=== PATIENT | female | born 1980 | race Caucasian/White ===

== ENCOUNTER 2018-04-06 07:54 | Emergency (ER) | payer MEDICAID, SELFPAY ==
[2018-04-06 07:55] VITALS: BP 94/52; PULSE 98; RESP 22; TEMP 36.7; O2SAT 95; BMI 37.2
--- NOTE | 2018-04-06 08:23 | ED.DCSUM_ITS ---
- ER Visit Summary Date of Service: 04/06/18 Chief Complaint: Cough, congestion, posttussive emesis and diarrhea. History of Present Illness: The patient is a 37 F past medical history of reflux and anxiety. Patient states that she gets this annually. Currently she is working at the [employer]. States the last 5 days she has had a nonproductive cough, nasal congestion, posttussive emesis and diarrhea. Subjectively she has had a fever. She denies shortness of breath. She denies abdominal pain. Physical Examination: Vital signs initial blood pressure is low at 94/52. Temperature 98.1 pulse ox is 95% on room air no signs of hypoxia. Clinically she does not look septic nor dehydrated. She is in no distress. HEENT exam nasal congestion. No purulent discharge. Moist mucous membranes. Posterior pharynx unremarkable. Neck nontender no lymphadenopathy no meningismus. Lungs clear to auscultation bilaterally. No rales, rhonchi or wheezing. Equal and symmetrical. Dry cough. Heart regular rhythm no murmur. Abdomen obese but soft nontender normal bowel sounds no peritoneal signs. She is moving all 4 extremities. Calves are nontender without edema. Back is nontender. Neurologically she is awake and alert with no focal motor deficits. Skin is unremarkable. Test Results: [] Emergency Department Course and Treatment: Patient be treated with a liter of normal saline and Zofran. Treatment Plan: [] Disposition: Discharge Impression: Acute viral URI This note was generated with [employer] dictation software. It may contain incorrect words, spelling, and punctuation that were not noted in review of the chart prior to signing ED Disposition - Plan for ED Patient: Chief Complaint: Shortness of Breath Referrals: Reyna Talavera DO [Primary Care Provider] -
--- NOTE | 2018-04-06 08:23 | ED.DEP ---
ED Disposition - Plan for ED Patient: Disposition: Home or Assisted Living Chief Complaint: Shortness of Breath Instructions: ED Viral Syndrome Prescriptions: Ondansetron [Zofran Odt] 4 mg PO Q2H PRN PRN #7 tab.rapdis PRN Reason: Nausea Referrals: Reyna Talavera DO [Primary Care Provider] - 1 Week if not improving Additional Instructions: Plenty of fluids and rest. Zofran as needed for nausea. Follow-up your doctor if not improving. Stop smoking !!
[2018-04-06] MEDS: 0.9% Normal Saline 1,000 ML 1000 ML IV (08:35)
[2018-04-06] MEDS: Ondansetron 4 MG/2 ML Vial IV (08:35)
[2018-04-06] MEDS: Acetaminophen 500 MG Tablet 1000 MG PO (10:13)
[2018-04-06 10:15] VITALS: BP 122/74; PULSE 87; RESP 18; O2SAT 96
--- NOTE | 2018-04-07 13:16 | CM.ED ---
ED CALLBACK: Follow-up call placed to patient. Patient states I'm definitely feeling a lot better. I just have to get over this cough. Patient states she did fill her prescription for zofran and denies nausea at this time. I instructed her to follow-up with PCP in one week if not improving. Patient states understanding and denies any needs or questions at this time.
== END 2018-04-06 10:18 | disposition home or self-care (01) ==
LOC: ED 08:38
PROVIDERS: Emergency Provider Emergency Medicine
DX: J06.9 Acute upper respiratory infection, unspecified (principal); R19.7 Diarrhea, unspecified; I95.9 Hypotension, unspecified; K21.9 Gastro-esophageal reflux disease without esophagitis; F41.9 Anxiety disorder, unspecified; Z72.0 Tobacco use; Z79.899 Other long term (current) drug therapy
CPT/HCPCS: 71046; 96361; 96374; 99284; J7030; J2405

== ENCOUNTER 2018-08-31 13:41 | Emergency (ER) | payer MEDICAID, SELFPAY ==
[2018-08-31 13:43] VITALS: BP 144/83; PULSE 89; RESP 20; TEMP 36.5; O2SAT 99; BMI 36.8
--- NOTE | 2018-08-31 14:00 | RAD_ITS ---
STUDY: X-RAY CHEST REASON FOR EXAM: Female, 38 years old. Cough. Shortness of breath and chest congestion. TECHNIQUE: Single PA view of the chest. COMPARISON: Comparison is made with prior study dated April 06, 2018. FINDINGS: The lungs are clear and expanded. There is no demonstrated pleural abnormality. Normal size heart. Normal mediastinum and tanja. Normal visualized pulmonary arteries. Normal visualized aortic arch and descending thoracic aorta. Normal visualized thoracic spine. Normal visualized ribs, clavicles, and shoulders. There is no demonstrated abnormality of the visualized soft tissue structures of the upper abdomen. RAD/Chest 1 View (Portable) IMPRESSION: Normal x-ray examination of the chest. Electronically Signed: Michael Jefferson MD at 14:15 EST , Service support ,
--- NOTE | 2018-08-31 15:40 | ED.VISSUMM ---
- ER Visit Summary Date of Service: 08/31/18 Chief Complaint: Cough History of Present Illness: The patient is a 38 F who sees Reyna Clemente. She reports that she has a cough began 4-5 days ago. It is nonproductive. She had subjective fever and chills. She reports that she has had mild shortness of breath and has been wheezing. She does not have an inhaler that she is she reports that she has had multiple episodes of posttussive emesis. She denies any abdominal pain. No nausea otherwise. Physical Examination: Vitals: Stable. Afebrile. General: Well-nourished and well-developed. Head: Normocephalic atraumatic. Neck: Supple, no lymphadenopathy. No JVD. Nontender. Cardiovascular: Regular rate and rhythm. No murmurs. Respiratory: No respiratory distress. Clear to auscultation bilaterally. Abdominal: Soft, nontender, nondistended, normal bowel sounds. No guarding, rebound, or peritoneal signs. Back: Nontender. Extremities: Nontender, no edema. Skin: Normal color, no rash. Neurologic: Alert and oriented ?3. Cranial nerves II through XII are intact. Normal strength and sensation. Psych: Normal affect. Test Results: Chest x-ray shows no acute disease. Emergency Department Course and Treatment: Patient is not wheezing at this time. She is resting comfortably. Treatment Plan: She will be discharged with an albuterol MDI. Instructed to follow-up her primary care physician in 1-2 days if not improving. Return to the emergency department for any worsening symptoms. Disposition: Return to the emergency department for any worsening symptoms. Impression: 1. URI. This note was generated with [employer] dictation software. It may contain incorrect words, spelling, and punctuation that were not noted in review of the chart prior to signing ED Disposition - Plan for ED Patient: Disposition: Home or Assisted Living Instructions: ED Upper Resp Infec No Abx Tx Prescriptions: Albuterol Inhaler [Ventolin Hfa] 2 puff INHALATION Q4H PRN PRN #1 inhaler PRN Reason: Wheezing Referrals: Reyna Talavera, [Primary Care Provider] - 1 Week if not improving
[2018-08-31 15:55] VITALS: RESP 18; O2SAT 98
== END 2018-08-31 15:57 | disposition home or self-care (01) ==
LOC: ED 15:56
PROVIDERS: Emergency Provider Emergency Medicine
DX: J06.9 Acute upper respiratory infection, unspecified (principal); R19.7 Diarrhea, unspecified; F41.9 Anxiety disorder, unspecified; Z72.0 Tobacco use
CPT/HCPCS: 71045; 94760; 99282

== ENCOUNTER 2019-07-14 16:46 | Emergency (ER) | payer MEDICAID, SELFPAY ==
[2019-07-14 16:47] VITALS: BP 120/78; PULSE 76; RESP 15; TEMP 36.7; O2SAT 99; BMI 35.9
--- NOTE | 2019-07-14 16:57 | ED.VIS.GEN ---
History of Present Illness Chief Complaint: Cough Informant: Patient Onset: Days - Onset 3 days ago Context: Sudden Onset Timing: Continuous Quality: Cough, wheezing, change in voice Location: Upper respiratory Current Severity: Mild Maximum Severity: Severe Worsened by: Coughing and walking Relieved by: Nothing Associated Symptoms: Rhinorrhea, congestion and postnasal drainage Narrative: Patient is a 38-year-old woman on no medication and has no past medical history. She is smoker 1 pack/day. She presents with nonproductive cough, change in voice, rhinorrhea, congestion and postnasal drainage. She denies ocular, visual or auditory symptoms. She denies chest discomfort. She does report shortness of breath. She denies leg pain, swelling discoloration. She denies GI symptoms. Prior similar symptoms: No - Past Medical History (1) GERD (gastroesophageal reflux disease) Status: Chronic (2) Nicotine dependence Status: Chronic Past Medical History - Allergies and Home Meds Allergies/Adverse Reactions: Allergies diphenhydramine HCl [From Benadryl] Allergy (Verified 07/14/19 16:51) swelling all over tramadol Allergy (Verified 07/14/19 16:51) Itching Primary Care Physician: Reyna Talavera DO [Primary Care Provider] - Prior records reviewed: Yes Surgical History: - - tubal ligation Lives: Spouse/ Significant Other Smoking Status: Current every day smoker Alcohol: Rare Drugs: None - Family History Maternal Family History: Reports: No pertinent history Paternal Family History: Reports: No pertinent history Review of Systems General: Denies: Chills, Fever, Malaise, Subjective, Sweats, Weight loss, - Eyes: Denies: Visual changes - bilaterally, Blurred Vision - bilaterally ENT: Reports: Rhinorrhea, Sore throat. Denies: Bilateral ear pain, Left ear pain, Right ear pain Cardiovascular: Denies: Chest pain, Palpitations, Heart racing Respiratory: Reports: Dyspnea, Cough, Dyspnea on exertion. Denies: Sputum, Orthopnea, Paroxysmal nocturnal dyspnea Gastrointestinal: Denies: Abdominal pain, Nausea, Vomiting, Diarrhea, Melena, Hematochezia Genitourinary: Denies: Dysuria, Hematuria, Frequency Musculoskeletal: Denies: Myalgias, Arthralgias, Neck pain, Back pain, Swelling, Extremity Pain, -, - Skin: Denies: Rash, Wounds Neurological: Denies: Headache, Weakness, Numbness Allergy: Denies: Uticaria, Swelling of the mouth Physical Exam Vital Signs/Narrative: Vital Signs Temp Pulse Resp BP Pulse Ox 07/14/19 16:47 98.0 F 76 15 120/78 99 Inital Vital Signs reviewed: Yes General: Well nourished, Well developed, No Acute Distress Head: Normocephalic, Atraumatic Eyes: Perrl, EOMI. Negative for: Pale conjunctiva, Scleral icterus ENT: Moist mucous membranes, TM's clear, Nasal congestion Neck: Supple, Nontender, No lymphadenopathy, No JVD, - - Trachea is midline. There is no inspiratory or expiratory stridor. Cardiovascular: Regular rate, Regular rhythm, No murmurs, Normal S1, Normal S2 Respiratory: No distress, Chest nontender, Wheezing - There is increased expiratory phase and wheezing noted throughout Abdomen: Soft, Nontender, Nondistended, Normal bowel sounds Extremities: Nontender, No edema Skin: Normal color, No rash Neurological: Alert, Oriented x3, Cranial nerves II-XII grossly intact, Normal Strength, Normal Sensation, Normal Gait Psychological: Normal affect, Normal Mood Diagnostic/Tx/Re-eval - Medical Decision Making Symptoms are consistent with a viral upper respiratory infection/trach colitis. Since she is wheezing she was treated with prednisone 60 mg p.o., DuoNeb and albuterol aerosol treatment. Since she is not febrile, tachycardic tachypneic x-ray was not obtained. Patient was reassessed at 1800. She has slight wheeze with forced expiration only. She has improved. Patient was informed that she is a smoker she may have a cough up to 4 weeks and may be ill for another 10+ days. ED Disposition - Plan for ED Patient: Disposition: Home or Assisted Living Diagnosis: Acute bronchitis with bronchospasm Instructions: BRONCHITIS with Wheezing (Adult) Prescriptions: predniSONE tablet 60 mg PO DAILY #15 tab Prescription Printed Albuterol Inhaler [Ventolin Hfa] 2 puff INHALATION Q4H PRN PRN #1 inhaler PRN Reason: Wheezing Prescription Printed Referrals: Reyna Talavera DO [Primary Care Provider] - 1 Week if not improving
[2019-07-14] MEDS: Ipratropium/Albuterol Sulfate 3 ML AMPUL.NEB INHALATION (17:07)
[2019-07-14 17:08] VITALS: PULSE 76; RESP 18
[2019-07-14] MEDS: predniSONE 20 MG Tablet 60 MG PO (17:22)
[2019-07-14] MEDS: Albuterol 2.5 MG/3 ML VIAL.NEB. INHALATION ×2 (17:27→17:36)
[2019-07-14 17:30] VITALS: RESP 20; O2SAT 100
[2019-07-14 18:18] VITALS: BP 135/77; PULSE 86; RESP 15; O2SAT 97
== END 2019-07-14 18:19 | disposition home or self-care (01) ==
PROVIDERS: Emergency Provider Emergency Medicine
DX: J20.9 Acute bronchitis, unspecified (principal); K21.9 Gastro-esophageal reflux disease without esophagitis; F17.200 Nicotine dependence, unspecified, uncomplicated
CPT/HCPCS: 94640; 99251; 99283; G0463

== ENCOUNTER 2020-03-10 14:52 | Emergency (ER) | payer MEDICAID, SELFPAY ==
[2020-03-10 14:53] VITALS: BP 149/97; PULSE 75; RESP 17; TEMP 36.7; O2SAT 99; BMI 34.4
--- NOTE | 2020-03-10 15:03 | ED.VIS.GEN ---
History of Present Illness Informant: Patient Onset: Days - 4 days Context: Gradual Onset Timing: Continuous Quality: Sharp Location: Entire head Current Severity: Severe Maximum Severity: Severe Worsened by: Nothing Relieved by: Nothing Associated Symptoms: Photophobia and nausea Narrative: 39-year-old female history of migraine headaches presents to the emergency department with a headache. Started 4 days ago. Is constant. It is diffuse and sharp. She states it feels similar to her previous migraine headaches. It is gradually worsened. Is not the worst headache of her life. No head trauma. She complains of associated nausea and photophobia. No neck pain. She is not lightheaded or dizzy. No fevers. No numbness tingling or weakness. No difficulty with speech or ambulation. She is not on blood thinners. No fevers or upper respiratory symptoms. No neck pain. No rash. Prior similar symptoms: Yes Recent Illness/Hospitalization: No <Gal Alegria - Last Filed: 03/10/20 15:03> <Krish Monge - Last Filed: 03/10/20 16:31> Chief Complaint: Headache Past Medical History Prior records reviewed: Yes Past Medical History: - - Migraine headaches years Surgical History: - - tubal ligation Lives: With Family Smoking Status: Current every day smoker Alcohol: Occasional Drugs: None - Family History Maternal Family History: Reports: No pertinent history Paternal Family History: Reports: No pertinent history <aGl Alegria - Last Filed: 03/10/20 15:03> <Krish Monge - Last Filed: 03/10/20 16:31> - Allergies and Home Meds Allergies/Adverse Reactions: Allergies diphenhydramine HCl [From Benadryl] Allergy (Verified 03/10/20 14:53) swelling all over tramadol Allergy (Verified 03/10/20 14:53) Itching Primary Care Physician: eRyna Talavera DO [Primary Care Provider] - Review of Systems All systems negative except as indicated General: Denies: Chills, Fever, Sweats Eyes: Denies: Visual changes - bilaterally, Blurred Vision - bilaterally, Diplopia ENT: Denies: Rhinorrhea, Sore throat Cardiovascular: Denies: Chest pain, Palpitations Respiratory: Denies: Dyspnea, Cough, Dyspnea on exertion Gastrointestinal: Denies: Abdominal pain, Nausea, Vomiting, Diarrhea, Melena, Hematochezia Genitourinary: Denies: Dysuria, Hematuria, Frequency Musculoskeletal: Denies: Neck pain, Back pain, Extremity Pain Skin: Denies: Rash, Abscess, Abrasions, Wounds Neurological: Reports: Headache. Denies: Weakness, Parasthesia, Numbness <Gal Alegria - Last Filed: 03/10/20 15:03> Physical Exam Vital Signs/Narrative: Vital Signs Temp Pulse Resp BP Pulse Ox 03/10/20 14:53 98.1 F 75 17 149/97 H 99 Inital Vital Signs reviewed: Yes General: Well nourished, Well developed, No Acute Distress Head: Normocephalic, Atraumatic Eyes: Perrl, EOMI ENT: Moist mucous membranes, No rhinorrhea Neck: Supple, Nontender Cardiovascular: Regular rate, Regular rhythm, No murmurs Respiratory: No distress, CTA bilaterally, Chest nontender Abdomen: Soft, Nontender, Nondistended, Normal bowel sounds Back: Nontender, Normal Inspection Extremities: Nontender, No edema Skin: Normal color, No rash Neurological: Alert, Oriented x3, Cranial nerves II-XII grossly intact, Normal Strength, Normal Sensation, Normal Gait Psychological: Normal affect, Normal Mood <Gal Alegria - Last Filed: 03/10/20 15:03> Vital Signs/Narrative: Vital Signs Temp Pulse Resp BP Pulse Ox 03/10/20 14:53 98.1 F 75 17 149/97 H 99 <Krish Monge - Last Filed: 03/10/20 16:31> Diagnostic/Tx/Re-eval - Medical Decision Making Seen and evaluated independently and in conjunction with physician perioperative assistant. Agree with notes above unless documented otherwise. After Toradol and Reglan with IV fluids, patient headache is completely gone she feels much better. Neurologic exam: Normal motor and sensory, normal cranial nerves II-XII <Krish Monge - Last Filed: 03/10/20 16:31> ED Disposition <Gal Alegria - Last Filed: 03/10/20 15:03> <Krish Monge - Last Filed: 03/10/20 16:31> - Plan for ED Patient: Disposition: Home or Assisted Living Diagnosis: Migraine headache Instructions: ED, Migraine (Classical) Referrals: Reyna Talavera, [Primary Care Provider] - As Needed
[2020-03-10] MEDS: 0.9% Normal Saline 1,000 ML 999 ML IV (15:22)
[2020-03-10] MEDS: Ketorolac 30 MG/ML Syringe IV (15:23)
[2020-03-10] MEDS: Metoclopramide 10 MG/2 ML Vial IV (15:23)
== END 2020-03-10 17:00 | disposition home or self-care (01) ==
PROVIDERS: Emergency Provider Physician Assistant Medical
DX: G43.909 Migraine, unspecified, not intractable, without status migrainosus (principal); F17.200 Nicotine dependence, unspecified, uncomplicated; Z79.899 Other long term (current) drug therapy
CPT/HCPCS: 96361; 96374; 96375; 99283; J7030; A4216

== ENCOUNTER 2021-05-28 08:22 | Emergency (ER) | payer MEDICAID, SELFPAY ==
[2021-05-28 08:23] VITALS: BP 131/89; PULSE 94; RESP 8; TEMP 35.7; O2SAT 100; BMI 34.8
--- NOTE | 2021-05-28 08:56 | EX.ED.UPPERE ---
HPI History of Present Illness Chief Complaint: Upper Extremity Injury Detail of Chief Complaint: Right posterior shoulder atraumatic pain. Informant: patient Occured/Mechanism Mechanism/Context: No injury, No blunt trauma and Yes unknown Onset/Context/Timing Onset: Days Context: Gradual Onset Timing: Continuous Quality of Pain: Sharp and Aching Current Severity: Mild Maximum Severity: Moderate Associated Symptoms Associated Symptoms: Negative for Parasthesia, Weakness and Loss of Funtion Narrative Narrative: 40-year-old female works at [employer]. States several days ago she woke up with stiffness in her upper extremities and shoulders. She cannot work today with movement. But now is having increased pain in her posterior right shoulder worse with movement. No fever or chills. No trauma. No history of any type of surgery to her right upper extremity. Prior similar symptoms: No Recent Illness/Hospitalization: No PFSH PFSH Medical History Absence seizure disorder Anxiety Home Medications escitalopram oxalate 20 mg PO DAILY 06/16/16 [History Last Taken Unknown] albuterol sulfate [Ventolin HFA] 2 puff INHALATION Q4H PRN PRN #1 inhaler 08/31/18 [Rx Last Taken Unknown] pantoprazole 20 mg PO DAILY 08/31/18 [History Last Taken Unknown] albuterol sulfate 2 puff INHALATION Q4H PRN PRN #1 inhaler 07/14/19 [Rx Last Taken Unknown] prednisone 60 mg PO DAILY #15 tab 07/14/19 [Rx Last Taken Unknown] metaxalone [Skelaxin] 800 mg PO TID 7 Days #21 tab 05/28/21 [Rx Last Taken Unknown] Allergy/AdvReac Type Severity Reaction Status Date / Time diphenhydramine HCl Allergy swelling Verified 03/10/20 14:53 [From Benadryl] all over tramadol Allergy Itching Verified 03/10/20 14:53 Social History Smoking Status: Current every day smoker tobacco type: cigarettes ROS ROS ED ROS Narrative Muscle aches. Stiffness. Review of Systems ROS Unobtainable: Denies due to encephalopathy Constitutional Constitutional ED: Denies fever(s) Eyes Eyes: Denies change in vision ENT ENT ED: Denies ear pain or rhinorrhea Cardiovascular Cardiovascular: Denies chest pain Respiratory/Chest Respiratory/Chest: Denies cough or dyspnea Gastrointestinal Gastrointestinal: Denies abdominal pain, diarrhea, nausea or vomiting Genitourinary Genitourinary ED: Denies dysuria Musculoskeletal Musculoskeletal: Reports back pain and myalgias Integumentary Denies rash Neurologic Neurologic: Denies headache(s) Psychiatric Psychiatric: Denies depression Endocrine Endocrinology: Denies polyuria Hematologic/Lymphatic Hematologic/Lymphatic: Denies easy bruising Allergic/Immunologic Allergic/Immunologic ED: Denies urticaria EXAM Physical Exam Narrative Exam Narrative: 40-year-old female no acute distress vital signs stable afebrile. HEENT exam normal moist with membranes. Neck nontender no lymphadenopathy. Lungs clear to auscultation. Heart regular rhythm. Abdomen soft nontender. Obese. Moving all 4 extremities. Neurovascular intact. Back exam spine is nontender she has obvious muscle spasm exquisite tenderness to her right posterior shoulder between the shoulder blade and the spine. Left side of her back and lower back nontender. Neurologically she is awake and alert. Const Vital Signs: 05/28/21 08:23 Temperature 96.3 F L Temperature Source Temporal Pulse Rate 94 Respiratory Rate 8 L Blood Pressure 131/89 H Blood Pressure Mean 103 Pulse Ox 100 Oxygen Delivery Method Room Air Positive well nourished, well developed and obese; Negative for cachectic, contractures or unkempt General Appearance ED: well developed and NAD; Negative for unkempt, cachectic, contractures, cyanotic or diaphoretic Nutritional Appearance: obese; Negative for cachectic HEENT Reports moist mucous membranes normocephalic and atraumatic Eyes PERRL and EOMs intact bilaterally Neck full ROM and supple General: Negative for tenderness Chest Wall inspection of chest normal and palpation of chest normal Resp normal respiratory effort and clear to auscultation bilaterally Effort and Inspection: Negative for pain with movement Auscultation: Negative for rales, rhonchi or wheezes Cardio regular rate, regular rhythm, S1 normal heart sound, S2 normal heart sound and no murmurs GI non-tender and non-distended Auscultation: normoactive bowel sounds Palpation: soft; Negative for tender or guarding Back/Spine no CVA tenderness Back/Spine Narrative: Tenderness to the soft tissues of her right upper back consistent with muscle spasm. Extremity normal to inspection and full ROM General Extremety ED: Negative for edema or other findings General Extremity: Negative for edema or other findings Neuro oriented x3, CN's II-XII intact bilaterally, moves all extremities and no focal motor deficits Sensorium / Orientation: alert, oriented to person, oriented to place and oriented to time; Negative for orientation impaired, lethargic or stuporous Motor Exam: strength 5/5 throughout Psych mental status grossly normal Appearance: Negative for unkempt Mood & Affect: Negative for depressed or tearful Skin General Skin Exam: Negative for petechiae Lesions: no lesions Rashes: no rashes Trauma: no lacerations or abrasions; Negative for abrasion, laceration or puncture MDM MDM MDM Narrative Medical decision making narrative: 40-year-old female right posterior musculoskeletal shoulder pain for muscle spasm. Will be given 1 p.o. Valium here. She took off work today. She has a ride home. She will be placed on Skelaxin and continue use of Naprosyn at home. Discharge Plan Triage Chief Complaint: Upper Extremity Injury ED Provider: Riaz Logan Dx/Rx/DC Orders Clinical Impression: Muscle spasm Instructions: ED Back Spasm, No Trauma Prescriptions: New metaxalone [Skelaxin] 800 mg tablet 800 mg PO TID 7 Days Qty: 21 RF: 0 No Action escitalopram oxalate 10 MG tablet 20 mg PO DAILY RF: 0 pantoprazole 20 MG tablet 20 mg PO DAILY RF: 0 albuterol sulfate [Ventolin HFA] 1 INHALER inhaler 2 puff inhalation Q4H PRN PRN (Reason: Wheezing) Qty: 1 RF: 0 prednisone 20 MG tablet 60 mg PO DAILY Qty: 15 RF: 0 albuterol sulfate 1 INHALER inhaler 2 puff inhalation Q4H PRN PRN (Reason: Wheezing) Qty: 1 RF: 0 Primary Care Provider: Reyna Talavera Referrals: Reyna Talavera, [Primary Care Provider] - 1 Week if not improving Activity Restrictions/Additional Instructions: Pain is caused by muscle spasm. Hot shower and massage to your upper back. Take naproxen or Motrin for pain and inflammation. Skelaxin as a muscle relaxant. You were given Valium in the emergency department today. Do not drive for the next 10 hours. Patient progressively improved. Off work today. Disposition Disposition: Home, Self Care
[2021-05-28] MEDS: diazePAM 5 MG Tablet PO (09:08)
== END 2021-05-28 09:10 | disposition home or self-care (01) ==
PROVIDERS: Emergency Provider Emergency Medicine
DX: M62.838 Other muscle spasm (principal); G40.A09 Absence epileptic syndrome, not intractable, without status epilepticus; F41.9 Anxiety disorder, unspecified; E66.9 Obesity, unspecified; F17.210 Nicotine dependence, cigarettes, uncomplicated; Z79.52 Long term (current) use of systemic steroids; Z79.899 Other long term (current) drug therapy
CPT/HCPCS: 99283

== ENCOUNTER 2021-07-30 19:54 | Emergency (ER) | payer MEDICAID, SELFPAY ==
[2021-07-30 19:55] VITALS: BP 127/92; PULSE 84; RESP 16; TEMP 36.8; O2SAT 99; BMI 34.7
[2021-07-31 01:45] VITALS: PULSE 79; RESP 18; O2SAT 100
--- NOTE | 2021-07-31 02:13 | RAD_ITS ---
STUDY: X-RAY CHEST REASON FOR EXAM: Female, 40 years old. cough TECHNIQUE: Single AP portable view of the chest. COMPARISON: None. FINDINGS: The lungs are clear and expanded. There is no demonstrated pleural abnormality. Normal size heart. Normal mediastinum and tanja. Normal visualized pulmonary arteries. Normal visualized aortic arch and descending thoracic aorta. Normal visualized thoracic spine. Normal visualized ribs, clavicles, and shoulders. There is no demonstrated abnormality of the visualized soft tissue structures of the upper abdomen. RAD/Chest 1 View (Portable) IMPRESSION: Normal x-ray examination of the chest. Electronically Signed: Lydia Flor MD at 3:15 EST Tel , Service support ,
[2021-07-31] MEDS: dexAMETHasone 4 MG Tablet 6 MG PO (02:55)
[2021-07-31] MEDS: oxyCODONE 5 MG Tablet 10 MG PO (02:55)
--- NOTE | 2021-07-31 03:34 | EDS_ITS ---
HPI History of Present Illness Chief Complaint: General Illness Narrative Narrative: Patient is a 40-year-old female who states that over the past 4 to 5 days she has been having generalized fatigue congestion sore throat cough and headache. She states that she had Covid about 1 year ago and this feels similar nature. She states she informed her work that she was not feeling well and they requested that she have it a negative Covid test prior to returning to work. Therefore at this time as patient has concerned she may have repeat Covid infection comes in for evaluation [facility] Medical History Absence seizure disorder Anxiety Home Medications escitalopram oxalate 20 mg PO DAILY 06/16/16 [History Last Taken Unknown] albuterol sulfate [Ventolin HFA] 2 puff INHALATION Q4H PRN PRN #1 inhaler 08/31/18 [Rx Last Taken Unknown] pantoprazole 20 mg PO DAILY 08/31/18 [History Last Taken Unknown] albuterol sulfate 2 puff INHALATION Q4H PRN PRN #1 inhaler 07/14/19 [Rx Last Taken Unknown] prednisone 60 mg PO DAILY #15 tab 07/14/19 [Rx Last Taken Unknown] metaxalone [Skelaxin] 800 mg PO TID 7 Days #21 tab 05/28/21 [Rx Last Taken Unknown] dexamethasone [Decadron] 6 mg PO DAILY 10 Days #10 tab 07/31/21 [Rx Last Taken Unknown] promethazine-codeine 5 ml PO Q6H PRN 7 Days #140 ml 07/31/21 [Rx Last Taken Unknown] promethazine-codeine 5 ml PO Q6H PRN 7 Days #140 ml 07/31/21 [Rx Last Taken Unknown] Allergy/AdvReac Type Severity Reaction Status Date / Time diphenhydramine HCl Allergy swelling Verified 03/10/20 14:53 [From Benadryl] all over tramadol Allergy Itching Verified 03/10/20 14:53 Social History Smoking Status: Current every day smoker tobacco type: cigarettes ROS ROS ED Constitutional Constitutional ED: Reports chills, fever(s) and subjective ENT ENT ED: Reports rhinorrhea and sore throat Cardiovascular Cardiovascular: Denies chest pain Respiratory/Chest Respiratory/Chest: Reports cough; Denies dyspnea Gastrointestinal Gastrointestinal: Reports nausea; Denies abdominal pain, diarrhea or vomiting Genitourinary Genitourinary ED: Denies dysuria Musculoskeletal Musculoskeletal: Reports myalgias Integumentary Denies rash Neurologic Neurologic: Reports headache(s) Hematologic/Lymphatic Hematologic/Lymphatic: Denies easy bleeding or easy bruising EXAM Physical Exam Const Vital Signs: 07/30/21 19:55 07/31/21 01:45 Temperature 98.3 F Temperature Source Temporal Pulse Rate 84 79 Respiratory Rate 16 18 Respiratory Pattern Normal Blood Pressure 127/92 H Blood Pressure Mean 103 Pulse Ox 99 100 Oxygen Delivery Method Room Air Room Air Positive well nourished and well developed General Appearance ED: well developed HEENT Reports moist mucous membranes HEENT Narrative: There is cobblestoning the posterior pharynx consistent with sinus drainage but no airway edema or compromise Eyes PERRL and EOMs intact bilaterally Neck supple Neck Narrative: Positive anterior cervical lymphadenopathy Resp normal respiratory effort and clear to auscultation bilaterally Cardio regular rate and regular rhythm GI normal to inspection, nondistended, normoactive bowel sounds, non-tender, non- distended and no masses Auscultation: normoactive bowel sounds Palpation: soft Extremity normal to inspection Neuro oriented x3 and CN's II-XII intact bilaterally Sensorium / Orientation: alert Motor Exam: strength 5/5 throughout Psych mental status grossly normal Skin no rashes or lesions noted MDM MDM MDM Narrative Medical decision making narrative: Patient presented to the ER in no acute distress satting in the high 90s on room air. Her constellation of symptoms is most consistent with Covid infection. A rapid Covid swab was obtained as well as chest x-ray. The x-ray revealed no acute infiltrate and Covid test is positive consistent with her symptoms. However at this time as she is not hypoxic there is no need for admission and patient can be discharged home with symptomatic care Radiography Diagnostic Testing: Clinical Impression(s) from Imaging Studies Chest X-Ray 07/31/21 02:13 IMPRESSION: Normal x-ray examination of the chest. Electronically Signed: Lydia Flor MD at 3:15 EST Tel , Service support , Discharge Plan Triage Chief Complaint: General Illness ED Provider: Andes,Colby Dx/Rx/DC Orders Clinical Impression: COVID-19 Instructions: Coronavirus Disease 2019 (COVID-19): Caring for Yourself or O thers Prescriptions: New dexamethasone [Decadron] 6 mg tablet 6 mg PO DAILY 10 Days Qty: 10 RF: 0 promethazine-codeine 6.25-10 mg/5 mL syrup 5 ml PO Q6H PRN (Reason: cough) 7 Days Qty: 140 RF: 0 promethazine-codeine 6.25-10 mg/5 mL syrup 5 ml PO Q6H PRN (Reason: cough) 7 Days Qty: 140 RF: 0 No Action escitalopram oxalate 10 MG tablet 20 mg PO DAILY RF: 0 pantoprazole 20 MG tablet 20 mg PO DAILY RF: 0 albuterol sulfate [Ventolin HFA] 1 INHALER inhaler 2 puff inhalation Q4H PRN PRN (Reason: Wheezing) Qty: 1 RF: 0 prednisone 20 MG tablet 60 mg PO DAILY Qty: 15 RF: 0 albuterol sulfate 1 INHALER inhaler 2 puff inhalation Q4H PRN PRN (Reason: Wheezing) Qty: 1 RF: 0 metaxalone [Skelaxin] 800 mg tablet 800 mg PO TID 7 Days Qty: 21 RF: 0 Primary Care Provider: Reyna Talavera Referrals: Reyna Talavera DO [Primary Care Provider] - Disposition Disposition: Home, Self Care Discharge Date/Time: 07/31/21 03:53
[2021-07-31 03:52] VITALS: RESP 16
== END 2021-07-31 03:53 | disposition home or self-care (01) ==
PROVIDERS: Emergency Provider Emergency Medicine; Visit Provider Emergency Medicine
DX: U07.1 COVID-19 (principal); F41.9 Anxiety disorder, unspecified; F17.210 Nicotine dependence, cigarettes, uncomplicated; Z79.52 Long term (current) use of systemic steroids; Z79.899 Other long term (current) drug therapy; Z86.16 Personal history of COVID-19
CPT/HCPCS: 71045; 87426; 99283

== ENCOUNTER 2023-12-01 06:34 | Emergency (ER) | payer MEDICAID, SELFPAY ==
[2023-12-01 06:36] VITALS: BP 140/91; PULSE 92; RESP 16; TEMP 36.5; O2SAT 99; BMI 33.9
--- NOTE | 2023-12-01 07:03 | RAD_ITS ---
STUDY: X-RAY - LEFT KNEE REASON FOR EXAM: Female, 43 years old. Pain. TECHNIQUE: 4 views of the left knee. COMPARISON: None. FINDINGS: Normal visualized distal femur. Normal visualized proximal tibia and fibula. Normal proximal tibiofibular articulation. There is no demonstrated fracture. There is minimal degenerative arthrosis of the medial femorotibial compartment. There is minimal degenerative arthrosis of the lateral femorotibial compartment. Normal patellofemoral articulation. The soft tissue structures are unremarkable. RAD/Knee 4 or More Views IMPRESSION: Minimal degenerative arthrosis of the medial and lateral femorotibial compartments. No demonstrated fracture. Electronically Signed: Yoseph Mercado MD at 8:31 EDT ,
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
[2023-12-01] MEDS: HYDROcodone Bitartrate/Apap 5/325 Tablet PO (07:43)
[2023-12-01 09:47] VITALS: BP 134/66; PULSE 72; RESP 15; TEMP 36.1; O2SAT 100
== END 2023-12-01 09:49 | disposition home or self-care (01) ==
PROVIDERS: Emergency Provider Student in an Organized Health Care Education/Training Program; Visit Provider Student in an Organized Health Care Education/Training Program
DX: S80.02XA Contusion of left knee, initial encounter (principal); W20.8XXA Other cause of strike by thrown, projected or falling object, initial encounter; F17.210 Nicotine dependence, cigarettes, uncomplicated; Z79.899 Other long term (current) drug therapy
CPT/HCPCS: 73560; 73564; 99283

== ENCOUNTER 2023-12-25 14:52 | Outpatient (RCR) | payer MEDICAID, SELFPAY ==
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
--- NOTE | 2024-02-25 09:01 | HP.PT.NRP ---
Patient Information Patient Information: GARRISON PRATT was seen in my office for initial evaluation on 12/25/23. The following Plan of Care was established for this patient: POC Established Initial Frequency: 2x /Week Initial Duration: 4 Weeks Anticipated Interventions Patient/Client Instruction: Educate patient on: Benefits of Fitness Program For the Purpose of:: To improve muscle performance and motor function Therapeutic Exercise to Include: Strength training, Endurance training, Balance training, Coordination, Agility training, Body mechanics, Postural training, Flexibilty training, Gait and locomotor training, Neuromotor development, Dynamic Lumbar Stabilization and Scapular Strength/Stabilization For the Purpose of:: To improve muscle performance and motor function TENS: Yes Cryotherapy (ice pack, ice massage): Yes Thermo therapy (hot pack): Yes Ultrasound (thermal/non thermal): Yes Last Seen Last Seen: This patient was last seen in our office . Pertinent comments regarding their Physical therapy will appear below: Patient has not attended since initial evaluation- appropriate to be d/c at this time At this point I will be discontinuing this patient from physical therapy. I would be happy to see this patient again in the future if found appropriate by the physician. Thank you! MARCELLA ZamanT
== END 2023-12-25 19:00 | disposition home or self-care (01) ==
LOC: PT 14:52
PROVIDERS: Referring Provider Orthopaedic Surgery Sports Medicine; Visit Provider Orthopaedic Surgery Sports Medicine
DX: M25.562 Pain in left knee (principal)
CPT/HCPCS: 97162

== ENCOUNTER → 2023-12-31 | Outpatient (CLI) | payer MEDICAID, SELFPAY ==
--- NOTE | 2023-12-31 13:29 | NEURO_ITS ---
NCS and/or EMG Patient Report Ordering Doctor: William Correia DATE OF SERVICE: 12/31/23 Kath presents for electrodiagnostic testing of the upper limbs. She reports numbness and tingling in both hands and frequently drops objects. Electrodiagnostic findings: Median motor nerve demonstrates normal distal laten cy, amplitude and conduction velocity bilaterally. Ulnar motor responses within normal limits, including conduction across the elbow. Normal median and ulnar F?waves. Sensory responses are within normal limits bilaterally. Needle EMG testing was performed in the upper limbs. All muscles tested showed no evidence of denervation with normal motor unit action potentials. Electrodiagnostic assessment: This is a normal electrodiagnostic study of the upper limbs. There is no electrodiagnostic evidence for peripheral neuropathy, including carpal tunnel syndrome. There is no electrodiagnostic evidence for cervical radiculopathy. Multi Select Codes Neurology Neurology Interp Codes: 08343-01 Musc test done w/n test comp (interp) and 76188-37 Nrv cndj test 13/> studies (interp)
== END | disposition home or self-care (01) ==
LOC: PSN 12:21
PROVIDERS: Referring Provider Orthopaedic Surgery Sports Medicine; Visit Provider Orthopaedic Surgery Sports Medicine
DX: G56.03 Carpal tunnel syndrome, bilateral upper limbs (principal)
CPT/HCPCS: 95886; 95913

== ENCOUNTER 2024-09-16 11:48 | Emergency (ER) | payer MEDICAID, SELFPAY ==
[2024-09-16 11:48] VITALS: BP 138/80; PULSE 81; RESP 14; TEMP 37.2; O2SAT 99
[2024-09-16 13:19] VITALS: O2SAT 96
--- NOTE | 2024-09-16 14:09 | EDS_ITS ---
HPI HPI - URI History of Present Illness Chief Complaint: Cough Informant: patient Onset/Context/Timing Onset: Days Context: Gradual Onset Timing: Continuous Current Severity: Moderate Maximum Severity: Moderate Associated Symptoms Associated Symptoms: Positive for Nasal Congestion, Nausea, Vomiting, Diarrhea and Productive Cough (White.) Narrative Narrative: 44-year-old female no seen past medical history of anxiety. States she has had a 4-day history of nausea vomiting diarrhea and a cough of white sputum. 7-year-old home with similar. Denies any abdominal pain. No dysuria. Body aches. Fever and chills. Prior similar symptoms: Yes Recent Illness/Hospitalization: No ROS ROS ED ROS Narrative Cough. White sputum. Nausea vomiting diarrhea. Fever and chills. Constitutional Constitutional ED: Reports chills and fever(s) Eyes Eyes: Denies blurry vision ENT ENT ED: Denies ear pain Cardiovascular Cardiovascular: Denies chest pain Respiratory/Chest Respiratory/Chest: Reports sputum; Denies cough Gastrointestinal Gastrointestinal: Reports diarrhea, nausea and vomiting; Denies abdominal pain, constipation or melena Genitourinary Genitourinary ED: Denies dysuria or hematuria Musculoskeletal Musculoskeletal: Denies arthralgias or back pain Integumentary Denies abscess Neurologic Neurologic: Denies headache(s) Psychiatric Psychiatric: Reports anxiety; Denies depression Endocrine Endocrinology: Denies cold intolerance Hematologic/Lymphatic Hematologic/Lymphatic: Denies easy bleeding, easy bruising or lymphadenopathy Allergic/Immunologic Allergic/Immunologic ED: Denies mouth swelling, tongue swelling or urticaria PFSH [facility] Medical History Bilateral carpal tunnel syndrome Left knee pain Absence seizure disorder Anxiety Home Medications ?Medication ?Instructions ?Recorded ?Last Taken ?Type escitalopram oxalate 10 mg tablet 20 mg PO DAILY 06/16 Unknown History albuterol sulfate 90 mcg/actuation 2 puff inhalation Q 4H PRN PRN 08/31/18 Unknown Rx aerosol inhaler (Ventolin HFA) Wheezing ##1 albuterol sulfate 90 mcg/actuation 2 puff inhalation Q 4H PRN PRN 07/14/19 Unknown Rx aerosol inhaler Wheezing ##1 dexamethasone 6 mg tablet 6 mg PO DAILY 10 days #10 ta bs 07/31/21 Unknown Rx (Decadron) pantoprazole 20 mg tablet,delayed 20 mg PO DAILY PRN 0 12/16/23 Unknown History release ondansetron 4 mg disintegrating 4 mg PO Q6H PRN nausea and 09/16/24 Unknown Rx tablet vomiting #10 tabs Allergy/AdvReac Type Severity Reaction Status Date / Time diphenhydramine HCl (From Allergy swelling Verified 09/16/24 11:49 Benadryl) all over tramadol Allergy Itching Verified 09/16/24 11:49 Family History Mother Hypertension Myocardial infarction Grandfather Hypertension Grandmother Hypertension Heart disease triple bypass Surgical History Hx of tubal ligation Social History household members: spouse, family and children Smoking Status: Current every day smoker tobacco type: cigarettes alcohol intake: never EXAM Physical Exam Narrative Exam Narrative: 44-year-old female sitting upright in a hallway chair due to high volume in the emergency department. Vital signs are stable afebrile. Pulse ox 9 9% on room air no signs hypoxia. Patient does not look septic or toxic. H EENT exam pupils round react light. Dry mucous membranes. Neck nontender no lymphadenopathy. Back nontender. Lungs clear to auscultation bilaterally. No rales nor rhonchi no wheezing. Dry cough. Heart regular rhythm rate about 80 no murmur. Abdomen soft, nontender, nondistended, normal bowel sounds without peritoneal signs. Patient moving all 4 extremities. Nontender no edema. Normal strength. Awake and alert no focal motor deficits Const Vital Signs: 09/16/24 11:48 09/16/24 13:19 Temperature 99 F Temperature Source Temporal Pulse Rate 81 Respiratory Rate 14 Respiratory Effort Normal Non-Labored Respiratory Depth Normal Respiratory Pattern Normal Blood Pressure 138/80 H Blood Pressure Mean 99 Pulse Ox 99 Oxygen Delivery Method Room Air Room Air Positive well nourished and well developed; Negative for cachectic or contrac tures General Appearance ED: well developed and NAD; Negative for cachectic, contractures, cyanotic, diaphoretic or pallor Nutritional Appearance: Negative for cachectic HEENT Reports dry mucous membranes normocephalic and atraumatic Mouth ED: Yes dry mucous membranes Mouth: dry mucous membranes Throat: posterior oropharynx normal Eyes PERRL and EOMs intact bilaterally General Eye ED: Negative for pale conjunctiva or scleral icterus Neck no lymphadenopathy, supple, no meningeal signs and no JVD General: Negative for anterior neck swelling or lymphadenopathy Resp normal respiratory effort and clear to auscultation bilaterally Effort and Inspection: Negative for retractions Auscultation: Negative for rales, rhonchi, wheezes or diminished lung sounds Cardio S1 normal heart sound, S2 normal heart sound and no murmurs Rate: regular rate Rhythm: regular rhythm GI non-tender, non-distended and no masses Inspection: Negative for abdominal distention Auscultation: normoactive bowel sounds Palpation: soft; Negative for tender or guarding Back/Spine no CVA tenderness and normal ROM General Back: Negative for CVA tenderness Cervical Spine: Negative for cervical spine tenderness Thoracic Spine / Upper Back: Negative for thoracic spinal tenderness Lumbar Spine / Lower Back: Negative for lumbar spinal tenderness Sacrum: Negative for tenderness Extremity normal to inspection and full ROM General Extremety ED: Negative for cyanosis or tenderness General Extremity: Negative for cyanosis Neuro oriented x3 and CN's II-XII intact bilaterally Sensorium / Orientation: alert, oriented to person, oriented to place and oriented to time; Negative for orientation impaired, lethargic or stuporous Motor Exam: strength 5/5 throughout Psych mental status grossly normal Appearance: Negative for other Attitude: No agitated Mood & Affect: Negative for depressed, anxious or tearful Skin General Skin Exam: Negative for jaundice or pallor Lesions: no lesions Rashes: no rashes Trauma: Negative for abrasion, laceration or puncture MDM MDM MDM Narrative Medical decision making narrative: 44-year-old URI symptoms flu a positive. Does not need any labs. Does not need a chest x-ray. Lungs are clear. She did request IV fluids including looks dehydrated. Should be given 4 Zofran IV. A liter normal saline. P.o. fluid challenge and discharged home with prescription for Zofran. Lab Data Attestation: I reviewed the patient's lab results. Lab results narrative: Flu a positive. COVID and RSV negative. Discharge Plan Triage Chief Complaint: Cough ED Provider: Riaz Logan Dx/Rx/DC Orders Clinical Impression: Influenza A, Acute dehydration, Vomiting, Diarrhea Instructions: ED Influenza (Adult), ED Vomiting (Adult) Prescriptions: New ondansetron 4 mg tablet,disintegrating 4 mg PO Q6H PRN (Reason: nausea and vomiting) Qty: 10 0RF No Action escitalopram oxalate 10 MG tablet 20 mg PO DAILY albuterol sulfate [Ventolin HFA] 1 INHALER inhaler 2 puff inhalation Q4H PRN PRN (Reason: Wheezing) Qty: 1 0RF pantoprazole 20 mg tablet,delayed release (DR/EC) 20 mg PO DAILY PRN albuterol sulfate 1 INHALER inhaler 2 puff inhalation Q4H PRN PRN (Reason: Wheezing) Qty: 1 0RF dexamethasone [Decadron] 6 mg tablet 6 mg PO DAILY 10 Days Qty: 10 0RF Primary Care Provider: Reyna Talavera Referrals: Reyna Talavera, [Primary Care Provider] - 3-5 Days if not improving Activity Restrictions/Additional Instructions: Zofran as needed for nausea. Imodium as needed for diarrhea Plenty of fluids and rest. Increase diet slowly as tolerated. Follow-up with your primary care provider as needed or return if feeling worse. Unable to keep fluids down. Print Language: Japanese Disposition Disposition: Home, Self Care
[2024-09-16] MEDS: Ondansetron 4 MG/2 ML Vial IV (14:28)
[2024-09-16] MEDS: Ketorolac 30 MG/ML Syringe IV (14:28)
[2024-09-16] MEDS: 0.9% Normal Saline (1000mL) 1,000 ML 1000 ML IV (14:28)
[2024-09-16 15:27] VITALS: BP 126/73; PULSE 84; RESP 14; TEMP 36.6; O2SAT 99
== END 2024-09-16 15:36 | disposition home or self-care (01) ==
PROVIDERS: Emergency Provider Emergency Medicine; Visit Provider Emergency Medicine
DX: J10.1 Influenza due to other identified influenza virus with other respiratory manifestations (principal); E86.0 Dehydration; F17.210 Nicotine dependence, cigarettes, uncomplicated
CPT/HCPCS: 87631; 96361; 96374; 96375; 99282; A4216; J2405

== ENCOUNTER → 2024-11-22 | Outpatient (CLI) | payer MEDICAID, SELFPAY ==
--- NOTE | 2024-11-22 14:55 | RAD_ITS ---
PROCEDURE: ANKLE MIN 3 VIEWS ([facility]), 11/22/2024 REASON FOR EXAM: PAIN TECHNIQUE: AP, lateral, and oblique views of the LEFT ankle were obtained. COMPARISON: None FINDINGS: Fracture/dislocation: No visible acute displaced fracture. Joint space(s): Preserved. Soft tissues: Unremarkable. Foreign bodies: None visible. Bone mineralization: Unremarkable. Other: None. RAD/Ankle min 3 Views IMPRESSION: No visible acute displaced fracture. Reading Location: [id number]
--- NOTE | 2024-11-22 14:55 | RAD_ITS ---
PROCEDURE: LUMBAR SPINE 2 OR 3 VIEWS ([facility]), 11/22/2024 REASON FOR EXAM: PAIN TECHNIQUE: AP and lateral views of the lumbar spine were obtained. COMPARISON: None FINDINGS: Fracture/dislocation: None visible. Vertebral body heights: Preserved. Alignment: Trace lumbar levoscoliosis may be positional Disc spaces: Preserved, however there are a few tiny marginal osteophytes. Facets: Grossly unremarkable. Soft tissues: Unremarkable. Foreign bodies: None visible. Bone mineralization: Grossly unremarkable. Other: None. RAD/Lumbar Spine 2 or 3 Views IMPRESSION: 1. No visible acute displaced fracture. If there is persistent concern, consid er CT. 2. Additional description as above. Reading Location: [id number]
== END | disposition home or self-care (01) ==
PROVIDERS: Referring Provider Physician Assistant; Visit Provider Physician Assistant
DX: M25.572 Pain in left ankle and joints of left foot (principal); M54.50 Low back pain, unspecified
CPT/HCPCS: 72100; 73610

== ENCOUNTER 2024-12-05 16:22 | Emergency (ER) | payer SELFPAY ==
[2024-12-05 16:22] VITALS: BP 100/74; PULSE 88; RESP 16; TEMP 36.8; O2SAT 100; BMI 38.9
--- NOTE | 2024-12-05 17:25 | RAD_ITS ---
PROCEDURE: LUMBAR SPINE 2 OR 3 VIEWS 12/05/2024 REASON FOR EXAM: ACUTE ON CHRONIC PAIN TECHNIQUE: 3 view(s) of the lumbar spine COMPARISON: 11/22/2024 FINDINGS: Lumbar lordosis is maintained. Vertebral body heights and disc spaces are within normal limits. Pedicles are intact. Osseous architecture is maintained. No acute fracture or traumatic subluxation. No significant spondylotic changes. SI joints and imaged hip joints are within normal limits. No suspicious lytic or blastic lesion. RAD/Lumbar Spine 2 or 3 Views IMPRESSION: No acute fracture or traumatic subluxation. Reading Location: [facility]
[2024-12-05] MEDS: oxyCODONE 5 MG Tablet PO (17:33)
[2024-12-05 19:00] VITALS: BP 129/87; PULSE 79; RESP 16; O2SAT 98
--- NOTE | 2024-12-05 23:01 | EDS_ITS ---
HPI History of Present Illness Chief Complaint: Back Informant: patient Onset/Context/Timing Onset: Yesterday Context: Onset with activity Chronic pain exacerbated by: reaching Timing: Continuous Location: Lumbar Worsened by: improves with Movement and Ambulation Associated Symptoms Associated Symptoms: Negative for Numbness, Tingling, Radiation to Right Leg, Radiation to Left Leg or Fever Narrative Narrative: Patient has a history of low back pain. She is not in pain management. Does not have any history of surgery. Not on blood thinners. No history of cancer or immunocompromise. No trauma. She was reaching for something yesterday and has been very painful in her left lower back since. Prior similar symptoms: Yes and With Prior Back Pain [facility] Medical History Lumbar strain Left ankle sprain Bilateral carpal tunnel syndrome Left knee pain Absence seizure disorder Anxiety Home Medications ?Medication ?Instructions ?Recorded ?Last Taken ?Type pantoprazole 20 mg tablet,delayed 20 mg PO DAILY PRN 0 12/16/23 Unknown History release cyclobenzaprine 10 mg tablet 10 mg PO TID PRN Muscle S pasm #20 12/05/24 Unknown Rx TABLETS oxycodone-acetaminophen 5 mg-325 1 tab PO Q8H PRN pain 3 days #10 12/05/24 Unknown Rx mg tablet (Percocet) tabs Allergy/AdvReac Type Severity Reaction Status Date / Time diphenhydramine HCl (From Allergy swelling Verified 12/05/24 16:23 Benadryl) all over tramadol Allergy Itching Verified 12/05/24 16:23 Family History Mother Hypertension Myocardial infarction Grandfather Hypertension Grandmother Hypertension Heart disease triple bypass Surgical History Hx of tubal ligation Social History household members: spouse, family and children Smoking Status: Current every day smoker tobacco type: cigarettes alcohol intake: never ROS ROS ED Constitutional Constitutional ED: Denies chills or fever(s) Cardiovascular Cardiovascular: Denies chest pain Respiratory/Chest Respiratory/Chest: Denies dyspnea Gastrointestinal Gastrointestinal: Denies abdominal pain, diarrhea, nausea or vomiting Genitourinary Genitourinary ED: Denies dysuria or urinary frequency Musculoskeletal Musculoskeletal: Reports back pain and myalgias; Denies arthralgias or neck pain Integumentary Denies rash Neurologic Neurologic: Denies headache(s), paresthesias or weakness Hematologic/Lymphatic Hematologic/Lymphatic: Denies easy bleeding or easy bruising EXAM Physical Exam Const Vital Signs: 12/05/24 16:22 12/05/24 19:00 Temperature 98.3 F Temperature Source Temporal Pulse Rate 88 79 Respiratory Rate 16 16 Blood Pressure 100/74 129/87 H Blood Pressure Mean 82 101 Pulse Ox 100 98 Oxygen Delivery Method Room Air Positive well nourished and well developed General Appearance ED: well developed HEENT Reports moist mucous membranes Negative for trauma Eyes EOMs intact bilaterally Neck General: Negative for tenderness Resp normal respiratory effort and clear to auscultation bilaterally Cardio regular rate and regular rhythm GI normal to inspection, nondistended, normoactive bowel sounds Back/Spine normal to inspection Back/Spine Narrative: Left lumbar back tenderness Extremity normal to inspection General Extremety ED: Negative for edema or tenderness General Extremity: Negative for edema Neuro oriented x3 and no sensory deficits noted Sensorium / Orientation: alert Motor Exam: strength 5/5 throughout Psych mental status grossly normal Skin no rashes or lesions noted and no wounds MDM MDM MDM Narrative Medical decision making narrative: Patient likely has myofascial back pain. She does describe history of chronic back pain and some type of abnormal straightening. I did order an x-ray. This was read by the radiologist at myself which showed no acute process. She did not require any further diagnostic testing. Nothing was indicated. Vitals look good. No red flag features or concerning mechanisms. Will treat this medically. Short course of pain medicine. [id number] remedies. Muscle relaxers. Return precautions given. Follow-up as an outpatient. Discharge. Impression #1 lumbar back pain Radiography Diagnostic Testing: Clinical Impression(s) from Imaging Studies Lumbar Spine X-Ray 12/05/24 17:25 IMPRESSION: No acute fracture or traumatic subluxation. Reading Location[facility] Discharge Plan Triage Chief Complaint: Back ED Provider: Juan Montaño Dx/Rx/DC Orders Clinical Impression: Lumbar strain Instructions: ED Back Pain (Acute or Chronic) Prescriptions: New oxycodone-acetaminophen [Percocet] 5-325 mg tablet 1 tab PO Q8H PRN (Reason: pain) 3 Days Qty: 10 0RF cyclobenzaprine 10 mg tablet 10 mg PO TID PRN (Reason: Muscle Spasm) Qty: 20 0RF No Action pantoprazole 20 mg tablet,delayed release (DR/EC) 20 mg PO DAILY PRN Primary Care Provider: Reyna Talavera Referrals: Reyan Talavera DO [Primary Care Provider] - Print Language: Ukrainian Disposition Disposition: Home, Self Care Discharge Date/Time: 12/05/24 19:08
== END 2024-12-05 19:08 | disposition home or self-care (01) ==
PROVIDERS: Emergency Provider Emergency Medicine; Visit Provider Emergency Medicine
DX: S39.012A Strain of muscle, fascia and tendon of lower back, initial encounter (principal); F17.210 Nicotine dependence, cigarettes, uncomplicated; X58.XXXA Exposure to other specified factors, initial encounter
CPT/HCPCS: 72100; 99282

== ENCOUNTER 2024-12-26 19:25 | Emergency (ER) | payer SELFPAY ==
[2024-12-26 19:25] VITALS: BP 125/104; PULSE 92; RESP 18; TEMP 36.6; O2SAT 99; BMI 38.9
--- NOTE | 2024-12-26 19:35 | EDS_ITS ---
HPI HPI - GI History of Present Illness Chief Complaint: Abd Pain Narrative Narrative: 44-year-old female past medical history of GERD presents with months of sour taste in her mouth as well as abdominal pain, nausea, vomiting, and diarrhea. She states that whenever she tries to eat or drinks things, even water, that she gets diarrhea, as well as nausea and vomiting. Past surgical history does include bilateral tubal ligation. No fevers or chills. No exacerbating or alleviating factors. However, sometimes when she lays flat, she gets a burning sensation in her esophagus. She feels like she is going to vomit. She describes more epigastric to diffuse abdominal pain. [facility] Medical History Lumbar strain Left ankle sprain Bilateral carpal tunnel syndrome Left knee pain Absence seizure disorder Anxiety Home Medications ?Medication ?Instructions ?Recorded ?Last Taken ?Type pantoprazole 20 mg tablet,delayed 20 mg PO DAILY PRN 0 12/16/23 Unknown History release cyclobenzaprine 10 mg tablet 10 mg PO TID PRN Muscle S pasm #20 12/05/24 Unknown Rx TABLETS oxycodone-acetaminophen 5 mg-325 1 tab PO Q8H PRN pain 3 days #10 12/05/24 Unknown Rx mg tablet (Percocet) tabs ondansetron 4 mg disintegrating 4 mg PO Q8H PRN PRN Na usea #15 tabs 12/26/24 Unknown Rx tablet Allergy/AdvReac Type Severity Reaction Status Date / Time diphenhydramine HCl (From Allergy swelling Verified 12/26/24 19:26 Benadryl) all over tramadol Allergy Itching Verified 12/26/24 19:26 Family History Mother Hypertension Myocardial infarction Grandfather Hypertension Grandmother Hypertension Heart disease triple bypass Surgical History Hx of tubal ligation Social History household members: spouse, family and children Smoking Status: Current every day smoker tobacco type: cigarettes alcohol intake: never ROS ROS ED ROS Narrative Constitutional: No fever, no chills. Cardiovascular: No chest pain. No palpitations. No pedal edema. Respiratory: No cough, no shortness of breath. Abdominal: Positive epigastric to diffuse abdominal pain. Positive nausea, vomiting, and diarrhea. Genitourinary: No dysuria. No hematuria. Musculoskeletal: No myalgias. No arthralgias. Neurologic: No headaches. No dizziness. No lightheadedness. No exacerbating or alleviating factors. However, states unable to even drink water. EXAM Physical Exam Narrative Exam Narrative: Afebrile. Vital signs noted. Nontoxic-appearing. HEENT: Normocephalic. Atraumatic. PERRL, EOMI. Neck soft and supple. No point tenderness or step off. Cardiovascular: Regular rate and rhythm. No murmurs, rubs, or gallops appreciated. Respiratory: No tachypnea. Lungs clear to auscultation bilaterally. Gastrointestinal: Abdomen soft, minimal diffuse tenderness to palpation in epi gastrium and diffusely. With normoactive bowel sounds. No rebound or guarding. Negative Quezada sign. No pain in right lower quadrant, no pain over McBurney's point. Neurological: Awake. Alert. Nonfocal, nonlateralizing. Skin: No rash. Normal color. No pallor. Musculoskeletal: No pedal edema. Full range of motion extremities. Const Vital Signs: 12/26/24 19:25 Temperature 98 F Temperature Source Oral Pulse Rate 92 Respiratory Rate 18 Blood Pressure 125/104 H Blood Pressure Mean 111 Pulse Ox 99 Oxygen Delivery Method Room Air MDM MDM MDM Narrative Medical decision making narrative: The differential diagnosis includes but not limited to GERD versus hiatal hernia versus pancreatitis versus colitis. She may also have peptic ulcer disease versus gastritis. I have lower suspicion for acute cholecystitis or gallstone pancreatitis given her examination. I reviewed her prior records. She has been to the emergency department previously but not for abdominal pain. Patient administered a bolus of normal saline as well as morphine and ondansetron. I reviewed her laboratory work and she has normal white count of 7.3 with hemoglobin 13.9, hematocrit 38.8, platelet count 278. CMP is remarkable for carbon dioxide of 19.2, glucose 91, LFTs show an ALT of 39 which I think is nonspecific, normal alk phos of 78. Lipase normal at 46 so I doubt panc reatitis. Serum is negative. Urinalysis obtained and reviewed and is negative for infection. I do not feel antibiotics are indicated. CT of the abdomen pelvis obtained there is no acute process. No obstruction, no diverticulitis. No inflammation of the pancreas. Upon repeat examination, she states she feels improved. She states she has multiple antiacids in the form of [id number] Prilosec as well as Pepcid AC at home. She states she has been trying to take them. I do feel that she should follow-up with her primary care provider and/or gastroenterology as she may have peptic ulcer disease. Return instructions to the emergency department were reviewed. She was given a prescription for 15 Zofran ODT's. I feel she can be discharged to follow-up. Disposition is discharged home in stable condition. History & Record Review Discussion w/independent historian: Patient Lab Data Attestation: I reviewed the patient's lab results. Labs: Laboratory Results - last 24 hr 12/26/24 12/26/24 19:51 19:53 WBC 7.3 RBC 4.42 Hgb 13.9 Hct 38.8 MCV 87.8 MCH 31.4 MCHC 35.8 RDW Std Deviation 38.4 RDW Coeff of Jordan 11.9 Plt Count 278 MPV 10.5 Immature Gran % (Auto) 0.300 Neut % (Auto) 52.2 Lymph % (Auto) 33.7 Vilas % (Auto) 8.0 Eos % (Auto) 4.8 Baso % (Auto) 1.0 Absolute Neuts (auto) 3.8 Absolute Lymphs (auto) 2.45 Nucleated RBC % 0 Sodium 136 Potassium 3.6 Chloride 105 Carbon Dioxide 19.2 L Anion Gap 12 BUN 17 Creatinine 1.05 Estim Creat Clear Calc 72.85 Est GFR (MDRD) Non-Af 68 BUN/Creatinine Ratio 15.8 Glucose 91 Calcium 9.5 Total Bilirubin 0.34 AST 31 ALT 39 H Alkaline Phosphatase 78 Total Protein 7.3 Albumin 4.3 Globulin 3.0 Albumin/Globulin Ratio 1.5 Lipase 46 Serum , Qual NEGATIVE Urine Color Yellow Urine Clarity Clear Urine pH 7.0 Ur Specific [place] 1.015 Urine Protein 30 H Urine Glucose (UA) Normal Urine Ketones Negative Urine Occult Blood 150 H Urine Nitrite Negative Urine Bilirubin Negative Urine Urobilinogen Normal Ur Leukocyte Esterase Negative Urine RBC 5-10 SEEN Urine WBC 0-5 SEEN Ur Squamous Epith Cells 0-5 SEEN Amorphous Sediment 1+ Urine Bacteria 0 SEEN Urine Mucus 0 SEEN Radiography Diagnostic Testing: Clinical Impression(s) from Imaging Studies Abdomen/Pelvis CT 12/26/24 20:53 IMPRESSION: 1. No acute intra-abdominal abnormality. 2. Hepatic steatosis and hepatomegaly. OVERALL FINAL ASSESSMENT: . LI-RADS is not meant to be used in patients <18 years or patients with cirrhosis due to congenital hepatic fibrosis or due to vascular disorders, because these patients have a lower chance of developing HCC. Reading Location: [id number] Discharge Plan Triage Chief Complaint: Abd Pain ED Provider: Tristan Le Dx/Rx/DC Orders Clinical Impression: Abdominal pain, Nausea and vomiting Instructions: ED Abdominal Pain Unkn Cause Fem, ED Vomiting (Adult) Prescriptions: New ondansetron 4 mg tablet,disintegrating 4 mg PO Q8H PRN PRN (Reason: Nausea) Qty: 15 0RF No Action pantoprazole 20 mg tablet,delayed release (DR/EC) 20 mg PO DAILY PRN oxycodone-acetaminophen [Percocet] 5-325 mg tablet 1 tab PO Q8H PRN (Reason: pain) 3 Days Qty: 10 0RF cyclobenzaprine 10 mg tablet 10 mg PO TID PRN (Reason: Muscle Spasm) Qty: 20 0RF Primary Care Provider: Reyna Talavera Referrals: Reyna Talavera DO [Primary Care Provider] - 3-5 Days if not improving Pablito Fields DO [Med Staff - Active Staff] - As soon as possible Activity Restrictions/Additional Instructions: Continue your antacids. Follow-up with your primary care provider. Return with new or worsening symptoms. Clear liquid diet advance as tolerated. Print Language: Yoruba Disposition Disposition: Home, Self Care
[2024-12-26 20:07] LABS: Bacteria 0 SEEN /hpf (None Seen); Mucous, Urine 0 SEEN /hpf (<or=2+)
[2024-12-26 20:08] LABS: Absolute Lymphocyte Count 2.45 X10^3/uL (0.83-4.51); Absolute Neutrophil Count 3.8 X10^3/uL (2.0-7.7); Basophil# 0.07 X10^3/uL; Eosinophil# 0.35 X10^3/uL; Eosinophils% 4.8 % (0-5); Hematocrit 38.8 % (37-47); Hemoglobin 13.9 g/dL (12.0-15.0); Lymphocyte # 2.45 X10^3/ul (0.83-4.51); Lymphocyte % 33.7 % (19-41); Mean Corp Hgb Conc 35.8 g/dL (32-36); Mean Corpuscular Hgb 31.4 pg (27.0-32.0); Mean Corpuscular Volume 87.8 fL (81-99); Mean Platelet Vol. 10.5 fl (6.2-12.0); Monocyte# 0.58 X10^3/uL; NRBC Flagged by Analyzer 0 % (0-5); Neutrophil # 3.81 X10^3/uL (2.7-7.7); Neutrophil % 52.2 % (47-70); Platelet Count 278 K/mm3 (150-450); RBC Distribution Width CV 11.9 % (11.6-14.6); RBC Distribution Width SD 38.4 fl (35.1-43.9); Red Blood Count 4.42 M/mm3 (4.2-5.4); White Blood Count 7.3 K/mm3 (4.4-11.0)
[2024-12-26 20:11] LABS: Color, Urine Yellow (Yellow); Glucose, Dipstick Normal (Normal); Ketone-Dipstick Negative (Negative); Leukocyte Esterase-Dipstick Negative /ul (Negative); Nitrite-Dipstick Negative (Negative); Occult Blood-Urine 150 /ul (Negative); Protein-Dipstick 30 mg/dl (Negative); Specific Gravity, Urine 1.015 (1.002-1.030); Urine Bilirubin Dipstick Negative (Negative); Urine Clarity Clear (Clear); Urine Urobilinogen Normal (Normal)
[2024-12-26] MEDS: 0.9% Normal Saline (1000mL) 1,000 ML 999 ML IV (20:18)
[2024-12-26] MEDS: Ondansetron 4 MG/2 ML Vial IV (20:18)
[2024-12-26] MEDS: Morphine 4 MG/ML Syringe IV (20:18)
[2024-12-26 20:22] LABS: Internal QC Validated? YES +Cl - CLEAR BKGD; Pregnancy, Serum, hCG Quali. NEGATIVE Negative
[2024-12-26 20:27] LABS: Squamous Epithelial Cells - UA 0-5 SEEN /hpf (5-10)
[2024-12-26 20:28] LABS: Red Blood Cells-Urine 5-10 SEEN /hpf (0-5); White Blood Cells 0-5 SEEN /hpf (0-5)
[2024-12-26 20:29] LABS: Amorphous Sediment 1+
[2024-12-26 20:30] LABS: ALB/GLOB Ratio 1.5 RATIO (0.9-2.4); AST(SGOT) 31 U/L (<=31); Alanine Aminotransfer ALT/SGPT 39 U/L (<=34); Albumin, Serum 4.3 g/dL (3.5-5.0); Alkaline Phosphatase 78 U/L (35-104); Anion Gap 12 (5-15); BUN 17 mg/dL (4-19); BUN/Creat Ratio 15.8 RATIO (10-20); Calcium,Total 9.5 mg/dL (7.6-11.0); Carbon Dioxide 19.2 mmol/L (21.0-32.0); Chloride 105 mmol/L (98-108); Creatinine, Serum 1.05 mg/dL (0.70-1.20); EST Glomerular Filtration Rate 68 (>60); Estimated Creatinine Clearance 72.85 ml/min (50-250); Glucose 91 mg/dL (70-99); Lipase 46 U/L (13-75); Potassium 3.6 mmol/L (3.3-5.1); Protein, Total 7.3 g/dL (5.9-8.4); Sodium Level 136 mmol/L (133-145); Total Bilirubin 0.34 mg/dL (0.00-1.30)
--- NOTE | 2024-12-26 20:53 | CT_ITS ---
PROCEDURE: ABDOMEN/PELVIS W IV CONT ONLY N/A REASON FOR EXAM: PAIN TECHNIQUE: Abdomen and pelvis CT with intravenous contrast. Coronal and Sagittal reconstruction series were provided. PATIENT PREPARATION: Per protocol One or more dose reduction techniques were used (e.g., Automated exposure control, adjustment of the mA and/or kV according to patient size, use of iterative reconstruction technique. RADIATION DOSE SUMMARY: CTDlvol: 22.9 mGy DLP: 1325 mGycm COMPARISON: None FINDINGS: Lung bases: Linear atelectasis or scarring in the right middle lobe. Liver: Diffuse fatty infiltration. Enlarged measuring 21 cm longitudinal. Gallbladder: Unremarkable Spleen: At the upper limits of normal in size Pancreas: Normal size without evidence of mass surrounding inflammation or ductal dilation. Adrenals: Unremarkable Kidneys: No hydronephrosis or stone Bladder: Unremarkable Reproductive Organs: Unremarkable Bowel: No obstruction or inflammation. Normal appendix. Lymph nodes: No significant lymphadenopathy. Vasculature: Unremarkable Bones: Unremarkable CT/Abdomen/Pelvis W IV Cont ONLY IMPRESSION: 1. No acute intra-abdominal abnormality. 2. Hepatic steatosis and hepatomegaly. OVERALL FINAL ASSESSMENT: . LI-RADS is not meant to be used in patients <18 years or patients with cirrhosi s due to congenital hepatic fibrosis or due to vascular disorders, because these patients have a lower chance of developing HC C. Reading Location: [facility]
[2024-12-26 21:25] VITALS: PULSE 70; RESP 14
[2024-12-26 22:13] VITALS: BP 125/104; PULSE 70; RESP 14; TEMP 36.6; O2SAT 99
== END 2024-12-26 22:15 | disposition home or self-care (01) ==
PROVIDERS: Emergency Provider Emergency Medicine; Visit Provider Emergency Medicine
DX: R10.84 Generalized abdominal pain (principal); R11.2 Nausea with vomiting, unspecified; F17.210 Nicotine dependence, cigarettes, uncomplicated
CPT/HCPCS: 74177; 80053; 81001; 83690; 84703; 85025; 96361; 96374; 96375; 99283; Q9967; A4216; J2405

== ENCOUNTER 2025-02-19 20:03 | Emergency (ER) | payer MEDICAID, SELFPAY ==
[2025-02-19 20:04] VITALS: BP 120/80; PULSE 83; RESP 18; TEMP 36.7; O2SAT 100; BMI 39.1
--- NOTE | 2025-02-19 20:19 | EX.ED.GENINJ ---
HPI History of Present Illness Chief Complaint: Other, Pain/Inj PFSH PFSH Medical History (Updated 02/19/25 @ 20:[address] Rob King, DO) Diarrhea Kawasaki disease Lumbar strain Left ankle sprain Bilateral carpal tunnel syndrome Left knee pain Absence seizure disorder Anxiety Home Medications ?Medication ?Instructions ?Recorded ?Last Taken ?Type cyclobenzaprine 10 mg tablet 10 mg PO TID PRN Muscle Spasm #20 12/05/24 Unknown Rx TABLETS ondansetron 4 mg disintegrating 4 mg PO Q8H PRN PRN Nausea #15 tabs 12/26/24 Unknown Rx tablet peg [id number] See Rx Instructions PO .COMPLEX #2 12/28/24 Unknown Rx 178.7-7.3-0.5-1.12-0.9 gram oral mL soln (Suflave) sucralfate 100 mg/mL oral 10 ml PO QACHS #1,200 mL 12/28/24 Unknown Rx suspension (Carafate) prednisone 50 mg tablet 50 mg PO DAILY 5 days #5 tabs 02/19/25 Unknown Rx Allergy/AdvReac Type Severity Reaction Status Date / Time diphenhydramine HCl (From Allergy swelling Verified 02/19/25 20:07 Benadryl) all over tramadol Allergy Itching Verified 02/19/25 20:07 Family History Mother Hypertension Myocardial infarction Grandfather Hypertension Grandmother Hypertension Heart disease triple bypass Surgical History Hx of tubal ligation Social History household members: spouse, family and children Smoking Status: Current every day smoker tobacco type: cigarettes alcohol intake: never EXAM Physical Exam Const Vital Signs: 02/19/25 20:04 02/19/25 21:06 Temperature 98.0 F 98 F Temperature Source Oral Pulse Rate 83 73 Respiratory Rate 18 18 Blood Pressure 120/80 129/82 H Blood Pressure Mean 93 97 Pulse Ox 100 98 Oxygen Delivery Method Room Air MDM MDM MDM Narrative Medical decision making narrative: HISTORY OF PRESENT ILLNESS: Chief complaint: Neck pain 44-year-old female presents with neck pain. Patient notes coffee went down the wrong way and she coughed as a result causing severe neck pain. Notes she was given Flexeril earlier today. States she still in pain. Denies falls or trauma. Denies numbness, weakness, loss sensation in the upper extremities. REVIEW OF SYSTEMS: Pertinent positives: Neck pain Pertinent negatives: Slurred speech, PHYSICAL EXAM: Nursing triage notes reviewed, Vital signs reviewed Constitutional: please see mdm HENT: MMM Eyes: Pupils equal round and reactive to light, Extraocular muscles intact Neck: No stridor, no JVD, decreased neck range of motion secondary to pain, TTP over left cervical Paraspinal muscular Lungs: Clear to auscultation, No wheezing or rales. No increased work of breathing, no conversational dyspnea, no accessory muscle use, no nasal flaring. No respiratory distress noted Heart: Regular rate and rhythm, No murmurs, No rubs and No gallops, 2+ distal pulses (radial, femoral, posterior tibial) in all extremities Abdomen: Soft, there is no tenderness, rigidity, rebound or guarding, no obvious peritoneal signs, no palpable pulsatile abdominal masses, no auscultated abdominal bruit Extremities: No edema, palpable pulse in left upper extremity radial distribution Back: TTP over left trapezius muscle. Neuro: Intact 5/5 strength with ok sign (median), intact finger abduction (ulnar) intact wrist extension (radial n). Intact sensation in the radial, ulnar, and median nerve distributions. Skin: No rash or lesions noted MEDICAL DECISION MAKING: Chief Complaint: please see HPI External records reviewed: PDMP reviewed Factors affecting care: History of lumbar strain, left knee pain GERD Social determinants of health: none History obtained from others: none Consults: none [facility] Narrative: The patient was initially hemodynamically stable exam without radicular symptoms. No upper extremity neurologic deficits, TTP over left trapezius muscle consistent with musculoskeletal etiology. I considered the following differential diagnosis: Carotid artery dissection, lymphadenopathy, muscle strain, cervical spine fracture/dislocation The patient's history and clinical exam were not consistent with carotid artery dissection, adenopathy cervical spine fracture/dislocation Oral oxycodone, lidocaine patch and Decadron for symptomatic relief here in the ED. Gave IM Toradol. Discharged with oral steroids The patient and/or family, caregivers express understanding. The patient and/or family, caregivers agrees with the plan. Shared decision making: I will have a discussion with the patient and or visitors regarding risk/benefits of further testing or admission. They will be made aware of of the risk/benefits inherent in this decision they will be given the opportunity to voice understanding. Total critical care time today provided was at least 0 minutes. This excludes separately billable procedures. Critical care time (if documented) is secondary to the patient having high probability of clinically significant/life threatening deterioration in the patient's condition which required my urgent intervention. Impression: 1. Left trapezius muscle strain 2. Acute neck pain Dispo: Discharge home This note was generated with [employer] dictation software. It may contain incorrect words, spelling, and punctuation that were not noted in review of the chart prior to signing. Discharge Plan Triage Chief Complaint: Other, Pain/Inj ED Provider: Rob King Dx/Rx/DC Orders Clinical Impression: Neck pain, acute Instructions: Head Tilt Upper Trapezius Stretch, ED Muscle Strain, Extremity Prescriptions: New prednisone 50 mg tablet 50 mg PO DAILY 5 Days Qty: 5 0RF No Action sucralfate [Carafate] 100 mg/mL suspension 10 ml PO QACHS Qty: 1200 1RF Suflave 178.7-7.3-0.5 gram recon soln See Rx Instructions PO .COMPLEX Qty: 2 0RF Rx Instructions: take as directed for split dose bowel prep cyclobenzaprine 10 mg tablet 10 mg PO TID PRN (Reason: Muscle Spasm) Qty: 20 0RF ondansetron 4 mg tablet,disintegrating 4 mg PO Q8H PRN PRN (Reason: Nausea) Qty: 15 0RF Stand Alone Forms: ED Work / School Excuse Primary Care Provider: Reyna Talavera Referrals: Reyna Talavera, DO [Primary Care Provider] - Activity Restrictions/Additional Instructions: Thank you for trusting us with your care today! Your history and physical exam consistent with a trapezius muscle strain. This is treated with anti-inflammatories including ibuprofen, steroids rest and light stretching. Please take Tylenol (2 pills, 650 mg), ibuprofen (2 pills, 400 mg) every 6 hours as needed for pain and fever control. Please take prednisone as prescribed. Please return to the emergency department if your symptoms change or worsen. Please follow with your primary care physician for further outpatient evaluation and management. Print Language: Kiswahili Disposition Disposition: Home, Self Care Discharge Date/Time: 02/19/25 21:07
[2025-02-19] MEDS: Lidocaine 5% Patch 1 PATCH TOPICAL (20:43)
--- OUTSIDE RECORDS SUMMARY | 2025-02-19 20:53 | XMS RPT_ITS | CCD ---
Author Organization [facility] Care Team Providers Care Radial Router Operator Name Role Phone Sandy Raymond Unavailable Unavailable Sumi Knutson Unavailable Unavailable SADAF SHOOK, DR JONAS Primary Care Physician [phone] SADAF SHOOK, DR JONAS Primary Care Physician [phone] BRIELLE PINEDA, [place] Esquivel Attending Unavailab le SADAF SHOOK, DR. JONAS Primary Care Lucho DOMINGUEZ MD, GENE Ceron Attending Unavail able SADAF SHOOK, DR. JONAS Primary Care Unavailshena DOMINGUEZ MD, GENE Ceron Attending Unavail able SADAF SHOOK, DR. JONAS Primary Care Unavailshena GONZALES DO, DR. ANAYELI Jarquin Attending Unavailable SADAF SHOOK, DR. JONAS Primary Care Lucho Knutson DO, Dr. Sumi Collazo Primary Care Provider Desmond PINEDA, Dr. Mello Attending Provider Desmond PINEDA, Dr. Mello Emergency Provider [phone] Sadaf SHOOK, Dr. Sumi Colalzo Referring Provider [phone] Ken Puri Attending Provider Ken Puri Referring Provider [phone] Dr. Juan Montaño MD Emergency Provider Dr. Juan Montaño MD Attending Provider Tristan Le MD Emergency Provider Gal QUIROZ-CBridgette Attending Provider Sumi Knutson Referring Unavailable Sumi Knutson Primary Care Unavailable Ken Puri Attending Unavailable Sumi Knutson Referring Unavailable Ken Puri Attending Unavailable Sumi Knutson Primary Care Unavailable Sadaf, Sumi Collazo Referring Unavailable Ken Puri Attending Unavailable Sadaf, Sumi Collazo Primary Care Unavailable Sadaf, Sumi Collazo Referring Unavailable Sadaf, Sumi Collazo Primary Care Unavailable Ken Puri Attending Unavailable Sadaf, Sumi Collazo Referring Unavailable Bridgette Santo Attending Unavailable Sadaf, Sumi Collazo Primary Care Unavailable Sadaf, Sumi Collazo Primary Care Unavailable Riaz Logan Attending Unavailable Tristan Le Attending Unavailable Sadaf, Sumi Collazo Primary Care Unavailable Juan Montaño Attending Unavailable Sadaf, Sumi Collazo Primary Care Unavailable Sadaf, Sumi Collazo Primary Care Unavailable Pablito Fields Attending Unavailable Sadaf, Sumi Collazo Primary Care Unavailable Ken Puri Referring Unavailable Ken Puri Attending Unavailable SADAF DO, DR JONAS Primary Care Unavailable SADAF DO, DR JONAS Attending Unavailable GENE DOMINGUEZ MD Attending Unavail able SADAF DO, DR JONAS Primary Care Unavailable RIDER DO, DR ANAYELI Jarquin Attending Unavailable SADAF DO, DR JONAS Primary Care Unavailable SADAF DO, DR JONAS Primary Care Unavailable SADAF DO, DR JONAS Attending Unavailable Allergies Allergy Classification Reported Allergen(s) Allergy Type Date of Onset Reaction(s) Facility (1 source) diphenhydrAMINE Drug Allergy [facility] Work Phone: (12 sources) traMADol; Translations: [Tramadol] Drug Allergy 0 itching [facility] (6 sources) diphenhydrAMINE / Pseudoephedrine; Translations: [diphenhydramine-ps eudoephedrine] Drug Allergy [facility] (5 sources) diphenhydrAMINE; Translations: [diphenhydramine HCl] Drug Allergy 0 swelling all over [facility] (4 sources) Ketorolac; Translations: [ketorolac] Drug Allergy [facility] Medications Current Medications Medication Drug Class(es) Dates Sig (Normalized) Sig (Original) baclofen 20 mg oral tablet (1 source) gamma-Aminobutyri c Acid-ergic Agonist Start: 04-30-2022 End: 05-05-2022 baclofen 20 mg oral tablet Dose : 20 mg = 1 tab(s), Oral, BID, # 10 tab(s), 0 Refill(s) Start Date: 04/30/22 Stop Date: 05/05/22 Status: Ordered benzonatate 100 mg oral capsule (1 source) Non-narcotic Antitussive Start: 04-30-2022 End: 05-07-2022 Tessalon Perles 100 mg oral capsule Dose : 100 mg = 1 cap(s), Oral, TID, X 7 day(s), # 21 cap(s), 0 Refill(s), 05/07/22 6:29:00 EDT Start Date: 04/30/22 Stop Date: 05/07/22 Status: Ordered busPIRone hydrochloride 10 mg oral tablet (3 sources) Start: 11-27-2021 busPIRone 10 mg oral tablet Dose : 10 mg = 1 tab(s), Oral, TID, # 90 tab(s), 2 Refill(s), Pharmacy: [address], 153, cm, 11/27/21 11:13:00 EDT, Height Start Date: 11/27/21 Status: Ordered Quantity: 90.0 Unit: tab(s) Repeat number: 3 cyclobenzaprine hydrochloride 5 mg oral tablet (4 sources) Muscle Relaxant Start: 02-18-2025 End: 02-25-2025 cyclobenzaprine 5 mg oral tablet Dose : 5 mg = 1 tab(s), Oral, TID, PRN Muscle spasm, X 7 day(s), # 21 tab(s), 0 Refill(s), 02/25/25 12:21:00 PM EDT Start Date: 02/18/25 Stop Date: 02/25/25 Status: Ordered Quantity: 21.0 Unit: tab(s) Repeat number: 1 Start: 12-05-2024 take 1 tablet by beulah th three times daily as needed for muscle spasms Cyclobenzaprine 10 mg tablet Active 10 mg PO THREE TIMES A DAY as needed for Muscle Spasm December 05, 2024 12:00am Famotidine (6 sources) Histamine-2 Receptor Antagonist Start: 11-27-2021 take 1 mg by mouth once before mealtime Pepcid AC mg =, Oral, Once, 0 Refill(s) Start Date: 11/27/21 Status: Ordered Repeat number: 1 Start: 11-27-2021 take 1 mg by mouth o nce before mealtime Pepcid AC mg =, Oral, Once, 0 Refill(s) Start Date: 11/27/21 Status: Ordered hydrOXYzine pamoate 25 mg oral capsule (3 sources) Antihistamine Start: 01-20-2025 Vistaril 25 mg oral capsule Dose : 25 mg = 1 cap(s), Oral, QID, PRN as needed for anxiety, # 40 cap(s), 0 Refill(s), Pharmacy: [facility]/pharmacy #[id number], 154.6, cm, 01/20/25 15:18:00 EDT, Height, kg, 01/20/25 15:18:00 EDT, Dosing Weight Start Date: 01/20/25 Status: Ordered Quantity: 40.0 Unit: cap(s) Repeat number: 1 meloxicam 15 mg oral tablet (1 source) Nonsteroidal Anti-inflammatory Drug Start: 12-04-2023 meloxicam 15 mg oral tablet Dose : 15 mg = 1 tab(s), Oral, qDay, # 30 tab(s), 0 Refill(s), Pharmacy: [facility] #[id number], 155, cm, 12/04/23 14:38:00 EDT, Height, kg, 12/04/23 14:38:00 EDT, Dosing Weight Start Date: 12/04/23 Status: Ordered Quantity: 30.0 Unit: tab(s) Repeat number: 1 ondansetron 4 mg disintegrating oral tablet (6 sources) Serotonin-3 Receptor Antagonist Start: 12-26-2024 take 1 tablet by mouth every eight hours as needed for nausea Ondansetron 4 mg tablet,disintegrat ing Active 4 mg PO EVERY 8 HOURS NEEDED as needed for Nausea December 26, 2024 12:00am Start: 09-16-2024 End: 11-22-2024 take 1 tablet by mouth every six hours as needed for nausea and vomiting Ondansetron 4 mg tablet,disintegrating Discontinued 4 mg PO EVERY 6 HOURS as needed for nausea and vomiting September 16, 2024 1:00am November 22, 2024 3:13pm Start: 09-14-2024 End: 09-17-2024 ondansetron 4 mg oral tablet Dose : 4 mg = 1 tab(s), Oral, q6h, X 3 day(s), # 12 tab(s), 0 Refill(s), 09/17/24 5:42:00 PM EST Start Date: 09/14/24 Stop Date: 09/17/24 Status: Ordered Quantity: 12.0 Unit: tab(s) Repeat number: 1 Peg 3350-Sod Sulf,Bwzs-Lqh-Bdj (Suflave) 178.7-7.3-0.5 gram recon soln (1 source) Start: 12-28-2024 Peg 3350-Sod Sulf,Urir-Rrw-Jub (Suflave) 178.7-7.3-0.5 gram recon soln Active 0 PO .COMPLEX December 28, 2024 12:00am take as directed for split dose bowel prep QUEtiapine 25 mg oral tablet (3 sources) Atypical Antipsychotic Start: 01-20-2025 Seroquel 25 mg oral tablet Dose : 25 mg = 1 tab(s), Oral, qHS, # 30 tab(s), 1 Refill(s), Pharmacy: [facility]/pharmacy #[id number], 154.6, cm, 01/20/25 15:18:00 EDT, Height, kg, 01/20/25 15:18:00 EDT, Dosing Weight Start Date: 01/20/25 Status: Ordered Quantity: 30.0 Unit: tab(s) Repeat number: 2 sucralfate 100 mg/ml oral suspension (3 sources) Aluminum Complex Start: 01-20-2025 sucralfate 1 g/10 mL oral suspension 0 Refill(s) Start Date: 01/20/25 Status: Ordered Repeat number: 1 Sucralfate (Carafate) 100 mg/mL suspension (1 source) Start: 12-28-2024 take 1 mL by mouth at bedtime Sucralfate (Carafate) 100 mg/mL suspension Active 10 mL PO before meals and at bedtime 1200 December 28, 2024 12:00am Completed/Discontinued Medications Medication Drug Class(es) Dates Sig (Normalized) Sig (Original) acetaminophen 325 mg / oxyCODONE hydrochloride 5 mg oral tablet (3 sources) Opioid Agonist Start: 12-05-2024 End: 12-28-2024 Oxycodone-Acetamino phen (Percocet) 5-325 mg tablet Discontinued 1 {tbl} PO Q8H as needed for pain 10 December 05, 2024 December 28, 2024 9:57am [id number] 200 actuat albuterol 0.09 mg/actuat metered dose inhaler (9 sources) beta2-Adrenergic Agonist Start: 07-14-2019 End: 11-22-2024 Albuterol Sulfate 1 INHALER inhaler Discontinued 2 NMA INHALATION EVERY 4 HOURS NEEDED as needed for Wheezing July 14, 2019 1:00am November 22, 2024 3:13pm Start: 07-14-2019 take 1 puff(s) by in halation every four hours as needed Albuterol Sulfate Active 2 PUFF inhalation EVERY 4 HOURS NEEDED July 14, 2019 1:00am Start: 08-31-2018 End: 11-22-2024 Albuterol Sulfate (Ventolin Hfa) 1 INHALER inhaler Discontinued 2 NMA INHALATION EVERY 4 HOURS NEEDED as needed for Wheezing August 31, 2018 1:00am November 22, 2024 3:13pm Start: 08-31-2018 take 1 puff(s) by in halation every four hours as needed Albuterol Sulfate (Ventolin Hfa) 1 INHALER inhaler Active 2 PUFF INHALATION EVERY 4 HOURS NEEDED August 31, 2018 1:00am Albuterol 90 MCG /ACT AERS Refills: 0 Active codeine phosphate 2 mg/ml / promethazine hydrochloride 1.25 mg/ml oral solution (8 sources) Opioid Agonist, Phenothiazine Start: 07-31-2021 End: 12-16-2023 take 1 mL by mouth every six hours as needed for cough Promethazine-Codeine 6.25-10 mg/5 mL syrup Discontinued 5 mL PO EVERY 6 HOURS as needed for cough 140 7 July 31, 2021 1:00am December 16, 2023 1:53pm Start: 07-31-2021 take 1 mL by mouth e very six hours Promethazine-Codeine Active 5 ML PO EVER Y 6 HOURS 140 July 31, 2021 1:00am dexamethasone 6 mg oral tablet (4 sources) Corticosteroid Start: 07-31-2021 End: 11-22-2024 take 1 tablet by mouth once daily Dexamethasone (Decadron) 6 mg tablet Discontinued 6 mg PO DAILY 10 July 31, 2021 1:00am November 22, 2024 3:13pm escitalopram 10 mg oral tablet (4 sources) Serotonin Reuptake Inhibitor Start: 06-16-2016 End: 11-22-2024 take 2 tablets by mouth once daily Escitalopram Oxalate 10 MG tablet Discontinued 20 mg PO DAILY June 16, 2016 1:00am November 22, 2024 3:13pm Start: 06-16-2016 take 20 mg by mouth once daily Escitalopram Oxalate Active 20 MG PO DAILY June 16, 2016 1:00am esomeprazole 20 mg delayed release oral capsule (1 source) Proton Pump Inhibitor Start: 07-16-2019 take 1 capsule by mouth once daily Esomeprazole Magnesium 20 MG Oral Capsule Delayed Release TAKE 1 CAPSULE ONCE DAILY. Quantity: 30 Refills: 2 Segundo MAJOR, Sandy Start : 16-Jul-2019 Active loratadine 10 mg oral tablet (6 sources) Start: 05-20-2021 End: 05-27-2021 Claritin 10 mg oral tablet Dose : 10 mg = 1 tab(s), Oral, qDay, # 7 tab(s), 0 Refill(s), Contact dermatitis Start Date: 05/20/21 Stop Date: 05/27/21 Status: Ordered Quantity: 7.0 Unit: tab(s) Repeat number: 1 Indications: Unspecified contact dermatitis, unspecified cause; metaxalone 800 mg oral tablet (4 sources) Start: 05-28-2021 End: 12-16-2023 take 1 tablet by mouth three times daily Metaxalone (Skelaxin) 800 mg tablet Discontinued 800 mg PO THREE TIMES A DAY 14 02May 28, 2021 12:00am December 16, 2023 1:53pm pantoprazole 20 mg delayed release oral tablet (7 sources) Proton Pump Inhibitor Start: 08-31-2018 End: 12-28-2024 take 1 tablet by mouth once daily as needed Pantoprazole 20 mg tablet,delayed release (DR/EC) Discontinued 20 mg PO DAILY as needed December 16, 2023 1:53pm December 28, 2024 9:56am predniSONE 20 mg oral tablet (5 sources) Start: 07-14-2019 End: 12-16-2023 take 3 tablets by mouth once daily Prednisone 20 MG tablet Discontinued 60 mg PO DAILY July 14, 2019 1:00am December 16, 2023 1:53pm Start: 07-14-2019 take 60 mg by mouth once daily Prednisone Active 60 MG PO DAILY July 14, 2019 1:00am predniSONE 20 MG Oral Tablet Refills: 0 Active Problems Active Problems Problem Classification Problem Date Documented Da te Episodic/Chronic Abdominal pain (8 sources) Epigastric pain; Translations: [Abdominal pain] Onset: 5 01-06-2023 Episodic Acute bronchitis (4 sources) Acute bronchitis with bronchospasm; Translations: [Acute bronchitis, unspecified] 07-15-2019 Episodic Administrative/social admission (4 sources) Patient encounter status; Translations: [Encounter for pre-employment examination] 05-29-2023 Episodic Anxiety disorders (6 sources) Anxiety 10-14-2016 Chronic Disorders of teeth and jaw (8 sources) Dental caries; Translations: [Dental caries, unspecified] 07-14-2019 Episodic Epilepsy; convulsions (6 sources) Seizure 01-17-2014 Episodic Esophageal disorders (10 sources) Gastroesophageal reflux disease; Translations: [Gastro-esophageal reflux disease without esophagitis] 08-25-2019 Chronic Fever of unknown origin (1 source) Fever; Translations: [Fever, unspecified] Onset: Episodic Fluid and electrolyte disorders (3 sources) Dehydration; Translations: [Dehydration] 09-24-2024 Episodic Genitourinary symptoms and ill-defined conditions (6 sources) Blood in urine 08-25-2019 Episodic Headache; including migraine (4 sources) Migraine; Translations: [Migraine, unspecified, not intractable, without status migrainosus] 03-11-2020 Chronic Influenza (3 sources) Influenza due to Influenza A virus; Translations: [Influenza due to other identified influenza virus with other respiratory manifestations] 09-24-2024 Episodic Nausea and vomiting (6 sources) Vomiting; Translations: [Vomiting, unspecified] 09-24-2024 Episodic Other connective tissue disease (4 sources) Spasm; Translations: [Other muscle spasm] 06-05-2021 Episodic Other gastrointestinal disorders (1 source) Heartburn; Translations: [Heartburn] Episodic Other gastrointestinal disorders (1 source) Personal history of other diseases of the digestive system; Translations: [History of gastroesophageal reflux (GERD)] Episodic Other gastrointestinal disorders (4 sources) Diarrhea and vomiting 01-06-2023 Episodic Other gastrointestinal disorders (3 sources) Diarrhea; Translations: [Diarrhea, unspecified] 09-24-2024 Episodic Other liver diseases (6 sources) Steatosis of liver 08-25-2019 Chronic Other nervous system disorders (10 sources) Carpal tunnel syndrome; Translations: [Carpal tunnel syndrome, unspecified upper limb] Onset: 2 Chronic Other nervous system disorders (1 source) H/O: epilepsy; Translations: [History of seizure disorder] Episodic Other non-traumatic joint disorders (3 sources) Pain in left knee; Translations: [Left knee pain] 12-16-2023 Episodic Other non-traumatic joint disorders (1 source) Pain in left ankle and joints of left foot; Translations: [Pain in left ankle and joints of left foot] Onset: 5 Episodic Other nutritional; endocrine; and metabolic disorders (6 sources) Body mass index 30+ - obesity 11-27-2021 Chronic Other nutritional; endocrine; and metabolic disorders (6 sources) Severe obesity 11-27-2021 Chronic Pneumonia (except that caused by tuberculosis or sexually transmitted disease) (1 source) Pneumonia; Translations: [Pneumonia, unspecified organism] Onset: 2 Episodic Residual codes; unclassified (6 sources) Current drinker 08-25-2019 Episodic Residual codes; unclassified (6 sources) Tobacco user 08-25-2019 Episodic Residual codes; unclassified (4 sources) Poor oral hygiene; Translations: [Other specified personal risk factors, not elsewhere classified] 07-14-2019 Episodic Screening and history of mental health and substance abuse codes (1 source) H/O: anxiety state; Translations: [History of anxiety] Episodic Sprains and strains (20 sources) Injury of abdominal wall; Translations: [Strain of muscle, fascia and tendon of abdomen, initial encounter] Onset: 5 09-11-2016 Episodic Substance-related disorders (4 sources) Nicotine dependence; Translations: [Nicotine dependence, unspecified, uncomplicated] 07-14-2019 Chronic Substance-related disorders (6 sources) Marijuana user 08-25-2019 Episodic Superficial injury; contusion (4 sources) Contusion of back; Translations: [Contusion of unspecified back wall of thorax, initial encounter] 10-20-2015 Episodic Systemic lupus erythematosus and connective tissue disorders (6 sources) 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 Unclassified (1 source) Low back pain, unspecified; Translations: [Low back pain, unspecified] Onset: 5 Unclassified (1 source) Cough, unspecified; Translations: [Cough, unspecified] Onset: 5 Viral infection (4 sources) Disease caused by 2019-nCoV; Translations: [COVID-19] 07-31-2021 Episodic Past or Other Problems Problem Classification Problem Date Documented Da te Episodic/Chronic Skull and face fractures (4 sources) Fracture of tooth ; Translations: [Fracture of tooth (traumatic), initial encounter for closed fracture] Onset: 05-28-2021 05-28-2021 Episodic Results Test Name Value Interpretation Reference Range Facility MA MAMMOGRAM SCREENING BILAT ERAL W/TOMOon 02-04-2025 MA MAMMOGRAM SCREENING BILATERAL W/KIRT ORIGINAL FROM: [place] [id number] PROCEDURE FOR: GARRISON PRATT [address] [place] [address] Home: PID#: [id number] Exam#: [id number] : 1980 Age: 44 TO: SUMI KNUTSON [place] [address] Fax: NO FAX EXAMINATION: SCREENING DIGITAL BILATERAL MAMMOGRAM WITH TOMOSYNTHESIS, 02/03/2025 2:27 pm TECHNIQUE: Screening mammography of the bilateral breasts was performed with tomosynthesis. 2D standard and 3D tomosynthesis combination imaging performed through both breasts in the MLO and CC projection. Computer aided detection was utilized in the interpretation of this exam. COMPARISON: None. HISTORY: Breast cancer screening. FINDINGS: BREAST DENSITY: The breasts are heterogeneously dense, which may obscure small masses. There are benign appearing calcifications in both breasts. There are no significant masses or calcifications. IMPRESSION: No mammographic evidence of malignancy. Continued screening with annual mammograms is recommended. Glenys Pineda risk calculations, generated with the history provided, report this patient's 10 year risk and lifetime risk for developing breast cancer at 1.3% and 9.1%, respectively. Based on this assessment tool, if the patient's calculated lifetime risk is below 20%, then the patient is considered at average risk for developing breast cancer. If the patient's calculated lifetime risk is at or above 20%, then the patient is considered high risk for developing breast cancer and may be a candidate for supplemental breast MRI screening in addition to annual mammographic screening per the [employer]. 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 letter sent: Normal BI-RADS 1 and 2 Mammogram BI-RADS: 2 Benign Normal [facility] .Auto Diffon 01-20-2025 Basophil, Absolute 0.1 10 3/mcL Normal 0.0-0.3 [facility] Comment on above: Performed By: #### T SH, ANEU, CMP, GFR, CBC, ADIFF, LIPID #### [place] [id number] [place], [place] [address] Basophils/100 WBC (Bld) 0.7 % Normal 0.0-2.5 A [facility] Comment on above: Performed By: #### T SH, ANEU, CMP, GFR, CBC, ADIFF, LIPID #### [id number] [place], [place] [address] Eosinophil, Absolute 0.3 10 3/mcL Normal 0.0-0.7 [facility] Comment on above: Performed By: #### T SH, ANEU, CMP, GFR, CBC, ADIFF, LIPID #### [address] [address] Eosinophils/100 WBC (Bld) 4.1 % Normal 0.0-6.0 [facility] Comment on above: Performed By: #### T SH, ANEU, CMP, GFR, CBC, ADIFF, LIPID #### [address] [address] Lymphocyte, Absolute 2.2 10 3/mcL Normal 0.9-4.3 [facility] Comment on above: Performed By: #### T SH, ANEU, CMP, GFR, CBC, ADIFF, LIPID #### [address] [address] Lymphocytes/100 WBC (Bld) 26.6 % Normal 20.0-40.0 [facility] Comment on above: Performed By: #### T SH, ANEU, CMP, GFR, CBC, ADIFF, LIPID #### [address] [address] Monocyte, Absolute 0.7 10 3/mcL Normal 0.1-1.4 [facility] Comment on above: Performed By: #### T SH, ANEU, CMP, GFR, CBC, ADIFF, LIPID #### [address] [address] Monocytes/100 WBC (Bld) 8.5 % Normal 2.0-13.0 [facility] Comment on above: Performed By: #### T SH, ANEU, CMP, GFR, CBC, ADIFF, LIPID #### [address] [address] Neutrophils/100 WBC (Bld) 60.1 % Normal 50.0-75.0 [facility] Comment on above: Performed By: #### T SH, ANEU, CMP, GFR, CBC, ADIFF, LIPID #### [address] [address] .GFRon 01-20-2025 Estimated Glomerular Filtration Rate 83 ml/min/1.73sqm Normal [facility] Comment on above: Result Comment: Stages of Chronic Kidney Disease (CKD) Stage Description eGFR(ml/min/1.73 sq.m.) CKD 1 Normal kidney function or >=90 normal kindney function with possible kidney damage (ex. Proteinuria) CKD 2 Kidney damage with mild loss 60-89 of kidney function CKD 3a Mild to moderate loss of kidney 45-59 function CKD 3b Moderate to severe loss of 30-44 of kindey function CKD 4 Severe loss of kidney function 15-29 CKD 5 Kidney failure <15 Note: (go live 2024) the eGFR calculation was updated to the 2020 CKD-EPI creatinine equation without a race factor to calculate the eGFR results. Performed By: #### T SH, ANEU, CMP, GFR, CBC, ADIFF, LIPID #### [address] [address] .NEUABSon 01-20-2025 Neutrophil, Absolute 5.1 10 3/mcL Normal 2.3-8.1 [facility] Comment on above: Performed By: #### T SH, ANEU, CMP, GFR, CBC, ADIFF, LIPID #### [address] [address] CBCon 01-20-2025 Erythrocyte distribution width (RBC) [Ratio] 12.6 % Normal 11.5-15.5 [facility] Comment on above: Performed By: #### T SH, ANEU, CMP, GFR, CBC, ADIFF, LIPID #### [address] [address] Hematocrit (Bld) [Volume fraction] 43.6 % Normal 34.0-46.0 [facility] Comment on above: Performed By: #### T SH, ANEU, CMP, GFR, CBC, ADIFF, LIPID #### [address] [address] Hgb 15.1 G/dL Normal 12.0-16.0 [facility] Comment on above: Performed By: #### T SH, ANEU, CMP, GFR, CBC, ADIFF, LIPID #### [address] [address] MCH (RBC) [Entitic mass] 31.3 pg Normal 27.0-33.0 [facility] Comment on above: Performed By: #### T SH, ANEU, CMP, GFR, CBC, ADIFF, LIPID #### [address] [address] MCHC 34.7 G/dL Normal 32.0-36.0 [facility] Comment on above: Performed By: #### T SH, ANEU, CMP, GFR, CBC, ADIFF, LIPID #### [address] [address] MCV (RBC) [Entitic vol] 90.0 fL Normal 80.0-99.0 [facility] Comment on above: Performed By: #### T SH, ANEU, CMP, GFR, CBC, ADIFF, LIPID #### [address] [address] Platelet 298 10 3/mcL Normal 150-450 [facility] Comment on above: Performed By: #### T SH, ANEU, CMP, GFR, CBC, ADIFF, LIPID #### [address] [address] Platelet mean volume (Bld) [Entitic vol] 8.9 fL Normal 6.6-10.5 [facility] Comment on above: Performed By: #### T SH, ANEU, CMP, GFR, CBC, ADIFF, LIPID #### [address] [address] RBC 4.84 10 6/mcL Normal 4.10-5.30 [facility] Comment on above: Performed By: #### T SH, ANEU, CMP, GFR, CBC, ADIFF, LIPID #### [address] [address] WBC 8.5 10 3/mcL Normal 4.5-10.8 [facility] Comment on above: Performed By: #### T SH, ANEU, CMP, GFR, CBC, ADIFF, LIPID #### [address] [address] CMPon 01-20-2025 Albumin Level 3.7 G/dL Normal 3.5-5.0 [facility] Comment on above: Performed By: #### T SH, ANEU, CMP, GFR, CBC, ADIFF, LIPID #### [address] [address] Albumin/Globulin [Mass ratio] 0.9 {ratio} Low 1.1-2.5 [facility] Comment on above: Performed By: #### T SH, ANEU, CMP, GFR, CBC, ADIFF, LIPID #### [address] [address] ALP [Catalytic activity/Vol] 79 U/L Normal 40-135 [facility] Comment on above: Performed By: #### T SH, ANEU, CMP, GFR, CBC, ADIFF, LIPID #### [address] [address] ALT [Catalytic activity/Vol] 48 U/L Normal 14-59 [facility] Comment on above: Performed By: #### T SH, ANEU, CMP, GFR, CBC, ADIFF, LIPID #### [address] [address] AST [Catalytic activity/Vol] 25 U/L Normal 10-40 [facility] Comment on above: Performed By: #### T SH, ANEU, CMP, GFR, CBC, ADIFF, LIPID #### [address] [address] Bili Total 0.4 mg/dL Normal 0.2-1.0 [facility] Comment on above: Result Comment: Use of this assay is not recommended for patients undergoing treatment with eltrombopag due to the potential for falsely elevated results. Performed By: #### T SH, ANEU, CMP, GFR, CBC, ADIFF, LIPID #### [address] [address] BUN/Creatinine Ratio 15 ratio Normal 7-27 [facility] Comment on above: Performed By: #### T SH, ANEU, CMP, GFR, CBC, ADIFF, LIPID #### [address] [address] Calcium [Mass/Vol] 9.0 mg/dL Normal 8.4-10.2 [facility] Comment on above: Performed By: #### T SH, ANEU, CMP, GFR, CBC, ADIFF, LIPID #### [address] [address] Chloride [Moles/Vol] 105 mmol/L Normal 98-107 [facility] Comment on above: Performed By: #### T SH, ANEU, CMP, GFR, CBC, ADIFF, LIPID #### [place] [address] CO2 [Moles/Vol] 23 mmol/L Normal 22-29 [facility] Comment on above: Performed By: #### T SH, ANEU, CMP, GFR, CBC, ADIFF, LIPID #### [place] [address] Creatinine [Mass/Vol] 0.89 mg/dL Normal 0.51-0.95 [facility] Comment on above: Performed By: #### T SH, ANEU, CMP, GFR, CBC, ADIFF, LIPID #### [place] [address] Electrolyte Balance 11.0 mEq/L Normal 4.0-15.0 [facility] Comment on above: Performed By: #### T SH, ANEU, CMP, GFR, CBC, ADIFF, LIPID #### [address] [address] Globulin 4.2 G/dL Normal 2.7-4.4 [facility] Comment on above: Performed By: #### T SH, ANEU, CMP, GFR, CBC, ADIFF, LIPID #### [address] [address] Glucose [Mass/Vol] 114 mg/dL High 70-105 [facility] Comment on above: Performed By: #### T SH, ANEU, CMP, GFR, CBC, ADIFF, LIPID #### [place] [address] [place], [place] [address] Potassium [Moles/Vol] 4.1 mmol/L Normal 3.5-5.1 [facility] Comment on above: Performed By: #### T SH, ANEU, CMP, GFR, CBC, ADIFF, LIPID #### [place] [id number] [place], [place] [address] Sodium [Moles/Vol] 139 mmol/L Normal 136-145 [facility] Comment on above: Performed By: #### T SH, ANEU, CMP, GFR, CBC, ADIFF, LIPID #### [place] [id number] [place], [place] [address] Total Protein 7.9 G/dL Normal 6.4-8.2 [facility] Comment on above: Performed By: #### T SH, ANEU, CMP, GFR, CBC, ADIFF, LIPID #### [place] [id number] [place], [place] [address] Urea nitrogen [Mass/Vol] 13 mg/dL Normal 7-18 [facility] Comment on above: Performed By: #### T SH, ANEU, CMP, GFR, CBC, ADIFF, LIPID #### [address] [address] LABORATORYOrdered By: SYSTEM SYSTEM on 01-20-2025 Albumin BCP dye [Mass/Vol] 3.7 G/dL Normal 3.5 - 5.0 G/dL AO ADM SS Albumin/Globulin [Mass ratio] 0.9 {ratio} Low 1.1 - 2.5 ratio AO ADM SS ALP [Catalytic activity/Vol] 79 U/L Normal 40 - 135 U/L AO ADM SS ALT With P-5'-P [Catalytic activity/Vol] 48 U/L Normal 14 - 59 U/L AO ADM SS AST With P-5'-P [Catalytic activity/Vol] 25 U/L Normal 10 - 40 U/L AO ADM SS Basophils (Bld) [#/Vol] 0.1 103/mcL Normal 0.0 - 0.3 10^3/mcL AO Workflow SS Basophils/100 WBC (Bld) 0.7 % Normal 0.0 - 2.5 % AO Workflow SS Bilirubin [Mass/Vol] 0.4 mg/dL Normal 0.2 - 1 .0 mg/dL AO ADM SS Comment on above: Interpretive Data: U se of this assay is not recommended for patients undergoing treatment with eltrombopag due to the potential for falsely elevated results. Calcium [Mass/Vol] 9.0 mg/dL Normal 8.4 - 10. 2 mg/dL AO ADM SS Chloride [Moles/Vol] 105 mmol/L Normal 98 - 10 7 mmol/L AO ADM SS CO2 [Moles/Vol] 23 mmol/L Normal 22 - 29 mmol/L AO ADM SS Creatinine [Mass/Vol] 0.89 mg/dL Normal 0.51 - 0.95 mg/dL AO ADM SS Electrolyte Balance 11.0 mEq/L Normal 4.0 - 15 .0 mEq/L AO ADM SS Eosinophil, Absolute 0.3 103/mcL Normal 0.0 - 0 .7 10^3/mcL AO Workflow SS Eosinophils/100 WBC (Bld) 4.1 % Normal 0.0 - 6.0 % AO Workflow SS Erythrocyte distribution width (RBC) [Ratio] 12.6 % Normal 11.5 - 15.5 % AO Workflow SS Estimated Glomerular Filtration Rate 83 ml/min/1.73sqm Invalid Interpretation Code AO Chemistry S Comment on above: Interpretive Data: Stages of Chronic Kidney Disease (CKD) Stage Description eGFR(ml/min/1.73 sq.m.) CKD 1 Normal kidney function or >=90 normal kindney function with possible kidney damage (ex. Proteinuria) CKD 2 Kidney damage with mild loss 60-89 of kidney function CKD 3a Mild to moderate loss of kidney 45-59 function CKD 3b Moderate to severe loss of 30-44 of kindey function CKD 4 Severe loss of kidney function 15-29 CKD 5 Kidney failure <15 Note: (go live 2024) the eGFR calculation was updated to the 2020 CKD-EPI creatinine equation without a race factor to calculate the eGFR results. Globulin 4.2 G/dL Normal 2.7 - 4.4 G/dL AO ADM SS Glucose [Mass/Vol] 114 mg/dL High 70 - 105 mg/dL AO ADM SS Hematocrit (Bld) [Volume fraction] 43.6 % Normal 34.0 - 46.0 % AO Workflow SS Hemoglobin (Bld) [Mass/Vol] 15.1 G/dL Normal 12.0 - 16.0 G/dL AO Workflow SS Lymphocytes (Bld) [#/Vol] 2.2 103/mcL Normal 0.9 - 4.3 10^3/mcL AO Workflow SS Lymphocytes/100 WBC (Bld) 26.6 % Normal 20.0 - 40.0 % AO Workflow SS MCH (RBC) [Entitic mass] 31.3 pg Normal 27.0 - 33.0 pg AO Workflow SS MCHC 34.7 G/dL Normal 32.0 - 36.0 G/dL AO Workflow SS MCV (RBC) [Entitic vol] 90.0 fL Normal 80.0 - 99.0 fL AO Workflow SS Monocytes (Bld) [#/Vol] 0.7 103/mcL Normal 0.1 - 1.4 10^3/mcL AO Workflow SS Monocytes/100 WBC (Bld) 8.5 % Normal 2.0 - 13.0 % AO Workflow SS Neutrophils (Bld) [#/Vol] 5.1 103/mcL Normal 2.3 - 8.1 10^3/mcL AO Workflow SS Neutrophils/100 WBC (Bld) 60.1 % Normal 50.0 - 75.0 % AO Workflow SS Platelet mean volume (Bld) [Entitic vol] 8.9 fL Normal 6.6 - 10.5 fL AO Workflow SS Platelets (Bld) [#/Vol] 298 103/mcL Normal 150 - 450 10^3/mcL AO Workflow SS Potassium [Moles/Vol] 4.1 mmol/L Normal 3.5 - 5.1 mmol/L AO ADM SS Protein [Mass/Vol] 7.9 G/dL Normal 6.4 - 8.2 G/dL AO ADM SS RBC (Bld) [#/Vol] 4.84 106/mcL Normal 4.10 - 5.3 0 10^6/mcL AO Workflow SS Sodium [Moles/Vol] 139 mmol/L Normal 136 - 145 mmol/L AO ADM SS TSH Qn 4.12 m[IU]/L High 0.36 - 3.74 mcIU/mL AO ADM SS Urea nitrogen [Mass/Vol] 13 mg/dL Normal 7 - 18 mg/dL AO ADM SS Urea nitrogen/Creatinine [Mass ratio] 15 ratio Normal 7 - 27 ratio AO ADM SS WBC (Bld) [#/Vol] 8.5 103/mcL Normal 4.5 - 10.8 10^3/mcL AO Workflow SS LABORATORYOrdered By: Madeline Styles on 01-20-2025 Cholesterol [Mass/Vol] 193 mg/dL Normal 0 - 2 00 mg/dL AO ADM SS Comment on above: Interpretive Data: C holesterol Reference Interval: Less than 200 Desirable 200-239 Borderline high risk 240 and above High risk Cholesterol in HDL [Mass/Vol] 28 mg/dL Low 40 - 60 mg/dL AO ADM SS Cholesterol in LDL [Mass/Vol] 89 mg/dL Normal 0 - 130 mg/dL AO ADM SS Triglyceride [Mass/Vol] 380 mg/dL High 0 - 150 mg/dL AO ADM SS Comment on above: Interpretive Data: T riglyceride Reference Interval: Less than 150 Normal 150-199 Borderline high risk 200-499 High risk 500 or higher Very high risk LIPIDon 01-20-2025 Cholesterol [Mass/Vol] 193 mg/dL Normal 0-200 [facility] Comment on above: Result Comment: Chol esterol Reference Interval: Less than 200 Desirable 200-239 Borderline high risk 240 and above High risk Performed By: #### T SH, ANEU, CMP, GFR, CBC, ADIFF, LIPID #### [address] [address] Cholesterol in HDL [Mass/Vol] 28 mg/dL Low 40-60 [facility] Comment on above: Performed By: #### T SH, ANEU, CMP, GFR, CBC, ADIFF, LIPID #### [address] [address] Cholesterol in LDL [Mass/Vol] 89 mg/dL Normal 0-130 [facility] Comment on above: Performed By: #### T SH, ANEU, CMP, GFR, CBC, ADIFF, LIPID #### [address] [address] Triglyceride [Mass/Vol] 380 mg/dL High 0-150 [facility] Comment on above: Result Comment: Trig lyceride Reference Interval: Less than 150 Normal 150-199 Borderline high risk 200-499 High risk 500 or higher Very high risk Performed By: #### T SH, ANEU, CMP, GFR, CBC, ADIFF, LIPID #### [address] [address] TSHon 01-20-2025 TSH Qn 4.12 m[IU]/L High 0.36-3.74 [facility] Comment on above: Performed By: #### T SH, ANEU, CMP, GFR, CBC, ADIFF, LIPID #### [facility] [address] [place], [place] [address] Gastroenterology Visit Repor ton 12-28-2024 Gastroenterology Visit Report [facility] [address] [place] [address] OFFICE VISIT Date of Service: 12/28/24 MR#: [id number] Acct: [id number] Name: GARRISON PRATT Rep #: [id number] : 1980 Provider: INA kerr Age/Sex: 44/F Location: [email or web address] Status: Signed Intake Vital Signs 12/26/24 19:25 12/28/24 10:03 Height 5 ft 1 in 5 ft 1 in Weight: 205 lb BMI 38.7 BP 141/95 H Respiration 16 Pulse 91 Pulse Oximetry (%) 98 Oxygen Delivery Method room air Intake Visit Reasons: ER FU NAUSEA VOMITING FATTY LIVER Chief Complaint: N/V [employer] Required: No Accompanied by: Self Is patient in pain?: No Allergies diphenhydramine HCl (From Benadryl) Allergy (Verified 12/26/24 19:26) swelling all over tramadol Allergy (Verified 12/26/24 19:26) Itching Medications ???Medication ???Instructions ???Recorded ???Confirmed ???Type cyclobenzaprine 10 mg tablet 10 mg PO TID PRN Muscle Spasm #20 12/05/24 12/28/24 Rx TABLETS ondansetron 4 mg disintegrating 4 mg PO Q8H PRN PRN Nausea #15 tab s 12/26/24 12/28/24 Rx tablet peg 3350-sod sulf,[id number] See Rx Instructions PO .COMPLEX #2 12/28/24 12/28/24 Rx 178.7-7.3-0.5-1.12-0 .9 gram oral mL soln (Suflave) sucralfate 100 mg/mL oral 10 ml PO QACHS #1,200 mL 12/28/24 12/28/24 Rx suspension (Carafate) Nurse's Note: Bowel movement are soft or liquid. Moves her bowels 15 to 20 times a day. Keeps gaining weight. [facility] Medical History (Updated 12/28/24 @ 13:02 by Bridgette Santo NP-C) Diarrhea Kawasaki disease Lumbar strain Left ankle sprain Bilateral carpal tunnel syndrome Left knee pain Absence seizure disorder Anxiety Surgical History Hx of tubal ligation Family History Mother Hypertension Myocardial infarction Grandfather Hypertension Grandmother Hypertension Heart disease triple bypass Social History household members: spouse, family and children Smoking Status: Current every day smoker tobacco type: cigarettes alcohol intake: never HPI HPI Chief Complaint: N/V Details: GARRISON PRATT, is a 44 F who presents to the office today for ER 12/26/2024 44-year-old female past medical history of GERD presents with months of sour taste in her mouth as well as abdominal pain, nausea, vomiting, and diarrhea. She states that whenever she tries to eat or drinks things, even water, that she gets diarrhea, as well as nausea and vomiting. Past surgical history does include bilateral tubal ligation. No fevers or chills. No exacerbating or alleviating factors. However, sometimes when she lays flat, she gets a burning sensation in her esophagus. She feels like she is going to vomit. She describes more epigastric to diffuse abdominal pain. Abdomen/Pelvis CT 12/26/24 20:53 IMPRESSION: 1. No acute intra-abdominal abnormality. 2. Hepatic steatosis and hepatomegaly. 12/26/2024 ALT 39, CBC unremarkable, lipase normal - started on Ondansetron - nausea, emesis of bile every morning x8 weeks - emesis after meals - wakes in morning with symptoms - Prilosec OTC did not help - Pepcid AC and Zantac no help - sleeps with bottle of pepto next to bed - she has eliminated coffee and acidic foods - IBU 400mg BID for back pain x1 month - denies any dysphagia - denies any HB - epigastric fullness, bloating - not waking the next morning and vomiting food - c/o weight gain - EGD - possibly in the remote past - loose stools/diarrhea after meals x8 weeks - reports having 10-15 stools daily - denies any bleeding - denies any stool testing - she wakes at HS with BM - denies any family h/o colon CA - has never had a colonoscopy ROS Const Constitutional: No fatigue, fever(s) or weight change ENT ENT: No difficulty swallowing Gastro GI: Positive for abdominal pain, change in bowel habits, diarrhea, heartburn, nausea/dyspepsia and vomiting; No belching, bloating, change in stool character, coffee ground emesis, constipation, cramping, difficulty swallowing, feeling full early, excessive flatus, incontinent of stools, Vomiting blood/hematemesis, Blood in stool, loose stools, Black,tarry stools, pain with swallowing or other Musc Musculoskeletal: Positive for back pain; No joint pain Skin Skin: No yellowing of the eye or itchy eyes Psych Psychiatric: Positive for anxiety and No depression Endo Endocrine: No fatigue or weight change Aller/Imm Allergy/Immunologic: No itchy eyes Manoj/Lymp Hematologic/Lymphati c: No easy bleeding or easy bruising Assessment and Plan Assessment and Plan (1) Nausea and vomiting: Status: Acute (2) Abdominal sanya (more content not included)... Normal [facility] Abdomen/Pelvis W IV Cont ONL Yon 12-26-2024 Abdomen/Pelvis W IV Cont ONLY [facility] Imaging Services [address] [place] [id number] Abdomen/Pelvis W IV Cont ONLY MR#: [id number] Acct: [id number] Name: GARRISON PRATT Rep #: [id number] : 1980 F 44 From: Jaya Anaya MD PCP: Dr. Suim Knutson, Status: REG ER Study: Abdomen/Pelvis W IV Cont ONLY Date of Exam: Exam# [id number] Ordering Dr: Tristan Le MD PROCEDURE: ABDOMEN/PELVIS W IV CONT ONLY N/A REASON FOR EXAM: PAIN TECHNIQUE: Abdomen and pelvis CT with intravenous contrast. Coronal and Sagittal reconstruction series were provided. PATIENT PREPARATION: Per protocol One or more dose reduction techniques were used (e.g., Automated exposure control, adjustment of the mA and/or kV according to patient size, use of iterative reconstruction technique. RADIATION DOSE SUMMARY: CTDlvol: 22.9 mGy DLP: 1325 mGycm COMPARISON: None FINDINGS: Lung bases: Linear atelectasis or scarring in the right middle lobe. Liver: Diffuse fatty infiltration. Enlarged measuring 21 cm longitudinal. Gallbladder: Unremarkable Spleen: At the upper limits of normal in size Pancreas: Normal size without evidence of mass surrounding inflammation or ductal dilation. Adrenals: Unremarkable Kidneys: No hydronephrosis or stone Bladder: Unremarkable Reproductive Organs: Unremarkable Bowel: No obstruction or inflammation. Normal appendix. Lymph nodes: No significant lymphadenopathy. Vasculature: Unremarkable Bones: Unremarkable CT/Abdomen/Pelvis W IV Cont ONLY IMPRESSION: 1. No acute intra-abdominal abnormality. 2. Hepatic steatosis and hepatomegaly. OVERALL FINAL ASSESSMENT: . LI-RADS is not meant to be used in patients <18 years or patients with cirrhosis due to congenital hepatic fibrosis or due to vascular disorders, because these patients have a lower chance of developing HCC. Reading Location: [facility] CC: Dr. Tristan Le MD; Dr. Sumi Knutson DO Policeman: Signed Normal [facility] Absolute lymphocyte countOrd ered By: Tristan Le on 12-26-2024 Lymphocytes Auto (Unsp spec) [#/Vol] 2.45 10*3/uL 0.83-4.51 [facility] Absolute neutrophil countOrd ered By: Tristan Le on 12-26-2024 Neutrophils (Bld) [#/Vol] 3.8 10*3/uL 2.0-7.7 [facility] Amorphous sediment detection in urine sediment by light microscopyOrdered By: Tristan Le on 12-26-2024 Amorphous sediment LM Ql (Urine sed) 1+ [facility] Anion gap in Serum or Plasma Ordered By: Tristan Le on 12-26-2024 Anion gap [Moles/Vol] 12 mmol/L 5-15 [place] Automated lymphocyte count a s percentage of total leukocytesOrdered By: Tristan Le on 12-26-2024 Lymphocytes/100 WBC Auto (Unsp spec) 33.7 % 19-41 [facility] BUN/creatinine ratioOrdered By: Tristan Le on 12-26-2024 Urea nitrogen/Creatinine [Mass ratio] 15.8 mg/mg 10-20 [facility] Basophil percentageOrdered B y: Tristan Le on 12-26-2024 Basophils/100 WBC (Bld) 1.0 % 0-1 [facility] Bilirubin Test strip Ql (U)O rdered By: Tristan Le on 12-26-2024 Bilirubin Ql (U) Negative Negative [facility] Bilirubin, totalOrdered By: Tristan Le on 12-26-2024 Bilirubin [Mass/Vol] 0.34 mg/dL 0.00-1.30 [facility] CBC W/Diff, Automatedon Absolute Lymph 2.45 X10 3/uL Normal 0.83-4.51 [facility] Comment on above: Performed By: #### L 700.6800, L500.4050, L100.0100, L501.2450 #### [facility] [address] [place], [address] Absolute Neut 3.8 X10 3/uL Normal 2.0-7.7 [facility] Comment on above: Performed By: #### L 700.6800, L500.4050, L100.0100, L501.2450 #### [facility] [address] [place], [address] Basophils/100 WBC (Bld) 1.0 % Normal 0-1 [facility] Comment on above: Performed By: #### L 700.6800, L500.4050, L100.0100, L501.2450 #### [facility] [address] [place], [address] Eosinophils/100 WBC (Bld) 4.8 % Normal 0-5 [facility] Comment on above: Performed By: #### L 700.6800, L500.4050, L100.0100, L501.2450 #### [facility] [address] [place], [address] Erythrocyte distribution width (RBC) [Ratio] 11.9 % Normal 11.6-14.6 [facility] Comment on above: Performed By: #### L 700.6800, L500.4050, L100.0100, L501.2450 #### [facility] [address] [place], [address] Hematocrit (Bld) [Volume fraction] 38.8 % Normal 37-47 [facility] Comment on above: Performed By: #### L 700.6800, L500.4050, L100.0100, L501.2450 #### [facility] [address] [place], [address] Hemoglobin (Bld) [Mass/Vol] 13.9 g/dL Normal 12.0-15.0 [facility] Comment on above: Performed By: #### L 700.6800, L500.4050, L100.0100, L501.2450 #### [facility] [address] [place], [address] IG% 0.300 Normal 0.0-0.9 [facility] Comment on above: Result Comment: IG% - Immature Granulocytes (promyelocytes, myelocytes and metamyelocytes) > 1% indicates that a LEFT SHIFT is Present. Performed By: #### L 700.6800, L500.4050, L100.0100, L501.2450 #### [facility] [address] [place], [address] Lymphocytes/100 WBC (Bld) 33.7 % Normal 19-41 [facility] Comment on above: Performed By: #### L 700.6800, L500.4050, L100.0100, L501.2450 #### [facility] [address] [place], [address] MCH (RBC) [Entitic mass] 31.4 pg Normal 27.0-32.0 [facility] Comment on above: Performed By: #### L 700.6800, L500.4050, L100.0100, L501.2450 #### [facility] [address] [place], [address] MCHC (RBC) [Mass/Vol] 35.8 g/dL Normal 32-36 [place] Comment on above: Performed By: #### L 700.6800, L500.4050, L100.0100, L501.2450 #### [facility] [address] [place], [address] MCV (RBC) [Entitic vol] 87.8 fL Normal 81-99 [facility] Comment on above: Performed By: #### L 700.6800, L500.4050, L100.0100, L501.2450 #### [facility] [address] [place], [address] Monocytes/100 WBC (Bld) 8.0 % Normal 0-10 [facility] Comment on above: Performed By: #### L 700.6800, L500.4050, L100.0100, L501.2450 #### [facility] [address] [place], [address] Neutrophils/100 WBC (Bld) 52.2 % Normal 47-70 [facility] Comment on above: Performed By: #### L 700.6800, L500.4050, L100.0100, L501.2450 #### [facility] [address] [place], [address] Nucleated RBC (Bld) [#/Vol] 0 10*3/uL Normal 0-5 [facility] Comment on above: Performed By: #### L 700.6800, L500.4050, L100.0100, L501.2450 #### [facility] [address] [place], [address] Platelet mean volume (Bld) [Entitic vol] 10.5 fL Normal 6.2-12.0 [facility] Comment on above: Performed By: #### L 700.6800, L500.4050, L100.0100, L501.2450 #### [facility] [address] [place], [address] Platelets (Bld) [#/Vol] 278 10*3/uL Normal 150-450 [facility] Comment on above: Performed By: #### L 700.6800, L500.4050, L100.0100, L501.2450 #### [facility] [address] [place], [address] RBC (Bld) [#/Vol] 4.42 10*6/uL Normal 4.2-5.4 [facility] Comment on above: Performed By: #### L 700.6800, L500.4050, L100.0100, L501.2450 #### [facility] [address] [place], [address] RDW SD 38.4 fl Normal 35.1-43.9 [facility] Comment on above: Performed By: #### L 700.6800, L500.4050, L100.0100, L501.2450 #### [facility] [address] [place], [address] WBC (Bld) [#/Vol] 7.3 10*3/uL Normal 4.4-11.0 [facility] Comment on above: Performed By: #### L 700.6800, L500.4050, L100.0100, L501.2450 #### [facility] [address] [place], [address] Carbon dioxide, total [Moles /volume] in Central venous bloodOrdered By: Tristan Le on 12-26-2024 CO2 [Moles/Vol] 19.2 mmol/L Low 21.0-32.0 [facility] Chloride assayOrdered By: Nathan Le on 12-26-2024 Chloride [Moles/Vol] 105 mmol/L 98-108 [facility] Comprehensive Metabolic Prof ilon 12-26-2024 Albumin [Mass/Vol] 4.3 g/dL Normal 3.5-5.0 [facility] Comment on above: Performed By: #### L 700.6800, L500.4050, L100.0100, L501.2450 #### [facility] [address] [place], [address] Albumin/Globulin [Mass ratio] 1.5 {ratio} Normal 0.9-2.4 [facility] Comment on above: Performed By: #### L 700.6800, L500.4050, L100.0100, L501.2450 #### [facility] [address] [place], [address] ALK PHOS 78 U/L Normal 35-104 [facility] Comment on above: Performed By: #### L 700.6800, L500.4050, L100.0100, L501.2450 #### [facility] [address] [place], [address] ALT [Catalytic activity/Vol] 39 U/L High <=34 [facility] Comment on above: Performed By: #### L 700.6800, L500.4050, L100.0100, L501.2450 #### [facility] [address] [place], [address] AST [Catalytic activity/Vol] 31 U/L Normal <=31 [facility] Comment on above: Performed By: #### L 700.6800, L500.4050, L100.0100, L501.2450 #### [facility] [address] [place], [address] Bilirubin [Mass/Vol] 0.34 mg/dL Normal 0.00-1.30 [facility] Comment on above: Performed By: #### L 700.6800, L500.4050, L100.0100, L501.2450 #### [facility] [address] [place], [address] BUN/CRE 15.8 RATIO Normal 10-20 [facility] Comment on above: Performed By: #### L 700.6800, L500.4050, L100.0100, L501.2450 #### [facility] [address] [place], [address] Calcium [Mass/Vol] 9.5 mg/dL Normal 7.6-11.0 [facility] Comment on above: Performed By: #### L 700.6800, L500.4050, L100.0100, L501.2450 #### [facility] [address] [place], [address] Chloride [Moles/Vol] 105 mmol/L Normal 98-108 [facility] Comment on above: Performed By: #### L 700.6800, L500.4050, L100.0100, L501.2450 #### [facility] [address] [place], [address] CO2 [Moles/Vol] 19.2 mmol/L Low 21.0-32.0 [facility] Comment on above: Performed By: #### L 700.6800, L500.4050, L100.0100, L501.2450 #### [facility] [address] [place], [address] Creatinine [Mass/Vol] 1.05 mg/dL Normal 0.70-1.20 [place] Comment on above: Performed By: #### L 700.6800, L500.4050, L100.0100, L501.2450 #### [facility] [address] [place], [address] ECRCL 72.85 ml/min Normal 50-250 [facility] Comment on above: Performed By: #### L 700.6800, L500.4050, L100.0100, L501.2450 #### [facility] [address] [place], [address] GAP 12 Normal 5-15 [facility] Comment on above: Performed By: #### L 700.6800, L500.4050, L100.0100, L501.2450 #### [facility] [address] [place], [address] GFR/1.73 sq M.predicted among non-blacks MDRD (S/P/Bld) [Vol rate/Area] 68 mL/min/{1.73_m2} Normal >60 [facility] Comment on above: Result Comment: mL/m in/1.73m2 CKD-EPI Creatinine Equation (2020) Performed By: #### L 700.6800, L500.4050, L100.0100, L501.2450 #### [facility] [address] [place], [address] Globulin (S) [Mass/Vol] 3.0 g/dL Normal 2.2-4.2 [facility] Comment on above: Performed By: #### L 700.6800, L500.4050, L100.0100, L501.2450 #### [facility] [address] [place], [address] Glucose [Mass/Vol] 91 mg/dL Normal 70-99 [facility] Comment on above: Performed By: #### L 700.6800, L500.4050, L100.0100, L501.2450 #### [facility] [address] [place], [address] Potassium [Moles/Vol] 3.6 mmol/L Normal 3.3-5.1 [place] Comment on above: Performed By: #### L 700.6800, L500.4050, L100.0100, L501.2450 #### [facility] [address] [place], [address] Sodium [Moles/Vol] 136 mmol/L Normal 133-145 [facility] Comment on above: Performed By: #### L 700.6800, L500.4050, L100.0100, L501.2450 #### [facility] [address] [place], [address] T PROT 7.3 g/dL Normal 5.9-8.4 [facility] Comment on above: Performed By: #### L 700.6800, L500.4050, L100.0100, L501.2450 #### [facility] [address] [place], [address] Urea nitrogen [Mass/Vol] 17 mg/dL Normal 4-19 [facility] Comment on above: Performed By: #### L 700.6800, L500.4050, L100.0100, L501.2450 #### [facility] [address] [place], [address] Emergency Department Summary on 12-26-2024 Emergency Department Summary [facility] Medical Records Department [address] [place] [address] Emergency Department Summary 12/26/24 MR#: [id number] Acct: [id number] Name: GARRISON PRATT Rep #: [id number] : 1980 44 From: Tristan Le MD PCP: Dr. Sumi Knutson, DO Status:REG ER Location: ED HPI HPI - GI History of Present Illness Chief Complaint: Abd Pain Narrative Narrative: 44-year-old female past medical history of GERD presents with months of sour taste in her mouth as well as abdominal pain, nausea, vomiting, and diarrhea. She states that whenever she tries to eat or drinks things, even water, that she gets diarrhea, as well as nausea and vomiting. Past surgical history does include bilateral tubal ligation. No fevers or chills. No exacerbating or alleviating factors. However, sometimes when she lays flat, she gets a burning sensation in her esophagus. She feels like she is going to vomit. She describes more epigastric to diffuse abdominal pain. [facility] Medical History Lumbar strain Left ankle sprain Bilateral carpal tunnel syndrome Left knee pain Absence seizure disorder Anxiety Home Medications ???Medication ???Instructions ???Recorded ???Last Taken ???Type pantoprazole 20 mg tablet,delayed 20 mg PO DAILY PRN 12/16/23 Unkno wn History release cyclobenzaprine 10 mg tablet 10 mg PO TID PRN Muscle Spasm #20 12/05/24 Unknown Rx TABLETS oxycodone-acetaminop hen 5 mg-325 1 tab PO Q8H PRN pain 3 days #10 0 12/05/24 Unknown Rx mg tablet (Percocet) tabs ondansetron 4 mg disintegrating 4 mg PO Q8H PRN PRN Nausea #15 tab s 12/26/24 Unknown Rx tablet Allergy/AdvReac Type Severity Reaction Status Date / Time diphenhydramine HCl (From Allergy swelling Verified 12/26/24 19:26 Benadryl) all over tramadol Allergy Itching Verified 12/26/24 19:26 Family History Mother Hypertension Myocardial infarction Grandfather Hypertension Grandmother Hypertension Heart disease triple bypass Surgical History Hx of tubal ligation Social History household members: spouse, family and children Smoking Status: Current every day smoker tobacco type: cigarettes alcohol intake: never ROS ROS ED ROS Narrative Constitutional: No fever, no chills. Cardiovascular: No chest pain. No palpitations. No pedal edema. Respiratory: No cough, no shortness of breath. Abdominal: Positive epigastric to diffuse abdominal pain. Positive nausea, vomiting, and diarrhea. Genitourinary: No dysuria. No hematuria. Musculoskeletal: No myalgias. No arthralgias. Neurologic: No headaches. No dizziness. No lightheadedness. No exacerbating or alleviating factors. However, states unable to even drink water. EXAM Physical Exam Narrative Exam Narrative: Afebrile. Vital signs noted. Nontoxic-appearing. HEENT: Normocephalic. Atraumatic. PERRL, EOMI. Neck soft and supple. No point tenderness or step off. Cardiovascular: Regular rate and rhythm. No murmurs, rubs, or gallops appreciated. Respiratory: No tachypnea. Lungs clear to auscultation bilaterally. Gastrointestinal: Abdomen soft, minimal diffuse tenderness to palpation in epigastrium and diffusely. With normoactive bowel sounds. No rebound or guarding. Negative Quezada sign. No pain in right lower quadrant, no pain over McBurney's point. Neurological: Awake. Alert. Nonfocal, nonlateralizing. Skin: No rash. Normal color. No pallor. Musculoskeletal: No pedal edema. Full range of motion extremities. Const Vital Signs: 12/26/24 19:25 Temperature 98 F Temperature Source Oral Pulse Rate 92 Respiratory Rate 18 Blood Pressure 125/104 H Blood Pressure Mean 111 Pulse Ox 99 Oxygen Delivery Method Room Air MDM MDM MDM Narrative Medical decision making narrative: The differential diagnosis includes but not limited to GERD versus hiatal hernia versus pancreatitis versus colitis. She may also have peptic ulcer disease versus gastritis. I have lower suspicion for acute cholecystitis or gallstone pancreatitis given her examination. I reviewed her prior records. She has been to the emergency department previously but not for abdominal pain. Patient administered a bolus of normal saline as well as morphine and ondansetron. I reviewed her laboratory work and she has normal white count of 7.3 with hemoglobin 13.9, hematocrit 38.8, platelet count 278. CMP is remarkable for carbon dioxide of 19.2, glucose 91, LFTs show an ALT of 39 which I think is nonspecific, normal alk phos of 78. Lipase normal at 46 so I doubt pancreatitis. Serum is negative. Urinalysis obtained and revie (more content not included)... Normal [facility] Eosinophil percentageOrdered By: Tristan Le on 12-26-2024 Eosinophils/100 WBC (Bld) 4.8 % 0-5 [facility] Erythrocyte distribution wid th ratioOrdered By: Tristan Le on 12-26-2024 Erythrocyte distribution width (RBC) [Ratio] 11.9 % 11.6-14.6 [facility] Erythrocyte distribution wid th standard deviationOrdered By: Tristan Le on 12-26-2024 Erythrocyte distribution width (RBC) [Ratio] 38.4 fl 35.1-43.9 [facility] Glomerular filtration rate ( GFR) estimation/1.73 sq m using serum, plasma, or whole bOrdered By: Tristan Le on 12-26-2024 GFR/1.73 sq M.predicted among non-blacks MDRD (S/P/Bld) [Vol rate/Area] 68 mL/min/{1.73_m2} >60 [facility] Comment on above: mL/min/1.73m2 CKD-EP I Creatinine Equation (2020) Hematocrit Auto (Bld) [Volum e fraction]Ordered By: Tristan Le on 12-26-2024 Hematocrit (Bld) [Volume fraction] 38.8 % 37-47 [facility] Hemoglobin measurementOrdere d By: Tristan Le on 12-26-2024 Hemoglobin (Bld) [Mass/Vol] 13.9 g/dL 12.0-15.0 [facility] Immature granulocytes/100 WB C Auto (Bld)Ordered By: Tristan Le on 12-26-2024 Immature granulocytes/100 WBC (Bld) 0.300 % 0.0-0.9 [facility] Comment on above: IG% - Immature Granu locytes (promyelocytes, myelocytes and metamyelocytes) > 1% indicates that a LEFT SHIFT is Present. Ketones Test strip Ql (U)Ord ered By: Tristan Le on 12-26-2024 Ketones Ql (U) Negative Negative [facility] - Chemistry and C hemistry - challengeOrdered By: Tristan Le on 12-26-2024 AST [Catalytic activity/Vol] 31 U/L <32 [facility] Lipaseon 12-26-2024 Lipase [Catalytic activity/Vol] 46 U/L Normal 13-75 [facility] Comment on above: Result Comment: Antonio peguero note: LIPASE revised reference range effective 22. New Lipase methodology. Expected to produce lower values than the previous assay method. NEW Reference Range: 13 - 75 U/L Performed By: #### L 700.6800, L500.4050, L100.0100, L501.2450 #### [facility] [place] [address], [address] Lipase measurementOrdered By : Tristan Le on 12-26-2024 Lipase [Catalytic activity/Vol] 46 U/L 13-75 [facility] Comment on above: Please note:LIPASE r evised reference range effective 22. New Lipase methodology. Expected to produce lower values than the previous assay method. NEW Reference Range: 13 - 75 U/L MCV (mean corpuscular volume ) determinationOrdered By: Tristan Le on 12-26-2024 MCV (RBC) [Entitic vol] 87.8 fL 81-99 [facility] Mean corpuscular hemoglobin (MCH) determinationOrdered By: Tristan Le on 12-26-2024 MCH (RBC) [Entitic mass] 31.4 pg 27.0-32.0 [facility] Mean corpuscular hemoglobin concentration (MCHC) determinationOrdered By: Tristan Le on 12-26-2024 MCHC (RBC) [Mass/Vol] 35.8 g/dL 32-36 [place] Mean platelet volume determi nationOrdered By: Tristan Le on 12-26-2024 Platelet mean volume (Bld) [Entitic vol] 10.5 fL 6.2-12.0 [facility] Microscopic analysis of urin e for red blood cells (RBC)Ordered By: Tristan Le on 12-26-2024 Microscopic analysis of urine for red blood cells (RBC) 5-10 SEEN /hpf 0-5 [facility] Monocyte percentageOrdered B y: Tristan Le on 12-26-2024 Monocytes/100 WBC (Bld) 8.0 % 0-10 [facility] Mucus LM Ql (Urine sed)Order ed By: Tristan Le on 12-26-2024 Mucus Ql (Urine sed) 0 SEEN /hpf [place] Neutrophil percentageOrdered By: Tristan Le on 12-26-2024 Neutrophils/100 WBC (Bld) 52.2 % 47-70 [facility] Nitrite Test strip Ql (U)Ord ered By: Tristan Le on 12-26-2024 Nitrite Ql (U) Negative Negative [facility] Nucleated red blood cell per centageOrdered By: Tristan Le on 12-26-2024 Nucleated RBC/100 WBC (Bld) [Ratio] 0 % 0-5 [facility] Platelet countOrdered By: Nathan Le on 12-26-2024 Platelets (Bld) [#/Vol] 278 10*3/uL 150-450 [facility] Potassium measurement (mass/ volume)Ordered By: Tristan Le on 12-26-2024 Potassium (Unsp spec) [Mass/Vol] 3.6 mmol/L 3.3-5.1 [facility] ,Serum,hCG Quali.on 12-26-2024 HCG, SERUM QUAL Negative Normal [facility] Comment on above: Performed By: #### L 700.6800, L500.4050, L100.0100, L501.2450 #### [facility] [address] [place] [address], [address] Protein Test strip Ql (U)Ord ered By: Tristan Le on 12-26-2024 Protein Ql (U) 30 mg/dl High Negative [facility] RBC Auto (Bld) [#/Vol]Ordere d By: Tristan Le on 12-26-2024 RBC (Bld) [#/Vol] 4.42 10*6/uL 4.2-5.4 [facility] Serum beta-hCG test, qualita tiveOrdered By: Tristan Le on 12-26-2024 Beta HCG ( test) Ql Negative [facility] Serum creatinine measurement (mass/volume)Ordered By: Tristan Le on 12-26-2024 Creatinine [Mass/Vol] 1.05 mg/dL 0.70-1.20 [place] Serum globulin measurementOr dered By: Tristan Le on 12-26-2024 Globulin (S) [Mass/Vol] 3.0 g/dL 2.2-4.2 [facility] Serum glucose measurement (m ass/volume)Ordered By: Tristan Le on 12-26-2024 Glucose [Mass/Vol] 91 mg/dL 70-99 [facility] Serum or plasma alanine blum otransferase (ALT) measurementOrdered By: Tristan Le on 12-26-2024 ALT [Catalytic activity/Vol] 39 U/L High <35 [facility] Serum or plasma albumin iliana urement (mass/volume)Ordered By: Tristan Le on 12-26-2024 Albumin [Mass/Vol] 4.3 g/dL 3.5-5.0 [facility] Serum or plasma albumin/glob ulin mass ratioOrdered By: Tristan Le on 12-26-2024 Albumin/Globulin [Mass ratio] 1.5 {ratio} 0.9-2.4 [facility] Serum or plasma alkaline isa sphatase measurementOrdered By: Tristan Le on 12-26-2024 ALP [Catalytic activity/Vol] 78 U/L 35-104 [facility] Serum or plasma calcium iliana urement (mass/volume)Ordered By: Tristan Le on 12-26-2024 Calcium [Mass/Vol] 9.5 mg/dL 7.6-11.0 [facility] Serum or plasma urea nitroge n measurement (mass/volume)Ordered By: Tristan Le on 12-26-2024 Urea nitrogen [Mass/Vol] 17 mg/dL 4-19 [facility] Sodium levelOrdered By: Tristan Le on 12-26-2024 Sodium [Moles/Vol] 136 mmol/L 133-145 [facility] Squamous epithelial cells de tection in urine sediment by light microscopyOrdered By: Tristan Le on 12-26-2024 Epithelial cells.squamous LM Ql (Urine sed) 0-5 SEEN /hpf 5-10 [facility] Total proteinOrdered By: Saray Le on 12-26-2024 Protein [Mass/Vol] 7.3 g/dL 5.9-8.4 [facility] Urinalysis, Completeon 12-26 AMORPHOUS 1+ Normal [facility] Comment on above: Order Comment: CLEAN CATCH Performed By: #### L 400.0001 #### [facility] [address] [place], [address] RBC 5-10 SEEN Normal 0-5 [facility] Comment on above: Order Comment: CLEAN CATCH Performed By: #### L 400.0001 #### [facility] [address] [place], [address] WBC 0-5 SEEN Normal 0-5 [facility] Comment on above: Order Comment: CLEAN CATCH Performed By: #### L 400.0001 #### [facility] [address] [place], [address] EPI,SQUAMOUS 0-5 SEEN Normal 5-10 [facility] Comment on above: Order Comment: CLEAN CATCH Performed By: #### L 400.0001 #### [facility] [address] [place], [address] BACTERIA 0 SEEN Normal None Seen [facility] Comment on above: Order Comment: CLEAN CATCH Performed By: #### L 400.0001 #### [facility] [address] [place], [address] Mucus Ql (Urine sed) 0 SEEN Normal [facility] Comment on above: Order Comment: CLEAN CATCH Performed By: #### L 400.0001 #### [facility] [address] [place], [address] Urine clarityOrdered By: Saray Le on 12-26-2024 Clarity (U) Clear Clear [facility] Urine color determinationOrd ered By: Tristan Le on 12-26-2024 Color (U) Yellow Yellow [facility] Urine glucose detectionOrder ed By: Tristan Le on 12-26-2024 Glucose Ql (U) Normal mg/dl Normal [facility] Urine leukocyte esterase det ection by dipstickOrdered By: Tristan Le on 12-26-2024 Leukocyte esterase Test strip Ql (U) Negative Negative [facility] Urine pHOrdered By: Tristan santana on 12-26-2024 pH (U) 7.0 [pH] 5.0 - 8.0 [facility] Urine sediment bacteria coun t by microscopy (number/high power field)Ordered By: Tristan Le on 12-26-2024 Bacteria LM.HPF (Urine sed) [#/Area] 0 /[HPF] None Seen [facility] Urine specific gravity measu rementOrdered By: Tristan eL on 12-26-2024 Specific gravity (U) [Rel density] 1.015 1.002-1.030 [facility] Urine urobilinogen measureme ntOrdered By: Tristan Le on 12-26-2024 Urobilinogen Ql (U) Normal mg/dl Normal [place] White blood cell (WBC) count Ordered By: Tristan Le on 12-26-2024 WBC (Bld) [#/Vol] 7.3 10*3/uL 4.4-11.0 [facility] White blood cell countOrdere d By: Tristan Le on 12-26-2024 White blood cell count 0-5 SEEN /hpf 0-5 [facility] Emergency Department Summary on 12-05-2024 Emergency Department Summary [facility] Medical Records Department [address] [place] [address] Emergency Department Summary 12/05/24 MR#: [id number] Acct: [id number] Name: GARRISON PRATT Rep #: [id number] : 1980 44 From: Juan Montaño MD PCP: Dr. Sumi Knutson, Status:DEP ER Location: ED HPI History of Present Illness Chief Complaint: Back Informant: patient Onset/Context/Timing Onset: Yesterday Context: Onset with activity Chronic pain exacerbated by: reaching Timing: Continuous Location: Lumbar Worsened by: improves with Movement and Ambulation Associated Symptoms Associated Symptoms: Negative for Numbness, Tingling, Radiation to Right Leg, Radiation to Left Leg or Fever Narrative Narrative: Patient has a history of low back pain. She is not in pain management. Does not have any history of surgery. Not on blood thinners. No history of cancer or immunocompromise. No trauma. She was reaching for something yesterday and has been very painful in her left lower back since. Prior similar symptoms: Yes and With Prior Back Pain PFSH PFS Medical History Lumbar strain Left ankle sprain Bilateral carpal tunnel syndrome Left knee pain Absence seizure disorder Anxiety Home Medications ???Medication ???Instructions ???Recorded ???Last Taken ???Type pantoprazole 20 mg tablet,delayed 20 mg PO DAILY PRN 12/16/23 Unkno wn History release cyclobenzaprine 10 mg tablet 10 mg PO TID PRN Muscle Spasm #20 12/05/24 Unknown Rx TABLETS oxycodone-acetaminop hen 5 mg-325 1 tab PO Q8H PRN pain 3 days #10 0 12/05/24 Unknown Rx mg tablet (Percocet) tabs Allergy/AdvReac Type Severity Reaction Status Date / Time diphenhydramine HCl (From Allergy swelling Verified 12/05/24 16:23 Benadryl) all over tramadol Allergy Itching Verified 12/05/24 16:23 Family History Mother Hypertension Myocardial infarction Grandfather Hypertension Grandmother Hypertension Heart disease triple bypass Surgical History Hx of tubal ligation Social History household members: spouse, family and children Smoking Status: Current every day smoker tobacco type: cigarettes alcohol intake: never ROS ROS ED Constitutional Constitutional ED: Denies chills or fever(s) Cardiovascular Cardiovascular: Denies chest pain Respiratory/Chest Respiratory/Chest: Denies dyspnea Gastrointestinal Gastrointestinal: Denies abdominal pain, diarrhea, nausea or vomiting Genitourinary Genitourinary ED: Denies dysuria or urinary frequency Musculoskeletal Musculoskeletal: Reports back pain and myalgias; Denies arthralgias or neck pain Integumentary Denies rash Neurologic Neurologic: Denies headache(s), paresthesias or weakness Hematologic/Lymphati c Hematologic/Lymphati c: Denies easy bleeding or easy bruising EXAM Physical Exam Const Vital Signs: 12/05/24 16:22 12/05/24 19:00 Temperature 98.3 F Temperature Source Temporal Pulse Rate 88 79 Respiratory Rate 16 16 Blood Pressure 100/74 129/87 H Blood Pressure Mean 82 101 Pulse Ox 100 98 Oxygen Delivery Method Room Air Positive well nourished and well developed General Appearance ED: well developed HEENT Reports moist mucous membranes Negative for trauma Eyes EOMs intact bilaterally Neck General: Negative for tenderness Resp normal respiratory effort and clear to auscultation bilaterally Cardio regular rate and regular rhythm GI normal to inspection, nondistended, normoactive bowel sounds Back/Spine normal to inspection Back/Spine Narrative: Left lumbar back tenderness Extremity normal to inspection General Extremety ED: Negative for edema or tenderness General Extremity: Negative for edema Neuro oriented x3 and no sensory deficits noted Sensorium / Orientation: alert Motor Exam: strength 5/5 throughout Psych mental status grossly normal Skin no rashes or lesions noted and no wounds MDM MDM MDM Narrative Medical decision making narrative: Patient likely has myofascial back pain. She does describe history of chronic back pain and some type of abnormal straightening. I did order an x-ray. This was read by the radiologist at myself which showed no acute process. She did not require any further diagnostic testing. Nothing was indicated. Vitals look good. No red flag features or concerning mechanisms. Will treat this medically. Short course of pain medicine. Jxae-yba-[id number] remedies. Muscle relaxers. Return precautions given. Follow-up as an outpatient. Discharge. Impression #1 lumbar back pain Radiography Diagnostic T (more content not included)... Normal [facility] Lumbar Spine 2 or 3 Viewson 12-05-2024 Lumbar Spine 2 or 3 Views [facility] [address] [place] [id number] Lumbar Spine 2 or 3 Views MR#: [id number] Acct: [id number] Name: GARRISON PRATT Rep #: [id number] : 1980 F 44 From: Dion ceron MD PCP: Dr. Sumi Knutson, DO Status: REG ER Study: Lumbar Spine 2 or 3 Views Date of Exam: Exam# [id number] Ordering Dr: Juan Montaño MD PROCEDURE: LUMBAR SPINE 2 OR 3 VIEWS 12/05/2024 REASON FOR EXAM: ACUTE ON CHRONIC PAIN TECHNIQUE: 3 view(s) of the lumbar spine COMPARISON: 11/22/2024 FINDINGS: Lumbar lordosis is maintained. Vertebral body heights and disc spaces are within normal limits. Pedicles are intact. Osseous architecture is maintained. No acute fracture or traumatic subluxation. No significant spondylotic changes. SI joints and imaged hip joints are within normal limits. No suspicious lytic or blastic lesion. RAD/Lumbar Spine 2 or 3 Views IMPRESSION: No acute fracture or traumatic subluxation. Reading Location: [facility] CC: Dr. Juan Montaño MD; Dr. Sumi Knutson DO Policeman: Signed Normal [facility] Urgent Care Visit Reporton 0 12-01-2024 Urgent Care Visit Report [facility] [address], [address] [place] [address] OFFICE VISIT Date of Service: 12/01/24 MR#: [id number] Acct: [id number] Name: GARRISON PRATT Rep #: [id number] : 1980 Provider: NGOC Sykes Age/Sex: 44/F Location: [email or web address] Status: Signed Intake Vital Signs 09/16/24 11:48 12/01/24 12:40 Height 5 ft 1 in BP 128/80 H Blood Pressure Location Lt brachial Position Sitting Respiration 17 Pulse 83 Pulse Source NIBP Temp 98.3 F Temp Source Oral Pulse Oximetry (%) 98 Oxygen Delivery Method room air Intake Visit Reasons: L ANKLE AND BACK/WEST VIEW Chief Complaint: WC f/u left ankle, back [employer] Required: No Is patient in pain?: No Allergies diphenhydramine HCl (From Benadryl) Allergy (Verified 12/01/24 12:40) swelling all over tramadol Allergy (Verified 12/01/24 12:40) Itching Is last menstrual period known: No Post menopausal: Yes Patient : No PFSH Medical History (Updated 11/22/24 @ 15:45 by NGOC Mcarthur) Lumbar strain Left ankle sprain Bilateral carpal tunnel syndrome Left knee pain Absence seizure disorder Anxiety Surgical History Hx of tubal ligation Family History Mother Hypertension Myocardial infarction Grandfather Hypertension Grandmother Hypertension Heart disease triple bypass Social History household members: spouse, family and children Smoking Status: Current every day smoker tobacco type: cigarettes alcohol intake: never HPI HPI Chief Complaint: WC f/u left ankle, back Details: GARRISON PRATT, is a 44 F who presents to the office today for f/u of low back and left ankle complaints. Patient notes while at work on 11/22/2024, slipped on water on floor and fell, hitting her lower back and her left ankle went underneath her - describing plantar flexion of foot. Patient notes no caudal radicular complaints at the time of the injury or since. Resolved tenderness appreciated to the proximal dorsal aspect of the left ankle/foot as well as low back pain without radicular/ caudal complaints upon questioning. Pain to low back is comparable to before DOI and no longer aggravated touch or with flexion and extension at the waist and left ankle is no longer aggravated to touch or with prolonged weightbearing. No other associated symptoms and no other alleviating/aggravat ing factors. Patient requesting released without restrictions at this time. ROS Const Constitutional: No other (As above) Exam Const General: cooperative, healthy appearing and no acute distress Orientation: alert and awake Resp Effort Inspection: normal respiratory effort and able to speak in complete sentences Cardio Rate: regular rate Pulses: radial pulses present GI Inspection: normal to inspection Musc Thoracic/Lumbar Spine: thoracic and lumbar spine normal to inspection (Except loss of lordosis), FAROM at waist, no paraspinal tenderness Skin General: no rashes or lesions noted Neuro General: patient alert and patient awake Cognition: normal cognition Speech: speech normal Motor: muscle tone normal throughout Sensory Exam: no sensory deficits noted Extrem General: capillary refill normal and normal exam with unguarded FAROM left ankle Psych Appearance: grossly normal Mental Status: mental status grossly normal Mood: congruent mood Affect: normal affect Speech and Movement: speech and movement normal Attitude: cooperative Diagnoses Left ankle sprain S93.402A Lumbar strain S39.012A Assessment and Plan Assessment and Plan (1) Left ankle sprain: Status: Acute (2) Lumbar strain: Status: Acute Plan: Released without work restrictions as noted on today's [employer] 14. Follow-up with the [facility] on an as-needed basis only. Patient states acknowledging understanding all the above. Coding Level of Care Code Off vis,est,level 2 12/01/24 1253 Date Ken Sotelo Signature: Date (if applicable) CC: Normal [facility] Office Visit Reporton 2024 Office Visit Report [facility] [address] [place] [address] OFFICE VISIT Date of Service: 11/22/24 MR#: [id number] Acct: [id number] Patient: GARRISON PRATT Rep #: [id number] : 1980 Provider: NGOC Sykes Age/Sex: 44/F Location: [facility] Status: Signed Intake Vital Signs 09/16/24 11:48 Height 5 ft 1 in Intake Visit Reasons: NGOC NON DOT DRUG BAT/ [place]ST [place] Chief Complaint: WC f/u left ankle, back Allergies diphenhydramine HCl (From Benadryl) Allergy (Verified 11/24/24 12:45) swelling all over tramadol Allergy (Verified 11/24/24 12:45) Itching Office Procedures [facility] Billing Sheet Testing Post-Accident Non-DOT Breath Alcohol Test: Yes Post-Accident NON-DOT Drug Screen in [facility]: Yes 11/29/24 0828 Date Ken Sotelo Signature: Date (if applicable) CC: Normal [facility] Visit Reporton 0 11-24-2024 Urgent Care Visit Report [facility] [address], [address] [place] [address] OFFICE VISIT Date of Service: 11/24/24 MR#: [id number] Acct: [id number] Name: GARRISON PRATT Rep #: [id number] : 1980 Provider: NGOC Sykes Age/Sex: 44/F Location: [facility] Status: Signed Intake Vital Signs 09/16/24 11:48 11/24/24 12:45 Height 5 ft 1 in BP 142/84 H Blood Pressure Location Lt brachial Position Sitting Respiration 17 Pulse 90 Pulse Source NIBP Temp 98.4 F Temp Source Oral Pulse Oximetry (%) 98 Oxygen Delivery Method room air Intake Visit Reasons: L ANKLE, BACK / WEST [place]IEW Chief Complaint: WC f/u left ankle, back [employer] Required: No Is patient in pain?: Yes Allergies diphenhydramine HCl (From Benadryl) Allergy (Verified 11/24/24 12:45) swelling all over tramadol Allergy (Verified 11/24/24 12:45) Itching Is last menstrual period known: No Post menopausal: No Patient : No Have you fallen in the past year?: Yes PFSH Medical History (Updated 11/22/24 @ 15:45 by Ken GROSSMAN, PA) Lumbar strain Left ankle sprain Bilateral carpal tunnel syndrome Left knee pain Absence seizure disorder Anxiety Surgical History Hx of tubal ligation Family History Mother Hypertension Myocardial infarction Grandfather Hypertension Grandmother Hypertension Heart disease triple bypass Social History household members: spouse, family and children Smoking Status: Current every day smoker tobacco type: cigarettes alcohol intake: never HPI HPI Chief Complaint: WC f/u left ankle, back Details: GARRISON PRATT, is a 44 F who presents to the office today for f/u of low back and left ankle complaints. Patient notes while at work on 11/22/2024, slipped on water on floor and fell, hitting her lower back and her left ankle went underneath her - describing plantar flexion of foot. Patient notes no caudal radicular complaints at the time of the injury or since though remarkable tenderness appreciated to the proximal dorsal aspect of the left ankle/foot as well as low back pain without radicular/ caudal complaints upon questioning. Pain to low back is more so aggravated touch with flexion and extension at the waist and left ankle is less so aggravated to touch with prolonged weightbearing. PMH NC. OTC NSAIDs taken to assist. No other associated symptoms and no other alleviating/aggravat ing factors. ROS Const Constitutional: No other (As above) Exam Const General: cooperative, healthy appearing and no acute distress Orientation: alert and awake Resp Effort Inspection: normal respiratory effort and able to speak in complete sentences Cardio Rate: regular rate Pulses: radial pulses present GI Inspection: normal to inspection Musc Thoracic/Lumbar Spine: thoracic and lumbar spine normal to inspection (Except loss of lordosis), straight leg raise negative bilaterally, pain with thoraco-lumbar ROM with forward flexion, with lateral flexion to the right, with lateral flexion to the left, with rotation to the right and with rotation to the left, paraspinal tenderness bilaterally in the upper lumbar, in the mid lumbar and in the lower lumbar and no lumbar spinal tenderness Skin General: no rashes or lesions noted Neuro General: patient alert and patient awake Cognition: normal cognition Speech: speech normal Motor: muscle tone normal throughout Sensory Exam: no sensory deficits noted Extrem General: capillary refill normal and normal exam except as noted (less tender touch dorsal-prox. L ankle; unguarded inversion/ eversion/ dorsoflex) Psych Appearance: grossly normal Mental Status: mental status grossly normal Mood: congruent mood Affect: normal affect Speech and Movement: speech and movement normal Attitude: cooperative Diagnoses Left ankle sprain S93.402A Lumbar strain S39.012A Assessment and Plan Assessment and Plan (1) Left ankle sprain: Status: Acute (2) Lumbar strain: Status: Acute Plan: See REVISED work restrictions as noted on today's [employer] 14. Isolation boot as needed. Supportive measures including rest, ice, elevate, NSAIDs, home range of motion exercises as re- instructed today. Follow-up with the [facility] on 12/01/2024, sooner should symptoms only worsen or any other concerns develop. Patient states acknowledging understanding all the above. Coding Level of Care Code Off vis,est,level 3 Clinical Quality Measures Falls Risk Screening/Assistive Devices Have you fallen in the past year?: Yes 11/24/24 1309 Date Ken Nielsen (more content not included)... Normal [facility] Ankle min 3 Viewson 11-23-19 Ankle min 3 Views [facility] Services [address] [place], [place] [address] Ankle min 3 Views MR#: [id number] Acct: [id number] Name: GARRISON PRATT Rep #: [id number] : 1980 F 44 From: Pacheco Schwab MD PCP: Dr. Sumi Knutson DO Status: REG CLI Study: Ankle min 3 Views Date of Exam: 11/22/24 Exam# [id number] Ordering Dr: Ken Fatima PROCEDURE: ANKLE MIN 3 VIEWS (RADANK), 11/22/2024 REASON FOR EXAM: PAIN TECHNIQUE: AP, lateral, and oblique views of the LEFT ankle were obtained. COMPARISON: None FINDINGS: Fracture/dislocation : No visible acute displaced fracture. Joint space(s): Preserved. Soft tissues: Unremarkable. Foreign bodies: None visible. Bone mineralization: Unremarkable. Other: None. RAD/Ankle min 3 Views IMPRESSION: No visible acute displaced fracture. Reading Location: [id number] CC: Dr. Sumi Knutson DO; NGOC Sykes Policeman: Signed Normal [facility] Lumbar Spine 2 or 3 Viewson 11-22-2024 Lumbar Spine 2 or 3 Views [facility] Imaging [facility] [address] [facility] [place] [address] Lumbar Spine 2 or 3 Views MR#: [id number] Acct: [id number] Name: GARRISON PRATT Rep #: [id number] : 1980 F 44 From: Pacheco Schwab MD PCP: Dr. Sumi Knutson DO Status: REG CLI Study: Lumbar Spine 2 or 3 Views Date of Exam: Exam# [id number] Ordering Dr: Ken Fatima PROCEDURE: LUMBAR SPINE 2 OR 3 VIEWS (RADSPLL), 11/22/2024 REASON FOR EXAM: PAIN TECHNIQUE: AP and lateral views of the lumbar spine were obtained. COMPARISON: None FINDINGS: Fracture/dislocation : None visible. Vertebral body heights: Preserved. Alignment: Trace lumbar levoscoliosis may be positional Disc spaces: Preserved, however there are a few tiny marginal osteophytes. Facets: Grossly unremarkable. Soft tissues: Unremarkable. Foreign bodies: None visible. Bone mineralization: Grossly unremarkable. Other: None. RAD/Lumbar Spine 2 or 3 Views IMPRESSION: 1. No visible acute displaced fracture. If there is persistent concern, consider CT. 2. Additional description as above. Reading Location: [id number] CC: Dr. Sumi Knutson DO; NGOC Sykes Policeman: Signed Normal [facility]gent [facility] Visit Reporton 0 11-22-2024 Urgent Care Visit Report [facility] [address], [address] [place] [address] OFFICE VISIT Date of Service: 11/22/24 MR#: [id number] Acct: [id number] Name: GARRISON PRATT Rep #: [id number] : 1980 Provider: NGOC Sykes Age/Sex: 44/F Location: [facility] Status: Signed Intake Vital Signs 09/16/24 11:48 11/22/24 15:11 Height 5 ft 1 in BP 122/78 H Position Sitting Pulse 98 Temp 98.3 F Temp Source Oral Pulse Oximetry (%) 99 Oxygen Delivery Method room air Intake Visit Reasons: L ANKLE BACK INJURY / [place]ST [place] Accompanied by: Self Is patient in pain?: Yes Pain scale (1-10): 7 Allergies diphenhydramine HCl (From Benadryl) Allergy (Verified 11/22/24 15:13) swelling all over tramadol Allergy (Verified 11/22/24 15:13) Itching Medications ???Medication ???Instructions ???Recorded ???Confirmed ???Type pantoprazole 20 mg tablet,delayed 20 mg PO DAILY PRN 12/16/2311/22 History release Nurse's Note: Patient here for a [facility] FROI. Patient slipped on water and fell and hit her lower back and her left ankle went underneath her. [facility] Medical History (Updated 11/22/24 @ 15:45 by Ken GROSSMAN, PA) Lumbar strain Left ankle sprain Bilateral carpal tunnel syndrome Left knee pain Absence seizure disorder Anxiety Surgical History Hx of tubal ligation Family History Mother Hypertension Myocardial infarction Grandfather Hypertension Grandmother Hypertension Heart disease triple bypass Social History household members: spouse, family and children Smoking Status: Current every day smoker tobacco type: cigarettes alcohol intake: never HPI HPI Details: GARRISON PRATT, is a 44 F who presents to the office today for initial evaluation of low back and left ankle complaints. Patient notes earlier today while at work, slipped on water on floor and fell, hitting her lower back and her left ankle went underneath her - describing plantar flexion of foot. Patient notes no caudal radicular complaints at the time of the injury or since the remarkable tenderness appreciated to the proximal dorsal aspect of the left ankle/foot as well as low back pain without radicular cauda complaints upon questioning. Pain to low back is aggravated touch with flexion and extension at the waist and left ankle is aggravated touch with prolonged weightbearing. PMH NC. No ddxm-mlw-tmrosva products taken to assist. No other associated symptoms and no other alleviating/aggravat ing factors. ROS Const Constitutional: No other (As above) Exam Const General: cooperative, healthy appearing and no acute distress Orientation: alert and awake Resp Effort Inspection: normal respiratory effort and able to speak in complete sentences Cardio Rate: regular rate Pulses: radial pulses present GI Inspection: normal to inspection Musc Thoracic/Lumbar Spine: thoracic and lumbar spine normal to inspection (Except loss of lordosis), straight leg raise negative bilaterally, pain with thoraco-lumbar ROM with forward flexion, with lateral flexion to the right, with lateral flexion to the left, with rotation to the right and with rotation to the left, paraspinal tenderness bilaterally in the upper lumbar, in the mid lumbar and in the lower lumbar and no lumbar spinal tenderness Skin General: no rashes or lesions noted Neuro General: patient alert and patient awake Cognition: normal cognition Speech: speech normal Motor: muscle tone normal throughout Sensory Exam: no sensory deficits noted Extrem General: capillary refill normal and normal exam except as noted (tender touch dorsal-prox. L ankle; unguarded inversion/ eversion/ dorsoflex) Psych Appearance: grossly normal Mental Status: mental status grossly normal Mood: congruent mood Affect: normal affect Speech and Movement: speech and movement normal Attitude: cooperative Coding Level of Care Code Off vis,est,level 3 Diagnoses Left ankle sprain S93.402A Lumbar strain S39.012A Assessment and Plan Assessment and Plan (1) Left ankle sprain: Status: Acute (2) Lumbar strain: Status: Acute Plan: Lumbar and left ankle radiographs reveal no acute osseous pathology though loss of lumbar lordosis appreciated, with radiologist interpretation concurring. Off work rest of shift today, return to work tomorrow sitting duties only as noted on today's [employer]. Isolation boot has been/applied/instruc florin today. Supportive measures including rest, ice, elevate, NSAIDs, home range of motion exercises as instructed today. [facility]-up with the [facility] on 11/24/2024 at 1 PM (1 hour prior to her eveni (more content not included)... Normal [facility] Emergency Department Summary on 09-16-2024 Emergency Department Summary [facility] Medical Records Department [address] [place] [address] Emergency Department Summary 09/16/24 MR#: [id number] Acct: [id number] Name: GARRISON PRATT Rep #: [id number] : 1980 44 From: Riaz Logan MD PCP: Dr. Sumi Knutson, DO Status:REG ER Location: ED HPI HPI - URI History of Present Illness Chief Complaint: Cough Informant: patient Onset/Context/Timing Onset: Days Context: Gradual Onset Timing: Continuous Current Severity: Moderate Maximum Severity: Moderate Associated Symptoms Associated Symptoms: Positive for Nasal Congestion, Nausea, Vomiting, Diarrhea and Productive Cough (White.) Narrative Narrative: 44-year-old female no seen past medical history of anxiety. States she has had a 4-day history of nausea vomiting diarrhea and a cough of white sputum. 7-year-old home with similar. Denies any abdominal pain. No dysuria. Body aches. Fever and chills. Prior similar symptoms: Yes Recent Illness/Hospitalizat ion: No ROS ROS ED ROS Narrative Cough. White sputum. Nausea vomiting diarrhea. Fever and chills. Constitutional Constitutional ED: Reports chills and fever(s) Eyes Eyes: Denies blurry vision ENT ENT ED: Denies ear pain Cardiovascular Cardiovascular: Denies chest pain Respiratory/Chest Respiratory/Chest: Reports sputum; Denies cough Gastrointestinal Gastrointestinal: Reports diarrhea, nausea and vomiting; Denies abdominal pain, constipation or melena Genitourinary Genitourinary ED: Denies dysuria or hematuria Musculoskeletal Musculoskeletal: Denies arthralgias or back pain Integumentary Denies abscess Neurologic Neurologic: Denies headache(s) Psychiatric Psychiatric: Reports anxiety; Denies depression Endocrine Endocrinology: Denies cold intolerance Hematologic/Lymphati c Hematologic/Lymphati c: Denies easy bleeding, easy bruising or lymphadenopathy Allergic/Immunologic Allergic/Immunologic ED: Denies mouth swelling, tongue swelling or urticaria PFSH PFSH Medical History Bilateral carpal tunnel syndrome Left knee pain Absence seizure disorder Anxiety Home Medications ???Medication ???Instructions ???Recorded ???Last Taken ???Type escitalopram oxalate 10 mg tablet 20 mg PO DAILY 06/16/16 Unknown H istory albuterol sulfate 90 mcg/actuation 2 puff inhalation Q4H PRN PRN Unknown Rx aerosol inhaler (Ventolin HFA) Wheezing ##1 albuterol sulfate 90 mcg/actuation 2 puff inhalation Q4H PRN PRN Unknown Rx aerosol inhaler Wheezing ##1 dexamethasone 6 mg tablet 6 mg PO DAILY 10 days #10 tabs 11/16 Unknown Rx (Decadron) pantoprazole 20 mg tablet,delayed 20 mg PO DAILY PRN 12/16/23 Unkno wn History release ondansetron 4 mg disintegrating 4 mg PO Q6H PRN nausea and 5 Unknown Rx tablet vomiting #10 tabs Allergy/AdvReac Type Severity Reaction Status Date / Time diphenhydramine HCl (From Allergy swelling Verified 09/16/24 11:49 Benadryl) all over tramadol Allergy Itching Verified 09/16/24 11:49 Family History Mother Hypertension Myocardial infarction Grandfather Hypertension Grandmother Hypertension Heart disease triple bypass Surgical History Hx of tubal ligation Social History household members: spouse, family and children Smoking Status: Current every day smoker tobacco type: cigarettes alcohol intake: never EXAM Physical Exam Narrative Exam Narrative: 44-year-old female sitting upright in a hallway chair due to high volume in the emergency department. Vital signs are stable afebrile. Pulse ox 9 9% on room air no signs hypoxia. Patient does not look septic or toxic. H EENT exam pupils round react light. Dry mucous membranes. Neck nontender no lymphadenopathy. Back nontender. Lungs clear to auscultation bilaterally. No rales nor rhonchi no wheezing. Dry cough. Heart regular rhythm rate about 80 no murmur. Abdomen soft, nontender, nondistended, normal bowel sounds without peritoneal signs. Patient moving all 4 extremities. Nontender no edema. Normal strength. Awake and alert no focal motor deficits Const Vital Signs: 09/16/24 11:48 09/16/24 13:19 Temperature 99 F Temperature Source Temporal Pulse Rate 81 Respiratory Rate 14 Respiratory Effort Normal Non-Labored Respiratory Depth Normal Respiratory Pattern Normal Blood Pressure 138/80 H Blood Pressure Mean 99 Pulse Ox 99 Oxygen Delivery Method Room Air Room Air Positive well nourished and well developed; Negative for cachectic or contractures General Appearance ED: well developed (more content not included)... Normal [facility] Influenza virus A and B and SARS-CoV-2 (COVID-19) and Respiratory syncytial virus RNAOrdered By: Damon Yu on 09-16-2024 SARS-CoV-2 (COVID-19) RNA ELIEZER+probe Ql (Unsp spec) Influenzae A Abnormal [facility] M100.678on 09-16-2024 SARS-CoV-2 (COVID-19) Ab IA Ql Normal Reference Range = Negative FLUABV+SARS-CoV-2+RS V Pnl Resp ELIEZER+probe GeneXpert Instrument, PCR method Copy of report sent to Infection Control Printer [id number] 09/16/24 1403 EZ. RES[facility] TO [facility] 09/16/24 1403 Annemarie Escobar. REPORT READ BACK BY SHANNA. SARS-CoV-2 (COVID 19) Negative INFLUENZA A A Positive A INFLUENZA B Negative RSV PCR Negative INFLUENZAE A Normal [facility] Comment on above: Performed By: #### M 100.678 ####[facility] [address] [place], [place], [id number] .Auto Diffon 05-05-2022 Basophil, Absolute 0.0 10 3/mcL Normal 0.0-0.2 [facility] ([place]) Comment on above: Performed By: #### Ivet DUVAL, BMP #### [address] [address] Basophils/100 WBC (Bld) 0.6 % Normal 0.0-2.5 A [facility] ([place]) Comment on above: Performed By: #### Ivet DUVAL, BMP #### [address] [address] Eosinophil, Absolute 0.4 10 3/mcL Normal 0.0-0.4 [facility] ([place]) Comment on above: Performed By: #### Ivet DUVAL, BMP #### [address] [address] Eosinophils/100 WBC (Bld) 4.8 % Normal 0.0-7.0 [facility] ([place]) Comment on above: Performed By: #### Ivet DUVAL, BMP #### [address] [address] Lymphocyte, Absolute 2.2 10 3/mcL Normal 0.8-3.9 [facility] ([place]) Comment on above: Performed By: #### G FR, BMP #### [address] [address] Lymphocytes/100 WBC (Bld) 27.4 % Normal 10.0-50.0 [facility] ([place]) Comment on above: Performed By: #### Ivet DUVAL, BMP #### [address] [address] Monocyte, Absolute 0.4 10 3/mcL Normal 0.2-1.0 [facility] ([place]) Comment on above: Performed By: #### Ivet DUVAL, BMP #### [address] [address] Monocytes/100 WBC (Bld) 5.2 % Normal 1.7-13.0 A [facility] ([place]) Comment on above: Performed By: #### Ivet DUVAL, BMP #### [address] [address] Neutrophils/100 WBC (Bld) 62.0 % Normal 37.0-80.0 [facility] ([place]) Comment on above: Performed By: #### Ivet DUVAL, BMP #### [address] [address] .GFRon 05-05-2022 GFR 98 ml/min/1.73sqm Normal [facility] ([place]) Comment on above: Result Comment: GFR Population mean for , Non- Americans Ages 20-29 = 116 mL/min/1.73 sq.m. Ages 30-39 = 107 mL/min/1.73 sq.m. Ages 40-49 = 99 mL/min/1.73 sq.m. Ages 50-59 = 93 mL/min/1.73 sq.m. Ages 60-69 = 85 mL/min/1.73 sq.m. Ages 70+ = 75 mL/min/1.73 sq.m. Chronic Kidney Disease: Less than 60 mL/min/1.73 square meters End Stage Renal Disease: Less than 15 mL/min/1.73 square meters Performed By: #### G , BMP #### [address] [address] GFR Non- 81 ml/min/1.73sqm Normal [facility] ([place]) Comment on above: Result Comment: GFR Population mean for , Non- Americans Ages 20-29 = 116 mL/min/1.73 sq.m. Ages 30-39 = 107 mL/min/1.73 sq.m. Ages 40-49 = 99 mL/min/1.73 sq.m. Ages 50-59 = 93 mL/min/1.73 sq.m. Ages 60-69 = 85 mL/min/1.73 sq.m. Ages 70+ = 75 mL/min/1.73 sq.m. Chronic Kidney Disease: Less than 60 mL/min/1.73 square meters End Stage Renal Disease: Less than 15 mL/min/1.73 square meters Performed By: #### Ivet DUVAL, BMP #### [address] [address] .MDWon 05-05-2022 Monocyte Distribution Width 20.15 High 0.00-20.00 [facility] ([place]) Comment on above: Result Comment: For adults in ED, MDW>20.0 may be associated with a higher risk of sepsis during the first 12hrs of hospital admission Performed By: #### Ivet DUVAL, BMP #### [address] [address] .NEUABSon 05-05-2022 Neutrophil, Absolute 5.0 10 3/mcL Normal 2.9-6.2 [facility] ([place]) Comment on above: Performed By: #### Ivet DUVAL, BMP #### [address] [address] BMPon 05-05-2022 BUN/Creatinine Ratio 11 ratio Normal 7-27 [facility] ([place]) Comment on above: Performed By: #### G , BMP #### [address] [address] Calcium [Mass/Vol] 9.0 mg/dL Normal 8.4-10.2 [facility] ([place]) Comment on above: Performed By: #### G FR, BMP #### [address] [address] Chloride [Moles/Vol] 104 mmol/L Normal 98-107 [facility] ([place]) Comment on above: Performed By: #### G FR, BMP #### [address] [address] CO2 [Moles/Vol] 25 mmol/L Normal 22-29 [facility] ([place]) Comment on above: Performed By: #### G FR, BMP #### [address] [address] Creatinine [Mass/Vol] 0.79 mg/dL Normal 0.55-1.02 [facility] ([place]) Comment on above: Performed By: #### G FR, BMP #### [address] [address] Electrolyte Balance 11.0 mEq/L Normal 4.0-15.0 [facility] ([place]) Comment on above: Performed By: #### G FR, BMP #### [address] [address] Glucose [Mass/Vol] 144 mg/dL High 70-105 [facility] ([place]) Comment on above: Performed By: #### G FR, BMP #### [address] [address] Potassium [Moles/Vol] 3.7 mmol/L Normal 3.5-5.1 [facility] ([place]) Comment on above: Performed By: #### G FR, BMP #### [address] [address] Sodium [Moles/Vol] 140 mmol/L Normal 136-145 [facility] ([place]) Comment on above: Performed By: #### G FR, BMP #### [address] [address] Urea nitrogen [Mass/Vol] 9 mg/dL Normal 7-18 [facility] ([place]) Comment on above: Performed By: #### G FR, BMP #### [address] [address] CBCon 05-05-2022 Erythrocyte distribution width (RBC) [Ratio] 12.7 % Normal 11.5-14.5 [facility] ([place]) Comment on above: Performed By: #### G FR, BMP #### [address] [address] Hematocrit (Bld) [Volume fraction] 40.3 % Normal 37.0-47.0 [facility] ([place]) Comment on above: Performed By: #### G FR, BMP #### [address] [address] Hgb 14.2 G/dL Normal 12.0-16.0 [facility] ([place]) Comment on above: Performed By: #### Ivet DUVAL, BMP #### [address] [address] MCH (RBC) [Entitic mass] 31.6 pg High 27.0-31.2 [facility] ([place]) Comment on above: Performed By: #### Ivet DUVAL, BMP #### [address] [address] MCHC 35.3 G/dL Normal 33.0-37.0 [facility] ([place]) Comment on above: Performed By: #### Ivet FR, BMP #### [address] [address] MCV (RBC) [Entitic vol] 89.6 fL Normal 80.0-94.0 A [facility] ([place]) Comment on above: Performed By: #### G FR, BMP #### [address] [address] Platelet 254 10 3/mcL Normal 130-400 [facility] ([place]) Comment on above: Performed By: #### G FR, BMP #### [address] [address] Platelet mean volume (Bld) [Entitic vol] 9.1 fL Normal 7.4-10.4 [facility] ([place]) Comment on above: Performed By: #### G FR, BMP #### [place] [place] [address] RBC 4.50 10 6/mcL Normal 4.20-5.40 [facility] ([place]) Comment on above: Performed By: #### G FR, BMP #### [address] [place] [address] WBC 8.1 10 3/mcL Normal 4.6-10.8 [facility] ([place]) Comment on above: Performed By: #### G FR, BMP #### [address] [place] [address] [id number] 05-05-2022 Date of Onset [id number] Invalid Interpretation Code [facility] ([place]) Comment on above: Performed By: #### G FR, BMP #### [address] [place] [address] Employed in Healthcare [facility] ([place] Comment on above: Performed By: #### G FR, BMP #### [address] [place] [address] First Test No [facility] ([place]) Comment on above: Performed By: #### G FR, BMP #### [place] [address] Hospitalized No [facility] ([place] Comment on above: Performed By: #### G FR, BMP #### [place] [address] ICU No [facility] [place] Comment on above: Performed By: #### G FR, BMP #### [place] [address] Not [facility] ([place] Comment on above: Performed By: #### G FR, BMP #### [place] [address] Resides in Congregate Care Setting No [facility] [place] Comment on above: Performed By: #### G FR, BMP #### [place] [address] [place], [place] [address] SARS-CoV-2 (COVID-19) RNA ELIEZER+probe Ql (Unsp spec) Negative Normal Negative [facility] ([place]) Comment on above: Performed By: #### G , BMP #### [address] [address] SARS-CoV-2 (COVID-19) RNA ELIEZER+probe Ql (Unsp spec) Normal [facility] ([place]) Comment on above: Result Comment: Nega tive results do not preclude SARS-CoV-2 infection and should not be used as the sole basis for patient management decisions. Negative results must be combined with clinical observations, patient history, and epidemiological information. There is a risk of false negative values resulting from improperly collected, transported, or handled specimens. There is a risk of false negative values due to the presence of sequence variants in the pathogen targets of the assay, procedural errors, amplification inhibitors in specimens, or inadequate numbers of organisms for amplification. NEAL SARS-CoV-2 Assay is a Real-Time reverse-transcriptase polymerase chain reaction (RT-PCR) based qualitative in vitro diagnostic test intended for the qualitative detection of nucleic acid from the SARS-CoV-2 in nasopharyngeal swab specimens collected from individuals suspected of COVID-19 by their healthcare provider. Testing is limited to laboratories certified under the Clinical Laboratory Improvement Amendments of 1988 (CLIA), 42 U.S.C. ?263a, to perform moderate and high complexity tests. COVID-19 Int Performed By: #### G , BMP #### [address] [address] Symptomatic as Defined by CDC No Normal [facility] ([place]) Comment on above: Performed By: #### G , BMP #### [address] [address] FLURSVon 05-05-2022 Flu A PCR (AO) Negative Normal Negative [facility] ([place]) Comment on above: Result Comment: Posi tive Results: Positive Flu A/B or RSV for by PCR. Positive test results do not rule out bacterial infection or co-infection with other pathogens. Test results should be interpreted in conjunction with other laboratory and clinical data. Negative Results: Negative for by PCR. Negative test results do not preclude influenza virus or RSV infection and should not be used as the sole basis for diagnosis, treatment, or other management decisions. There is a risk of false negative RSV results when at low concentration and in the presence of co-infection with high concentration of influenza A. Invalid Results: An Invalid result (INV) was obtained. The test was repeated with similar results. REPEAT COLLECTION AND TESTING IS RECOMMENDED. The BioStratum Flu A/B & RSV Assay is a real-time polymerase chain reaction (PCR) based qualitative in vitro diagnostic test for the direct detection and differentiation of influenza A virus, influenza B virus, and respiratory syncytial virus (RSV) nucleic acid in nasopharyngeal swab ([employer]) specimens from patients with signs and symptoms of respiratory infection in conjunction with clinical and laboratory findings. The test is intended for use as an aid in the differential diagnosis of influenza A virus, influenza B virus, and RSV in humans and is not intended to detect influenza C. Performed By: #### G , [facility] #### [address] [address] Flu B PCR (AO) Negative Normal Negative [facility] ([place]) Comment on above: Result Comment: Posi tive Results: Positive Flu A/B or RSV for by PCR. Positive test results do not rule out bacterial infection or co-infection with other pathogens. Test results should be interpreted in conjunction with other laboratory and clinical data. Negative Results: Negative for by PCR. Negative test results do not preclude influenza virus or RSV infection and should not be used as the sole basis for diagnosis, treatment, or other management decisions. There is a risk of false negative RSV results when at low concentration and in the presence of co-infection with high concentration of influenza A. Invalid Results: An Invalid result (INV) was obtained. The test was repeated with similar results. REPEAT COLLECTION AND TESTING IS RECOMMENDED. The Neal Flu A/B & RSV Assay is a real-time polymerase chain reaction (PCR) based qualitative in vitro diagnostic test for the direct detection and differentiation of influenza A virus, influenza B virus, and respiratory syncytial virus (RSV) nucleic acid in nasopharyngeal swab ([employer]) specimens from patients with signs and symptoms of respiratory infection in conjunction with clinical and laboratory findings. The test is intended for use as an aid in the differential diagnosis of influenza A virus, influenza B virus, and RSV in humans and is not intended to detect influenza C. Performed By: #### G , [facility] #### [place] [id number] [place], [place] [address] RSV PCR (AO) Negative Normal Negative [facility] ([place]) Comment on above: Result Comment: Posi tive Results: Positive Flu A/B or RSV for by PCR. Positive test results do not rule out bacterial infection or co-infection with other pathogens. Test results should be interpreted in conjunction with other laboratory and clinical data. Negative Results: Negative for by PCR. Negative test results do not preclude influenza virus or RSV infection and should not be used as the sole basis for diagnosis, treatment, or other management decisions. There is a risk of false negative RSV results when at low concentration and in the presence of co-infection with high concentration of influenza A. Invalid Results: An Invalid result (INV) was obtained. The test was repeated with similar results. REPEAT COLLECTION AND TESTING IS RECOMMENDED. The BioStratum Flu A/B & RSV Assay is a real-time polymerase chain reaction (PCR) based qualitative in vitro diagnostic test for the direct detection and differentiation of influenza A virus, influenza B virus, and respiratory syncytial virus (RSV) nucleic acid in nasopharyngeal swab ([employer]) specimens from patients with signs and symptoms of respiratory infection in conjunction with clinical and laboratory findings. The test is intended for use as an aid in the differential diagnosis of influenza A virus, influenza B virus, and RSV in humans and is not intended to detect influenza C. Performed By: #### G , [facility] #### [place] [id number] [place], [place] [address] XR CHEST 1 VIEWon 05-05-2022 XR CHEST 1 VIEW ORIGINAL EXAMINATION: ONE XRAY VIEW OF THE CHEST 05/05/2022 4:26 pm COMPARISON: Chest x-ray 04/30/2022 HISTORY: ORDERING SYSTEM PROVIDED HISTORY: Reason for Exam: sob FINDINGS: Stable cardiomediastinal contours. No focal consolidation, vascular congestion, pleural effusion, or pneumothorax. IMPRESSION: No acute radiographic findings. I have personally reviewed the images of this examination and agree with the resident's findings and interpretation. Interpreted by: Teo Dale Preliminary Report By: Christa Parnell Electronically signed By Teo Dale Dictated Date: 05/05/2022 4:29:21 PM Prelim Date: 05/05/2022 4:30:21 PM Sign Date: 05/05/2022 5:50:14 PM Ordering Provider: TIERA LUNDBERG [facility] ([place]) .Urinalysis Microscopic (AO) on 04-30-2022 UA Amorphus 2+ /hpf Normal [facility] ([place]) Comment on above: Performed By: #### U AMICAO, PREGU, UA #### [place] [address] UA Bacteria 1+ /hpf Abnormal [facility] ([place]) Comment on above: Performed By: #### U AMICAO, PREGU, UA #### [place] [address] UA Mucous Trace Normal [facility] ([place] Comment on above: Performed By: #### U AMICAO, PREGU, UA #### [place] [address] UA RBC 5-10 Abnormal None Seen [facility] ([place]) Comment on above: Performed By: #### U AMICAO, PREGU, UA #### [address] [address] UA Squam Epithelial 0-5 Abnormal None Seen [facility] ([place]) Comment on above: Performed By: #### U AMICAO, PREGU, UA #### [address] [address] UA WBC 0-5 Abnormal None Seen [facility] ([place] Comment on above: Performed By: #### U AMICAO, PREGU, UA #### [address] [address] LABORATORYOrdered By: Chary Archuleta on 04-30-2022 Appearance (U) Cloudy *ABN* (04/30/22 6:34 AM) Invalid Interpretation Code Clear AO Auto Urine SS Bacteria LM.HPF (Urine sed) [#/Area] 1 /[HPF] Invalid Interpretation Code AO Auto Urine SS Bilirubin Ql (U) Negative (04/30/22 6:34 AM) Invalid Interpretation Code Negative AO Auto Urine SS Color (U) Yellow (04/30/22 6:34 AM) Invalid Interpretation Code AO Auto Urine SS Crystals.amorphous LM.HPF (Urine sed) [#/Area] 2 /[HPF] Invalid Interpretation Code AO Auto Urine SS Glucose Test strip (U) [Mass/Vol] Negative Invalid Interpretation Code Negativemg/d L AO Auto Urine SS HCG ( test) Ql Negative (04/30/22 6:34 AM) Invalid Interpretation Code AO Manual Urine SS Hemoglobin Auto test strip (U) [Mass/Vol] Moderate *ABN* (04/30/22 6:34 AM) Invalid Interpretation Code Negative AO Auto Urine SS Ketones Ql (U) Negative Invalid Interpretation Code Negativemg/d L AO Auto Urine SS test (u) int Not detected Invalid Interpretation Code AO Manual Urine SS UA Leuk Est Trace *ABN* (04/30/22 6:34 AM) Invalid Interpretation Code Negative AO Auto Urine SS UA Mucous Trace /HPF Invalid Interpretation Code AO Auto Urine SS UA Nitrite Negative (04/30/22 6:34 AM) Invalid Interpretation Code Negative AO Auto Urine SS UA pH 7.5 (04/30/22 6:34 AM) Invalid Interpretation Code 5.0 - 8.0 AO Auto Urine SS UA Protein 30 mg/dL Invalid Interpretation Code Negativemg/d L AO Auto Urine SS UA RBC 5-10 /HPF Invalid Interpretation Code None Seen/HPF AO Auto Urine SS UA Spec Grav 1.020 (04/30/22 6:34 AM) Invalid Interpretation Code 1.015-1.025 AO Auto Urine SS UA Specimen Type Void (04/30/22 6:34 AM) Invalid Interpretation Code AO Auto Urine SS UA Squam Epithelial 0-5 /HPF Invalid Interpretation Code None Seen/HPF AO Auto Urine SS UA Urobilinogen 0.2 E.U./dL Invalid Interpretation Code 0.2-1.0E.U./ dL AO Auto Urine SS WBC LM.HPF (Urine sed) [#/Area] 0-5 /HPF Invalid Interpretation Code None Seen/HPF AO Auto Urine SS PREGUon 04-30-2022 HCG ( test) Ql (U) Negative Normal [facility] ([place]) Comment on above: Performed By: #### U NADEEM VALLEJOU, UA #### [address] [address] test (u) int Not detected Invalid Interpretation Code [facility] ([place]) Comment on above: Performed By: #### U AMICAO, PREGU, UA #### [address] [address] UAon 04-30-2022 Color (U) Yellow Normal [facility] ([place]) Comment on above: Performed By: #### U AMICAO, PREGU, UA #### [place] [address] Glucose (U) [Mass/Vol] Negative Normal Negative [facility] ([place]) Comment on above: Performed By: #### U AMICAO, PREGU, UA #### [place] [address] Ketones Ql (U) Negative Normal Negative [facility] ([place] Comment on above: Performed By: #### U AMICAO, PREGU, UA #### [place] [address] UA Appear Cloudy Abnormal Clear [facility] ([place] Comment on above: Performed By: #### U AMICAO, PREGU, UA #### [address] [address] UA Blood Moderate Abnormal Negative [facility] ([place] Comment on above: Performed By: #### U AMICAO, PREGU, UA #### [address] [address] UA Leuk Est Trace Abnormal Negative [facility] ([place] Comment on above: Performed By: #### U AMICAO, PREGU, UA #### [address] [address] UA Nitrite Negative Normal Negative [facility] ([place] Comment on above: Performed By: #### U AMICAO, PREGU, UA #### [address] [address] UA pH 7.5 Normal 5.0 - 8.0 [facility] ([place]) Comment on above: Performed By: #### U AMICAO, PREGU, UA #### [address] [address] UA Protein 30 mg/dL Normal Negative [facility] ([place] Comment on above: Performed By: #### U AMICAO PREGU, UA #### [place] [address] [place], [place] [address] UA Spec Grav 1.020 Normal 1.015-1.025 [facility] ([place]) Comment on above: Performed By: #### U AMICAO PREGU, UA #### [address] [address] UA Specimen Type Void Normal [facility] ([place] Comment on above: Performed By: #### U AMICAO, PREGU, UA #### [address] [address] UA Urobilinogen 0.2 E.U./dL Normal 0.2-1.0 [facility] ([place]) Comment on above: Performed By: #### U AMICAO PREGU, UA #### [address] [address] Urobilinogen (U) [Mass/Vol] Negative Normal Negative [facility] ([place] Comment on above: Performed By: #### U AMICAO PREGU, UA #### [address] [address] XR CHEST 1 VIEWon 04-30-2022 XR CHEST 1 VIEW ORIGINAL EXAMINATION: ONE XRAY VIEW OF THE CHEST 04/30/2022 6:47 am COMPARISON: Chest x-ray 02/06/2020 HISTORY: ORDERING SYSTEM PROVIDED HISTORY: Reason for Exam: cough FINDINGS: The cardiomediastinal silhouette is normal. Subtle hazy opacity at the left lung base could represent developing infiltrate versus atelectasis. No vascular congestion, large pleural effusion or pneumothorax. Osseous structures appear intact. IMPRESSION: Subtle hazy left basilar opacity could reflect a developing infiltrate versus atelectasis. I have personally reviewed the images of this examination and agree with the resident's findings and interpretation. Interpreted by: Stiven Leyva MD Preliminary Report By: Lilly Sylvester Electronically signed By Stiven Leyva MD Dictated Date: 04/30/2022 6:49:57 AM Prelim Date: 04/30/2022 6:51:59 AM Sign Date: 04/30/2022 7:24:27 AM Ordering Provider: ANAYELI Brand [facility] ([place]) Chart Updateon 09-07-2019 Chart Update Active Problems Heartburn (787.1) (R12) Postprandial epigastric pain (789.06) (R10.13) Postprandial vomiting (787.03) (R11.10) Chart Update Progress Note Free Text_UH: Chief complaint: Epigastric pain History she complaint: This 39-year-old female is been seen regarding epigastric pain, nausea and vomiting. Allergies and medications are updated in her chart Review of systems: Gen.: Denies fever or weight loss Cardiovascular: Denies chest pain or palpitations Pulmonary: Denies shortness of breath or coughing Gastrointestinal: Denies present abdominal pain or distention Physical exam: Gen.: Awake and oriented Cardiovascular: Regular without murmur Pulmonary: Clear anteriorly Abdomen: Soft, nondistended Impression: 1. Epigastric pain with nausea and vomiting Recommendations: 1.Upper endoscopy is recommended. The procedure and sedation were discussed including but not limited to risk of bleeding, perforation and reaction to medication. The office endoscopy forms were reviewed and signed. The patient was instructed to bring someone to drive home after the test. All the patient's questions were answered. Signatures Electronically signed by : Dede Menjivar DO; Sep 07 2019 6:51AM EST (Author) Normal [employer] Vital Signs Date Time Vital Sign Value Performing Clinician Facility 12-28-2024 10:03-0400 Body height 154.[address] Sumi Knutson DO Work Phone: [facility] 12-28-2024 10:03-0400 Body mass index (BMI) [Ratio] 38.7 kg/m2 Dr. Sumi Knutson DO Work Phone: [facility] 12-28-2024 10:03-0400 Body weight 92.[address] Sumi Knutson DO Work Phone: [facility] 12-28-2024 10:03-0400 Diastolic blood pressure 95 mm[Hg] Dr. Sumi Knutson DO Work Phone: [facility] 12-28-2024 10:03-0400 Heart rate 91 /min Dr. Sumi Knutson DO Work Phone: [facility] 12-28-2024 10:03-0400 Respiratory rate 16 /min Dr. Sumi Knutson DO Work Phone: [facility] 12-28-2024 10:03-0400 SaO2% (BldA) [Mass fraction] 98 % Dr. Sumi Knutson DO Work Phone: [facility] 12-28-2024 10:03-0400 Systolic blood pressure 141 mm[Hg] Dr. Sumi Knutson DO Work Phone: [facility] 12-26-2024 22:13-0400 Body temperature 98 [degF] Dr. Sumi Knutson DO Work Phone: [facility] 12-26-2024 22:13-0400 Diastolic blood pressure 104 mm[Hg] Dr. Sumi Knutson DO Work Phone: [facility] 12-26-2024 22:13-0400 Heart rate 70 /min Dr. Sumi Knutson DO Work Phone: [facility] 12-26-2024 22:13-0400 Respiratory rate 14 /min Dr. Sumi Knutson DO Work Phone: [facility] 12-26-2024 22:13-0400 SaO2% (BldA) [Mass fraction] 99 % Dr. uSmi Knutson DO Work Phone: [facility] 12-26-2024 22:13-0400 Systolic blood pressure 125 mm[Hg] Dr. Sumi Knutson DO Work Phone: [facility] 12-26-2024 19:25-0400 Body height 154.[address] Sumi Knutson DO Work Phone: [facility] 12-26-2024 19:25-0400 Body mass index (BMI) [Ratio] 38.9 kg/m2 Dr. Sumi Knutson DO Work Phone: [facility] 12-26-2024 19:25-0400 Body weight 93.[address] Sumi Knutson DO Work Phone: [facility] 12-05-2024 19:00-0400 Diastolic blood pressure 87 mm[Hg] Dr. Sumi Knutson DO Work Phone: [facility] 12-05-2024 19:00-0400 Heart rate 79 /min Dr. Sumi Knutson DO Work Phone: [facility] 12-05-2024 19:00-0400 Respiratory rate 16 /min Dr. Sumi Knutson DO Work Phone: [facility] 12-05-2024 19:00-0400 SaO2% (BldA) [Mass fraction] 98 % Dr. Sumi Knutson DO Work Phone: [facility] 12-05-2024 19:00-0400 Systolic blood pressure 129 mm[Hg] Dr. Sumi Knutson DO Work Phone: [facility] 12-05-2024 16:22-0400 Body height 154.[address] Sumi Knutson DO Work Phone: [facility] 12-05-2024 16:22-0400 Body mass index (BMI) [Ratio] 38.9 kg/m2 Dr. Sumi Knutson DO Work Phone: [facility] 12-05-2024 16:22-0400 Body temperature 98.3 [degF] Dr. Sumi Knutson DO Work Phone: [facility] 12-05-2024 16:22-0400 Body weight 93.[address] Sumi Knutson DO Work Phone: [facility] 12-01-2024 12:40-0400 Body temperature 98.3 [degF] Dr. Sumi Knutson DO Work Phone: [facility] 12-01-2024 12:40-0400 Diastolic blood pressure 80 mm[Hg] Dr. Sumi Knutson DO Work Phone: [facility] 12-01-2024 12:40-0400 Heart rate 83 /min Dr. Sumi Knutson DO Work Phone: [facility] 12-01-2024 12:40-0400 Respiratory rate 17 /min Dr. Sumi Knutson DO Work Phone: [facility] 12-01-2024 12:40-0400 SaO2% (BldA) [Mass fraction] 98 % Dr. Sumi Knutson DO Work Phone: [facility] 12-01-2024 12:40-0400 Systolic blood pressure 128 mm[Hg] Dr. Sumi Knutson DO Work Phone: [facility] 11-24-2024 12:45-0400 Body temperature 98.4 [degF] Dr. Sumi Knutson DO Work Phone: [facility] 11-24-2024 12:45-0400 Diastolic blood pressure 84 mm[Hg] Dr. Sumi Knutson DO Work Phone: [facility] 11-24-2024 12:45-0400 Heart rate 90 /min Dr. Sumi Knutson DO Work Phone: [facility] 11-24-2024 12:45-0400 Respiratory rate 17 /min Dr. Sumi Knutson DO Work Phone: [facility] 11-24-2024 12:45-0400 SaO2% (BldA) [Mass fraction] 98 % Dr. Sumi Knutson DO Work Phone: [facility] 11-24-2024 12:45-0400 Systolic blood pressure 142 mm[Hg] Dr. Sumi Knutson DO Work Phone: [facility] 11-22-2024 15:11-0400 Body temperature 98.3 [degF] Dr. Sumi Knutson DO Work Phone: [facility] 11-22-2024 15:11-0400 Diastolic blood pressure 78 mm[Hg] Dr. Sumi Knutson DO Work Phone: [facility] 11-22-2024 15:11-0400 Heart rate 98 /min Dr. Sumi Knutson DO Work Phone: [facility] 11-22-2024 15:11-0400 SaO2% (BldA) [Mass fraction] 99 % Dr. Sumi Knutson DO Work Phone: [facility] 11-22-2024 15:11-0400 Systolic blood pressure 122 mm[Hg] Dr. Sumi Knutson DO Work Phone: [facility] 09-16-2024 15:27-0500 Body temperature 98 [degF] Dr. Sumi Knutson DO Work Phone: [facility] 09-16-2024 15:27-0500 Diastolic blood pressure 73 mm[Hg] Dr. Sumi Knutson DO Work Phone: [facility] 09-16-2024 15:27-0500 Heart rate 84 /min Dr. Sumi Knutson DO Work Phone: [facility] 09-16-2024 15:27-0500 Respiratory rate 14 /min Dr. Sumi Knutson DO Work Phone: [facility] 09-16-2024 15:27-0500 SaO2% (BldA) [Mass fraction] 99 % Dr. Sumi Knutson DO Work Phone: [facility] 09-16-2024 15:27-0500 Systolic blood pressure 126 mm[Hg] Dr. Sumi Knutson DO Work Phone: [facility] 09-14-2024 18:00-0500 Diastolic Blood Pressure Non-Invasive 80 mm[Hg] DR ANAYELI GONZALES DO [facility] 09-14-2024 18:00-0500 Heart rate 108 /min DR ANAYELI GONZALES DO [facility] 09-14-2024 18:00-0500 Systolic Blood Pressure Non-Invasive 131 mm[Hg] DR ANAYELI GONZALES DO [facility] 09-14-2024 15:25-0500 Body temperature 98.6 [degF] DR ANAYELI GONZALES DO [facility] 09-14-2024 15:25-0500 Body weight 90.[address] ANAYELI GONZALES DO [facility] 09-14-2024 15:25-0500 Diastolic Blood Pressure Non-Invasive 87 mm[Hg] DR ANAYELI GONZALES DO [facility] 09-14-2024 15:25-0500 Heart rate 106 /min DR ANAYELI GONZALES DO [facility] 09-14-2024 15:25-0500 Respiratory rate 20 /min DR ANAYELI GONZALES DO [facility] 09-14-2024 15:25-0500 Systolic Blood Pressure Non-Invasive 142 mm[Hg] DR ANAYELI GONZALES DO [facility] 12-01-2023 09:47-0400 Body temperature 97 [degF] [facility] 12-01-2023 09:47-0400 Diastolic blood pressure 66 mm[Hg] [facility] 12-01-2023 09:47-0400 Heart rate 72 /min [facility] 12-01-2023 09:47-0400 Respiratory rate 15 /min [facility] 12-01-2023 09:47-0400 SaO2% (BldA) [Mass fraction] 100 % [facility] 12-01-2023 09:47-0400 Systolic blood pressure 134 mm[Hg] [facility] 12-01-2023 06:36-0400 Body height 154.[address] [facility] 12-01-2023 06:36-0400 Body mass index (BMI) [Ratio] 33.9 kg/m2 [facility] 12-01-2023 06:36-0400 Body weight 81.[address] [facility] 04-30-2022 07:35-0400 Diastolic blood pressure 78 mm[Hg] DR TESS JACQUES MD [facility] 04-30-2022 07:35-0400 Heart rate 68 /min DR TESS JACQUES MD [facility] 04-30-2022 07:35-0400 Respiratory rate 18 /min DR TESS JACQUES MD [facility] 04-30-2022 07:35-0400 Systolic blood pressure 129 mm[Hg] DR TESS JACQUES MD [facility] 04-30-2022 06:11-0400 Body temperature 97.7 [degF] DR TESS JACQUES MD [facility] 04-30-2022 06:11-0400 Diastolic blood pressure 71 mm[Hg] DR TESS JACQUES MD [facility] 04-30-2022 06:11-0400 Heart rate 76 /min DR TESS JACQUES MD [facility] 04-30-2022 06:11-0400 Respiratory rate 20 /min DR TESS JACQUES MD [facility] 04-30-2022 06:11-0400 Systolic blood pressure 126 mm[Hg] DR TESS JACQUES MD [facility] 02-10-2022 11:18-0400 Body temperature 98.42 [degF] GENE DOMINGUEZ MD [facility] 02-10-2022 11:18-0400 Diastolic blood pressure 90 mm[Hg] GENE DOMINGUEZ MD [facility] 02-10-2022 11:18-0400 Heart rate 81 /min GENE DOMINGUEZ MD [facility] 02-10-2022 11:18-0400 Respiratory rate 18 /min GENE DOMINGUEZ MD [facility] 02-10-2022 11:18-0400 Systolic blood pressure 146 mm[Hg] GENE DOMINGUEZ MD [facility] 07-16-2019 10:47-0500 BMI (Body Mass Index) 35.92 kg/m2 Sandy Raymond [facility] Work Phone: 07-16-2019 10:47-0500 Body weight 86.24 kg Sandy Raymond [facility] Work Phone: 07-16-2019 10:47-0500 BP Diastolic 78 mm[Hg] Sandy Raymond [facility] Work Phone: Comment on above: Location: LUE; Position: Sitting 07-16-2019 10:47-0500 BP Systolic 122 mm[Hg] Sandy Raymond [facility] Work Phone: Comment on above: Location: LUE; Position: Sitting 07-16-2019 10:47-0500 BSA (Body Surface Area) 1.85 m2 Sandy Raymond [facility] Work Phone: 12-20-2019 10:47-0500 Height 154.94 cm [facility]: 07-16-2019 10:47-0500 Pulse (Heart Rate) 79 /min [facility]: 07-16-2019 10:47-0500 Pulse Oximetry 99 % [facility] Work Phone: Encounters Encounter Date Encounter Type Care Provider Facility Start: 02-24-2025 ambulatory Sumi Colin ity:[facility] Start: 02-18-2025 End: 02-18-2025 Emergency department patient visit GENE DOMINGUEZ MD [facility] Start: 02-03-2025 End: 02-03-[address] SUMI KNUTSON DO Facility:[facility] [place] Start: 02-03-2025 End: 02-03-[address] SUMI KNUTSON DO [facility] [facility] Start: 01-20-2025 End: 01-20-[address] SUMI KNUTSON DO Facility:[facility] Start: 01-20-2025 End: 01-20-[address] SUMI KNUTSON DO [facility] Start: 12-28-2024 End: 12-28-2024 Patient encounter procedure Bridgette BUCKLEY -[facility] Work Phone: Start: 12-28-2024 End: 12-28-[address] Sumi Knutson DO Work Phone: [facility] Work Phone: Start: 12-26-2024 End: 12-26-2024 Emergency department patient visit Dr. Sumi Knutson DO Work Phone: -Emergency Department Work Phone: Start: 12-05-2024 End: 12-05-2024 Emergency department patient visit Dr. Sumi Knutson DO Work Phone: -Emergency Department Work Phone: Start: 12-01-2024 End: 12-01-2024 Patient encounter procedure Ken Fatima [facility] -[facility] Work Phone: Start: 12-01-2024 End: 12-01-2024 ambulatory Sumi Knutson Facility:[facility] Start: 11-24-2024 End: 11-24-2024 Patient encounter procedure Ken GROSSMAN -[facility] Work Phone: Start: 11-24-2024 End: 11-24-2024 ambulatory Sumi Knutson Facility:[facility] Start: 11-22-2024 End: 11-22-2024 Patient encounter procedure Ken GROSSMAN -[facility] Work Phone: Start: 11-22-2024 End: 11-22-2024 ambulatory Sumi Knutson Facility:[facility] Start: 11-22-2024 End: 11-22-2024 ambulatory Sumi Knutson Facility:[facility] Start: 09-16-2024 End: 09-16-2024 Emergency department patient visit Dr. Riaz Logan MD -Emergency Department Work Phone: Start: 09-14-2024 End: 09-14-2024 Emergency department patient visit DR ANAYELI GONZALES DO [facility] Start: 12-01-2023 End: 12-01-2023 Emergency department patient visit [facility]-Emergency Department Work Phone: Start: 05-05-2022 End: 05-05-2022 Emergency department patient visit TRENTON HANNAH MD Facility:[facility] Start: 04-30-2022 End: 04-30-2022 Emergency department patient visit DR. ANAYELI GONZALES DO Facility:[facility] Start: 04-30-2022 End: 04-30-2022 Emergency department patient visit DR TESS JACQUES MD [facility] Start: 02-10-2022 End: 02-10-2022 Emergency department patient visit GENE DOMINGUEZ MD Facility:[facility] Start: 02-10-2022 End: 02-10-2022 Emergency department patient visit GENE DOMINGUEZ MD [facility] Start: 05-20-2021 End: 05-20-2021 Emergency department patient visit GENE DOMINGUEZ MD Facility:[facility] Procedures Date Procedure Procedure Detail Performing Clinician Start: 12-26-2024 Computed tomography of abdomen and pelvis with intravenous contrast Dr. Sumi Knutson DO Work Phone: Start: 12-26-2024 Urnls dip stick/tabl et reagent auto microscopy Dr. Sumi Knutson DO Work Phone: Start: 12-26-[address] Sumi Knutson DO Work Phone: Start: 12-05-2024 X-ray of lumbar spin e, two or three views Dr. Sumi Knutson DO Work Phone: Start: 11-22-2024 X-ray of ankle, thre e or more views Dr. Sumi Knutson DO Work Phone: Start: 11-22-2024 X-ray of lumbar spin e, two or three views Dr. Sumi Knutsno DO Work Phone: Start: 09-16-2024 SARS-CoV-2, Influenz a & RSV (PCR) Dr. Sumi Knutson DO Work Phone: Start: 12-01-2023 Radiologic examinati on of knee H/O: tubal ligation H/O tubal li gation( Confirmed ) GENE DOMINGUEZ MD Ligation of fallopia n tube Sandy Lintner Ligation of fallopia n tube GENE DOMINGUEZ MD Plan of Treatment Date Care Activity Detail Author Start: 12-01-2023 [facility] Patient Education [facility] Work Phone: Patient referral [facility] Work Phone: Immunizations Immunization Date Immunization Notes Care Provider Fa cilijad 01-20-2025 tetanus toxoid, redu elliot diphtheria toxoid, and acellular pertussis vaccine, adsorbed; Translations: [Boostrix (Tdap)] DR SUMI KNUTSON DO [facility] Payers Date Payer Category Payer Unknown [id number] 2024 Unknown [id number] 2024 Self-pay [id number] 2018 Medicaid [id number] 2018 Private Health Insurance [id number] 2016 Private Health Insurance [id number] 2016 Unknown [id number] 1980 Unknown [id number] 2..[id number] 1980 Unknown [id number] 2..840.1.310532.3.579.2.6 1982 Unknown [id number] 2.16.840.1.507512.3.579.2.6 1982 Unknown [id number] 2.16.840.1.109553.3.579.2.6 1980 Unknown [id number] 2.16.840.1.501654.3.579.2.6 1980 Unknown [id number] 2.16.840.1.547104.3.579.2.6 1980 Unknown [id number] 2.16.840.1.229086.3.579.2.6 1980 Unknown [id number] 2.16.840.1.488108.3.579.2.6 27 Unknown [facility] [id number] Unknown [id number] 2.16.840.1.209463.3.579.2.4 62 Unknown [id number] 2.16.840.1.317613.3.579.2.4 62 Unknown [id number] 2.16.840.1.551187.3.579.2.4 62 Unknown [id number] 2.16.840.1.743059.3.579.2.4 62 Unknown [id number] 2.16.840.1.333314.3.579.2.4 62 Unknown [id number] 2.16.840.1.851764.3.579.2.4 62 Unknown [id number] 2.16.840.1.918751.3.579.2.4 62 Unknown [id number] 2.16.840.1.823583.3.579.2.4 62 Unknown [id number] 2.16.840.1.832428.3.579.2.4 62 Unknown [id number] 2.16.840.1.604144.3.579.2.4 62 Social History Date Type Detail Facility Start: 10-06-2020 End: 01-20-2025 Tobacco smoking status Heavy tobacco smoker (finding) [facility] Sex Assigned At [facility] Start: 12-01-2023 Tobacco smoking status NHIS Unknown if ever smoked [facility] Start: 03-10-2020 Occasional [facility] Start: 03-10-2020 None [facility] Start: 03-10-2020 With Family [facility] Start: 05-30-2014 Cigarettes [facility] Start: 1980 Sex Assigned At Female [facility] Start: 10-15-2014 Sex Female (finding) [facility] Start: 12-05-2024 End: 12-26-2024 Tobacco smoking status NHIS Smokes tobacco daily (finding) [facility] NEGATED: Highlighted row - - [facility] Work Phone: Functional Status Date Assessment Result Facility 09-14-2024 Functional Status Independent [facility] 04-30-2022 Functional Status Room check performed [facility] 04-30-2022 Functional Status [facility] 02-10-2022 Functional Status ID band on, Allergy Band on, Call device within reach, Bed in low position, Wheels locked, Upper/Half-Length side-rails up, Phone within reach, personal items within reach, Assistive devices within reach, Toileting device within reach, Bedside Cart Locked, Visitor at bedside, Safety level maintained [facility] NEGATED: Highlighted row Functional performance Functional status health issues are not documented Disease [facility] Work Phone: Mental Status Date Assessment Result Facility 04-30-2022 Mental Status Orientation Orie nted x 4 [facility] 04-30-2022 Mental Status [facility] 02-10-2022 Mental Status Oriented x 4 [facility] NEGATED: Highlighted row Cognitive function [Interpretation] Cognitive status health issues are not documented Disease [facility] Work Phone: Clinical Notes 11-27-2021 to 02-18-2025 Note Date & Type Note Facility 02-18-2025 Hospital Discharg e instructions Patient Education 02/18/2025 12:24:24 Back Sprain/Strain Back Sprain or Strain Injury to the muscles (strain) or ligaments (sprain) around the spine can be troubling. Injury may occur after a sudden forceful twisting or bending force such as in a car accident, after a simple awkward movement, or after lifting something heavy with poor body positioning. In any case, muscle spasm is often present and adds to the pain. Thankfully, most people feel better in 1 to 2 weeks, and most of the rest in 1 to 2 months. Most people can remain active. Unless you had a forceful or traumatic physical injury such as a car accident or fall, X-rays may not be ordered for the first evaluation of a back sprain or strain. If pain continues and does not respond to medical treatment, your healthcare provider may then order X-rays and other tests. Home care The following guidelines will help you care for your injury at home: When in bed, try to find a comfortable position. A firm mattress is best. Try lying flat on your back with pillows under your knees. You can also try lying on your side with your knees bent up toward your chest and a pillow between your knees. Don't sit for long periods. Try not to take long car rides or take other trips that have you sitting for a long time. This puts more stress on the lower back than standing or walking. During the first 24 to 72 hours after an injury or flare-up, apply an ice pack to the painful area for 20 minutes. Then remove it for 20 minutes. Do this for 60 to 90 minutes, or several times a day. This will reduce swelling and pain. Be sure to wrap the ice pack in a thin towel or plastic to protect your skin. You can start with ice, then switch to heat. Heat from a hot shower, hot bath, or heating pad reduces pain and works well for muscle spasms. Put heat on the painful area for 20 minutes, then remove for 20 minutes. Do this for 60 to 90 minutes, or several times a day. Do not use a heating pad while sleeping. It can burn the skin. You can alternate the ice and heat. Talk with your healthcare provider to find out the best treatment or therapy for your back pain. Therapeutic massage will help relax the back muscles without stretching them. Be aware of safe lifting methods. Do not lift anything over 15 pounds until all of the pain is gone. Medicines Talk to your healthcare provider before using medicines, especially if you have other health problems or are taking other medicines. You may use acetaminophen or ibuprofen to control pain, unless another pain medicine was prescribed. If you have chronic conditions like diabetes, liver or kidney disease, stomach ulcers, or gastrointestinal bleeding, or are taking blood-thinner medicines, talk with your doctor before taking any medicines. Be careful if you are given prescription medicines, narcotics, or medicine for muscle spasm. They can cause drowsiness, and affect your coordination, reflexes, and judgment. Do not drive or operate heavy machinery when taking these types of medicines. Only take pain medicine as prescribed by your healthcare provider. Follow-up care Follow up with your healthcare provider, or as advised. You may need physical therapy or more tests if your symptoms get worse. If you had X-rays your healthcare provider may be checking for any broken bones, breaks, or fractures. Bruises and sprains can sometimes hurt as much as a fracture. These injuries can take time to heal completely. If your symptoms don t improve or they get worse, talk with your healthcare provider. You may need a repeat X-ray or other tests. Call 911 Call 911 if any of the following occur: Trouble breathing Confused Very drowsy or trouble awakening Fainting or loss of consciousness Rapid or very slow heart rate Loss of bowel or bladder control When to seek medical advice Call your healthcare provider right away if any of the following occur: Pain gets worse or spreads to your arms or legs Weakness or numbness in one or both arms or legs Numbness in the groin or genital area [phone] [employer]. [address] [place] [address]. All rights reserved. This information is not intended as a substitute for professional medical care. Always follow your healthcare professional's instructions. Follow Up Care 02/18/2025 11:54:06 With:SUMI KNUTSON DO Address: [address] [place] [address] Phys[place], [place] [phone]- [phone] When:5 to 7 days [facility] 02-18-2025 Emergency department Discharge summary Discharge Instructions Thank you for allowing [facility] to assist you with your healthcare needs. The following is important discharge information regarding your hospital visit. Diagnosis from Today's Visit Strain of left trapezius muscle What to Do Next Instructions from Your Care Team You were evaluated in the emergency room for left-sided upper back pain, likely due to muscle strain and spasm. You were given muscle relaxant cyclobenzaprine with significant improvement in back pain. He had the prescribed 7-day course of cyclobenzaprine to be taken 3 times as needed for muscle pain/spasm. Please follow-up with your PCP within 1 week of discharge. Discharge Return to Work, School, or Sports - Ordered -- 02/19/25, May return to: work, 02/18/25 12:21:00 EDT Post Acute Orders No qualifying data available. You Need to Schedule the Following Appointments Follow Up with SUMI KNUTSON DO When:Within 5 to 7 days Where:[address] [place] [address] [place] [address]- [phone] Allergies Benedryl Allergy Sinus Toradol traMADol itching Medications Please ask your primary doctor or pharmacist before taking any other medication not listed, including over the counter drugs, herbal medications, vitamins and or supplements as they may interact with your home medications. What How Much When Why Instructions Last Dose New cyclobenzaprine (cyclobenzaprine 5 mg oral tablet) 1 tab(s) by mouth Three (3) times a day as needed for Muscle spasm Duration: 7 Days Printed Prescription Unchanged famotidine (Pepcid AC) by mouth Once Unchanged hydrOXYzine (Vistaril 25 mg oral capsule) 1 cap by mouth Four (4) times a day as needed for as needed for anxiety Unchanged loratadine (Claritin 10 mg oral tablet) 1 tab(s) by mouth Once a day Contact dermatitis Duration: 7 Days Unchanged QUEtiapine (Seroquel 25 mg oral tablet) 1 tab(s) by mouth Daily at bedtime Unchanged sucralfate (sucralfate 1 g/ 10 mL oral suspension) Please take this list to your next doctor s visit. Bring all medications you take, including over the counter medications, herbals and other supplements with you to your doctor s visit. Patients and families are reminded to discard old lists and to update any records with all medication providers or retail pharmacies. Education Materials Back Sprain or Strain Injury to the muscles (strain) or ligaments (sprain) around the spine can be troubling. Injury may occur after a sudden forceful twisting or bending force such as in a car accident, after a simple awkward movement, or after lifting something heavy with poor body positioning. In any case, muscle spasm is often present and adds to the pain. Thankfully, most people feel better in 1 to 2 weeks, and most of the rest in 1 to 2 months. Most people can remain active. Unless you had a forceful or traumatic physical injury such as a car accident or fall, X-rays may not be ordered for the first evaluation of a back sprain or strain. If pain continues and does not respond to medical treatment, your healthcare provider may then order X-rays and other tests. Home care The following guidelines will help you care for your injury at home: When in bed, try to find a comfortable position. A firm mattress is best. Try lying flat on your back with pillows under your knees. You can also try lying on your side with your knees bent up toward your chest and a pillow between your knees. Don't sit for long periods. Try not to take long car rides or take other trips that have you sitting for a long time. This puts more stress on the lower back than standing or walking. During the first 24 to 72 hours after an injury or flare-up, apply an ice pack to the painful area for 20 minutes. Then remove it for 20 minutes. Do this for 60 to 90 minutes, or several times a day. This will reduce swelling and pain. Be sure to wrap the ice pack in a thin towel or plastic to protect your skin. You can start with ice, then switch to heat. Heat from a hot shower, hot bath, or heating pad reduces pain and works well for muscle spasms. Put heat on the painful area for 20 minutes, then remove for 20 minutes. Do this for 60 to 90 minutes, or several times a day. Do not use a heating pad while sleeping. It can burn the skin. You can alternate the ice and heat. Talk with your healthcare provider to find out the best treatment or therapy for your back pain. Therapeutic massage will help relax the back muscles without stretching them. Be aware of safe lifting methods. Do not lift anything over 15 pounds until all of the pain is gone. Medicines Talk to your healthcare provider before using medicines, especially if you have other health problems or are taking other medicines. You may use acetaminophen or ibuprofen to control pain, unless another pain medicine was prescribed. If you have chronic conditions like diabetes, liver or kidney disease, stomach ulcers, or gastrointestinal bleeding, or are taking blood-thinner medicines, talk with your doctor before taking any medicines. Be careful if you are given prescription medicines, narcotics, or medicine for muscle spasm. They can cause drowsiness, and affect your coordination, reflexes, and judgment. Do not drive or operate heavy machinery when taking these types of medicines. Only take pain medicine as prescribed by your healthcare provider. Follow-up care Follow up with your healthcare provider, or as advised. You may need physical therapy or more tests if your symptoms get worse. If you had X-rays your healthcare provider may be checking for any broken bones, breaks, or fractures. Bruises and sprains can sometimes hurt as much as a fracture. These injuries can take time to heal completely. If your symptoms don t improve or they get worse, talk with your healthcare provider. You may need a repeat X-ray or other tests. Call 911 Call 911 if any of the following occur: Trouble breathing Confused Very drowsy or trouble awakening Fainting or loss of consciousness Rapid or very slow heart rate Loss of bowel or bladder control When to seek medical advice Call your healthcare provider right away if any of the following occur: Pain gets worse or spreads to your arms or legs Weakness or numbness in one or both arms or legs Numbness in the groin or genital area [phone] [employer]. [address] [place] [address]. All rights reserved. This information is not intended as a substitute for professional medical care. Always follow your healthcare professional's instructions. Additional Information VACCINATE! IT SAVES LIVES! Members of the community who have not yet received the COVID-19 vaccine and would like to receive it can visit one of [facility] vaccine clinics. There are many vaccine clinic locations within the [facility]. For locations and available times, please visit [email or web address].[email or web address] gov/. It is important to note that some COVID mobile vaccine clinics are held outdoors and may be canceled in rainy or stormy conditions. To learn more about pediatric vaccinations (ages 5-11), we invite you to visit the [facility] webpage. https://www.[email or web address].org/p [email or web address]-Veguo-Tzxeforpnob-Freq [email or web address]-Lhnjjobhf.html To learn more about the COVID-19 vaccine, we invite you to visit the CDC website for a list of frequently asked questions. https://www.cdc.gov/coronavirus/ 2019-ncov/vaccines/faq.html [facility] Patient Portal Access Instructions: Stay connected with your healthcare team and access your personal medical information anytime with the [facility] Patient Portal. If you would like a full copy of your medical records please contact the [facility] Medical Records Department Friday through Friday between 8a.m. and 4:30p.m. Please follow the directions below to access the portal: 1.Access the email account you provided upon registration to the [facility].2.Look for an invitation email from [facility].3.Open the email and access the invitation link: Accept Invitation to [facility]4.Fill in the required shields to create your account. Sign into www.[employer] with your username and password that you created in the above steps to stay up to date. You can then view a summary of results, a summary of your visits, and the ability to download your summaries to your computer or send the information securely to a physician. Remember that your healthcare information is confidential, so carefully consider who you will allow to register on the [facility] Patient Portal for access to your information. You can also access the [facility] Patient Portal on the [employer] lobo. Simply click on Health Records under Health Data and then click on the [employer] logo. HOW TO SAFELY DISPOSE OF PRESCRIPTION MEDICATIONS Please use one of the following methods to safely dispose of your unused medications. 1.Use a drug disposal kit: the drug disposal pouch allows you to safely discard your old and unused drugs. Ask your nurse to give you one when you are discharged.2.Visit a local take-back location: Many local pharmacies and police departments have programs that collect old and unwanted prescription drugs. Call your local pharmacy or go to http://bit.ly/3T8Su0v to find one close to you.3.Make use of household items: Use cat litter or old coffee grounds to dispose medications if other options are not available. Mix your drugs with these household products, seal them in an airtight container and throw it into the garbage. Call [facility]: [phone] to be sure your drugs can be disposed of in this way. Some medicines may require a different approach.4.Never flush your medications down the toilet. IF YOU HAVE BEEN PRESCRIBED AN OPIOIDS FOR PAIN If you have been prescribed an opioid (such as hydrocodone, oxycodone or morphine), it is critical to understand the possible side effects and risks of opioid pain medications. Even when taken as directed, opioids can have several side effects including: Tolerance, meaning you might need to take more of a medication for the same pain relief. Nausea, vomiting and/or constipation. Sleepiness, dizziness, dry mouth, confusion, depression or itching. Physical dependence, meaning you have withdrawal symptoms when a medication is stopped ? this can develop within a few days. KNOW YOUR RESPONSIBILITIES It is important to know exactly how much and how often to take the opioid pain medications you are prescribed. Never take opioids in higher amounts or more often than prescribed. Do not combine opioids with alcohol or other drugs that cause drowsiness, such as benzodiazepines, also known as benzos, including diazepam and alprazolam, muscle relaxants or sleep aids. Never sell or share prescription opioids. This is illegal. Store opioids in a secure place and out of reach of others (including children, family, friends and visitors). The last page(s) of this document has been signed and retained as a CHART COPY Signatures Patient Education Materials Back Sprain/Strain Medication Leaflets My discharge plan and instructions have been reviewed and explained to me and I,GARRISON PRATT understand my current condition and have read and understand these discharge instructions. I have received a written copy of the plan/instructions. If I have questions, I am aware that I should contact my doctor. Patient/Powder Monkey Signature: Date/Time: Relationship to Patient: Witness Name/Signature: Date/Time: [facility] 12-26-2024 Discharge summary [facility] 12-26-2024 Radiology Diagnostic study note [facility] Imaging [place] [address] Abdomen/Pelvis W IV Cont ONLY MR#: [id number] Acct: [id number] Name: GARRISON PRATT Rep #: [id number] : 1980 F 44 From: Paola Anaya MD PCP: Dr. Sumi Knutson DO Status: REG ER Study:Abdomen/Pelvis W IV Cont ONLY Date of E xam: 12/26/24 Exam# [id number] Ordering Dr: Tristan Le MD PROCEDURE: ABDOMEN/PELVIS W IV CONT ONLY N/A REASON FOR EXAM: PAIN TECHNIQUE: Abdomen and pelvis CT with intravenous contrast. Coronal and Sagittal reconstruction series were provided. PATIENT PREPARATION: Per protocol One or more dose reduction techniques were used (e.g., Automated exposure control, adjustment of the mA and/or kV according to patient size, use of iterative reconstruction technique. RADIATION DOSE SUMMARY: CTDlvol: 22.9 mGy DLP: 1325 mGycm COMPARISON: None FINDINGS: Lung bases: Linear atelectasis or scarring in the right middle lobe. Liver: Diffuse fatty infiltration. Enlarged measuring 21 cm longitudinal. Gallbladder: Unremarkable Spleen: At the upper limits of normal in size Pancreas: Normal size without evidence of mass surrounding inflammation or ductal dilation. Adrenals: Unremarkable Kidneys: No hydronephrosis or stone Bladder: Unremarkable Reproductive Organs: Unremarkable Bowel: No obstruction or inflammation. Normal appendix. Lymph nodes: No significant lymphadenopathy. Vasculature: Unremarkable Bones: Unremarkable CT/Abdomen/Pelvis W IV Cont ONLY IMPRESSION: 1. No acute intra-abdominal abnormality. 2. Hepatic steatosis and hepatomegaly. OVERALL FINAL ASSESSMENT: . LI-RADS is not meant to be used in patients <18 years or patients with cirrhosisdue to congenital hepatic fibrosis or due to vascular disorders, because these patients have a lower chance of developing HCC. Reading Location: [id number] CC: Dr. Tristan Le MD; Dr. Sumi Knutson DO ~ Policeman: Signed [facility] 12-26-2024 Discharge summary Note Date/Time December 26, 2024 10:01pm [facility] Medical Records Department [address] [place] [address] Emergency Department Summary 12/26/24 MR#: [id number] Acct: [id number] Name: GARRISON PRATT Rep #:[id number] : 1980 44 From: Tristan Le MD PCP: Dr. Sumi Knutson, DO Status: REG ER Location: ED HPI HPI - GI History of Present Illness Chief Complaint: Abd Pain Narrative Narrative: 44-year-old female past medical history of GERD presents with months of sour taste in her mouth as well as abdominal pain, nausea, vomiting, and diarrhea. She states that whenever she tries to eat or drinks things, even water, that shegets diarrhea, as well as nausea and vomiting. Past surgical history does include bilateral tubal ligation. No fevers or chills. No exacerbating or alleviating factors. However, sometimes when she lays flat, she gets a burning sensation in her esophagus. She feels like she is going to vomit. She describes more epigastric to diffuse abdominal pain. [facility] Medical History Lumbar strain Left ankle sprain Bilateral carpal tunnel syndrome Left knee pain Absence seizure disorder Anxiety Home Medications ?Medication ?Instructions ?Recorded ?Last Taken ?Type pantoprazole 20 mg tablet,delayed 20 mg PO DAILY PRN 0 12/16/23 Unknown History release cyclobenzaprine 10 mg tablet 10 mg PO TID PRN Muscle S pasm #20 12/05/24 Unknown Rx TABLETS oxycodone-acetaminophen 5 mg-325 1 tab PO Q8H PRN pain 3 days #10 12/05/24 Unknown Rx mg tablet (Percocet) tabs ondansetron 4 mg disintegrating 4 mg PO Q8H PRN PRN Na usea #15 tabs 12/26/24 Unknown Rx tablet Allergy/AdvReac Type Severity Reaction Status Date / Time diphenhydramine HCl (From Allergy swelling Verified 12/26/24 19:26 Benadryl) all over tramadol Allergy Itching Verified 06/01/25 19:26 Family History Mother Hypertension Myocardial infarction Grandfather Hypertension Grandmother Hypertension Heart disease triple bypass Surgical History Hx of tubal ligation Social History household members: spouse, family and children Smoking Status: Current every day smoker tobacco type: cigarettes alcohol intake: never ROS ROS ED ROS Narrative Constitutional: No fever, no chills. Cardiovascular: No chest pain. No palpitations. No pedal edema. Respiratory: No cough, no shortness of breath. Abdominal: Positive epigastric to diffuse abdominal pain. Positive nausea, vomiting, and diarrhea. Genitourinary: No dysuria. No hematuria. Musculoskeletal: No myalgias. No arthralgias. Neurologic: No headaches. No dizziness. No lightheadedness. No exacerbating or alleviating factors. However, states unable to even drink water. EXAM Physical Exam Narrative Exam Narrative: Afebrile. Vital signs noted. Nontoxic-appearing. HEENT: Normocephalic. Atraumatic. PERRL, EOMI. Neck soft and supple. No pointtenderness or step off. Cardiovascular: Regular rate and rhythm. No murmurs, rubs, or gallops appreciated. Respiratory: No tachypnea. Lungs clear to auscultation bilaterally. Gastrointestinal: Abdomen soft, minimal diffuse tenderness to palpation in epigastrium and diffusely. With normoactive bowel sounds. No rebound or guarding. Negative Quezada sign. No pain in right lower quadrant, no pain over McBurney's point. Neurological: Awake. Alert. Nonfocal, nonlateralizing. Skin: No rash. Normal color. No pallor. Musculoskeletal: No pedal edema. Full range of motion extremities. Const Vital Signs: 12/26/24 19:25 Temperature 98 F Temperature Source Oral Pulse Rate 92 Respiratory Rate 18 Blood Pressure 125/104 H Blood Pressure Mean 111 Pulse Ox 99 Oxygen Delivery Method Room Air MDM MDM MDM Narrative Medical decision making narrative: The differential diagnosis includes but not limited to GERD versus hiatal herniaversus pancreatitis versus colitis. She may also have peptic ulcer disease versus gastritis. I have lower suspicion for acute cholecystitis or gallstone pancreatitis given her examination. I reviewed her prior records. She has beento the emergency department previously but not for abdominal pain. Patient administered a bolus of normal saline as well as morphine and ondansetron. I reviewed her laboratory work and she has normal white count of 7.3 with hemoglobin 13.9, hematocrit 38.8, platelet count 278. CMP is remarkable for carbon dioxide of 19.2, glucose 91, LFTs show an ALT of 39 which I think is nonspecific, normal alk phos of 78. Lipase normal at 46 so I doubt pancreatitis. Serum is negative. Urinalysis obtained and reviewed and is negative for infection. I do not feel antibiotics are indicated. CT of the abdomen pelvis obtained there is no acute process. No obstruction, nodiverticulitis. No inflammation of the pancreas. Upon repeat examination, she states she feels improved. She states she has multiple antiacids in the form of rbbs-njl-vhtihti Prilosec as well as Pepcid ACat home. She states she has been trying to take them. I do feel that she should follow-up with her primary care provider and/or gastroenterology as she may have peptic ulcer disease. Return instructions to the emergency department were reviewed. She was given a prescription for 15 Zofran ODT's. I feel she can be discharged to follow-up. Disposition is discharged home in stable condition. History & Record Review Discussion w/independent historian: Patient Lab Data Attestation: I reviewed the patient's lab results. Labs: Laboratory Results - last 24 hr 12/26/24 12/26/24 19:51 19:53 WBC 7.3 RBC 4.42 Hgb 13.9 Hct 38.8 MCV 87.8 MCH 31.4 MCHC 35.8 RDW Std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 feeling tired, loss of energy, or loss of appetite. A viral illness usually lasts anywhere from several days to several weeks, but sometimes it lasts longer. In some cases, a more serious infection can look like a viral syndrome in the first few days of the illness. You may need another exam and additional tests to know the difference. Watch for thewarning signs listed below for when to seek medical advice. Home care Follow these guidelines for taking care of yourself at home: If symptoms are severe, rest at home for the first 2 to 3 days. Stay away from cigarette smoke - both your smoke and the smoke from others. You may use tvmq-saw-closhvp acetaminophen or ibuprofen for fever, muscle aching, and headache, unless another medicine was prescribed for this. If you have chronic liver or kidney disease or ever had a stomach ulcer or gastrointestinal bleeding, talk with your healthcare provider before using these medicines. No one who is younger than 18 and ill with a fever should take aspirin. It may cause severe disease or . Your appetite may be poor, so a light diet is fine. Avoid dehydration by drinking 8 to 12, 8-ounce glasses of fluids each day. This may include water; orange juice; lemonade; apple, grape, and cranberry juice; clear fruit drinks; electrolyte replacement and sports drinks; and decaffeinated teas andcoffee. If you have been diagnosed with a kidney disease, ask your healthcare provider how much andwhat types of fluids you should drink to prevent dehydration. If you have kidney disease, drinking too much fluid can cause it build up in the your body and be dangerous to your health. Aqly-pxi-inyvtmj remedies won't shorten the length of the illness but may be helpful for symptoms such as cough, sore throat, nasal and sinus congestion, or diarrhea. Don't use decongestants if you have high blood pressure. Follow-up care Follow up with your healthcare provider if you do not improve over the next week. Call 911 Call 911 if any of the following occur: Convulsion Feeling weak, dizzy, or like you are going to faint Chest pain, or more than mild shortness of breath When to seek medical advice Call your healthcare provider right away if any of these occur: Cough with lots of colored sputum (mucus) or blood in your sputum Chest pain, shortness of breath, wheezing, or trouble breathing Severe headache; face, neck, or ear pain Severe, constant pain in the lower right side of your belly (abdominal) Continued vomiting (can t keep liquids down) Frequent diarrhea (more than 5 times a day); blood (red or black color) or mucus in diarrhea Feeling weak, dizzy, or like you are going to faint Extreme thirst Fever of 100.4 F (38 C) or higher, or as directed by your healthcare provider [id number] [employer]. [address] [place] [address]. All rights reserved. This information is not intended as a substitute for professional medical care. Always follow yourhealthcare professional's instructions. Follow Up Care 04/30/2022 06:08:52 With:SUMI KNUTSON DO Address: [address] [place] [phone] When:2-4 days [facility] 10-04-2022 Note Discharge Instructions Thank you for allowing [facility] to assist you with your healthcare needs. The following is importantdischarge information regarding your hospital visit. Diagnosis from Today's Visit Pneumonia Back pain What to Do Next Instructions from Your Care Team Discharge Return to Work, School, or Sports (Return to Work, School, or Sports) (Discharge Return to status) - Ordered -- 05/01/22, May return to: work, 04/30/22 6:28:00 EDT Post Acute Orders No qualifying data available. You Need to Schedule the Following Appointments Follow Up with SUMI KNUTSON DO When Within 2-4 days Where: [address] [place] [id number] [phone] Allergies Benedryl Allergy Sinus traMADol (itching) Medications Please ask your primary doctor or pharmacist before taking any other medication not listed, including over the counter drugs, herbal medications, vitamins and or supplements as they may interact withyour home medications. What How Much When Why Instructions Last Dose New baclofen (baclofen 20 mg oral tablet) 1 tab(s) by mouth Two (2) times a day Duration: 5 Days Printed Prescription New benzonatate (Tessalon Perles 100 mg oral capsule) 1 cap by mouth Three (3) times a day Duration: 7 Days Printed Prescription Unchanged busPIRone (busPIRone 10 mg oral tablet) 1 tab(s) by mouth Three (3) times a day Unchanged famotidine (Pepcid AC) by mouth Once Unchanged loratadine (Claritin 10 mg oral tablet) 1 tab(s) by mouth Once a day Contact dermatitis Duration: 7 Days Please take this list to your next doctor s visit. Bring all medications you take, including over the counter medications, herbals and other supplements with you to your doctor s visit. Patients and families are reminded to discard old lists and to update any records with all medication providers or retail pharmacies. Medication Leaflets baclofen (oral) (LEN anthony fen) FIRST Baclofen, Ozobax What is the most important information I should know about baclofen? Use only as directed. Tell your doctor if you use other medicines or have other medical conditions or allergies. Do not stop using baclofen suddenly, or you could have unpleasant withdrawal symptoms. What is baclofen? Baclofen is a muscle relaxer that is used to treat muscle pain, spasms, and stiffness in people with multiple sclerosis or spinal cord injury or disease. Baclofen may also be used for purposes not listed in this medication guide. What should I discuss with my healthcare provider before taking baclofen? You should not use baclofen if you are allergic to it. Tell your doctor if you have ever had: mental illness or psychosis; a nervous system disorder; epilepsy or other seizure disorder; a stroke or blood clot; or kidney disease. Using baclofen may increase your risk of developing an ovarian cyst. Talk with your doctor about your specific risk. Tell your doctor if you are or . If you take baclofen during , your baby may have withdrawal symptoms such as tremors, rigid muscles, or a seizure. Follow your doctor's instructions about tapering your dose as your due date approaches. If you take baclofen while , withdrawal symptoms may occur in the nursing baby. Ask your doctor if it is safe for you to breastfeed while taking this medicine. Not approved for use by anyone younger than 12 years old. How should I take baclofen? Follow all directions on your prescription label and read all medication guides or instruction sheets. Your doctor may occasionally change your dose. Use the medicine exactly as directed. Shake the oral suspension (liquid). Measure a dose with the supplied measuring device (not a kitchen spoon). Call your doctor if your symptoms do not improve, or if they get worse. You should not stop using baclofen suddenly or you could have serious or fatal withdrawal symptoms.Ask your doctor before stopping the medicine. Store at room temperature away from moisture and heat. What happens if I miss a dose? Take the medicine as soon as you can, but skip the missed dose if it is almost time for your next dose. Do not take two doses at one time. What happens if I overdose? Seek emergency medical attention or call the Poison Help line at . Overdose symptoms may include muscle weakness, vomiting, severe dizziness or drowsiness, dilated orpinpoint pupils, shallow breathing, seizure, or loss of consciousness. What should I avoid while taking baclofen? Do not use baclofen at a time when you need muscle tone for safe balance and movement during certain activities. In some situations, it may be dangerous for you to have reduced muscle tone. Avoid drinking alcohol. Avoid driving or hazardous activity until you know how this medicine will affect you. Your reactions could be impaired. What are the possible side effects of baclofen? Get emergency medical help if you have signs of an allergic reaction: hives; difficult breathing; swelling of your face, lips, tongue, or throat. Call your doctor at once if you have: severe drowsiness, weak or shallow breathing; confusion, hallucinations; itching, tingling, or twitching in your hands, arms, feet, or legs; fever; or a seizure. Common side effects may include: drowsiness, dizziness, weakness, tiredness; headache; sleep problems (insomnia); nausea, constipation; or urinating more often than usual. This is not a complete list of side effects and others may occur. Call your doctor for medical advice about side effects. You may report side effects to FDA at 9-589-TXX-7038. What other drugs will affect baclofen? Using baclofen with other drugs that make you drowsy can worsen this effect. Ask your doctor beforeusing opioid medication, a sleeping pill, a muscle relaxer, or medicine for anxiety or seizures. Other drugs may affect baclofen, including prescription and qkpt-onp-loelzol medicines, vitamins, and herbal products. Tell your doctor about all other medicines you use. Where can I get more information? Your pharmacist can provide more information about baclofen. Remember, keep this and all other medicines out of the reach of children, never share your medicines with others, and use this medication only for the indication prescribed. Every effort has been made to ensure that the information provided by [employer]. [employer]') is accurate, up-to-date, and complete, but no guarantee is made to that effect. Drug information contained herein may be time sensitive. [employer] information has been compiled for use by healthcare practitioners and consumers in the [place] and therefore [employer] does not warrant that uses outside of the [place] are appropriate, unless specifically indicated otherwise. [employer] drug information does not endorse drugs, diagnose patients or recommend therapy. [employer] drug information isan informational resource designed to assist licensed healthcare practitioners in caring for their p atients and/or to serve consumers viewing this service as a supplement to, and not a substitute for, the expertise, skill, knowledge and judgment of healthcare practitioners. The absence of a warningfor a given drug or drug combination in no way should be construed to indicate that the drug or drug combination is safe, effective or appropriate for any given patient. [employer] does not assume any responsibility for any aspect of healthcare administered with the aid of information [employer] provides. The information contained herein is not intended to cover all possible uses, directions, precautions, warnings, drug interactions, allergic reactions, or adverse effects. If you have questions about the drugs you are taking, check with your doctor, nurse or pharmacist. Copyright 8408-7440 [employer]. Version: 8.02. Revision Date: 02/27/2021. benzonatate (yanick RAQUEL alisia rhodes) Corrine Curtis What is the most important information I should know about benzonatate? Never suck or chew on a benzonatate capsule. Swallow the pill whole. Sucking or chewing the capsulemay cause serious side effects. Benzonatate is not approved for use by anyone younger than 10 years old. An overdose of benzonatatecan be fatal to a young child. What is benzonatate? Benzonatate is used to relieve coughing. Benzonatate is a non-narcotic cough medicine that numbs the throat and lungs, making the cough reflex less active. Benzonatate may also be used for purposes not listed in this medication guide. What should I discuss with my healthcare provider before taking benzonatate? You should not use this medicine if you are allergic to benzonatate or topical numbing medicines such as tetracaine or procaine (found in some insect bite and sunburn creams). Tell your doctor if you are or . Benzonatate is not approved for use by anyone younger than 10 years old. An overdose of benzonatatecan be fatal, especially to a young child who has accidentally swallowed the medicine. How should I take benzonatate? Follow all directions on your prescription label and read all medication guides or instruction sheets. Use the medicine exactly as directed. Never suck or chew on a benzonatate capsule. Swallow the pill whole. Sucking or chewing the capsulemay cause serious side effects. Store at room temperature away from moisture, heat, and light. What happens if I miss a dose? Skip the missed dose and use your next dose at the regular time. Do not use two doses at one time. What happens if I overdose? Seek emergency medical attention or call the Poison Help line at . An overdose of benzonatate can be fatal, especially to a child. Accidental has occurred in children under 10 years old. Overdose symptoms may include tremors, feeling restless, seizure (convulsions), slow heart rate, weak pulse, fainting, and slow breathing (breathing may stop). What should I avoid while taking benzonatate? Avoid eating or drinking anything while you feel numbness or tingling in your mouth or throat. What are the possible side effects of benzonatate? Stop taking this medicine and get emergency medical help if you have signs of an allergic reaction:hives; difficult breathing; swelling of your face, lips, tongue, or throat. Call your doctor at once if you have: severe drowsiness or dizziness; confusion, hallucinations. ongoing numbness or tingling in your mouth, throat, or face; numbness in your chest; a choking feeling; chills; or burning in your eyes. Some of these side effects may result from chewing or sucking on a benzonatate capsule. Common side effects may include: headache, dizziness; nausea, upset stomach; constipation; itching, rash; or stuffy nose. This is not a complete list of side effects and others may occur. Call your doctor for medical advice about side effects. You may report side effects to FDA at 6-109-QMS-4670. What other drugs will affect benzonatate? Using benzonatate with other drugs that make you drowsy can worsen this effect. Ask your doctor before using opioid medication, a sleeping pill, a muscle relaxer, or medicine for anxiety or seizures. Other drugs may affect benzonatate, including prescription and tpuc-vmo-wcffari medicines, vitamins, and herbal products. Tell your doctor about all your current medicines and any medicine you start or stop using. Where can I get more information? Your pharmacist can provide more information about benzonatate. Remember, keep this and all other medicines out of the reach of children, never share your medicines with others, and use this medication only for the indication prescribed. Every effort has been made to ensure that the information provided by [employer]. [employer]') is accurate, up-to-date, and complete, but no guarantee is made to that effect. Drug information contained herein may be time sensitive. [employer] information has been compiled for use by healthcare practitioners and consumers in the [place] and therefore [employer] does not warrant that uses outside of the [place] are appropriate, unless specifically indicated otherwise. [employer] drug information does not endorse drugs, diagnose patients or recommend therapy. [employer] drug information isan informational resource designed to assist licensed healthcare practitioners in caring for their p atients and/or to serve consumers viewing this service as a supplement to, and not a substitute for, the expertise, skill, knowledge and judgment of healthcare practitioners. The absence of a warningfor a given drug or drug combination in no way should be construed to indicate that the drug or drug combination is safe, effective or appropriate for any given patient. [employer] does not assume any responsibility for any aspect of healthcare administered with the aid of information [employer] provides. The information contained herein is not intended to cover all possible uses, directions, precautions, warnings, drug interactions, allergic reactions, or adverse effects. If you have questions about the drugs you are taking, check with your doctor, nurse or pharmacist. Copyright 1046-5495 [employer]. Version: 9.01. Revision Date: 05/06/2019. [employer] Viral Syndrome (Adult) A viral illness may cause a number of symptoms such as fever. Other symptoms depend on the part of the body that the virus affects. If it settles in your nose, throat, and lungs, it may cause cough, sore throat, congestion, runny nose, headache, earache and other ear symptoms, or shortness of breath. If it settles in your stomach and intestinal tract, it may cause nausea, vomiting, cramping, and diarrhea. Sometimes it causes generalized symptoms like aching all over, feeling tired, loss of energy, or loss of appetite. A viral illness usually lasts anywhere from several days to several weeks, but sometimes it lasts longer. In some cases, a more serious infection can look like a viral syndrome in the first few days of the illness. You may need another exam and additional tests to know the difference. Watch for thewarning signs listed below for when to seek medical advice. Home care Follow these guidelines for taking care of yourself at home: If symptoms are severe, rest at home for the first 2 to 3 days. Stay away from cigarette smoke - both your smoke and the smoke from others. You may use volb-glh-pfrvuun acetaminophen or ibuprofen for fever, muscle aching, and headache, unless another medicine was prescribed for this. If you have chronic liver or kidney disease or ever had a stomach ulcer or gastrointestinal bleeding, talk with your healthcare provider before using these medicines. No one who is younger than 18 and ill with a fever should take aspirin. It may cause severe disease or . Your appetite may be poor, so a light diet is fine. Avoid dehydration by drinking 8 to 12, 8-ounce glasses of fluids each day. This may include water; orange juice; lemonade; apple, grape, and cranberry juice; clear fruit drinks; electrolyte replacement and sports drinks; and decaffeinated teas andcoffee. If you have been diagnosed with a kidney disease, ask your healthcare provider how much andwhat types of fluids you should drink to prevent dehydration. If you have kidney disease, drinking too much fluid can cause it build up in the your body and be dangerous to your health. Easx-ixe-aslwfpj remedies won't shorten the length of the illness but may be helpful for symptoms such as cough, sore throat, nasal and sinus congestion, or diarrhea. Don't use decongestants if you have high blood pressure. Follow-up care Follow up with your healthcare provider if you do not improve over the next week. Call 911 Call 911 if any of the following occur: Convulsion Feeling weak, dizzy, or like you are going to faint Chest pain, or more than mild shortness of breath When to seek medical advice Call your healthcare provider right away if any of these occur: Cough with lots of colored sputum (mucus) or blood in your sputum Chest pain, shortness of breath, wheezing, or trouble breathing Severe headache; face, neck, or ear pain Severe, constant pain in the lower right side of your belly (abdominal) Continued vomiting (can t keep liquids down) Frequent diarrhea (more than 5 times a day); blood (red or black color) or mucus in diarrhea Feeling weak, dizzy, or like you are going to faint Extreme thirst Fever of 100.4 F (38 C) or higher, or as directed by your healthcare provider [id number] [employer]. [address] [place] [address], [place] [address]. All rights reserved. This information is not intended as a substitute for professional medical care. Always follow yourhealthcare professional's instructions. Additional Information VACCINATE! IT SAVES LIVES! Members of the community who have not yet received the COVID-19 vaccine and would like to receive it can visit one of [facility] vaccine clinics. There are many vaccine clinic locations within the [facility]. For locations and available times, please visit [email or web address]. It is important to note that some COVID mobile vaccine clinics are held outdoors and may be canceled in rainy orstormy conditions. To learn more about pediatric vaccinations (ages 5-11), we invite you to visit the [facility] webpage. https://www.[email or web address]/pages/0078-Qwpuh-Xprkjjlwoed-Veblsrerwp-Ghxkx-Kcy stions.htmlTo learn more about the COVID-19 vaccine, we invite you to visit the [facility] website for a list of frequently asked questions. [email or web address]://[email or web address]/assets/Jnqnbfaz-bnc-Norywcen/iyemz-Dgszyvx-Xcmgvsdvuq _Asked-Questions.pdf [facility] Patient Portal Access Instructions: Stay connected with your healthcare team and access your personal medical information anytime with the [facility] Patient Portal. If you would like a full copy of your medical records please contact the [facility] Medical Records Department Friday through Friday between 8a.m. and 4:30p.m. Please follow the directions below to access the portal: 1.Access the email account you provided upon registration to the hospital.2.Look for an invitation email from [facility].3.Open the email and access the invitation link: [facility].Fill in the required shields to create your account. Sign into [email or web address] with your username and password that you created in the above steps to stay up to date. You can then view a summary of results, a summary of your visits, and the ability to download your summaries to your computer or send the information securely to a physician. Remember that your healthcare information is confidential, so carefully consider who you will allow to register on the [facility] Patient Portal for access to your information. You can also access the [facility] Patient Portal on the Yulex. Simply click on Health Records under Merlin and then click on the Hilda logo. HOW TO SAFELY DISPOSE OF PRESCRIPTION MEDICATIONS Please use one of the following methods to safely dispose of your unused medications. 1.Use a drug disposal kit: the drug disposal pouch allows you to safely discard your old and unuseddrugs. Ask your nurse to give you one when you are discharged.2.Visit a local take-back location: Many local pharmacies and police departments have programs that collect old and unwanted prescriptiondrugs. Call your local pharmacy or go to http://Mirapoint Software.MoboFree/8G5Kj7e to find one close to you.3.Make use of household items: Use cat litter or old coffee grounds to dispose medications if other options arenot available. Mix your drugs with these household products, seal them in an airtight container andthrow it into the garbage. Call [facility]: [phone] to be sure your drugs can be disposed of in this way. Some medicines may require a different approach.4.Never flush your medications down the toilet. IF YOU HAVE BEEN PRESCRIBED AN OPIOIDS FOR PAIN If you have been prescribed an opioid (such as hydrocodone, oxycodone or morphine), it is critical to understand the possible side effects and risks of opioid pain medications. Even when taken as directed, opioids can have several side effects including: Tolerance, meaning you might need to take more of a medication for the same pain relief. Nausea, vomiting and/or constipation. Sleepiness, dizziness, dry mouth, confusion, depression or itching. Physical dependence, meaning you have withdrawal symptoms when a medication is stopped ? this can develop within a few days. KNOW YOUR RESPONSIBILITIES It is important to know exactly how much and how often to take the opioid pain medications you are prescribed. Never take opioids in higher amounts or more often than prescribed. Do not combine opioids with alcohol or other drugs that cause drowsiness, such as benzodiazepines, also known as benzos,including diazepam and alprazolam, muscle relaxants or sleep aids. Never sell or share prescriptionopioids. This is illegal. Store opioids in a secure place and out of reach of others (including children, family, friends and visitors). The last page(s) of this document has been signed and retained as a CHART COPY Signatures Patient Education Materials Viral Syndrome (Adult) Medication Leaflets baclofen (oral), benzonatate My discharge plan and instructions have been reviewed and explained to me and I,GARRISON PRATT understand my current condition and have read and understand these discharge instructions. I have received a written copy of the plan/instructions. If I have questions, I am aware that I should contactmy doctor. Patient/Powder Monkey Signature: Date/Time: Relationship to Patient: Witness Name/Signature: Date/Time: [facility]10-04-2022 Note ORIGINAL EXAMINATION: ONE XRAY VIEW OF THE CHEST 04/30/2022 6:47 am COMPARISON: Chest x-ray 02/06/2020 HISTORY: ORDERING SYSTEM PROVIDED HISTORY: Reason for Exam: cough FINDINGS: The cardiomediastinal silhouette is normal. Subtle hazy opacity at the left lung base could represent developing infiltrate versus atelectasis. No vascular congestion, large pleural effusion or pneumothorax. Osseous structures appear intact. IMPRESSION: Subtle hazy left basilar opacity could reflect a developing infiltrate versus atelectasis. I have personally reviewed the images of this examination and agree with the resident's findings and interpretation. Interpreted by: Stiven Leyva MD Preliminary Report By: Lilly Sylvester Electronically signed By Stiven Leyva MD Dictated Date: 04/30/2022 6:49:57 AM Prelim Date: 04/30/2022 6:51:59 AM Sign Date: 04/30/2022 7:24:27 AM Ordering Provider: [facility]10-04-2022 Note ORIGINAL EXAMINATION: ONE XRAY VIEW OF THE CHEST 04/30/2022 6:47 am COMPARISON: Chest x-ray 02/06/2020 HISTORY: ORDERING SYSTEM PROVIDED HISTORY: Reason for Exam: cough FINDINGS: The cardiomediastinal silhouette is normal. Subtle hazy opacity at the left lung base could represent developing infiltrate versus atelectasis. No vascular congestion, large pleural effusion or pneumothorax. Osseous structures appear intact. IMPRESSION: Subtle hazy left basilar opacity could reflect a developing infiltrate versus atelectasis. I have personally reviewed the images of this examination and agree with the resident's findings and interpretation. Interpreted by: Stiven Leyva MD Preliminary Report By: Lilly Sylvester Electronically signed By Stiven Leyva MD Dictated Date: 04/30/2022 6:49:57 AM Prelim Date: 04/30/2022 6:51:59 AM Sign Date: 04/30/2022 7:24:27 AM Ordering Provider: [facility]07-17-2022 Hospital Discharge instructions Patient Education 02/10/2022 11:42:52 CARPAL TUNNEL Carpal Tunnel Syndrome Carpal tunnel syndrome is a painful condition of the wrist and arm. It is caused by pressure on themedian nerve. The median nerve is one of the nerves that give feeling and movement to the hand. It passes througha tunnel in the wrist (carpal tunnel). This tunnel is made up of bones and ligaments. Narrowing of this tunnel or swelling of tissues inside the tunnel puts pressure on the median nerve. This causes numbness, pins and needles or electric shooting pains in the hand and forearm. Often the pain is worse at night and may awaken you from sleep. Carpal tunnel syndrome may occur during and with use of control pills. It is more common in workers who must bend their wrists frequently, and those who work with power tools that cause strong vibrations. Home Care: 1.Rest the painful wrist. Avoid repeated bending of the wrist back and forth. This puts pressure onthe median nerve. Avoid the use of power tools with strong vibrations. 2.If you were given a splint, wear it at night while you sleep. You may also wear it during the dayfor comfort. 3.Move the fingers and wrists often to avoid stiffness. 4.Sometimes changes in the work place may relieve symptoms. If you type most of the day, changing the position of the keyboard or adding a wrist support may help. Your wrist should be in a neutral position and not bent back when typing. 5.You may ibuprofen (Motrin, Advil) or naproxen (Aleve, Naprosyn) to treat pain and inflammation, unless another medicine was prescribed. If you can't take these medicines, acetaminophen (Tylenol) may help with the pain, but does not treat inflammation. [ NOTE: If you have chronic liver or kidney disease or ever had a stomach ulcer or GI bleeding, talk with your doctor before using these medicines.] 6.Opioid pain medicine will only give temporary relief and does not treat the problem. If pain continues, you may need an injection of a steroid drug into the wrist. 7.If the above measures fail, you may require surgery to open the carpal tunnel and release the pressure on the trapped nerve. Follow Up with your doctor or this facility if the pain does not begin to improve within the next week. [NOTE: If X-rays were taken, they will be reviewed by a radiologist. You will be notified of any new findings that may affect your care.] Get Prompt Medical Attention if any of the following occur: Pain not improving with the above treatment Fingers or hand becomes cold, blue, numb or tingly The entire arm becomes swollen or weak [id number] [employer]. [address] [place] [address]. All rights reserved. This information is not intended as a substitute for professional medical care. Always follow yourhealthcare professional's instructions. Follow Up Care 02/10/2022 11:13:11 With:Go to emergency room if symptoms worsen Address:Unknown When:2-4 days With:SUMI KNUTSON DO Address: [address] [place] [address]- [phone] When:2-4 days [facility] 07-17-2022 Emergency department Discharge summary Discharge Instructions Thank you for allowing [facility] to assist you with your healthcare needs. The following is importantdischarge information regarding your hospital visit. Diagnosis from Today's Visit Carpal tunnel Wrist pain-swelling What to Do Next Instructions from Your Care Team No qualifying data available. Post Acute Orders No qualifying data available. You Need to Schedule the Following Appointments Follow Up with Go to emergency room if symptoms worsen When Within 2-4 days Follow Up with SUMI KNUTSON DO When Within 2-4 days Where: [address] [place] [phone] Allergies Benedryl Allergy Sinus traMADol (itching) Medications Please ask your primary doctor or pharmacist before taking any other medication not listed, including over the counter drugs, herbal medications, vitamins and or supplements as they may interact withyour home medications. What How Much When Why Instructions Last Dose Unchanged busPIRone (busPIRone 10 mg oral tablet) 1 tab(s) by mouth Three (3) times a day Unchanged famotidine (Pepcid AC) by mouth Once Unchanged loratadine (Claritin 10 mg oral tablet) 1 tab(s) by mouth Once a day Contact dermatitis Duration: 7 Days Please take this list to your next doctor s visit. Bring all medications you take, including over the counter medications, herbals and other supplements with you to your doctor s visit. Patients and families are reminded to discard old lists and to update any records with all medication providers or retail pharmacies. Education Materials Carpal Tunnel Syndrome Carpal tunnel syndrome is a painful condition of the wrist and arm. It is caused by pressure on themedian nerve. The median nerve is one of the nerves that give feeling and movement to the hand. It passes througha tunnel in the wrist (carpal tunnel). This tunnel is made up of bones and ligaments. Narrowing of this tunnel or swelling of tissues inside the tunnel puts pressure on the median nerve. This causes numbness, pins and needles or electric shooting pains in the hand and forearm. Often the pain is worse at night and may awaken you from sleep. Carpal tunnel syndrome may occur during and with use of control pills. It is more common in workers who must bend their wrists frequently, and those who work with power tools that cause strong vibrations. Home Care: 1. Rest the painful wrist. Avoid repeated bending of the wrist back and forth. This puts pressure on the median nerve. Avoid the use of power tools with strong vibrations. 2. If you were given a splint, wear it at night while you sleep. You may also wear it during the day for comfort. 3. Move the fingers and wrists often to avoid stiffness. 4. Sometimes changes in the work place may relieve symptoms. If you type most of the day, changing theposition of the keyboard or adding a wrist support may help. Your wrist should be in a neutral position and not bent back when typing. 5. You may ibuprofen (Motrin, Advil) or naproxen (Aleve, Naprosyn) to treat pain and inflammation, unless another medicine was prescribed. If you can't take these medicines, acetaminophen (Tylenol) may help with the pain, but does not treat inflammation. [ NOTE: If you have chronic liver or kidney disease or ever had a stomach ulcer or GI bleeding, talk with your doctor before using these medicines.] 6. Opioid pain medicine will only give temporary relief and does not treat the problem. If pain continues, you may need an injection of a steroid drug into the wrist. 7. If the above measures fail, you may require surgery to open the carpal tunnel and release the pressure on the trapped nerve. Follow Up with your doctor or this facility if the pain does not begin to improve within the next week. [NOTE: If X-rays were taken, they will be reviewed by a radiologist. You will be notified of any new findings that may affect your care.] Get Prompt Medical Attention if any of the following occur: Pain not improving with the above treatment Fingers or hand becomes cold, blue, numb or tingly The entire arm becomes swollen or weak [id number] [employer]. [address] [place] [address], [place] [address]. All rights reserved. This information is not intended as a substitute for professional medical care. Always follow yourhealthcare professional's instructions. Additional Information VACCINATE! IT SAVES LIVES! Members of the community who have not yet received the COVID-19 vaccine and would like to receive it can visit one of [facility] vaccine clinics. There are many vaccine clinic locations within the [facility]. For locations and available times, please visit [email or web address]. It is important to note that some COVID mobile vaccine clinics are held outdoors and may be canceled in rainy orstormy conditions. To learn more about pediatric vaccinations (ages 5-11), we invite you to visit the [facility] webpage. https://www.[email or web address] [email or web address].org/pages/1205-Oikzr-Yqlmekmqtee-Nnhocputft-Zfbuk-Zzz stions.htmlTo learn more about the COVID-19 vaccine, we invite you to visit the [facility] website for a list of frequently asked questions. [email or web address]-[email or web address]-Dsarktqh/[email or web address]-Nwhcijqtdu _Asked-Questions.pdf [facility] Patient Portal Access Instructions: Stay connected with your healthcare team and access your personal medical information anytime with the [facility] Patient Portal. If you would like a full copy of your medical records please contact the [facility] Medical Records Department Friday through Friday between 8a.m. and 4:30p.m. Please follow the directions below to access the portal: 1.Access the email account you provided upon registration to the hospital.2.Look for an invitation email from [facility].3.Open the email and access the invitation link: Accept Invitation to [facility]4.Fill in the required shields to create your account. Sign into www.Network Vision with your username and password that you created in the above steps to stay up to date. You can then view a summary of results, a summary of your visits, and the ability to download your summaries to your computer or send the information securely to a physician. Remember that your healthcare information is confidential, so carefully consider who you will allow to register on the [facility] Patient Portal for access to your information. You can also access the [facility] Patient Portal on the Yulex. Simply click on Health Records under HealthData and then click on the [employer] logo. HOW TO SAFELY DISPOSE OF PRESCRIPTION MEDICATIONS Please use one of the following methods to safely dispose of your unused medications. 1.Use a drug disposal kit: the drug disposal pouch allows you to safely discard your old and unuseddrugs. Ask your nurse to give you one when you are discharged.2.Visit a local take-back location: Many local pharmacies and police departments have programs that collect old and unwanted prescriptiondrugs. Call your local pharmacy or go to http://Mirapoint Software.MoboFree/1U2Ws8f to find one close to you.3.Make use of household items: Use cat litter or old coffee grounds to dispose medications if other options arenot available. Mix your drugs with these household products, seal them in an airtight container andthrow it into the garbage. Call [facility]: [phone] to be sure your drugs can be disposed of in this way. Some medicines may require a different approach.4.Never flush your medications down the toilet. IF YOU HAVE BEEN PRESCRIBED AN OPIOIDS FOR PAIN If you have been prescribed an opioid (such as hydrocodone, oxycodone or morphine), it is critical to understand the possible side effects and risks of opioid pain medications. Even when taken as directed, opioids can have several side effects including: Tolerance, meaning you might need to take more of a medication for the same pain relief. Nausea, vomiting and/or constipation. Sleepiness, dizziness, dry mouth, confusion, depression or itching. Physical dependence, meaning you have withdrawal symptoms when a medication is stopped ? this can develop within a few days. KNOW YOUR RESPONSIBILITIES It is important to know exactly how much and how often to take the opioid pain medications you are prescribed. Never take opioids in higher amounts or more often than prescribed. Do not combine opioids with alcohol or other drugs that cause drowsiness, such as benzodiazepines, also known as benzos,including diazepam and alprazolam, muscle relaxants or sleep aids. Never sell or share prescriptionopioids. This is illegal. Store opioids in a secure place and out of reach of others (including children, family, friends and visitors). The last page(s) of this document has been signed and retained as a CHART COPY Signatures Patient Education Materials CARPAL TUNNEL Medication Leaflets My discharge plan and instructions have been reviewed and explained to me and I,GARRISON PRATT understand my current condition and have read and understand these discharge instructions. I have received a written copy of the plan/instructions. If I have questions, I am aware that I should contactmy doctor. Patient/Powder Monkey Signature: Date/Time: Relationship to Patient: Witness Name/Signature: Date/Time: [facility]05-03-2022 Evaluation + Plan note Future Scheduled Tests Laboratory* Thyroid Stimulating Hormone 11/27/21 * Complete Blood Count 11/27/21 * Lipid Profile 11/27/21 * Complete Metabolic Panel 11/27/21 [facility] Evaluation + Plan note Future Appointments Appointment Date:03/03/2025 07:00:00 AM Scheduled Provider:SUMI KNUTSON DO Location:[facility] Appointment Type:PC Wellness Female Future Scheduled Tests Radiology* MA Mammo Screening Bilateral w/ Kirt 01/20/25 [facility] Evaluation + Plan note Future Appointments Appointment Date:03/03/2025 07:00:00 AM Scheduled Provider:SUMI KNUTSON DO Location:[facility] Appointment Type:PC Wellness Female [facility] Evaluation noteNo assessment information available [facility] Work Phone: Hospital course Narrative No data available for this section [facility] Discharge instructions Additional Instructions Continue your antacids. Follow-up with your primary care provider. Return with new or worsening symptoms. Clear liquid diet advance as tolerated.[facility] Work Phone: Hospital Discharge instructions No data available for this section [facility] Progress note No data available for this section [facility] Reason for referral (narrative)No reason for referral information [facility] Work Phone: Family History No Family History Records Found Mother Name Dates Details Family history of cardiac di sorder(V17.49, Z82.49) Status:Active Father Name Dates Details Family history of Medical hi story unknown(V49.89, Z78.9) Status:Active Relationship Condition Age at Onset Recorded Date/T nik Unknown Family History?No pe rtinent history Unknown May 30, 2014 7:38am Family History?No pe rtinent history Unknown May 30, 2014 7:38am Relationship Condition Age at Onset Recorded Date/T nik mother Hypertension Unknown Myocardial infarction Unknown grandfather Hypertension Unknown grandmother Hypertension Unknown Cardiac disease Unknown Summary Purpose Advance Directives No Advanced Directives Records Found Advance Directive Response Recorded Date/ Time Advance Directives No May 30, 2014 8:04am Living Will No December 01, 2023 6: 38am Power of Programming Instructor No December 01, 2023 6:38am Advance Directive Response Recorded Date/ Time Living Will No September 16 025 2:20pm Do you have a Healthcare Power of Programming Instructor? No September 16, 2024 2:20pm Do you have a Healthcare Power of Programming Instructor? No December 05, 2024 5:37pm Advance Directives No December 29 9:11am Advance Directive Response Recorded Date/ Time Living Will No September 16 2:20pm Do you have a Healthcare Power of Programming Instructor? No September 16, 2024 2:20pm Do you have a Healthcare Power of Programming Instructor? No December 05, 2024 5:37pm Do you have a Healthcare Power of Programming Instructor? No December 26, 2024 7:41pm Advance Directives No December 29 9:11am Chief Complaint and Reason for Visit Chief Complaint left knee injury Chief Complaint Admit Date BODY ACHES September 16, 2024 11:48am PA NON DOT DRUG & BAT/ [place] October 272024 2:41pm L ANKLE & BACK INJURY / [place] November 22, 2024 2:49pm pain November 22, 2024 2:5 4pm L ANK[place], BACK / [place] November 24 12:46pm L ANKLE AND BACK/[place] December 01, 2024 12:38pm BACK PAIN December 05, 2024 4:22p m Reason for Visit Admit Date Left ankle sprain November 22, 2024 2:4 9pm Lumbar strain November 22, 2024 2:4 9pm Chief Complaint Admit Date BODY ACHES September 16, 2024 11:48am PA NON DOT DRUG & BAT/ [place] October 272024 2:41pm L ANKLE & BACK INJURY / [place] November 22, 2024 2:49pm pain November 22, 2024 2:5 4pm L ANK[place], BACK / [place] November 24 12:46pm L ANKLE AND BACK/[place] December 01, 2024 12:38pm BACK PAIN December 05, 2024 4:22p m Abd pain December 26, 2024 7:25p m Chief Complaint Admit Date BODY ACHES September 16, 2024 11:48am PA NON DOT DRUG & BAT/ [place] October 272024 2:41pm L ANKLE & BACK INJURY / [place] November 22, 2024 2:49pm pain November 22, 2024 2:5 4pm L ANKLE, BACK / [place] November 24 12:46pm L ANKLE AND BACK/[place] December 01, 2024 12:38pm BACK PAIN December 05, 2024 4:22p m Abd pain December 26, 2024 7:25p m ER FU NAUSEA VOMITING FATTY LIVER December 282024 9:46am Additional Source Comments INFORMATION SOURCE (unrecogn ized section and content) DATE CREATED AUTHOR 08/18/2020 [employer] DATE CREATED AUTHOR AUTHOR'S ORGANIZ ATION 05/19/2022 [facility] ([place] DATE CREATED AUTHOR AUTHOR'S ORGANIZ ATION 02/14/2025 [facility] DATE CREATED AUTHOR AUTHOR'S ORGANIZ ATION 02/19/2025 [facility] Care Team (unrecognized sect ion and content) Care Team Personnel Name: SUMI KNUTSON DO Position: P4 Physician - Primary Care Med Service: Active Provider Member Role: Primary Care Physician Address: Address: [address] [place], [place] [address] Care Team Related Persons Name: TERENCE CAROLA J Address: Home [address] [place], [place] [id number] [place] Name: MANINDER PRATT Address: Home [address] [place], [place] [id number] [place] Name: ALANNA CHATTERJEE Name: ALANNA CHATTERJEE Name: ELENO CHATTERJEEA Bradley Name: ELENO CHATTERJEEA Bradley Name: ELENO CHATTERJEEA Bradley Name: ALANNA CHATTERJEE Name: ALANNA CHATTERJEE Care Team Personnel Name: SUMI KNUTSON DO Position: P4 Physician - Primary Care Med Service: Active Provider Member Role: Primary Care Physician Address: Address: [address] [place] [id number] Care Team Related Persons Name: JASE PARTTON Britton Address: Home [address] [place], [place] [id number] [place] Name: MANINDER PRATT Address: Home [address] [place], [place] [id number] Name: ALANNA CHATTERJEE Name: ALANNA CHATTERJEE Name: ELENO CHATTERJEEA Bradley Name: ALANNA CHATTERJEE Name: ALANNA CHATTERJEE Name: ALANNA CHATTERJEE Name: ALANNA CHATTERJEE Care Teams (unrecognized sec tion and content) Team Status: Active Member Role Status Dates Dr. Sumi Knutson , DO Family Provider Active Dr. Sumi Knutson , DO Primary Care Provider Activ e Team Status: Inactive Member Role Status Dates Dr. Sumi Knutson , DO Primary Care Provider Activ e Dr. Ken Ness , DO Emergency Provider Active Team Status: Active Member Role Status Dates Dr. Sumi Knutson , DO Primary Care Provider Activ e Team Status: Inactive Member Role Status Dates Dr. Sumi nKutson , DO Primary Care Provider Activ e Start: September 16, 2024 End: September 16, 2024 Dr. Riaz Logan MD Attending Provider Active S tart: September 16, 2024 End: September 16, 2024 Dr. Riaz Logan MD Emergency Provider Active S tart: September 16, 2024 End: September 16, 2024 Team Status: Inactive Member Role Status Dates Dr. Sumi Knutson DO Primary Care Provider Activ e Start: November 22, 2024 End: November 22, 2024 Dr. Sumi Knutson , DO Referring Provider Active Start: November 22, 2024 End: November 22, 2024 Ken GROSSMAN PA Attending Provider Active Start: November 22, 2024 End: November 22, 2024 Team Status: Inactive Member Role Status Dates Dr. Sumi Knutson , DO Primary Care Provider Activ e Start: November 22, 2024 End: November 22, 2024 [facility] Mcarthur Attending Provider Active Start: November 22, 2024 End: November 22, 2024 Ken GROSSMAN PA Referring Provider Active Start: November 22, 2024 End: November 22, 2024 Team Status: Inactive Member Role Status Dates Dr. Sumi Knutson DO Primary Care Provider Activ e Start: November 24, 2024 End: November 24, 2024 Dr. Sumi Knutson DO Referring Provider Active Start: November 24, 2024 End: November 24, 2024 Ken GROSSMAN PA Attending Provider Active Start: November 24, 2024 End: November 24, 2024 Team Status: Inactive Member Role Status Dates Dr. Sumi Knutson DO Primary Care Provider Activ e Start: December 01, 2024 End: December 01, 2024 Dr. Sumi Knutson DO Referring Provider Active Start: December 01, 2024 End: December 01, 2024 Ken GROSSMAN PA Attending Provider Active Start: December 01, 2024 End: December 01, 2024 Team Status: Inactive Member Role Status Dates Dr. Sumi Knutson DO Primary Care Provider Activ e Start: December 05, 2024 End: December 05, 2024 Dr. Juan Montaño MD Emergency Provider Active Start: December 05, 2024 End: December 05, 2024 Team Status: Inactive Member Role Status Dates Dr. Sumi Knutson DO Primary Care Provider Activ e Start: December 05, 2024 End: December 05, 2024 Dr. Juan Montaño MD Attending Provider Active Start: December 05, 2024 End: December 05, 2024 Dr. Juan Montaño MD Emergency Provider Active Start: December 05, 2024 End: December 05, 2024 Team Status: Inactive Member Role Status Dates Dr. Sumi Knutson DO Primary Care Provider Activ e Start: December 26, 2024 End: December 26, 2024 Tristan Le MD Emergency Provider Active Star t: December 26, 2024 End: December 26, 2024 Team Status: Inactive Member Role Status Dates Dr. Sumi Knutson DO Primary Care Provider Activ e Start: December 28, 2024 End: December 28, 2024 Dr. Sumi Knutson DO Referring Provider Active Start: December 28, 2024 End: December 28, 2024 INA Mcnair Attending Provider Active Start: December 28, 2024 End: December 28, 2024 Goals (unrecognized section and content) Goals may be documented in a n alternate section FOR RECORDS PERTAINING TO PATIENTS WHO ARE OR HAVE BEEN ENROLLED IN A CHEMICAL DEPENDENCY/SUBSTANCEABUSE PROGRAM, SOME INFORMATION MAY BE OMITTED. This clinical summary was aggregated from multiple sources. Caution should be exercised in using it in the provision of clinical care. This summary normalizes information from multiple sources, and as a consequence, information in this document may materially change the coding, format and clinical context of patient data. In addition, data may be omitted in some cases. CLINICAL DECISIONS SHOULD BE BASED ON THE PRIMARY CLINICAL RECORDS. [employer] provides no warranty or guarantee of the accuracy or completeness of information in this document.
[2025-02-19 21:06] VITALS: BP 129/82; PULSE 73; RESP 18; TEMP 36.6; O2SAT 98
== END 2025-02-19 21:07 | disposition home or self-care (01) ==
LOC: ED 20:46
PROVIDERS: Emergency Provider Emergency Medicine; Visit Provider Emergency Medicine
DX: M54.2 Cervicalgia (principal); Z98.51 Tubal ligation status; S29.012A Strain of muscle and tendon of back wall of thorax, initial encounter; F17.210 Nicotine dependence, cigarettes, uncomplicated; X58.XXXA Exposure to other specified factors, initial encounter
CPT/HCPCS: 96372; 99283

== ENCOUNTER 2025-02-24 05:30 | Day surgery (SDC) | payer MEDICAID, SELFPAY ==
[2025-02-24] VITALS (10 sets, daily range): BP systolic 93–111; BP diastolic 56–68; PULSE 63–77; RESP 16; TEMP 36.2–36.6; O2SAT 94–100; BMI 38.0
--- OUTSIDE RECORDS SUMMARY | 2025-02-24 05:33 | XMS RPT_ITS | CCD ---
Demographics Address [address] [place] [address] Mobile Phone Preferred Language en Marital Status Zoroastrianism Affiliation Unknown Race White Ethnic Group Not or Lati no Author Organization [facility] Care Team Providers Care Asp Net Developer Name Role Phone Sandy Raymond Unavailable Unavailable Sumi Knutson Unavailable Unavailable SADAF SHOOK, DR JONAS Primary Care Physician [phone] SADAF SHOOK, DR JONAS Primary Care Physician [phone] BRIELLE PINEDA, TRENTON Esquivel Attending Unavailab le SADAF SHOOK, DR. JONAS Primary Care Lucho DOMINGUEZ MD, GENE Ceron Attending Unavail able SADAF SHOOK, DR. JONAS Primary Care Lucho DOMINGUEZ MD, GENE Ceron Attending Unavail able SADAF SHOOK, DR. JONAS Primary Care Unavailshena GONZALES DO, DR. ANAYELI Jarquin Attending Unavailable SADAF SHOOK, DR. JONAS Primary Care Unavailshena Knutson DO, Dr. Sumi Collazo Primary Care Provider Desmond PINEDA, Dr. Mello Attending Provider [phone] Dr. Riaz Logan MD Emergency Provider Sadaf SHOOK, Dr. Sumi oCllazo Referring Provider Ken Puri Attending Provider Ken Puri Referring Provider Dr. Juan Montaño MD Emergency Provider Dr. Juan Montaño MD Attending Provider Tristan Le MD Emergency Provider Gal QUIROZ-CBridgette Attending Provider SADAF SHOOK, DR JONAS Primary Care Unavailable SADAF SHOOK, DR JONAS Attending Unavailable ANGELICA PINEDA, GENE Ceron Attending Unavail able SADAF SHOOK, DR JONAS Primary Care Unavailable RIDER DO, DR ANAYELI Jarquin Attending Unavailable SADAF DO, DR JONAS Primary Care Unavailable SADAF DO, DR JONAS Primary Care Unavailable SADAF DO, DR JONAS Attending Unavailable Sadaf DO, Dr. Sumi Collazo Primary Care Provider Tristan Le MD Attending Provider [phone] Christine SHOOK, Dr. Rivas Emergency Provider Ken Fatima Attending Unavailable Sadaf, Sumi Collazo Primary Care Unavailable Sadaf, Sumi Collazo Referring Unavailable Sadaf, Sumi Collazo Primary Care Unavailable Bridgette Santo Attending Unavailable Sadaf, Sumi Collazo Referring Unavailable Ken Fatima Attending Unavailable Sadaf, Sumi Collazo Primary Care Unavailable Sadaf, Sumi Collazo Referring Unavailable Sadaf, Sumi Collazo Primary Care Unavailable Pablito Fields Attending Unavailable Sadaf, Sumi Collazo Referring Unavailable Ken Fatima Attending Unavailable Ken Fatima Referring Unavailable Sadaf, Sumi Collazo Primary Care Unavailable Riaz Logan Attending Unavailable Sadaf, Sumi Collazo Primary Care Unavailable Sadaf, Sumi Collazo Primary Care Unavailable Rob King Attending Unavailable Sadaf, Sumi Collazo Primary Care Unavailable Juan Montaño Attending Unavailable Sadaf, Sumi Collazo Primary Care Unavailable Tristan Le Attending Unavailable Sadaf, Sumi Collazo Primary Care Unavailable Ken Fatima Attending Unavailable Sadaf, Sumi Collazo Referring Unavailable Sadaf, Sumi Collazo Primary Care Unavailable Ken Fatima Attending Unavailable Sadaf, Sumi Collazo Referring Unavailable Allergies Allergy Classification Reported Allergen(s) Allergy Type Date of Onset Reaction(s) Facility (1 source) diphenhydrAMINE Drug Allergy [facility] Work Phone: (13 sources) traMADol; Translations: [Tramadol] Drug Allergy 0 itching [facility] (6 sources) diphenhydrAMINE / Pseudoephedrine; Translations: [diphenhydramine-ps eudoephedrine] Drug Allergy [facility] (6 sources) diphenhydrAMINE; Translations: [diphenhydramine HCl] Drug Allergy 0 swelling all over (4 sources) Ketorolac; Translations: [ketorolac] Drug Allergy [facility] Medications Current Medications Medication Drug Class(es) Dates [...] TID, # 90 tab(s), 2 Refill(s), Pharmacy: [address], 153, cm, 11/27/21 11:13:00 EDT, Height Start Date: 11/27/21 Status: Ordered Quantity: 90.0 Unit: tab(s) Repeat number: 3 cyclobenzaprine hydrochloride 5 mg oral tablet (5 sources) Muscle Relaxant Start: 02-18-2025 End: 02-25-2025 [...] A DAY as needed for Muscle Spasm 20 0 December 05, 2024 12:00am Famotidine (6 sources) [...] # 40 cap(s), 0 Refill(s), Pharmacy: [facility]/pharmacy #[id number], 154.6, cm, 01/20/25 15:18:00 EDT, Height, kg, 01/20/25 15:18:00 EDT, Dosing Weight Start Date: 01/20/25 Status: Ordered Quantity: 40.0 Unit: cap(s) Repeat number: 1 meloxicam 15 mg oral tablet (1 source) Nonsteroidal Anti-inflammatory Drug Start: 12-04-2023 meloxicam 15 mg oral tablet Dose : 15 mg = 1 tab(s), Oral, qDay, # 30 tab(s), 0 Refill(s), Pharmacy: [facility] #[id number], 155, cm, 12/04/23 14:38:00 EDT, Height, kg, 12/04/23 14:38:00 EDT, Dosing Weight Start Date: 12/04/23 Status: Ordered Quantity: 30.0 Unit: tab(s) Repeat number: 1 ondansetron 4 mg disintegrating oral tablet (8 sources) Serotonin-3 Receptor Antagonist Start: 12-26-2024 take 1 tablet by mouth every eight hours as needed for nausea Ondansetron 4 mg tablet,disintegrat ing Active 4 mg PO EVERY 8 HOURS NEEDED as needed for Nausea 15 0 December 26, 2024 12:00am Start: 09-16-2024 End: 11-22-2024 take 1 tablet by mouth every six hours as needed for nausea and vomiting Ondansetron 4 mg tablet,disintegrating Discontinued 4 mg PO EVERY 6 HOURS as needed for nausea and vomiting 10 0 September 16, 2024 1:00am November 22, 2024 3:13pm Start: 09-14-2024 End: 09-17-2024 ondansetron 4 mg oral tablet Dose : 4 mg = 1 tab(s), Oral, q6h, X 3 day(s), # 12 tab(s), 0 Refill(s), 09/17/24 5:42:00 PM EST Start Date: 09/14/24 Stop Date: 09/17/24 Status: Ordered Quantity: 12.0 Unit: tab(s) Repeat number: 1 Peg 3350-Sod Sulf,Chlr-Pot-M ag (Suflave) 178.7-7.3-0.5 gram recon soln (2 sources) Start: 12-28-2024 Peg 3350-Sod S ulf,Fzfr-Wdw-Kba (Suflave) 178.7-7.3-0.5 gram recon soln Active 0 PO .COMPLEX 2 0 December 28, 2024 12:00am take as directed for split dose bowel prep Start: 12-28-2024 Peg 3350-Sod S ulf,Sxox-Yez-Dkm (Suflave) 178.7-7.3-0.5 gram recon soln Active 0 PO .COMPLEX 2 December 28, 2024 12:00am take as directed for split dose bowel prep predniSONE 50 mg oral tablet (7 sources) Start: 02-19-2025 take 1 tablet by mouth once daily Prednisone 50 mg tablet Active 50 mg PO DAILY 5 5 0 February 19, 2025 12:00am Start: 07-14-2019 End: 12-16-2023 take 3 tablets by mouth once daily Prednisone 20 MG tablet Discontinued 60 mg PO DAILY 15 0 July 14, 2019 1:00am December 16, 2023 1:53pm Start: 07-14-2019 take 60 mg by mouth once daily Prednisone Active 60 MG PO DAILY July 14, 2019 1:00am predniSONE 20 MG Oral Tablet Refills: 0 Active QUEtiapine 25 mg oral tablet (3 sources) Atypical Antipsychotic Start: 01-20-2025 Seroquel 25 mg oral tablet Dose : 25 mg = 1 tab(s), Oral, qHS, # 30 tab(s), 1 Refill(s), Pharmacy: [facility]/pharmacy #[id number], 154.6, cm, 01/20/25 15:18:00 EDT, Height, kg, 01/20/25 15:18:00 EDT, Dosing Weight Start Date: 01/20/25 Status: Ordered Quantity: 30.0 Unit: tab(s) Repeat number: 2 sucralfate 100 mg/ml oral suspension (3 sources) Aluminum Complex Start: 01-20-2025 sucralfate 1 g/10 mL oral suspension 0 Refill(s) Start Date: 01/20/25 Status: Ordered Repeat number: 1 Sucralfate (Carafate) 100 mg/mL suspension (2 sources) Start: 12-28-2024 take 1 mL by mouth at bedtime Sucralfate (Carafate) 100 mg/mL suspension Active 10 mL PO before meals and at bedtime 1200 1 December 28, 2024 12:00am Start: 12-28-2024 take 1 mL by mouth at bedtime Sucralfate (Carafate) 100 mg/mL suspension Active 10 mL PO before meals and at bedtime 1200 December 28, 2024 12:00am Completed/Discontinued Medications Medication Drug Class(es) Dates Sig (Normalized) Sig (Original) acetaminophen 325 mg / oxyCODONE hydrochloride 5 mg oral tablet (4 sources) Opioid Agonist Start: 12-05-2024 End: 12-28-2024 Oxycodone-Acetamino phen (Percocet) 5-325 mg tablet Discontinued 1 {tbl} PO Q8H as needed for pain 10 3 0 December 05, 2024 December 28, 2024 9:57am Strain of lumbar region Strain of muscle, fascia and tendon of lower back, initial encounter [id number] actuat albuterol 0.09 mg/actuat metered dose inhaler (11 sources) beta2-Adrenergic Agonist Start: 07-14-2019 End: 11-22-2024 Albuterol Sulfate 1 INHALER inhaler Discontinued 2 NMA INHALATION EVERY 4 HOURS NEEDED as needed for Wheezing 1 0 July 14, 2019 1:00am November 22, 2024 3:13pm Start: 07-14-2019 take 1 puff(s) by in halation every four hours as needed Albuterol Sulfate Active 2 PUFF inhalation EVERY 4 HOURS NEEDED July 14, 2019 1:00am Start: 08-31-2018 End: 11-22-2024 Albuterol Sulfate (Ventolin Hfa) 1 INHALER inhaler Discontinued 2 NMA INHALATION EVERY 4 HOURS NEEDED as needed for Wheezing 1 0 August 31, 2018 1:00am November 22, 2024 3:13pm Start: 08-31-2018 take 1 puff(s) by in halation every four hours as needed Albuterol Sulfate (Ventolin Hfa) 1 INHALER inhaler Active 2 PUFF INHALATION EVERY 4 HOURS NEEDED August 31, 2018 1:00am Albuterol 90 MCG /ACT AERS Refills: 0 Active codeine phosphate 2 mg/ml / promethazine hydrochloride 1.25 mg/ml oral solution (10 sources) Opioid Agonist, Phenothiazine Start: 07-31-2021 End: 12-16-2023 take 1 mL by mouth every six hours as needed for cough Promethazine-Codeine 6.25-10 mg/5 mL syrup Discontinued 5 mL PO EVERY 6 HOURS as needed for cough 140 7 0 July 31, 2021 1:00am December 16, 2023 1:53pm COVID-19 COVID-19 Start: 07-31-2021 take 1 mL by mouth e very six hours Promethazine-Codeine Active 5 ML PO EVER Y 6 HOURS 140 7 July 31, 2021 1:00am dexamethasone 6 mg oral tablet (5 sources) Corticosteroid Start: 07-31-2021 End: 11-22-2024 take 1 tablet by mouth once daily Dexamethasone (Decadron) 6 mg tablet Discontinued 6 mg PO DAILY 10 10 0 July 31, 2021 1:00am November 22, 2024 3:13pm escitalopram 10 mg oral tablet (5 sources) Serotonin Reuptake Inhibitor Start: 06-16-2016 End: [...] unspecified cause; metaxalone 800 mg oral tablet (5 sources) Start: 05-28-2021 End: 12-16-2023 take 1 tablet by mouth three times daily Metaxalone (Skelaxin) 800 mg tablet Discontinued 800 mg PO THREE TIMES A DAY 21 7 0 May 28, 2021 12:00am December 16, 2023 1:53pm Muscle spasm Other muscle spasm pantoprazole 20 mg delayed release oral tablet (9 sources) Proton Pump Inhibitor Start: 08-31-2018 End: 12-28-2024 take 1 tablet by mouth once daily as needed Pantoprazole 20 mg tablet,delayed release (DR/EC) Discontinued 20 mg PO DAILY as needed December 16, 2023 1:53pm December 28, 2024 9:56am Problems Active Problems Problem Classification Problem Date Documented Da te Episodic/Chronic Abdominal pain (10 sources) Epigastric pain; Translations: [Abdominal pain] Onset: 5 01-06-2023 Episodic Acute bronchitis (5 sources) Acute bronchitis with bronchospasm; Translations: [Acute bronchitis, unspecified] 07-15-2019 Episodic Administrative/social admission (5 sources) Patient encounter status; Translations: [Encounter for pre-employment examination] 05-29-2023 Episodic Anxiety disorders (6 sources) Anxiety 10-14-2016 Chronic Disorders of teeth and jaw (10 sources) Dental caries; Translations: [Dental caries, unspecified] 07-14-2019 Episodic Epilepsy; convulsions (6 sources) Seizure 01-17-2014 Episodic Esophageal disorders (11 sources) Gastroesophageal reflux disease; Translations: [Gastro-esophageal reflux disease without esophagitis] 08-25-2019 Chronic Fever of unknown origin (1 source) Fever; Translations: [Fever, unspecified] Onset: Episodic Fluid and electrolyte disorders (4 sources) Dehydration; Translations: [Dehydration] 09-24-2024 Episodic Genitourinary symptoms and ill-defined conditions (6 sources) Blood in urine 08-25-2019 Episodic Headache; including migraine (5 sources) Migraine; Translations: [Migraine, unspecified, not intractable, without status migrainosus] 03-11-2020 Chronic Influenza (4 sources) Influenza due to Influenza A virus; Translations: [Influenza due to other identified influenza virus with other respiratory manifestations] 09-24-2024 Episodic Nausea and vomiting (9 sources) Vomiting; Translations: [Vomiting, unspecified] 09-24-2024 Episodic Other connective tissue disease (5 sources) Spasm; Translations: [Other muscle spasm] 06-05-2021 Episodic Other gastrointestinal disorders (1 source) Heartburn; Translations: [Heartburn] Episodic Other gastrointestinal disorders (1 source) Personal history of other diseases of the digestive system; Translations: [History of gastroesophageal reflux (GERD)] Episodic Other gastrointestinal disorders (4 sources) Diarrhea and vomiting 01-06-2023 Episodic Other gastrointestinal disorders (5 sources) Diarrhea; Translations: [Diarrhea, unspecified] 09-24-2024 Episodic Other liver diseases (6 sources) Steatosis of liver 08-25-2019 Chronic Other nervous system disorders (11 sources) Carpal tunnel syndrome; Translations: [Carpal tunnel syndrome, unspecified upper limb] Onset: 2 Chronic Other nervous system disorders (1 source) H/O: epilepsy; Translations: [History of seizure disorder] Episodic Other non-traumatic joint disorders (4 sources) Pain in left knee; Translations: [Left [...] Tobacco user 08-25-2019 Episodic Residual codes; unclassified (5 sources) Poor oral hygiene; Translations: [Other specified personal risk factors, not elsewhere classified] 07-14-2019 Episodic Screening and history of mental health and substance abuse codes (1 source) H/O: anxiety state; Translations: [History of anxiety] Episodic Spondylosis; intervertebral disc disorders; other back problems (1 source) Neck pain; Translations: [Cervicalgia] 02-19-2025 Episodic Sprains and strains (20 sources) Injury of abdominal wall; Translations: [Strain of muscle, fascia and tendon of abdomen, initial encounter] Onset: 5 09-11-2016 Episodic Substance-related disorders (5 sources) Nicotine dependence; Translations: [Nicotine dependence, unspecified, uncomplicated] 07-14-2019 Chronic Substance-related disorders (6 sources) Marijuana user 08-25-2019 Episodic Superficial injury; contusion (5 sources) Contusion of back; Translations: [Contusion of unspecified back wall of thorax, initial encounter] 10-20-2015 Episodic Systemic lupus erythematosus and connective tissue disorders (6 sources) 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 Unclassified (1 source) Low back pain, unspecified; Translations: [Low back pain, unspecified] Onset: 5 Unclassified (1 source) Cough, unspecified; Translations: [Cough, unspecified] Onset: 5 Viral infection (5 sources) Disease caused by 2019-nCoV; Translations: [COVID-19] 07-31-2021 Episodic Past or Other Problems Problem Classification Problem Date Documented Da te Episodic/Chronic Skull and face fractures (5 sources) Fracture of tooth ; Translations: [Fracture of tooth (traumatic), initial encounter for closed fracture] Onset: 05-28-2021 05-28-2021 Episodic Results Test Name Value Interpretation Reference Range Facility Emergency Department Summary on 02-19-2025 Emergency Department Summary [facility] Medical Records Department [address] [place] [address] Emergency Department Summary 02/19/25 MR#: [id number] Acct: [id number] Name: GARRISON PRATT Rep #: [id number] : 1980 44 From: Rob King DO PCP: Dr. Sumi Knutson DO Status:DEP ER Location: ED HPI History of Present Illness Chief Complaint: Other, Pain/Inj PFSH PFSH Medical History (Updated 02/19/25 @ 20:[address] Rob King DO) Diarrhea Kawasaki disease Lumbar strain Left ankle sprain Bilateral carpal tunnel syndrome Left knee pain Absence seizure disorder Anxiety Home Medications ???Medication ???Instructions ???Recorded ???Last Taken ???Type cyclobenzaprine 10 mg tablet 10 mg PO TID PRN Muscle Spasm #20 12/05/24 Unknown Rx TABLETS ondansetron 4 mg disintegrating 4 mg PO Q8H PRN PRN Nausea #15 tab s 12/26/24 Unknown Rx tablet peg 3350-sod sulf,umqwt-lvs-wvu See Rx Instructions PO .COMPLEX #2 12/28/24 Unknown Rx 178.7-7.3-0.5-1.12-0 .9 gram oral mL soln (Suflave) sucralfate 100 mg/mL oral 10 ml PO QACHS #1,200 mL 12/28/24 Unknown Rx suspension (Carafate) prednisone 50 mg tablet 50 mg PO DAILY 5 days #5 tabs 01/26 01/19 Unknown Rx Allergy/AdvReac Type Severity Reaction Status Date / Time diphenhydramine HCl (From Allergy swelling Verified 02/19/25 20:07 Benadryl) all over tramadol Allergy Itching Verified 02/19/25 20:07 Family History Mother Hypertension Myocardial infarction Grandfather Hypertension Grandmother Hypertension Heart disease triple bypass Surgical History Hx of tubal ligation Social History household members: spouse, family and children Smoking Status: Current every day smoker tobacco type: cigarettes alcohol intake: never EXAM Physical Exam Const Vital Signs: 02/19/25 20:04 02/19/25 21:06 Temperature 98.0 F 98 F Temperature Source Oral Pulse Rate 83 73 Respiratory Rate 18 18 Blood Pressure 120/80 129/82 H Blood Pressure Mean 93 97 Pulse Ox 100 98 Oxygen Delivery Method Room Air MDM MDM MDM Narrative Medical decision making narrative: HISTORY OF PRESENT ILLNESS: Chief complaint: Neck pain 44-year-old female presents with neck pain. Patient notes coffee went down the wrong way and she coughed as a result causing severe neck pain. Notes she was given Flexeril earlier today. States she still in pain. Denies falls or trauma. Denies numbness, weakness, loss sensation in the upper extremities. REVIEW OF SYSTEMS: Pertinent positives: Neck pain Pertinent negatives: Slurred speech, PHYSICAL EXAM: Nursing triage notes reviewed, Vital signs reviewed Constitutional: please see mdm HENT: MMM Eyes: Pupils equal round and reactive to light, Extraocular muscles intact Neck: No stridor, no JVD, decreased neck range of motion secondary to pain, TTP over left cervical Paraspinal muscular Lungs: Clear to auscultation, No wheezing or rales. No increased work of breathing, no conversational dyspnea, no accessory muscle use, no nasal flaring. No respiratory distress noted Heart: Regular rate and rhythm, No murmurs, No rubs and No gallops, 2+ distal pulses (radial, femoral, posterior tibial) in all extremities Abdomen: Soft, there is no tenderness, rigidity, rebound or guarding, no obvious peritoneal signs, no palpable pulsatile abdominal masses, no auscultated abdominal bruit Extremities: No edema, palpable pulse in left upper extremity radial distribution Back: TTP over left trapezius muscle. Neuro: Intact 5/5 strength with ok sign (median), intact finger abduction (ulnar) intact wrist extension (radial n). Intact sensation in the radial, ulnar, and median nerve distributions. Skin: No rash or lesions noted MEDICAL DECISION MAKING: Chief Complaint: please see HPI External records reviewed: PDMP reviewed Factors affecting care: History of lumbar strain, left knee pain GERD Social determinants of health: none History obtained from others: none Consults: none [facility] Narrative: The patient was initially hemodynamically stable exam without radicular symptoms. No upper extremity neurologic deficits, TTP over left trapezius muscle consistent with musculoskeletal etiology. I considered the following differential diagnosis: Carotid artery dissection, lymphadenopathy, muscle strain, cervical spine fracture/dislocation The patient's history and clinical exam were not consistent with carotid artery dissection, adenopathy cervical spine fracture/dislocation Oral oxycodone, lidocaine patch and Decadron for symptomatic relief here in the ED. Gave IM Toradol. Discharg (more content not included)... Normal MA MAMMOGRAM SCREENING BILAT ERAL W/TOMOon 02-04-2025 MA MAMMOGRAM SCREENING BILATERAL W/KIRT ORIGINAL FROM: [facility] [address] [address] PROCEDURE FOR: GARRISON PRATT [address] [place] [address] Home: PID#: [id number] Exam#: [id number] : 1980 Age: 44 TO: SUMI KNUTSON [place] [address] Fax: NO FAX EXAMINATION: SCREENING DIGITAL BILATERAL [...] addition to annual mammographic screening per the [employer]. BIRADS: BI-RADS: 2: Benign RECALL: 1 year screening RECALL TYPE: mammo LETTER SENT: Normal BI-RADS 1 and 2 Interpreted by: Cezar Tejada MD Preliminary Report By: Cezar Tejada MD Electronically signed By Cezar Tejada MD Dictated Date: 02/04/2025 11:28:30 AM Prelim Date: 02/04/2025 11:31:17 AM Sign Date: 02/04/2025 11:31:17 AM Ordering Provider: SUMI KNUTSON City Assessor: ROSA MARIA GARRIDO RT(R)(M)(CT) [employer] letter sent: Normal BI-RADS 1 and 2 Mammogram BI-RADS: 2 Benign [address] [facility] .Auto Diffon 01-20-2025 Basophil, Absolute 0.1 10 3/mcL Normal 0.0-0.3 [facility] Comment on above: Performed By: #### T SH, ANEU, CMP, GFR, CBC, ADIFF, LIPID #### [address] [address] Basophils/100 WBC (Bld) 0.7 % Normal 0.0-2.5 A [facility] Comment on above: Performed By: #### T SH, ANEU, CMP, GFR, CBC, ADIFF, LIPID #### [address] [address] Eosinophil, Absolute 0.3 10 3/mcL Normal 0.0-0.7 [facility] Comment on above: Performed By: #### T SH, ANEU, CMP, GFR, CBC, ADIFF, LIPID #### [address] [address] Eosinophils/100 WBC (Bld) 4.1 % Normal 0.0-6.[address] [facility] Comment on above: Performed By: #### T SH, ANEU, CMP, GFR, CBC, ADIFF, LIPID #### [address] [address] Lymphocyte, Absolute 2.2 10 3/mcL Normal 0.9-4.3 [facility] Comment on above: Performed By: #### T SH, ANEU, CMP, GFR, CBC, ADIFF, LIPID #### [address] [address] Lymphocytes/100 WBC (Bld) 26.6 % Normal 20.0-40.[address] [facility] Comment on above: Performed By: #### T SH, ANEU, CMP, GFR, CBC, ADIFF, LIPID #### [address] [address] Monocyte, Absolute 0.7 10 3/mcL Normal 0.1-1.4 [facility] Comment on above: Performed By: #### T SH, ANEU, CMP, GFR, CBC, ADIFF, LIPID #### [address] [address] Monocytes/100 WBC (Bld) 8.5 % Normal 2.0-13.0 [facility] Comment on above: Performed By: #### T SH, ANEU, CMP, GFR, CBC, ADIFF, LIPID #### [address] [address] Neutrophils/100 WBC (Bld) 60.1 % Normal 50.0-75.[address] [facility] Comment on above: Performed By: #### T SH, ANEU, CMP, GFR, CBC, ADIFF, LIPID #### [address] [address] .GFRon 01-20-2025 Estimated Glomerular Filtration Rate 83 ml/min/1.73sqm Normal [facility] Comment on above: Result Comment: Stages of [...] ANEU, CMP, GFR, CBC, ADIFF, LIPID #### [address] [address] .NEUABSon 01-20-2025 Neutrophil, Absolute 5.1 10 3/mcL Normal 2.3-8.1 [facility] Comment on above: Performed By: #### T SH, ANEU, CMP, GFR, CBC, ADIFF, LIPID #### [place] [address] CBCon 01-20-2025 Erythrocyte distribution width (RBC) [Ratio] 12.6 % Normal 11.5-15.[address] [facility] Comment on above: Performed By: #### T SH, ANEU, CMP, GFR, CBC, ADIFF, LIPID #### [place] [address] Hematocrit (Bld) [Volume fraction] 43.6 % Normal 34.0-46.[address] [facility] Comment on above: Performed By: #### T SH, ANEU, CMP, GFR, CBC, ADIFF, LIPID #### [place] [address] Hgb 15.1 G/dL Normal 12.0-16.[address] [facility] Comment on above: Performed By: #### T SH, ANEU, CMP, GFR, CBC, ADIFF, LIPID #### [place] [address] MCH (RBC) [Entitic mass] 31.3 pg Normal 27.0-33.[address] [facility] Comment on above: Performed By: #### T SH, ANEU, CMP, GFR, CBC, ADIFF, LIPID #### [place] [address] MCHC 34.7 G/dL Normal 32.0-36.[address] [facility] Comment on above: Performed By: #### T SH, ANEU, CMP, GFR, CBC, ADIFF, LIPID #### [address] [address] MCV (RBC) [Entitic vol] 90.0 fL Normal 80.0-99.0 [facility] Comment on above: Performed By: #### T SH, ANEU, CMP, GFR, CBC, ADIFF, LIPID #### [address] [address] Platelet 298 10 3/mcL Normal 150-[address] [facility] Comment on above: Performed By: #### T SH, ANEU, CMP, GFR, CBC, ADIFF, LIPID #### [address] [address] Platelet mean volume (Bld) [Entitic vol] 8.9 fL Normal 6.6-10.[address] [facility] Comment on above: Performed By: #### T SH, ANEU, CMP, GFR, CBC, ADIFF, LIPID #### [address] [address] RBC 4.84 10 6/mcL Normal 4.10-5.[address] [facility] Comment on above: Performed By: #### T SH, ANEU, CMP, GFR, CBC, ADIFF, LIPID #### [address] [address] WBC 8.5 10 3/mcL Normal 4.5-10.[address] [facility] Comment on above: Performed By: #### T SH, ANEU, CMP, GFR, CBC, ADIFF, LIPID #### [address] [address] CMPon 01-20-2025 Albumin Level 3.7 G/dL Normal 3.5-5.[address] [facility] Comment on above: Performed By: #### T SH, ANEU, CMP, GFR, CBC, ADIFF, LIPID #### [address] [address] Albumin/Globulin [Mass ratio] 0.9 {ratio} Low 1.1-2.[address] [facility] Comment on above: Performed By: #### T SH, ANEU, CMP, GFR, CBC, ADIFF, LIPID #### [address] [address] ALP [Catalytic activity/Vol] 79 U/L Normal 40-[address] [facility] Comment on above: Performed By: #### T SH, ANEU, CMP, GFR, CBC, ADIFF, LIPID #### [address] [address] ALT [Catalytic activity/Vol] 48 U/L Normal 14-[address] [facility] Comment on above: Performed By: #### T SH, ANEU, CMP, GFR, CBC, ADIFF, LIPID #### [place] [id number] AST [Catalytic activity/Vol] 25 U/L Normal 10-[address] [facility] Comment on above: Performed By: #### T SH, ANEU, CMP, GFR, CBC, ADIFF, LIPID #### [place] [id number] Bili Total 0.4 mg/dL Normal 0.2-1.[address] [facility] Comment on above: Result Comment: Use of this assay is not recommended for patients undergoing treatment with eltrombopag due to the potential for falsely elevated results. Performed By: #### T SH, ANEU, CMP, GFR, CBC, ADIFF, LIPID #### [address] [address] BUN/Creatinine Ratio 15 ratio Normal 7-27 [facility] Comment on above: Performed By: #### T SH, ANEU, CMP, GFR, CBC, ADIFF, LIPID #### [address] [address] Calcium [Mass/Vol] 9.0 mg/dL Normal 8.4-10.2 [facility] Comment on above: Performed By: #### T SH, ANEU, CMP, GFR, CBC, ADIFF, LIPID #### [place] [id number] Chloride [Moles/Vol] 105 mmol/L Normal 98-107 [facility] Comment on above: Performed By: #### T SH, ANEU, CMP, GFR, CBC, ADIFF, LIPID #### [place] [address] CO2 [Moles/Vol] 23 mmol/L Normal 22-[address] [facility] Comment on above: Performed By: #### T SH, ANEU, CMP, GFR, CBC, ADIFF, LIPID #### [place] [address] Creatinine [Mass/Vol] 0.89 mg/dL Normal 0.51-0.95 [facility] Comment on above: Performed By: #### T SH, ANEU, CMP, GFR, CBC, ADIFF, LIPID #### [place] [address] Electrolyte Balance 11.0 mEq/L Normal 4.0-15.0 [facility] Comment on above: Performed By: #### T SH, ANEU, CMP, GFR, CBC, ADIFF, LIPID #### [place] [address] Globulin 4.2 G/dL Normal 2.7-4.[address] [facility] Comment on above: Performed By: #### T SH, ANEU, CMP, GFR, CBC, ADIFF, LIPID #### [place] [address] Glucose [Mass/Vol] 114 mg/dL High 70-105 [facility] Comment on above: Performed By: #### T SH, ANEU, CMP, GFR, CBC, ADIFF, LIPID #### [place] [address] Potassium [Moles/Vol] 4.1 mmol/L Normal 3.5-5.1 [facility] Comment on above: Performed By: #### T SH, ANEU, CMP, GFR, CBC, ADIFF, LIPID #### [place] [address] Sodium [Moles/Vol] 139 mmol/L Normal 136-145 [facility] Comment on above: Performed By: #### T SH, ANEU, CMP, GFR, CBC, ADIFF, LIPID #### [place] [address] [place], [place] [address] Total Protein 7.9 G/dL Normal 6.4-8.[address] [facility] Comment on above: Performed By: #### T SH, ANEU, CMP, GFR, CBC, ADIFF, LIPID #### [place] [address] [place], [place] [address] Urea nitrogen [Mass/Vol] 13 mg/dL Normal 7-[address] [facility] Comment on above: Performed By: #### T SH, ANEU, CMP, GFR, CBC, ADIFF, LIPID #### [place] [address] [place], [place] [address] LABORATORYOrdered By: SYSTEM SYSTEM on 01-20-2025 Albumin [...] 01-20-2025 Cholesterol [Mass/Vol] 193 mg/dL Normal 0-200 [facility] Comment on above: Result Comment: Chol esterol Reference Interval: Less than 200 Desirable 200-239 Borderline high risk 240 and above High risk Performed By: #### T SH, ANEU, CMP, GFR, CBC, ADIFF, LIPID #### [address] [address] Cholesterol in HDL [Mass/Vol] 28 mg/dL Low 40-[address] [facility] Comment on above: Performed By: #### T SH, ANEU, CMP, GFR, CBC, ADIFF, LIPID #### [address] [address] Cholesterol in LDL [Mass/Vol] 89 mg/dL Normal 0-[address] [facility] Comment on above: Performed By: #### T SH, ANEU, CMP, GFR, CBC, ADIFF, LIPID #### [address] [address] Triglyceride [Mass/Vol] 380 mg/dL High 0-150 [facility] Comment on above: Result Comment: Trig lyceride Reference Interval: Less than 150 Normal 150-199 Borderline high risk 200-499 High risk 500 or higher Very high risk Performed By: #### T SH, ANEU, CMP, GFR, CBC, ADIFF, LIPID #### [address] [address] TSHon 01-20-2025 TSH Qn 4.12 m[IU]/L High 0.36-3.[address] [facility] Comment on above: Performed By: #### T SH, ANEU, CMP, GFR, CBC, ADIFF, LIPID #### [address] [address] Gastroenterology Visit Repor ton 12-28-2024 Gastroenterology Visit Report [facility] Gastroenterology [address] [place] [address] OFFICE VISIT Date of Service: 12/28/24 MR#: [id number] Acct: [id number] Name: GARRISON PRATT Rep #: [id number] : 1980 Provider: INA kerr Age/Sex: 44/F Location: [facility] Status: Signed Intake Vital Signs 12/26/24 19:25 12/28/24 10:03 Height 5 ft 1 in 5 ft 1 in Weight: 205 lb BMI 38.7 BP 141/95 H Respiration 16 Pulse 91 Pulse Oximetry (%) 98 Oxygen Delivery Method room air Intake Visit Reasons: ER FU NAUSEA VOMITING FATTY LIVER Chief Complaint: N/V Sleep Lab Technician Required: No Accompanied by: Self Is patient [...] s 12/26/24 12/28/24 Rx tablet peg 3350-sod sulf,nkmro-oqi-lfr See Rx Instructions PO .COMPLEX #2 12/28/24 12/28/24 Rx 178.7-7.3-0.5-1.12-0 .9 gram oral mL soln (Suflave) sucralfate 100 mg/mL oral 10 ml PO QACHS #1,200 mL 12/28/24 12/28/24 Rx suspension (Carafate) Nurse's Note: Bowel movement are soft or liquid. Moves her bowels 15 to 20 times a day. Keeps gaining weight. [facility] Medical History (Updated 12/28/24 @ 13:02 by INA Mcnair) Diarrhea Kawasaki disease Lumbar strain Left ankle [...] Abdominal sanya (more content not included)... Normal Abdomen/Pelvis W IV Cont ONL Yon 12-26-2024 Abdomen/Pelvis W IV Cont ONLY [facility] Imaging Services [address] [place] [id number] Abdomen/Pelvis W IV Cont ONLY MR#: [id number] Acct: [id number] Name: GARRISON PRATT Rep #: [id number] : 1980 F 44 From: Jaya Anaya MD PCP: Dr. Sumi Knutson, Status: REG ER Study: Abdomen/Pelvis W IV Cont ONLY Date of Exam: Exam# [id number] Ordering Dr: Tristan Le MD PROCEDURE: ABDOMEN/PELVIS [...] lower chance of developing HCC. Reading Location: [id number] CC: Dr. Tristan Le MD; Dr. Sumi Knutson DO Cardiovascular Disease Specialist: Signed Normal Absolute lymphocyte countOrd ered By: Tristan Le on 12-26-2024 Lymphocytes Auto (Unsp spec) [#/Vol] 2.45 10*3/uL 0.83-4.51 Absolute neutrophil countOrd ered By: Tristan Le on 12-26-2024 Neutrophils (Bld) [#/Vol] 3.8 10*3/uL 2.0-7.7 Amorphous sediment detection in urine sediment by light microscopyOrdered By: Tristan Le on 12-26-2024 Amorphous sediment LM Ql (Urine sed) 1+ Anion gap in Serum or Plasma Ordered By: Tristan Le on 12-26-2024 Anion gap [Moles/Vol] 12 mmol/L 5-15 [facility] Automated lymphocyte count a s percentage of total leukocytesOrdered By: Tristan Le on 12-26-2024 Lymphocytes/100 WBC Auto (Unsp spec) 33.7 % 19-41 BUN/creatinine ratioOrdered By: Tristan Le on 12-26-2024 Urea nitrogen/Creatinine [Mass ratio] 15.8 mg/mg 10-20 Basophil percentageOrdered B y: Tristan Le on 12-26-2024 Basophils/100 WBC (Bld) 1.0 % 0-1 [facility] Bilirubin Test strip Ql (U)O rdered By: Tristan Le on 12-26-2024 Bilirubin Ql (U) Negative Negative Bilirubin, totalOrdered By: Tristan Le on 12-26-2024 Bilirubin [Mass/Vol] 0.34 mg/dL 0.00-1.30 [facility] CBC W/Diff, Automatedon 06-0 Absolute Lymph 2.45 X10 3/uL Normal 0.83-4.51 Comment on above: Performed By: #### L 700.6800, L500.4050, L100.0100, L501.2450 #### Laboratory [address] [place], [address] Absolute Neut 3.8 X10 3/uL Normal 2.0-7.7 Comment on above: Performed By: #### L 700.6800, L500.4050, L100.0100, L501.2450 #### Laboratory [address] [place], [address] Basophils/100 WBC (Bld) 1.0 % Normal 0-1 [facility] Comment on above: Performed By: #### L 700.6800, L500.4050, L100.0100, L501.2450 #### Laboratory [address] [place], [address] Eosinophils/100 WBC (Bld) 4.8 % Normal 0-5 Comment on above: Performed By: #### L 700.6800, L500.4050, L100.0100, L501.2450 #### Laboratory [address] [place], [address] Erythrocyte distribution width (RBC) [Ratio] 11.9 % Normal 11.6-14.6 Comment on above: Performed By: #### L 700.6800, L500.4050, L100.0100, L501.2450 #### Laboratory [address] [place], [address] Hematocrit (Bld) [Volume fraction] 38.8 % Normal 37-47 Comment on above: Performed By: #### L 700.6800, L500.4050, L100.0100, L501.2450 #### Laboratory [address] [place], [address] Hemoglobin (Bld) [Mass/Vol] 13.9 g/dL Normal 12.0-15.0 Comment on above: Performed By: #### L 700.6800, L500.4050, L100.0100, L501.2450 #### Laboratory [address] [place], [address] IG% 0.300 Normal 0.0-0.9 Comment on above: Result Comment: IG% - Immature Granulocytes (promyelocytes, myelocytes and metamyelocytes) > 1% indicates that a LEFT SHIFT is Present. Performed By: #### L 700.6800, L500.4050, L100.0100, L501.2450 #### Laboratory [address] [place], [address] Lymphocytes/100 WBC (Bld) 33.7 % Normal 19-41 Comment on above: Performed By: #### L 700.6800, L500.4050, L100.0100, L501.2450 #### Laboratory [address] [place], [address] MCH (RBC) [Entitic mass] 31.4 pg Normal 27.0-32.0 Comment on above: Performed By: #### L 700.6800, L500.4050, L100.0100, L501.2450 #### Laboratory [address] [place], [address] MCHC (RBC) [Mass/Vol] 35.8 g/dL Normal 32-36 [facility] Comment on above: Performed By: #### L 700.6800, L500.4050, L100.0100, L501.2450 #### Laboratory [address] [place], [address] MCV (RBC) [Entitic vol] 87.8 fL Normal 81-99 [facility] Comment on above: Performed By: #### L 700.6800, L500.4050, L100.0100, L501.2450 #### Laboratory [address] [place], [address] Monocytes/100 WBC (Bld) 8.0 % Normal 0-10 [facility] Comment on above: Performed By: #### L 700.6800, L500.4050, L100.0100, L501.2450 #### Laboratory [address] [place], [address] Neutrophils/100 WBC (Bld) 52.2 % Normal 47-70 Comment on above: Performed By: #### L 700.6800, L500.4050, L100.0100, L501.2450 #### Laboratory [address] [place], [address] Nucleated RBC (Bld) [#/Vol] 0 10*3/uL Normal 0-5 Comment on above: Performed By: #### L 700.6800, L500.4050, L100.0100, L501.2450 #### Laboratory [address] [place], [address] Platelet mean volume (Bld) [Entitic vol] 10.5 fL Normal 6.2-12.0 Comment on above: Performed By: #### L 700.6800, L500.4050, L100.0100, L501.2450 #### Laboratory [address] [place], [address] Platelets (Bld) [#/Vol] 278 10*3/uL Normal 150-450 Comment on above: Performed By: #### L 700.6800, L500.4050, L100.0100, L501.2450 #### Laboratory [address] [place], [address] RBC (Bld) [#/Vol] 4.42 10*6/uL Normal 4.2-5.4 [facility] Comment on above: Performed By: #### L 700.6800, L500.4050, L100.0100, L501.2450 #### Laboratory [address] [place], [address] RDW SD 38.4 fl Normal 35.1-43.9 Comment on above: Performed By: #### L 700.6800, L500.4050, L100.0100, L501.2450 #### Laboratory [address] [place], [address] WBC (Bld) [#/Vol] 7.3 10*3/uL Normal 4.4-11.0 [facility] Comment on above: Performed By: #### L 700.6800, L500.4050, L100.0100, L501.2450 #### Laboratory [address] [place], [address] Carbon dioxide, total [Moles /volume] in Central venous bloodOrdered By: Tristan Le on 12-26-2024 CO2 [Moles/Vol] 19.2 mmol/L Low 21.0-32.0 Chloride assayOrdered By: Nathan Le on 12-26-2024 Chloride [Moles/Vol] 105 mmol/L 98-108 [facility] Comprehensive Metabolic Prof ilon 12-26-2024 Albumin [Mass/Vol] 4.3 g/dL Normal 3.5-5.0 [facility] Comment on above: Performed By: #### L 700.6800, L500.4050, L100.0100, L501.2450 #### Laboratory [address] [place], [address] Albumin/Globulin [Mass ratio] 1.5 {ratio} Normal 0.9-2.4 Comment on above: Performed By: #### L 700.6800, L500.4050, L100.0100, L501.2450 #### Laboratory [address] [place], [address] ALK PHOS 78 U/L Normal 35-104 Comment on above: Performed By: #### L 700.6800, L500.4050, L100.0100, L501.2450 #### Laboratory [address] [place], [address] ALT [Catalytic activity/Vol] 39 U/L High <=34 Comment on above: Performed By: #### L 700.6800, L500.4050, L100.0100, L501.2450 #### Laboratory [address] [place], [address] AST [Catalytic activity/Vol] 31 U/L Normal <=31 Comment on above: Performed By: #### L 700.6800, L500.4050, L100.0100, L501.2450 #### Laboratory [address] [place], [address] Bilirubin [Mass/Vol] 0.34 mg/dL Normal 0.00-1.30 [facility] Comment on above: Performed By: #### L 700.6800, L500.4050, L100.0100, L501.2450 #### Laboratory [address] [place], [address] BUN/CRE 15.8 RATIO Normal 10-20 Comment on above: Performed By: #### L 700.6800, L500.4050, L100.0100, L501.2450 #### Laboratory [address] [place], [address] Calcium [Mass/Vol] 9.5 mg/dL Normal 7.6-11.0 [facility] Comment on above: Performed By: #### L 700.6800, L500.4050, L100.0100, L501.2450 #### Laboratory [address] [place], [address] Chloride [Moles/Vol] 105 mmol/L Normal 98-108 [facility] Comment on above: Performed By: #### L 700.6800, L500.4050, L100.0100, L501.2450 #### Laboratory [address] [place], [address] CO2 [Moles/Vol] 19.2 mmol/L Low 21.0-32.0 Comment on above: Performed By: #### L 700.6800, L500.4050, L100.0100, L501.2450 #### Laboratory [address] [place], [address] Creatinine [Mass/Vol] 1.05 mg/dL Normal 0.70-1.20 [facility] Comment on above: Performed By: #### L 700.6800, L500.4050, L100.0100, L501.2450 #### Laboratory [address] [place], [address] ECRCL 72.85 ml/min Normal 50-250 Comment on above: Performed By: #### L 700.6800, L500.4050, L100.0100, L501.2450 #### Laboratory [address] [place], [address] GAP 12 Normal 5-15 Comment on above: Performed By: #### L 700.6800, L500.4050, L100.0100, L501.2450 #### Laboratory [address] [place], [address] GFR/1.73 sq M.predicted among non-blacks MDRD (S/P/Bld) [Vol rate/Area] 68 mL/min/{1.73_m2} Normal >60 Comment on above: Result Comment: mL/m in/1.73m2 CKD-EPI Creatinine Equation (2020) Performed By: #### L 700.6800, L500.4050, L100.0100, L501.2450 #### Laboratory [address] [place], [address] Globulin (S) [Mass/Vol] 3.0 g/dL Normal 2.2-4.2 [facility] Comment on above: Performed By: #### L 700.6800, L500.4050, L100.0100, L501.2450 #### Laboratory [address] [place], [address] Glucose [Mass/Vol] 91 mg/dL Normal 70-99 [facility] Comment on above: Performed By: #### L 700.6800, L500.4050, L100.0100, L501.2450 #### Laboratory [address] [place], [address] Potassium [Moles/Vol] 3.6 mmol/L Normal 3.3-5.1 [facility] Comment on above: Performed By: #### L 700.6800, L500.4050, L100.0100, L501.2450 #### Laboratory [address] [place], [address] Sodium [Moles/Vol] 136 mmol/L Normal 133-145 [facility] Comment on above: Performed By: #### L 700.6800, L500.4050, L100.0100, L501.2450 #### Laboratory [address] [place], [address] T PROT 7.3 g/dL Normal 5.9-8.4 Comment on above: Performed By: #### L 700.6800, L500.4050, L100.0100, L501.2450 #### Laboratory [address] [place], [address] Urea nitrogen [Mass/Vol] 17 mg/dL Normal 4-19 Comment on above: Performed By: #### L 700.6800, L500.4050, L100.0100, L501.2450 #### Laboratory [address] [place], [address] Emergency Department Summary on 12-26-2024 Emergency Department Summary [facility] Medical Records Department [address] [place] [address] Emergency Department Summary 12/26/24 MR#: [id number] Acct: [id number] Name: GARRISON PRATT Rep #: [id number] : 1980 44 From: Tristan Le MD [...] describes more epigastric to diffuse abdominal pain. [facility] Medical History Lumbar strain Left ankle [...] and revie (more content not included)... Normal Eosinophil percentageOrdered By: Tristan Le on 12-26-2024 Eosinophils/100 WBC (Bld) 4.8 % 0-5 Erythrocyte distribution wid th ratioOrdered By: Tristan Le on 12-26-2024 Erythrocyte distribution width (RBC) [Ratio] 11.9 % 11.6-14.6 Erythrocyte distribution wid th standard deviationOrdered By: Tristan Le on 12-26-2024 Erythrocyte distribution width (RBC) [Ratio] 38.4 fl 35.1-43.9 Glomerular filtration rate ( GFR) estimation/1.73 sq m using serum, plasma, or whole bOrdered By: Tristan Le on 12-26-2024 GFR/1.73 sq M.predicted among non-blacks MDRD (S/P/Bld) [Vol rate/Area] 68 mL/min/{1.73_m2} >60 Comment on above: mL/min/1.73m2 CKD-EP I Creatinine Equation (2020) Hematocrit Auto (Bld) [Volum e fraction]Ordered By: Tristan Le on 12-26-2024 Hematocrit (Bld) [Volume fraction] 38.8 % 37-47 Hemoglobin measurementOrdere d By: Tristan Le on 12-26-2024 Hemoglobin (Bld) [Mass/Vol] 13.9 g/dL 12.0-15.0 Immature granulocytes/100 WB C Auto (Bld)Ordered By: Tristan Le on 12-26-2024 Immature granulocytes/100 WBC (Bld) 0.300 % 0.0-0.9 Comment on above: IG% - Immature Granu locytes (promyelocytes, myelocytes and metamyelocytes) > 1% indicates that a LEFT SHIFT is Present. Ketones Test strip Ql (U)Ord ered By: Tristan Le on 12-26-2024 Ketones Ql (U) Negative Negative Laboratory - Chemistry and C hemistry - challengeOrdered By: Tristan Le on 12-26-2024 AST [Catalytic activity/Vol] 31 U/L <32 Lipaseon 12-26-2024 Lipase [Catalytic activity/Vol] 46 U/L Normal 13-75 Comment on above: Result Comment: Antonio peguero note: LIPASE revised reference range effective 22. New Lipase methodology. Expected to produce lower values than the previous assay method. NEW Reference Range: 13 - 75 U/L Performed By: #### L 700.6800, L500.4050, L100.0100, L501.2450 #### Laboratory [address] [place], [address] Lipase measurementOrdered By : Tristan Le on 12-26-2024 Lipase [Catalytic activity/Vol] 46 U/L 13-75 Comment on above: Please note:LIPASE r evised reference range effective 22. New Lipase methodology. Expected to produce lower values than the previous assay method. NEW Reference Range: 13 - 75 U/L MCV (mean corpuscular volume ) determinationOrdered By: Tristan Le on 12-26-2024 MCV (RBC) [Entitic vol] 87.8 fL 81-99 [facility] Mean corpuscular hemoglobin (MCH) determinationOrdered By: Tristan Le on 12-26-2024 MCH (RBC) [Entitic mass] 31.4 pg 27.0-32.0 Mean corpuscular hemoglobin concentration (MCHC) determinationOrdered By: Tristan Le on 12-26-2024 MCHC (RBC) [Mass/Vol] 35.8 g/dL 32-36 [facility] Mean platelet volume determi nationOrdered By: Tristan Le on 12-26-2024 Platelet mean volume (Bld) [Entitic vol] 10.5 fL 6.2-12.0 Microscopic analysis of urin e for red blood cells (RBC)Ordered By: Tristan Le on 12-26-2024 Microscopic analysis of urine for red blood cells (RBC) 5-10 SEEN /hpf 0-5 Monocyte percentageOrdered B y: Tristan Le on 12-26-2024 Monocytes/100 WBC (Bld) 8.0 % 0-10 [facility] Mucus LM Ql (Urine sed)Order ed By: Tristan Le on 12-26-2024 Mucus Ql (Urine sed) 0 SEEN /hpf [facility] Neutrophil percentageOrdered By: Tristan Le on 12-26-2024 Neutrophils/100 WBC (Bld) 52.2 % 47-70 Nitrite Test strip Ql (U)Ord ered By: Tristan Le on 12-26-2024 Nitrite Ql (U) Negative Negative Nucleated red blood cell per centageOrdered By: Tristan Le on 12-26-2024 Nucleated RBC/100 WBC (Bld) [Ratio] 0 % 0-5 Platelet countOrdered By: Nathan Le on 12-26-2024 Platelets (Bld) [#/Vol] 278 10*3/uL 150-450 Potassium measurement (mass/ volume)Ordered By: Tristan Le on 12-26-2024 Potassium (Unsp spec) [Mass/Vol] 3.6 mmol/L 3.3-5.1 ,Serum,hCG Quali.on 12-26-2024 HCG, SERUM QUAL Negative Normal Comment on above: Performed By: #### L 700.6800, L500.4050, L100.0100, L501.2450 #### Laboratory [address] [place], [address] Protein Test strip Ql (U)Ord ered By: Tristan Le on 12-26-2024 Protein Ql (U) 30 mg/dl High Negative RBC Auto (Bld) [#/Vol]Ordere d By: Tristan Le on 12-26-2024 RBC (Bld) [#/Vol] 4.42 10*6/uL 4.2-5.4 [facility] Serum beta-hCG test, qualita tiveOrdered By: Tristan Le on 12-26-2024 Beta HCG ( test) Ql Negative Serum creatinine measurement (mass/volume)Ordered By: Tristan Le on 12-26-2024 Creatinine [Mass/Vol] 1.05 mg/dL 0.70-1.20 [facility] Serum globulin measurementOr dered By: Tristan Le on 12-26-2024 Globulin (S) [Mass/Vol] 3.0 g/dL 2.2-4.2 [facility] Serum glucose measurement (m ass/volume)Ordered By: Tristan Le on 12-26-2024 Glucose [Mass/Vol] 91 mg/dL 70-99 [facility] Serum or plasma alanine blum otransferase (ALT) measurementOrdered By: Tristan Le on 12-26-2024 ALT [Catalytic activity/Vol] 39 U/L High <35 Serum or plasma albumin iliana urement (mass/volume)Ordered By: Tristan Le on 12-26-2024 Albumin [Mass/Vol] 4.3 g/dL 3.5-5.0 [facility] Serum or plasma albumin/glob ulin mass ratioOrdered By: Tristan Le on 12-26-2024 Albumin/Globulin [Mass ratio] 1.5 {ratio} 0.9-2.4 Serum or plasma alkaline isa sphatase measurementOrdered By: Tristan Le on 12-26-2024 ALP [Catalytic activity/Vol] 78 U/L 35-104 Serum or plasma calcium iliana urement (mass/volume)Ordered By: Tristan Le on 12-26-2024 Calcium [Mass/Vol] 9.5 mg/dL 7.6-11.0 [facility] Serum or plasma urea nitroge n measurement (mass/volume)Ordered By: Tristan Le on 12-26-2024 Urea nitrogen [Mass/Vol] 17 mg/dL 4-19 Sodium levelOrdered By: Tristan Le on 12-26-2024 Sodium [Moles/Vol] 136 mmol/L 133-145 [facility] Squamous epithelial cells de tection in urine sediment by light microscopyOrdered By: Tristan Le on 12-26-2024 Epithelial cells.squamous LM Ql (Urine sed) 0-5 SEEN /hpf 5-10 Total proteinOrdered By: Saray Le on 12-26-2024 Protein [Mass/Vol] 7.3 g/dL 5.9-8.4 [facility] Urinalysis, Completeon 12-26 AMORPHOUS 1+ Normal Comment on above: Order Comment: CLEAN CATCH Performed By: #### L 400.0001 #### Laboratory [address] [place], [address] RBC 5-10 SEEN Normal 0-5 Comment on above: Order Comment: CLEAN CATCH Performed By: #### L 400.0001 #### Laboratory [address] [place], [address] WBC 0-5 SEEN Normal 0-5 Comment on above: Order Comment: CLEAN CATCH Performed By: #### L 400.0001 #### Laboratory [address] [place], [address] EPI,SQUAMOUS 0-5 SEEN Normal 5-10 Comment on above: Order Comment: CLEAN CATCH Performed By: #### L [id number] #### [facility] [address] [place], [address] BACTERIA 0 SEEN Normal None Seen Comment on above: Order Comment: CLEAN CATCH Performed By: #### L [id number] #### [facility] [address] [place], [address] Mucus Ql (Urine sed) 0 SEEN Normal [facility] Comment on above: Order Comment: CLEAN CATCH Performed By: #### L [id number] #### [facility] [address] [place], [address] Urine clarityOrdered By: Saray Le on 12-26-2024 Clarity (U) Clear Clear Urine color determinationOrd ered By: Tristan Le on 12-26-2024 Color (U) Yellow Yellow Urine glucose detectionOrder ed By: Tristan Le on 12-26-2024 Glucose Ql (U) Normal mg/dl Normal Urine leukocyte esterase det ection by dipstickOrdered By: Tristan Le on 12-26-2024 Leukocyte esterase Test strip Ql (U) Negative Negative Urine pHOrdered By: Tristan santana on 12-26-2024 pH (U) 7.0 [pH] 5.0 - 8.0 Urine sediment bacteria coun t by microscopy (number/high power field)Ordered By: Tristan Le on 12-26-2024 Bacteria LM.HPF (Urine sed) [#/Area] 0 /[HPF] None Seen Urine specific gravity measu rementOrdered By: Tristan Le on 12-26-2024 Specific gravity (U) [Rel density] 1.015 1.002-1.030 Urine urobilinogen measureme ntOrdered By: Tristan Le on 12-26-2024 Urobilinogen Ql (U) Normal mg/dl Normal [facility] White blood cell (WBC) count Ordered By: Tristan Le on 12-26-2024 WBC (Bld) [#/Vol] 7.3 10*3/uL 4.4-11.0 [facility] White blood cell countOrdere d By: Tristan Le on 12-26-2024 White blood cell count 0-5 SEEN /hpf 0-5 Emergency Department Summary on 12-05-2024 Emergency Department Summary [facility] Medical Records Department [address] [place] [address] Emergency Department Summary 12/05/24 MR#: [id number] Acct: [id number] Name: GARRISON PRATT Rep #: [id number] : 1980 44 From: Juan Montaño MD PCP: Dr. Sumi Knutson, DO Status:DEP ER Location: ED HPI History of [...] symptoms: Yes and With Prior Back [facility] Medical History Lumbar strain Left ankle sprain Bilateral carpal tunnel syndrome Left knee pain Absence seizure disorder Anxiety Home Medications ???Medication ???Instructions ???Recorded ???Last Taken ???Type pantoprazole 20 mg tablet,delayed 20 mg PO DAILY PRN 05/21/24 Unkno wn History release cyclobenzaprine 10 mg [...] this medically. Short course of pain medicine. Fepx-pxj-wnuzxrr remedies. Muscle relaxers. Return precautions given. Follow-up as an outpatient. Discharge. Impression #1 lumbar back pain Radiography Diagnostic T (more content not included)... Normal Lumbar Spine 2 or 3 Viewson 12-05-2024 Lumbar Spine 2 or 3 Views [facility] Imaging Services [address] [place] [address] Lumbar Spine 2 or 3 Views MR#: [id number] Acct: [id number] Name: GARRISON PRATT Rep #: [id number] : 1980 F 44 From: Dion ceron MD PCP: Dr. Sumi Knutson, DO Status: REG ER Study: Lumbar Spine 2 or 3 Views Date of Exam: Exam# [id number] Ordering Dr: Juan Montaño MD PROCEDURE: LUMBAR [...] Juan Montaño MD; Dr. Sumi Knutson DO Cardiovascular Disease Specialist: Signed Normal Urgent Care Visit Reporton 0 12-01-2024 Urgent Care Visit Report [facility] [address], [address] [place] [address] OFFICE VISIT Date of Service: 12/01/24 MR#: [id number] Acct: [id number] Name: GARRISON PRATT Rep #: [id number] : 1980 Provider: NGOC Sykes Age/Sex: 44/F Location: [facility] Status: Signed Intake Vital Signs 09/16/24 11:48 12/01/24 12:40 Height 5 ft 1 in BP 128/80 H Blood Pressure Location Lt brachial Position Sitting Respiration 17 Pulse 83 Pulse Source NIBP Temp 98.3 F Temp Source Oral Pulse Oximetry (%) 98 Oxygen Delivery Method room air Intake Visit Reasons: L ANKLE AND BACK/WEST VIEW Chief Complaint: WC f/u left ankle, back Sleep Lab Technician Required: No Is patient in pain?: No [...] Sotelo Signature: Date (if applicable) CC: Normal Office Visit Reporton 2024 Office Visit Report [facility] [address] [place] [address] OFFICE VISIT Date of Service: 11/22/24 MR#: [id number] Acct: [id number] Patient: GARRISON PRATT Rep #: [id number] : 1980 Provider: NGOC Sykes Age/Sex: 44/F Location: [facility] Status: Signed Intake Vital Signs 09/16/24 11:48 Height 5 ft 1 in Intake Visit Reasons: PA NON DOT DRUG BAT/ WEST VIEW Chief Complaint: WC f/u left ankle, back Allergies diphenhydramine HCl (From Benadryl) Allergy (Verified 11/24/24 12:45) swelling all over tramadol Allergy (Verified 11/24/24 12:45) Itching Office Procedures [facility] Billing Sheet Testing Post-Accident Non-DOT Breath Alcohol Test: Yes Post-Accident NON-DOT Drug Screen in [facility]: Yes 11/29/24827 Date Ken Sotelo Signature: Date (if applicable) CC: Normal Urgent Care Visit Reporton 0 11-24-2024 Urgent Care Visit Report [facility] [address], [address] [place] [address] OFFICE VISIT Date of Service: 11/24/24 MR#: [id number] Acct: [id number] Name: GARRISON PRATT Rep #: [id number] : 1980 Provider: NGOC Sykes Age/Sex: 44/F Location: [facility] Status: Signed Intake Vital Signs 09/16/24 11:48 11/24/24 12:45 Height 5 ft 1 in BP 142/84 H Blood Pressure Location Lt brachial Position Sitting Respiration 17 Pulse 90 Pulse Source NIBP Temp 98.4 F Temp Source Oral Pulse Oximetry (%) 98 Oxygen Delivery Method room air Intake Visit Reasons: L ANKLE, BACK / WEST VIEW Chief Complaint: WC f/u left ankle, back Sleep Lab Technician Required: No Is patient in pain?: Yes [...] REVISED work restrictions as noted on today's [employer] 14. Isolation boot as needed. Supportive measures [...] Ken Nielsen (more content not included)... Normal Ankle min 3 Viewson 11-23-19 Ankle min 3 Views [facility] Imaging Services [address] [place], [place] [id number] Ankle min 3 Views MR#: [id number] Acct: [id number] Name: GARRISON PRATT Rep #: [id number] : 1980 F 44 From: Pacheco Schwab MD PCP: Dr. Sumi Knutson DO Status: REG CLI Study: Ankle min 3 Views Date of Exam: 11/22/24 Exam# [id number] Ordering Dr: Ken Fatima PROCEDURE: ANKLE MIN [...] No visible acute displaced fracture. Reading Location: [facility] CC: Dr. Sumi Knutson DO; NGOC Sykes Cardiovascular Disease Specialist: Signed Normal Lumbar Spine 2 or 3 Viewson 11-22-2024 Lumbar Spine 2 or 3 Views [facility] Imaging Services [address] [place], [place] [address] Lumbar Spine 2 or 3 Views MR#: [id number] Acct: [id number] Name: GARRISON PRATT Rep #: [id number] : 1980 F 44 From: Pacheco Schwab MD PCP: Dr. Sumi Knutson DO Status: REG CLI Study: Lumbar Spine 2 or 3 Views Date of Exam: Exam# [id number] Ordering Dr: Ken Fatima PROCEDURE: LUMBAR SPINE 2 OR 3 VIEWS ([facility]), 11/22/2024 REASON FOR EXAM: PAIN TECHNIQUE: AP [...] 2. Additional description as above. Reading Location: [id number] CC: Dr. Sumi Knutson, DO; NGOC Sykes Cardiovascular Disease Specialist: Signed Normal Urgent Care Visit Reporton 0 11-22-2024 Urgent Care Visit Report [facility] [address], [address] [place] [address] OFFICE VISIT Date of Service: 11/22/24 MR#: [id number] Acct: [id number] Name: GARRISON PRATT Rep #: [id number] : 1980 Provider: NGOC Sykes Age/Sex: 44/F Location: [facility] Status: Signed Intake Vital Signs 09/16/24 11:48 [...] release Nurse's Note: Patient here for a [facility]. Patient slipped on water and fell and hit her lower back and her left ankle went underneath her. [facility] Medical History (Updated 11/22/24 @ 15:45 by [...] touch with prolonged weightbearing. PMH NC. No lmxx-dgq-yezqlqe products taken to assist. No other associated [...] sitting duties only as noted on today's [employer] 14. Isolation boot has been/applied/instruc florin today. Supportive measures including rest, ice, elevate, NSAIDs, home range of motion exercises as instructed today. [facility]-up with [facility] on 11/24/2024 at 1 PM (1 hour prior to her eveni (more content not included)... Normal Emergency Department Summary on 09-16-2024 Emergency Department Summary [facility] Medical Records Department [address] [place] [address] Emergency Department Summary 09/16/24 MR#: [id number] Acct: [id number] Name: GARRISON PRATT Rep #: [id number] : 1980 44 From: Riaz Logan MD [...] Denies mouth swelling, tongue swelling or urticaria [facility] Medical History Bilateral carpal tunnel syndrome Left [...] well developed (more content not included)... Normal Influenza virus A and B and SARS-CoV-2 (COVID-19) and Respiratory syncytial virus RNAOrdered By: Damon Yu on 09-16-2024 SARS-CoV-2 (COVID-19) RNA ELIEZER+probe Ql (Unsp spec) Influenzae A Abnormal M100.678on 09-16-2024 SARS-CoV-2 (COVID-19) Ab IA Ql Normal Reference Range = Negative FLUABV+SARS-CoV-2+RS V Pnl Resp ELIEZER+probe GeneXpert Instrument, PCR method Copy of report sent to Infection Control Printer [id number] 09/16/24 140Jacquelyn HUI. RESULTS CALLED TO LEELEE 09/16/24 140Jacquelyn Escobar. REPORT READ BACK BY LEELEE. SARS-CoV-2 (COVID 19) Negative INFLUENZA A A Positive A INFLUENZA B Negative RSV PCR Negative INFLUENZAE A Normal Comment on above: Performed By: #### M 100.678 #### [id number] [place], [address] .Auto Diffon 05-05-2022 Basophil, Absolute 0.0 10 3/mcL Normal 0.0-0.2 [facility] ([place]) Comment on above: Performed By: #### G FR, BMP #### [address] [address] Basophils/100 WBC (Bld) 0.6 % Normal 0.0-2.5 A Counts include 234 beds at the [facility] ([place]) Comment on above: Performed By: #### G FR, BMP #### [address] [address] Eosinophil, Absolute 0.4 10 3/mcL Normal 0.0-0.4 [facility] ([place]) Comment on above: Performed By: #### G FR, BMP #### [address] [address] Eosinophils/100 WBC (Bld) 4.8 % Normal 0.0-7.0 [facility] ([place]) Comment on above: Performed By: #### G FR, BMP #### [address] [address] Lymphocyte, Absolute 2.2 10 3/mcL Normal 0.8-3.9 [facility] ([place] Comment on above: Performed By: #### G FR, BMP #### [address] [address] Lymphocytes/100 WBC (Bld) 27.4 % Normal 10.0-50.0 [facility] ([place] Comment on above: Performed By: #### G FR, BMP #### [address] [address] Monocyte, Absolute 0.4 10 3/mcL Normal 0.2-1.0 [facility] ([place]) Comment on above: Performed By: #### G FR, BMP #### [address] [address] Monocytes/100 WBC (Bld) 5.2 % Normal 1.7-13.0 A Counts include 234 beds at the [facility] ([place]) Comment on above: Performed By: #### G FR, BMP #### [address] [address] Neutrophils/100 WBC (Bld) 62.0 % Normal 37.0-80.0 [facility] ([place]) Comment on above: Performed By: #### G FR, BMP #### [address] [address] .GFRon 05-05-2022 GFR 98 ml/min/1.73sqm Normal [facility] ([place]) Comment on above: Result Comment: GFR Population [...] mL/min/1.73 square meters Performed By: #### G FR, BMP #### [address] [address] GFR Non- 81 ml/min/1.73sqm Normal [facility] ([place]) Comment on above: Result Comment: GFR Population [...] Performed By: #### Ivet DUVAL, BMP #### [address] [address] .MDWon 05-05-2022 Monocyte Distribution Width 20.15 High 0.00-20.00 [facility] ([place]) Comment on above: Result Comment: For adults in ED, MDW>20.0 may be associated with a higher risk of sepsis during the first 12hrs of hospital admission Performed By: #### Ivet DUVAL, BMP #### [address] [address] .NEUABSon 05-05-2022 Neutrophil, Absolute 5.0 10 3/mcL Normal 2.9-6.2 [facility] ([place] Comment on above: Performed By: #### Ivet DUVAL, BMP #### [address] [address] BMPon 05-05-2022 BUN/Creatinine Ratio 11 ratio Normal 7-27 [facility] ([place] Comment on above: Performed By: #### Ivet DUVAL, BMP #### [address] [address] Calcium [Mass/Vol] 9.0 mg/dL Normal 8.4-10.2 [facility] ([place]) Comment on above: Performed By: #### Ivet DUVAL, BMP #### [address] [address] Chloride [Moles/Vol] 104 mmol/L Normal 98-107 [facility] ([place] Comment on above: Performed By: #### Ivet DUVAL, BMP #### [address] [address] CO2 [Moles/Vol] 25 mmol/L Normal 22-29 [facility] ([place] Comment on above: Performed By: #### Ivet DUVAL, BMP #### [address] [address] Creatinine [Mass/Vol] 0.79 mg/dL Normal 0.55-1.02 [facility] ([place] Comment on above: Performed By: #### Ivet DUVAL, BMP #### [address] [address] Electrolyte Balance 11.0 mEq/L Normal 4.0-15.0 [facility] ([place]) Comment on above: Performed By: #### Ivet DUVAL, BMP #### [place] [id number] Glucose [Mass/Vol] 144 mg/dL High 70-105 [facility] ([place] Comment on above: Performed By: #### Ivet DUVAL, BMP #### [address] [address] Potassium [Moles/Vol] 3.7 mmol/L Normal 3.5-5.1 [facility] ([place] Comment on above: Performed By: #### Ivet DUVAL, BMP #### [place] [id number] Sodium [Moles/Vol] 140 mmol/L Normal 136-145 [facility] ([place] Comment on above: Performed By: #### Ivet DUVAL, BMP #### [address] [address] Urea nitrogen [Mass/Vol] 9 mg/dL Normal 7-18 [facility] ([place] Comment on above: Performed By: #### Ivet DUVAL, BMP #### [address] [address] CBCon 05-05-2022 Erythrocyte distribution width (RBC) [Ratio] 12.7 % Normal 11.5-14.5 [facility] ([place] Comment on above: Performed By: #### Ivet DUVAL, BMP #### [place] [id number] Hematocrit (Bld) [Volume fraction] 40.3 % Normal 37.0-47.0 [facility] ([place] Comment on above: Performed By: #### Ivet DUVAL, BMP #### [address] [address] Hgb 14.2 G/dL Normal 12.0-16.0 [facility] ([place] Comment on above: Performed By: #### Ivet DUVAL, BMP #### [place] [address] [address] MCH (RBC) [Entitic mass] 31.6 pg High 27.0-31.2 [facility] ([place] Comment on above: Performed By: #### Ivet DUVAL, BMP #### [address] [address] MCHC 35.3 G/dL Normal 33.0-37.0 [facility] ([place] Comment on above: Performed By: #### Ivet DUVAL, BMP #### [address] [address] MCV (RBC) [Entitic vol] 89.6 fL Normal 80.0-94.0 A Counts include 234 beds at the [facility] ([place] Comment on above: Performed By: #### Ivet DUVAL, BMP #### [address] [address] Platelet 254 10 3/mcL Normal 130-400 [facility] ([place] Comment on above: Performed By: #### Ivet DUVAL, BMP #### [address] [address] Platelet mean volume (Bld) [Entitic vol] 9.1 fL Normal 7.4-10.4 [facility] ([place] Comment on above: Performed By: #### Ivet DUVAL, BMP #### [address] [address] RBC 4.50 10 6/mcL Normal 4.20-5.40 [facility] ([place] Comment on above: Performed By: #### Ivet DUVAL, BMP #### [place] [address] [address] WBC 8.1 10 3/mcL Normal 4.6-10.8 [facility] ([place] Comment on above: Performed By: #### Ivet DUVAL, BMP #### [place] [address] [id number] 05-05-2022 Date of Onset [id number] Invalid Interpretation Code [facility] ([place] Comment on above: Performed By: #### Ivet DUVAL, BMP #### [place] [address] Employed in Healthcare No [facility] ([place] Comment on above: Performed By: #### Ivet DUVAL, BMP #### [place] [address] First Test No [facility] ([place] Comment on above: Performed By: #### Ivet DUVAL, BMP #### [place] [address] Hospitalized No [facility] ([place] Comment on above: Performed By: #### Ivet FR, BMP #### [place] [address] ICU No [facility] ([place] Comment on above: Performed By: #### Ivet FR, BMP #### [place] [address] Not [facility] ([place] Comment on above: Performed By: #### Ivet DUVAL, BMP #### [place] [address] Resides in Congregate Care Setting No [facility] ([place] Comment on above: Performed By: #### G FR, BMP #### [place] [address] SARS-CoV-2 (COVID-19) RNA ELIEZER+probe Ql (Unsp spec) Negative Normal Negative [facility] ([place] Comment on above: Performed By: #### G FR, BMP #### [place] [address] SARS-CoV-2 (COVID-19) RNA ELIEZER+probe Ql (Unsp spec) Normal [facility] ([place] Comment on above: Result Comment: Nega tive [...] or inadequate numbers of organisms for amplification. [employer] SARS-CoV-2 Assay is a Real-Time reverse-transcriptase polymerase [...] Performed By: #### G , BMP #### [address] [address] Symptomatic as Defined by CDC No Normal [facility] ([place] Comment on above: Performed By: #### G , BMP #### [place] [id number] FLURSVon 05-05-2022 Flu A PCR (AO) Negative Normal Negative [facility] ([place] Comment on above: Result Comment: Posi tive [...] virus (RSV) nucleic acid in nasopharyngeal swab (ABLE BODIED TANKERMAN) specimens from patients with signs and symptoms of respiratory infection in conjunction with clinical and laboratory findings. The test is intended for use as an aid in the differential diagnosis of influenza A virus, influenza B virus, and RSV in humans and is not intended to detect influenza C. Performed By: #### G , [facility] #### [address] [address] Flu B PCR (AO) Negative Normal Negative [facility] ([place] Comment on above: Result Comment: Posi tive [...] virus (RSV) nucleic acid in nasopharyngeal swab (ABLE BODIED TANKERMAN) specimens from patients with signs and symptoms of respiratory infection in conjunction with clinical and laboratory findings. The test is intended for use as an aid in the differential diagnosis of influenza A virus, influenza B virus, and RSV in humans and is not intended to detect influenza C. Performed By: #### G , [facility] #### [address] [address] RSV PCR (AO) Negative Normal Negative [facility] ([place] Comment on above: Result Comment: Posi tive [...] REPEAT COLLECTION AND TESTING IS RECOMMENDED. The [employer] Flu A/B & RSV Assay is a real-time polymerase chain reaction (PCR) based qualitative in vitro diagnostic test for the direct detection and differentiation of influenza A virus, influenza B virus, and respiratory syncytial virus (RSV) nucleic acid in nasopharyngeal swab (ABLE BODIED TANKERMAN) specimens from patients with signs and symptoms of respiratory infection in conjunction with clinical and laboratory findings. The test is intended for use as an aid in the differential diagnosis of influenza A virus, influenza B virus, and RSV in humans and is not intended to detect influenza C. Performed By: #### G , [facility] #### [place] [address] [address] XR CHEST 1 VIEWon 05-05-2022 XR CHEST [...] 05/05/2022 5:50:14 PM Ordering Provider: TIERA LUNDBERG Normal [facility] ([place]) .Urinalysis Microscopic (AO) on 04-30-2022 UA Amorphus 2+ /hpf [facility] ([place]) Comment on above: Performed By: #### U AMICAO, PREGU, UA #### [place] [address] [place], [place] [address] UA Bacteria 1+ /hpf Abnormal [facility] ([place] Comment on above: Performed By: #### U AMICAO, PREGU, UA #### [place] [address] [place], [place] [address] UA Mucous Trace Normal [facility] ([place] Comment on above: Performed By: #### U AMICAO, PREGU, UA #### [address] [address] UA RBC 5-10 Abnormal None Seen [facility] ([place] Comment on above: Performed By: #### U AMICAO, PREGU, UA #### [address] [address] UA Squam Epithelial 0-5 Abnormal None Seen [facility] ([place] Comment on above: Performed By: #### U AMICAO, PREGU, UA #### [address] [address] UA WBC 0-5 Abnormal None Seen [facility] ([place] Comment on above: Performed By: #### U AMICAO, PREGU, UA #### [address] [address] LABORATORYOrdered By: Chary Archuleta on 04-30-2022 Appearance [...] HCG ( test) Ql (U) Negative Normal [facility] ([place] Comment on above: Performed By: #### U AMICAO, PREGU, UA #### [address] [address] test (u) int Not detected Invalid Interpretation Code [facility] ([place] Comment on above: Performed By: #### U AMICAO, PREGU, UA #### [address] [address] UAon 04-30-2022 Color (U) Yellow Normal [facility] ([place] Comment on above: Performed By: #### U AMICAO, PREGU, UA #### [address] [address] Glucose (U) [Mass/Vol] Negative Normal Negative [facility] ([place] Comment on above: Performed By: #### U AMICAO, PREGU, UA #### [address] [address] Ketones Ql (U) Negative Normal Negative [facility] ([place] Comment on above: Performed By: #### U AMICAO, PREGU, UA #### [place] [address] UA Appear Cloudy Abnormal Clear [facility] ([place] Comment on above: Performed By: #### U AMICAO, PREGU, UA #### [address] [address] UA Blood Moderate Abnormal Negative [facility] ([place] Comment on above: Performed By: #### U AMICAO, PREGU, UA #### [place] [address] UA Leuk Est Trace Abnormal Negative [facility] ([place] Comment on above: Performed By: #### U AMICAO, PREGU, UA #### [address] [address] UA Nitrite Negative Normal Negative [facility] ([place] Comment on above: Performed By: #### U AMICAO, PREGU, UA #### [place] [address] UA pH 7.5 Normal 5.0 - 8.0 [facility] ([place] Comment on above: Performed By: #### U AMICAO, PREGU, UA #### [address] [address] UA Protein 30 mg/dL Normal Negative [facility] ([place] Comment on above: Performed By: #### U AMICAO, PREGU, UA #### [address] [address] UA Spec Grav 1.020 Normal 1.015-1.025 [facility] ([place] Comment on above: Performed By: #### U AMICAO, PREGU, UA #### [facility] [address] [place], [place] [address] UA Specimen Type Void Normal [facility] ([place] Comment on above: Performed By: #### U AMICAO, PREGU, UA #### [place] [address] [place], [place] [address] UA Urobilinogen 0.2 E.U./dL Normal 0.2-1.0 [facility] ([place] Comment on above: Performed By: #### U AMICAO, PREGU, UA #### [facility] [address] [place], [place] [address] Urobilinogen (U) [Mass/Vol] Negative Normal Negative [facility] ([place] Comment on above: Performed By: #### U AMICAO, PREGU, UA #### [place] [address] [place], [place] [address] XR CHEST 1 VIEWon 04-30-2022 XR CHEST [...] 04/30/2022 7:24:27 AM Ordering Provider: ANAYELI Brand [facility] ([place]) Chart Updateon 09-07-2019 Chart Update Active Problems [...] Time Vital Sign Value Performing Clinician Facility 02-19-2025 21:06-0400 Body temperature 98 [degF] Dr. Sumi Knutson DO Work Phone: 02-19-2025 21:06-0400 Diastolic blood pressure 82 mm[Hg] Dr. Sumi Knutson DO Work Phone: 02-19-2025 21:06-0400 Heart rate 73 /min Dr. Sumi Knutson DO Work Phone: 02-19-2025 21:06-0400 Respiratory rate 18 /min Dr. Sumi Knutson DO Work Phone: 02-19-2025 21:06-0400 SaO2% (BldA) [Mass fraction] 98 % Dr. Sumi Knutson DO Work Phone: 02-19-2025 21:06-0400 Systolic blood pressure 129 mm[Hg] Dr. Sumi Knutson DO Work Phone: 02-19-2025 20:04-0400 Body height 154.[address] Sumi Knutson DO Work Phone: 02-19-2025 20:04-0400 Body mass index (BMI) [Ratio] 39.1 kg/m2 Dr. Sumi Knutson DO Work Phone: 02-19-2025 20:04-0400 Body weight 93.[address] Sumi Knutson DO Work Phone: 12-28-2024 10:03-0400 Body height 154.[address] Sumi Knutson DO Work Phone: 12-28-2024 10:03-0400 Body mass index (BMI) [Ratio] 38.7 kg/m2 Dr. Sumi Knutson DO Work Phone: 12-28-2024 10:03-0400 Body weight 92.[address] Sumi Knutson DO Work Phone: 12-28-2024 10:03-0400 Diastolic blood pressure 95 mm[Hg] Dr. Sumi Knutson DO Work Phone: 12-28-2024 10:03-0400 Heart rate 91 /min Dr. Sumi Knutson DO Work Phone: 12-28-2024 10:03-0400 Respiratory rate 16 /min Dr. Sumi Knutson DO Work Phone: 12-28-2024 10:03-0400 SaO2% (BldA) [Mass fraction] 98 % Dr. Sumi Knutson DO Work Phone: 12-28-2024 10:03-0400 Systolic blood pressure 141 mm[Hg] Dr. Sumi Knutson DO Work Phone: 12-26-2024 22:13-0400 Body temperature 98 [degF] Dr. Sumi Knutson DO Work Phone: 12-26-2024 22:13-0400 Diastolic blood pressure 104 mm[Hg] Dr. Sumi Knutson DO Work Phone: 12-26-2024 22:13-0400 Heart rate 70 /min Dr. Sumi Knutson DO Work Phone: 12-26-2024 22:13-0400 Respiratory rate 14 /min Dr. Sumi Knutson DO Work Phone: 12-26-2024 22:13-0400 SaO2% (BldA) [Mass fraction] 99 % Dr. Sumi Knutson DO Work Phone: 12-26-2024 22:13-0400 Systolic blood pressure 125 mm[Hg] Dr. Sumi Knutson DO Work Phone: 12-26-2024 19:25-0400 Body height 154.[address] Sumi Knutson DO Work Phone: 12-26-2024 19:25-0400 Body mass index (BMI) [Ratio] 38.9 kg/m2 Dr. Sumi Knutson DO Work Phone: 12-26-2024 19:25-0400 Body weight 93.[address] Sumi Knutson DO Work Phone: 12-05-2024 19:00-0400 Diastolic blood pressure 87 mm[Hg] Dr. Sumi Knutson DO Work Phone: 12-05-2024 19:00-0400 Heart rate 79 /min Dr. Sumi Knutson DO Work Phone: 12-05-2024 19:00-0400 Respiratory rate 16 /min Dr. Sumi Knutson DO Work Phone: 12-05-2024 19:00-0400 SaO2% (BldA) [Mass fraction] 98 % Dr. Sumi Knutson DO Work Phone: 12-05-2024 19:00-0400 Systolic blood pressure 129 mm[Hg] Dr. Sumi Knutson DO Work Phone: 12-05-2024 16:22-0400 Body height 154.[address] Sumi Knutson DO Work Phone: 12-05-2024 16:22-0400 Body mass index (BMI) [Ratio] 38.9 kg/m2 Dr. Sumi Knutson DO Work Phone: 12-05-2024 16:22-0400 Body temperature 98.3 [degF] Dr. Sumi Knutson DO Work Phone: 12-05-2024 16:22-0400 Body weight 93.[address] Sumi Knutson DO Work Phone: 12-01-2024 12:40-0400 Body temperature 98.3 [degF] Dr. Sumi Knutson DO Work Phone: 12-01-2024 12:40-0400 Diastolic blood pressure 80 mm[Hg] Dr. Sumi Knutson DO Work Phone: 12-01-2024 12:40-0400 Heart rate 83 /min Dr. Sumi Knutson DO Work Phone: 12-01-2024 12:40-0400 Respiratory rate 17 /min Dr. Sumi Knutson DO Work Phone: 12-01-2024 12:40-0400 SaO2% (BldA) [Mass fraction] 98 % Dr. Sumi Knutson DO Work Phone: 12-01-2024 12:40-0400 Systolic blood pressure 128 mm[Hg] Dr. Sumi Knutson DO Work Phone: 11-24-2024 12:45-0400 Body temperature 98.4 [degF] Dr. Sumi Knutson DO Work Phone: 11-24-2024 12:45-0400 Diastolic blood pressure 84 mm[Hg] Dr. Sumi Knutson DO Work Phone: 11-24-2024 12:45-0400 Heart rate 90 /min Dr. Sumi Knutson DO Work Phone: 11-24-2024 12:45-0400 Respiratory rate 17 /min Dr. Sumi Knutson DO Work Phone: 11-24-2024 12:45-0400 SaO2% (BldA) [Mass fraction] 98 % Dr. Sumi Knutson DO Work Phone: 11-24-2024 12:45-0400 Systolic blood pressure 142 mm[Hg] Dr. Sumi Knutson DO Work Phone: 11-22-2024 15:11-0400 Body temperature 98.3 [degF] Dr. Sumi Knutson DO Work Phone: 11-22-2024 15:11-0400 Diastolic blood pressure 78 mm[Hg] Dr. Sumi Knutson DO Work Phone: 11-22-2024 15:11-0400 Heart rate 98 /min Dr. Sumi Knutson DO Work Phone: 11-22-2024 15:11-0400 SaO2% (BldA) [Mass fraction] 99 % Dr. Sumi Knutson DO Work Phone: 11-22-2024 15:11-0400 Systolic blood pressure 122 mm[Hg] Dr. Sumi Knutson DO Work Phone: 09-16-2024 15:27-0500 Body temperature 98 [degF] Dr. Sumi Knutson DO Work Phone: 09-16-2024 15:27-0500 Diastolic blood pressure 73 mm[Hg] Dr. Sumi Knutson DO Work Phone: 09-16-2024 15:27-0500 Heart rate 84 /min Dr. Sumi Knutson DO Work Phone: 09-16-2024 15:27-0500 Respiratory rate 14 /min Dr. Sumi Knutson DO Work Phone: 09-16-2024 15:27-0500 SaO2% (BldA) [Mass fraction] 99 % Dr. Sumi Knutson DO Work Phone: 09-16-2024 15:27-0500 Systolic blood pressure 126 mm[Hg] Dr. Sumi Knutson DO Work Phone: 09-14-2024 18:00-0500 Diastolic Blood Pressure Non-Invasive 80 mm[Hg] DR ANAYELI GONZALES DO [facility] 09-14-2024 18:00-0500 Heart rate 108 /min DR ANAYELI GONZALES DO [facility] 09-14-2024 18:00-0500 Systolic Blood Pressure Non-Invasive 131 mm[Hg] DR ANAYELI GONZALES DO [facility] 09-14-2024 15:25-0500 Body temperature 98.6 [degF] DR ANAYELI GONZALES DO [facility] 09-14-2024 15:25-0500 Body weight 90.[address] ANAYELI GONZALES DO [facility] 09-14-2024 15:25-0500 Diastolic Blood Pressure Non-Invasive 87 mm[Hg] DR ANAYELI GONZALES DO [facility] 09-14-2024 15:25-0500 Heart rate 106 /min DR ANAYELI GONZALES DO [facility] 09-14-2024 15:25-0500 Respiratory rate 20 /min DR ANAYELI GONZALES DO [facility] 09-14-2024 15:25-0500 Systolic Blood Pressure Non-Invasive 142 mm[Hg] DR ANAYELI GONZALES DO [facility] 12-01-2023 09:47-0400 Body temperature 97 [degF] [facility] 12-01-2023 09:47-0400 Diastolic blood pressure 66 mm[Hg] 12-01-2023 09:47-0400 Heart rate 72 /min [facility] 12-01-2023 09:47-0400 Respiratory rate 15 /min [facility] 12-01-2023 09:47-0400 SaO2% (BldA) [Mass fraction] 100 % 12-01-2023 09:47-0400 Systolic blood pressure 134 mm[Hg] 12-01-2023 06:36-0400 Body height 154.94 cm [facility] 12-01-2023 06:36-0400 Body mass index (BMI) [Ratio] 33.9 kg/m2 12-01-2023 06:36-0400 Body weight 81.4 kg [facility] 04-30-2022 07:35-0400 Diastolic blood pressure 78 mm[Hg] DR TESS JACQUES MD [facility] 04-30-2022 07:35-0400 Heart rate 68 /min DR TESS JACQUES MD [facility] 04-30-2022 07:35-0400 Respiratory rate 18 /min DR TESS JACQUES MD [facility] 04-30-2022 07:35-0400 Systolic blood pressure 129 mm[Hg] DR TESS JACQUES MD [facility] 04-30-2022 06:11-0400 Body temperature 97.7 [degF] DR TESS JACQUES MD [facility] 04-30-2022 06:11-0400 Diastolic blood pressure 71 mm[Hg] DR TESS JACQUES MD [facility] 04-30-2022 06:11-0400 Heart rate 76 /min DR TESS JACQUES MD [facility] 04-30-2022 06:11-0400 Respiratory rate 20 /min DR TESS JACQUES MD [facility] 04-30-2022 06:11-0400 Systolic blood pressure 126 mm[Hg] DR TESS JACQUES MD [facility] 02-10-2022 11:18-0400 Body temperature 98.42 [degF] GENE DOMINGUEZ MD [facility] 02-10-2022 11:18-0400 Diastolic blood pressure 90 mm[Hg] GENE DOMINGUEZ MD [facility] 02-10-2022 11:18-0400 Heart rate 81 /min GENE DOMINGUEZ MD [facility] 02-10-2022 11:18-0400 Respiratory rate 18 /min GENE DOMINGUEZ MD [facility] 02-10-2022 11:18-0400 Systolic blood pressure 146 mm[Hg] GENE DOMINGUEZ MD [facility] 07-16-2019 10:47-0500 BMI (Body Mass Index) 35.92 kg/m2 Sandy Raymond [facility] Work Phone: 07-16-2019 10:47-0500 Body weight 86.24 kg Sandy Raymond [facility] Work Phone: 07-16-2019 10:47-0500 BP Diastolic 78 mm[Hg] Sandy Raymond [facility] Work Phone: Comment on above: Location: LUE; Position: Sitting 07-16-2019 10:47-0500 BP Systolic 122 mm[Hg] Sandy Raymond [facility] Work Phone: Comment on above: Location: LUE; Position: Sitting 07-16-2019 10:47-0500 BSA (Body Surface Area) 1.85 m2 Sandy Raymond [facility] Work Phone: 07-16-2019 10:47-0500 Height 154.94 cm Sandy Raymond [facility] Work Phone: 07-16-2019 10:47-0500 Pulse (Heart Rate) 79 /min Sandy Raymond [facility] Work Phone: 07-16-2019 10:47-0500 Pulse Oximetry 99 % Sandy Raymond [facility] Work Phone: Encounters Encounter Date Encounter Type Care Provider Facility Start: 02-24-2025 ambulatory Sumi Knutson [facility] ity: Start: 02-19-2025 End: 02-19-2025 Emergency department patient visit Dr. Sumi Knutson DO Work Phone: -Emergency Department Work Phone: Start: 02-18-2025 End: 02-18-2025 Emergency department patient visit GENE DOMINGUEZ MD [facility] Start: 02-03-2025 End: 02-03-[address] SUMI KNUTSON DO Facility:[facility] Start: 02-03-2025 End: 02-03-[address] SUMI KNUTSON DO [facility] Start: 01-20-2025 End: 01-20-[address] SUMI KNUTSON DO Facility:[facility] Start: 01-20-2025 End: 01-20-[address] SUMI KNUTSON DO [facility] Start: 12-28-2024 End: 12-28-2024 Patient encounter procedure Bridgette BUCKLEY [facility] Work Phone: Start: 12-28-2024 End: 12-28-[address] Sumi Knutson DO Work Phone: [facility] Work Phone: Start: 12-26-2024 End: 12-26-2024 Emergency department patient visit Dr. Sumi Knutson DO Work Phone: -Emergency Department Work Phone: Start: 12-05-2024 End: 12-05-2024 Emergency department patient visit Dr. Sumi Knutson DO Work Phone: -Emergency Department Work Phone: Start: 12-01-2024 End: 12-01-2024 Patient encounter procedure Ken GROSSMAN [facility] Work Phone: Start: 12-01-2024 End: 12-01-2024 ambulatory Sumi Knutson Facility:[facility] Start: 11-24-2024 End: 11-24-2024 Patient encounter procedure Ken GROSSMAN [facility] Work Phone: Start: 11-24-2024 End: 11-24-2024 ambulatory Sumi Knutson Facility:[facility] Start: 11-22-2024 End: 11-22-2024 Patient encounter procedure Ken Yogesh Fatima PA [facility] Work Phone: Start: 11-22-2024 End: 11-22-2024 ambulatory Ken Yogesh Fatima Facility:[facility] Start: 11-22-2024 End: 11-22-2024 ambulatory Ken Fatima Facility:[facility] Start: 09-16-2024 End: 09-16-2024 Emergency department patient visit Dr. Riaz Logan MD -Emergency Department Work Phone: Start: 09-14-2024 End: 09-14-2024 Emergency department patient visit DR ANAYELI GONZALES DO [facility] Start: 12-01-2023 End: 12-01-2023 Emergency department patient visit -Emergency Department Work Phone: Start: 05-05-2022 End: 05-05-2022 Emergency department patient visit TRENTON HANNAH MD Facility:[facility] Start: 04-30-2022 End: 04-30-2022 Emergency department patient visit DR. ANAYELI GONZALES DO Facility:[facility] Start: 04-30-2022 End: 04-30-2022 Emergency department patient visit DR TESS JACQUES MD [facility] Start: 02-10-2022 End: 02-10-2022 Emergency department patient visit GENE DOMINGUEZ MD Facility:[facility] Start: 02-10-2022 End: 02-10-2022 Emergency department patient visit GENE DOMINGUEZ MD [facility] Start: 05-20-2021 End: 05-20-2021 Emergency department patient [...] Dr. Sumi Knutson DO Work Phone: Start: 09-16-2024 SARS-CoV-2, Influenz a & RSV (PCR) Dr. Sumi Knutson DO Work Phone: Start: 12-01-2023 Radiologic examinati on of knee H/O: tubal ligation H/O tubal li gation( Confirmed ) GENE DOMINGUEZ MD Ligation of fallopia n tube Sandy Raymond Ligation of fallopia n tube GENE DOMINGUEZ MD Plan of Treatment Date Care Activity Detail Author Start: 02-19-2025 [facility] Start: 12-01-2023 [facility] Patient Education [facility] Work Phone: Patient referral [facility] Work Phone: Immunizations Immunization Date Immunization Notes Care Provider Fa cility 01-20-2025 tetanus toxoid, redu elliot diphtheria toxoid, and acellular pertussis vaccine, adsorbed; Translations: [Boostrix (Tdap)] DR SUMI KNUTSON DO [facility] Payers Date Payer Category Payer Unknown [id number] 2024 Unknown [id number] 2024 Self-pay [id number] 2018 Medicaid [id number] 2018 Private Health Insurance [id number] 2016 Private Health Insurance [id number] 2016 Unknown [id number] 1980 Unknown [id number] 2.16.8 [id number] 1982 Unknown [id number] 2.16.8 40.1.063775.3.579.2.627 1982 Unknown [id number] 2.16.8 40.1.328381.3.579.2.627 1982 Unknown [id number] 2.16.8 40.1.638884.3.579.2.627 1982 Unknown [id number] 2.16. 840.1.467223.3.579.2.627 1982 Unknown [id number] 2.16. 840.1.946177.3.579.2.627 1982 Unknown [id number] 2.16. 840.1.463159.3.579.2.627 1982 Unknown [id number] 2.16.8 40.1.805762.3.579.2.627 Unknown [id number] Unknown [id number] 2.16.8 40.1.121219.3.579.2.462 Unknown [id number] 2.16.8 40.1.287994.3.579.2.462 Unknown [id number] 2.16.8 40.1.944951.3.579.2.462 Unknown [id number] 2.16.8 40.1.184859.3.579.2.462 Unknown [id number] 2.16.8 40.1.814933.3.579.2.462 Unknown [id number] 2.16.8 40.1.401385.3.579.2.462 Unknown [id number] 2.16.8 40.1.810737.3.579.2.462 Unknown [id number] 2.16.8 40.1.153003.3.579.2.462 Unknown [id number] 2.16.8 40.1.908269.3.579.2.462 Unknown [id number] 2.16.8 40.1.638775.3.579.2.462 Unknown [id number] 2.16.8 40.1.187008.3.579.2.462 Social History Date Type Detail Facility Start: 10-06-2020 End: 01-20-2025 Tobacco smoking status Heavy tobacco smoker (finding) [facility] Sex Assigned At [facility] Start: 12-01-2023 Tobacco smoking status NHIS Unknown if ever smoked Start: 03-10-2020 Occasional [facility] Start: 03-10-2020 None [facility] Start: 03-10-2020 With Family [facility] Start: 05-30-2014 Cigarettes [facility] Start: 1980 Sex Assigned At Female Start: 10-15-2014 Sex Female (finding) [facility] Start: 12-05-2024 End: 02-19-2025 Tobacco smoking status NHIS Smokes tobacco daily (finding) NEGATED: Highlighted row - - [facility] Work Phone: Functional Status Date Assessment Result Facility 09-14-2024 Functional Status Independent [facility] 04-30-2022 Functional Status Room check performed [facility] 04-30-2022 [facility] 02-10-2022 Functional Status ID band on, Allergy Band on, Call device within reach, Bed in low position, Wheels locked, Upper/Half-Length side-rails up, Phone within reach, personal items within reach, Assistive devices within reach, Toileting device within reach, Bedside Cart Locked, Visitor at bedside, Safety level maintained [facility] NEGATED: Highlighted row Functional performance Functional status health issues are not documented Disease [facility] Work Phone: Mental Status Date Assessment Result Facility 02-19-2025 Cognitive function Level Of Cons ciousness Awake;Alert;Appropriate ;Follows Commands Work Phone: 04-30-2022 Mental Status Orientation Orie nted x 4 [facility] 04-30-2022 Mental Status [place] 02-10-2022 Mental Status Oriented x 4 [place] NEGATED: Highlighted row Cognitive function [Interpretation] Cognitive status health issues are not documented Disease [facility] Work Phone: Clinical Notes 11-27-2021 to 02-18-2025 [...] Numbness in the groin or genital area [id number] [employer]. [address] [place] [address]. All rights reserved. This information is not intended as a substitute for professional medical care. Always follow your healthcare professional's instructions. Follow Up Care 02/18/2025 11:54:06 With:SUMI KNUTSON DO Address: [address] [place] [address] [place] [address]- [phone] When:5 to 7 days [facility] 02-18-2025 Emergency department Discharge summary Discharge Instructions Thank you for allowing [facility] to assist you with your healthcare needs. [...] KNUTSON DO When:Within 5 to 7 days Where:[facility] [place] [address]- [phone] Allergies Benedryl Allergy Sinus Toradol traMADol itching [...] Numbness in the groin or genital area [phone] [employer]. [address] [place] [address]. All rights reserved. This information is not intended as a substitute for professional medical care. Always follow your healthcare professional's instructions. Additional Information VACCINATE! IT SAVES LIVES! Members of the community who have not yet received the COVID-19 vaccine and would like to receive it can visit one of [facility] vaccine clinics. There are many vaccine clinic locations within the [facility]. For locations and available times, please visit [email or web address] It is important to note that some COVID mobile vaccine clinics are held outdoors and may be canceled in rainy or stormy conditions. To learn more about pediatric vaccinations (ages 5-11), we invite you to visit the [facility] webpage. https://www.[email or web address].org/p ages/2490-Seznb-Oiqeizeomyq-Freq dslpug-Depaw-Dyzgzzoxy.html To learn more about the COVID-19 vaccine, we invite you to visit the CDC website for a list of frequently asked questions. https://www.cdc.gov/coronavirus/ 2019-ncov/vaccines/faq.html [facility] Patient Portal Access Instructions: Stay connected with your healthcare team and access your personal medical information anytime with the [facility] Patient Portal. If you would like a full copy of your medical records please contact the [facility] Medical Records Department Friday through Friday between 8a.m. and 4:30p.m. Please follow the directions below to access the portal: 1.Access the email account you provided upon registration to the hospital.2.Look for an invitation email from [facility].3.Open the email and access the invitation link: Accept Invitation to [facility].Fill in the required shields to create your account. Sign into [email or web address] with your username and password that you [...] you will allow to register on the [facility] Patient Portal for access to your information. You can also access the [facility] Patient Portal on the [facility]. Simply click on Health Records under Health Data and then click on the [facility] logo. HOW TO SAFELY DISPOSE OF PRESCRIPTION [...] Call your local pharmacy or go to [email or web address] to find one close to you.3.Make use of household items: Use cat litter or old coffee grounds to dispose medications if other options are not available. Mix your drugs with these household products, seal them in an airtight container and throw it into the garbage. Call [facility]: [phone] to be sure your drugs can be [...] been reviewed and explained to me and ITERENCE KIMBERLY R understand my current condition and have read and understand these discharge instructions. I have received a written copy of the plan/instructions. If I have questions, I am aware that I should contact my doctor. 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 Sumi Knutson, DO Status: REG ER Study:Abdomen/Pelvis W IV Cont ONLY Date of E xam: 12/26/24 Exam# [id number] Ordering Dr: Tristan Le MD PROCEDURE: ABDOMEN/PELVIS [...] lower chance of developing HCC. Reading Location: [id number] CC: Dr. Tristan Le MD; Dr. Sumi Knutson, DO ~ Cardiovascular Disease Specialist: Signed 12-26-2024 Discharge summary Note Date/Time December 26, 2024 10:01pm [facility] Medical Records Department [address] [place] [address] Emergency Department Summary 12/26/24 MR#: [id number] Acct: [id number] Name: GARRISON PRATT Rep #:[id number] : [...] describes more epigastric to diffuse abdominal pain. PFSH PFS Medical History Lumbar strain Left [...] has multiple antiacids in the form of mozi-dzg-qewhcff Prilosec as well as Pepcid ACat home. [...] % (Auto) 52.2 Lymph % (Auto) 33.7 [place] % (Auto) 8.0 Eos % (Auto) 4.8 [...] Clarity Clear Urine pH 7.0 Ur Specific [place] 1.015 Urine Protein 30 H Urine Glucose [...] lower chance of developing HCC. Reading Location: [id number] Discharge Plan Triage Chief Complaint: Abd Pain [...] Provider] - 3-5 Days if not improving FriendPablito DO [Med Staff - Active Staff] - As soon as possible Activity Restrictions/Additional Instructions: Continue your antacids. Follow-up with your primary care provider. Return withnew or worsening symptoms. Clear liquid diet advance as tolerated. Print Language: Kazakh Disposition Disposition: Home, Self Care What to do if you have Problems For any increased pain, shortness of breath, bleeding, nausea or vomiting, chestpain, or any unexpected problems, contact your Primary Care Provider. Call [facility] ([phone]) or report to the closest Emergency Room. Call 911 if necessary. 12/26/242200 <Electronically signed by Tristan Le MD> Cosigner Signature (if applicable): CC: Dr. Sumi Knutson DO ~ Signed Work Phone: 1(681) 593-175005-11-2025 Radiology Diagnostic study note [facility] Imaging Services [address] [place], [place] [address] Lumbar Spine 2 or 3 Views MR#: [id number] Acct: [id number] Name: GARRISON PRATT Rep #: [id number] : 1980 F 44 From: Cherry Michael MD PCP: Dr. Sumi Knutson DO Status: REG ER Study:Lumbar Spine 2 or 3 Views Date of Exam: 12/05/24 Exam# [id number] Ordering Dr: Irving Montaño MD PROCEDURE: LUMBAR [...] acute fracture or traumatic subluxation. Reading Location: [facility] CC: Dr. Juan Montaño MD; Dr. Sumi Knutson DO ~ Cardiovascular Disease Specialist: Signed 04-28-2025 Evaluation note* Diagnosis Onset Date Resolution Status Admit Date Left ankle sprain acute October 272024 2:49pm Lumbar strain acute November 22, 2024 2:49pm Work Phone: 1(301) 403-790804-28-2025 Evaluation note* Diagnosis Onset Date Resolution Status Admit Date Left ankle sprain acute October 272024 2:49pm Lumbar strain acute Sahra 28th, 2025 2:49pm Abdominal pain inactive December 28, 2024 9:46am Diarrhea inactive December 28, 2024 9:46am Nausea and vomiting inactive December 28, 2024 9:46am Work Phone: 1(373) 722-420802-18-2025 Hospital Discharge instructions Patient Education 09/14/2024 17:42:35 [...] loosen secretions in your nose and lungs. Khzm-ntl-nhhqvrq cold medicines will not make the flu [...] after getting better for a few days [phone] [employer]. [address] [place] [address]. All rights reserved. This information is not intended as a substitute for professional medical care. Always follow yourhealthcare professional's instructions. Follow Up Care 09/14/2024 15:20:46 With:SUMI KNUTSON DO Address: [address] [place] [phone] When:2-4 days [facility] 02-18-2025 Note Discharge Instructions Thank you for allowing [facility] to assist you with your healthcare needs. [...] with SUMI KNUTSON DO When:Within 2-4 days Where:[address] [place] [phone] Allergies Benedryl Allergy Sinus Toradol traMADol itching [...] loosen secretions in your nose and lungs. Kfuk-jnw-nfydhip cold medicines will not make the flu [...] after getting better for a few days [phone] [employer]. [address] [place] [address]. All rights reserved. This information is not intended as a substitute for professional medical care. Always follow yourhealthcare professional's instructions. Additional Information VACCINATE! IT SAVES LIVES! Members of the community who have not yet received the COVID-19 vaccine and would like to receive it can visit one of [facility] vaccine clinics. There are many vaccine clinic locations within the [facility]. For locations and available times, please visit [email or web address] It is important to note that some COVID mobile vaccine clinics are held outdoors and may be canceled in rainy or stormy conditions. To learn more about pediatric vaccinations (ages 5-11), we invite you to visit the [facility] webpage. https://www.[facility].org/pages/3978-Kyads-Qzeykuafjjk-Dhwfllxotx-Nlvey-Xiq stions.htmlTo learn more about the COVID-19 vaccine, we invite you to visit the CDC website for a list of frequently asked questions. https://www.cdc.gov/coronavirus/2019-ncov/vaccines/faq.html [facility] Patient Portal Access Instructions: Stay connected with your healthcare team and access your personal medical information anytime with the [facility] Patient Portal. If you would like a full copy of your medical records please contact the [facility] Medical Records Department Friday through Friday between 8a.m. and 4:30p.m. Please follow the directions below to access the portal: 1.Access the email account you provided upon registration to [facility].2.Look for an invitation email from [facility].3.Open the email and access the invitation link: Accept Invitation to [facility].Fill in the required shields to create your account. Sign into [email or web address] with your username and password that you [...] you will allow to register on the [facility] Patient Portal for access to your information. You can also access the [facility] Patient Portal on the SIVI lobo. Simply click on Health Records under xTurionta and then click on the MeBeam logo. HOW TO SAFELY DISPOSE OF PRESCRIPTION [...] Call your local pharmacy or go to http://bit.ly/0G1Qr0u to find one close to you.3.Make use of household items: Use cat litter or old coffee grounds to dispose medications if other options arenot available. Mix your drugs with these household products, seal them in an airtight container andthrow it into the garbage. Call [facility]: [phone] to be sure your drugs can be [...] am aware that I should contactmy doctor. 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: Date/Time: Relationship to Patient: Witness Name/Signature: Date/Time: [facility]05-09-2024 Evaluation + Plan note Future Scheduled Tests Laboratory* Thyroid Stimulating Hormone 12/04/23 * Complete Blood Count 12/04/23 * Lipid Profile 12/04/23 * Complete Metabolic Panel 12/04/23 [facility] 05-06-2024 Discharge summary Author Ken Ness December 01, 2023 9:38am Note Date/Time December 01, 2023 7:46am [facility] Medical Records Department [address] [place] [address] Emergency Department Summary 12/01/23 MR#: [id number] Acct: [id number] Name: GARRISON PRATT Rep #:[id number] : [...] the left patella. Denies any other injury. [facility] Medical History Absence seizure disorder Anxiety [...] left knee film. Patient was given a [place] before she went over. X- ray of [...] your Primary Care Provider. Call [facility] ([phone]) or report to the closest Emergency Room. Call 911 if necessary. 12/01/23937 <Electronically signed by Ken Ness DO> Cosigner Signature (if applicable): CC: Dr. Sumi Knutson DO ~ Signed Work Phone: [phone] 454-951510-04-2022 Hospital Discharge instructions Patient Education 04/30/2022 06:29:39 [...] the smoke from others. You may use xcrz-xpc-soddieq acetaminophen or ibuprofen for fever, muscle aching, [...] body and be dangerous to your health. Pcdq-nxc-xwzcbgq remedies won't shorten the length of the [...] or as directed by your healthcare provider 4890-9345 [employer]. [address] [place] [address]. All rights reserved. This information is not intended as a substitute for professional medical care. Always follow yourhealthcare professional's instructions. Follow Up Care 04/30/2022 06:08:52 With:SUMI KNUTSON DO Address: [address] [place] [phone]- [phone] When:2-4 days [facility] 10-04-2022 Note Discharge Instructions Thank you for allowing [facility] to assist you with your healthcare needs. [...] KNUTSON DO When Within 2-4 days Where: [address] [place] [phone] Allergies Benedryl Allergy Sinus traMADol (itching) Medications [...] may report side effects to FDA at 5-569-SMM-0320. What other drugs will affect baclofen? Using baclofen with other drugs that make you drowsy can worsen this effect. Ask your doctor beforeusing opioid medication, a sleeping pill, a muscle relaxer, or medicine for anxiety or seizures. Other drugs may affect baclofen, including prescription and yyuj-phw-uwmjzhl medicines, vitamins, and herbal products. Tell your [...] to ensure that the information provided by [employer]. ('[employer]') is accurate, up-to-date, and complete, but no guarantee is made to that effect. Drug information contained herein may be time sensitive. [employer] information has been compiled for use by healthcare practitioners and consumers in the [place] and therefore [employer] does not warrant that uses outside of the [place] are appropriate, unless specifically indicated otherwise. [employer] drug information does not endorse drugs, diagnose patients or recommend therapy. [employer] drug information isan informational resource designed to [...] effective or appropriate for any given patient. [employer] does not assume any responsibility for any aspect of healthcare administered with the aid of information [employer] provides. The information contained herein is not intended to cover all possible uses, directions, precautions, warnings, drug interactions, allergic reactions, or adverse effects. If you have questions about the drugs you are taking, check with your doctor, nurse or pharmacist. Copyright 1522-5265 [employer]. Version: 8.02. Revision Date: 02/27/2021. benzonatate (yanick RAQUELMalik rhodes) Corrine Curtis What is the most [...] may report side effects to FDA at 5-941-SWL-0358. What other drugs will affect benzonatate? Using benzonatate with other drugs that make you drowsy can worsen this effect. Ask your doctor before using opioid medication, a sleeping pill, a muscle relaxer, or medicine for anxiety or seizures. Other drugs may affect benzonatate, including prescription and jpey-hge-qtptlhq medicines, vitamins, and herbal products. Tell your [...] to ensure that the information provided by [employer]. ('[employer]') is accurate, up-to-date, and complete, but no guarantee is made to that effect. Drug information contained herein may be time sensitive. [employer] information has been compiled for use by healthcare practitioners and consumers in the [place] and therefore [employer] does not warrant that uses outside of the [place] are appropriate, unless specifically indicated otherwise. [employer] drug information does not endorse drugs, diagnose patients or recommend therapy. [employer] drug information isan informational resource designed to [...] effective or appropriate for any given patient. [employer] does not assume any responsibility for any aspect of healthcare administered with the aid of information [employer] provides. The information contained herein is not intended to cover all possible uses, directions, precautions, warnings, drug interactions, allergic reactions, or adverse effects. If you have questions about the drugs you are taking, check with your doctor, nurse or pharmacist. Copyright 8812-8848 [employer]. Version: 9.01. Revision Date: 05/06/2019. Education Materials [...] the smoke from others. You may use tljo-jvp-sessdsh acetaminophen or ibuprofen for fever, muscle aching, [...] body and be dangerous to your health. Qkqb-aav-llcnssd remedies won't shorten the length of the [...] or as directed by your healthcare provider 2192-7189 [employer]. [address] [place] [address]. All rights reserved. This information is not intended as a substitute for professional medical care. Always follow yourhealthcare professional's instructions. Additional Information VACCINATE! IT SAVES LIVES! Members of the community who have not yet received the COVID-19 vaccine and would like to receive it can visit one of [facility] vaccine clinics. There are many vaccine clinic locations within the [facility]. For locations and available times, please visit [email or web address]. It is important to note that some COVID mobile vaccine clinics are held outdoors and may be canceled in rainy orstormy conditions. To learn more about pediatric vaccinations (ages 5-11), we invite you to visit the [facility] webpage. https://www.[facility].org/pages/0014-Ivzdm-Nkkbicdeeef-Hfoadwkumu-Zuwhe-Vou stions.htmlTo learn more about the COVID-19 vaccine, we invite you to visit the [facility] website for a list of frequently asked questions. [email or web address]://[email or web address]/assets/Ymfglget-glp-Actkvfxw/qsdfk-Udeyuaa-Smodzndnow _Asked-Questions.pdf [facility] Patient Portal Access Instructions: Stay connected with your healthcare team and access your personal medical information anytime with the [facility] Patient Portal. If you would like a full copy of your medical records please contact the [facility] Medical Records Department Friday through Friday between 8a.m. and 4:30p.m. Please follow the directions below to access the portal: 1.Access the email account you provided upon registration to the hospital.2.Look for an invitation email from [facility].3.Open the email and access the invitation link: Accept Invitation to [facility]4.Fill in the required shields to create your account. Sign into [email or web address] with your username and password that you [...] you will allow to register on the [facility] Patient Portal for access to your information. You can also access the [facility] Patient Portal on the HASH. Simply click on Health Records under Victorious and then click on the Hamlet logo. HOW TO SAFELY DISPOSE OF PRESCRIPTION [...] Call your local pharmacy or go to http://[email or web address].fm.[email or web address] to find one close to you.3.Make use of household items: Use cat litter or old coffee grounds to dispose medications if other options arenot available. Mix your drugs with these household products, seal them in an airtight container andthrow it into the garbage. Call [facility]: [phone] to be sure your drugs can be [...] am aware that I should contactmy doctor. 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 [address] [place] [address] 26249. All rights reserved. This information is not intended as a substitute for professional medical care. Always follow yourhealthcare professional's instructions. Follow Up Care 02/10/2022 11:13:11 With:Go to emergency room if symptoms worsen Address:Unknown When:2-4 days With:SUMI KNUTSON DO Address: [address] [place] [address] [phone] When:2-4 days [facility] 07-17-2022 Emergency department Discharge summary Discharge Instructions Thank you for allowing [facility] to assist you with your healthcare needs. [...] KNUTSON DO When Within 2-4 days Where: [address] [place] [phone] Allergies Benedryl Allergy Sinus traMADol (itching) Medications [...] The entire arm becomes swollen or weak 7817-8614 [employer]. [address] [place] [address], [place] [address]. All rights reserved. This information is not intended as a substitute for professional medical care. Always follow yourhealthcare professional's instructions. Additional Information VACCINATE! IT SAVES LIVES! Members of the community who have not yet received the COVID-19 vaccine and would like to receive it can visit one of [facility] vaccine clinics. There are many vaccine clinic locations within the [facility]. For locations and available times, please visit [email or web address]. It is important to note that some COVID mobile vaccine clinics are held outdoors and may be canceled in rainy orstormy conditions. To learn more about pediatric vaccinations (ages 5-11), we invite you to visit the [facility] webpage. https://www.[facility].org/pages/2206-Ljjzm-Izumatfpxve-Xrnvwiieqh-Pzhat-Skf stions.htmlTo learn more about the COVID-19 vaccine, we invite you to visit the [facility] website for a list of frequently asked questions. https://[email or web address]/assets/Zkskeayk-qii-Blvhkehh/tqhhx-Vsqgtfc-Byidfkzjur _Asked-Questions.pdf [facility] Patient [facility] Access Instructions: Stay connected with your healthcare team and access your personal medical information anytime with the [facility] Patient Portal. If you would like a full copy of your medical records please contact the [facility] Medical Records Department Friday through Friday between 8a.m. and 4:30p.m. Please follow the directions below to access the portal: 1.Access the email account you provided upon registration to [facility].2.Look for an invitation email from [facility].3.Open the email and access the invitation link: Accept Invitation to [facility].Fill in the required shields to create your account. Sign into [email or web address] with your username and password that you [...] you will allow to register on the [facility] Patient Portal for access to your information. You can also access the [facility] Patient Portal on the HASH. Simply click on Health Records under HealthData and then click on the MeBeam logo. HOW TO SAFELY DISPOSE OF PRESCRIPTION [...] Call your local pharmacy or go to http://official.fm.[employer]/3M5We9k to find one close to you.3.Make use of household items: Use cat litter or old coffee grounds to dispose medications if other options arenot available. Mix your drugs with these household products, seal them in an airtight container andthrow it into the garbage. Call [facility]: [phone] to be sure your drugs can be [...] am aware that I should contactmy doctor. 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: Date/Time: Relationship to Patient: Witness Name/Signature: Date/Time: [facility]05-03-2022 Evaluation + Plan note Future Scheduled Tests Laboratory* Thyroid Stimulating Hormone 11/27/21 * Complete Blood Count 11/27/21 * Lipid Profile 11/27/21 * Complete Metabolic Panel 11/27/21 [facility] Evaluation + Plan note Future Appointments Appointment Date:03/03/2025 07:00:00 AM Scheduled Provider:SUMI KNUTSON DO Location:[facility] Appointment Type:PC Wellness Female Future Scheduled Tests Radiology* MA Mammo Screening Bilateral w/ Kirt 01/20/25 [facility] Evaluation + Plan note Future Appointments Appointment Date:03/03/2025 07:00:00 AM Scheduled Provider:SUMI KNUTSON DO Location:[facility] Appointment Type:PC Wellness Female [facility] Evaluation noteNo assessment information available Work Phone: Hospital course Narrative No data available for this section [facility] Hospital Discharge instructions Additional Instructions Continue your antacids. Follow-up with your primary care provider. Return with new or worsening symptoms. Clear liquid diet advance as tolerated. Work Phone: Hospital Discharge instructions No data available for this section [facility] Hospital Discharge instructionsAdditional Instructions Thank you for trusting us with your care today! Your history and physical exam consistent with a trapezius muscle strain. This is treated with anti-inflammatories including ibuprofen, steroids rest and light stretching. Please take Tylenol (2 pills, 650 mg), ibuprofen (2 pills, 400 mg) every 6 hours as needed for pain and fever control. Please take prednisone as prescribed. Please return to the emergency department if your symptoms change or worsen. Please follow with your primary care physician for further outpatient evaluation and management. Work Phone: Progress note No data available for this section [facility] Reason for referral (narrative)No reason for referral information availableWDay[facility] Work Phone: Family History No [...] December 01, 2023 6: 38am Power of Activity Specialist No December 01, 2023 6:38am Advance Directive Response Recorded Date/ Time Living Will No September 16 2:20pm Do you have a Healthcare Power of Activity Specialist? No September 16, 2024 2:20pm Do you have a Healthcare Power of Activity Specialist? No December 05, 2024 5:37pm Advance Directives No December 29 9:11am Advance Directive Response Recorded Date/ Time Living Will No September 16, 025 2:20pm Do you have a Healthcare Power of Activity Specialist? No September 16, 2024 2:20pm Do you have a Healthcare Power of Activity Specialist? No December 05, 2024 5:37pm Do you have a Healthcare Power of Activity Specialist? No December 26, 2024 7:41pm Advance Directives No December 29 9:11am Advance Directive Response Recorded Date/ Time Do you have a Healthcare Power of Activity Specialist? No February 19, 2025 8:15pm Do you have a Healthcare Power of Activity Specialist? No December 05, 2024 5:37pm Do you have a Healthcare Power of Activity Specialist? No December 26, 2024 7:41pm Advance Directives [...] NAUSEA VOMITING FATTY LIVER December 282024 9:46am Chief Complaint Admit Date PA NON DOT DRUG & BAT/ WEST [...] NAUSEA VOMITING FATTY LIVER December 282024 9:46am NECK PAIN February 19, 2025 8:03 pm Reason for Visit Admit Date Left ankle sprain November 22, 2024 2:4 9pm Lumbar strain November 22, 2024 2:4 9pm Abdominal pain December 28, 2024 9:46a m Diarrhea December 28, 2024 9:46a m Nausea and vomiting December 28, 2024 9:46a m Additional Source Comments INFORMATION SOURCE (unrecogn ized section and content) DATE CREATED AUTHOR 08/18/2020 [employer] DATE CREATED AUTHOR AUTHOR'S ORGANIZ ATION 05/19/2022 [facility] DATE CREATED AUTHOR AUTHOR'S ORGANIZ ATION 02/19/[address] [facility] DATE CREATED AUTHOR AUTHOR'S ORGANIZ ATION 02/24/[address] [facility] [facility] Care Team (unrecognized sect ion and content) Care Team Personnel Name: SUMI KNUTSON DO Position: P4 Physician - Primary Care Med Service: Active Provider Member Role: Primary Care Physician Address: Address: [address] [place] [address]- Care Team Related Persons Name: CAROLA PRATT Address: Home [address] [place] [address] [address] [place], [place] [phone] [place] Name: MANINDER PRATT Address: Home [address] [place], [place] [id number] [place] Name: SHENAELENO KRAFTScout Huerta Name: SHENAELENO KRAFTA Bradley Name: SHENAELENO KRAFTA K Name: SHENAELENO KRAFTA K Name: SHENAELENO KRAFTA K Name: ELENO CHATTERJEEA Bradley Name: ALANNA CHATTERJEE Care Team Personnel Name: SUMI KNUTSON DO Position: P4 Physician - Primary Care Med Service: Active Provider Member Role: Primary Care Physician Address: Address: [address] [place] [phone] Care Team Related Persons Name: CAROLA PRATT Address: Home [address] [place], [place] [phone] [place] Name: MANINDER PRATT Address: Home [address] [place], [place] [id number] [place] Name: ALANNA CHATTERJEE Name: ELENO CHATTERJEEA Bradley Name: ELENO CHATTERJEEA Bradley Name: ELENO CHATTERJEEA Bradley Name: ELENO CHATTERJEEA Bradley Name: ELENO CHATTERJEEA Bradley Name: ALANNA CHATTERJEE Care Teams (unrecognized sec tion and content) Team Status: Active Member Role Status Dates Dr. Sumi Knutson DO Family Provider Active Dr. Sumi Knutson DO Primary Care Provider Activ e Team Status: Inactive Member Role Status Dates Dr. Sumi Knutson DO Primary Care Provider Activ e Dr. Ken Ness DO Emergency Provider Active Team Status: Active Member Role Status Dates Dr. Sumi Knutson DO Primary Care Provider Activ e Team [...] End: November 24, 2024 Dr. Sumi Knutson , DO Referring Provider Active Start: November 24, 2024 End: November 24, 2024 Ken GROSSMAN PA Attending Provider Active Start: November 24, 2024 End: November 24, 2024 Team Status: Inactive Member Role Status Dates Dr. Sumi Knutson , DO Primary Care Provider Activ e Start: December 01, 2024 End: December 01, 2024 Dr. Sumi Knutson , DO Referring Provider Active Start: December 01, [...] End: December 28, 2024 Dr. Sumi Knutson , DO Referring Provider Active Start: December 28, 2024 End: December 28, 2024 INA Mcnair Attending Provider Active Start: December 28, 2024 End: December 28, 2024 Team Status: Active Member Role/Relationship Status Dates Dr. Sumi Knutson DO Primary Care Provider Activ e Team Status: Inactive Member Role/Relationship Status Dates Dr. Sumi Knutson , Primary Care Provider Activ e Start: November 22, 2024 End: November 22, 2024 Dr. Sumi Knutson , Referring Provider Active Start: November 22, 2024 End: November 22, 2024 NGOC Mcarthur Attending Provider Active Start: November 22, 2024 End: November 22, 2024 Team Status: Inactive Member Role/Relationship Status Dates Dr. Sumi Knutson DO Primary Care Provider Activ e Start: November 22, 2024 End: November 22, 2024 Dr. Sumi Knutson DO Referring Provider Active Start: November 22, 2024 End: November 22, 2024 NGOC Mcarthur Attending Provider Active Start: November 22, 2024 End: November 22, 2024 Team Status: Inactive Member Role/Relationship Status Dates Dr. Sumi Knutson , Primary Care Provider Activ e Start: November 22, 2024 End: November 22, 2024 Ken GROSSMAN PA Attending Provider Active Start: November 22, 2024 End: November 22, 2024 NGOC Mcarthur Referring Provider Active Start: November 22, 2024 End: November 22, 2024 Team Status: Inactive Member Role/Relationship Status Dates Dr. Sumi Knutson DO Primary Care Provider Activ e Start: November 24, 2024 End: November 24, 2024 Dr. Sumi Knutson DO Referring Provider Active Start: November 24, 2024 End: November 24, 2024 Ken GROSSMAN PA Attending Provider Active Start: November 24, 2024 End: November 24, 2024 Team Status: Inactive Member Role/Relationship Status Dates Dr. Sumi Knutson DO Primary Care Provider Activ e Start: December 01, 2024 End: December 01, 2024 Dr. Sumi Knutson DO Referring Provider Active Start: December 01, 2024 End: December 01, 2024 Ken GROSSMAN PA Attending Provider Active Start: December 01, 2024 End: December 01, 2024 Team Status: Inactive Member Role/Relationship Status Dates Dr. Sumi Knutson DO Primary Care Provider Activ e Start: December 05, 2024 End: December 05, 2024 Dr. Juan Montaño MD Attending Provider Active Start: December 05, 2024 End: December 05, 2024 Dr. Juan Montaño MD Emergency Provider Active Start: December 05, 2024 End: December 05, 2024 Team Status: Inactive Member Role/Relationship Status Dates Dr. Sumi Knutson DO Primary Care Provider Activ e Start: December 26, 2024 End: December 26, 2024 Tristan Le MD Attending Provider Active Star t: December 26, 2024 End: December 26, 2024 Tristan Le MD Emergency Provider Active Star t: December 26, 2024 End: December 26, 2024 Team Status: Inactive Member Role/Relationship Status Dates Dr. Sumi Knutson DO Primary Care Provider Activ e Start: December 28, 2024 End: December 28, 2024 Dr. Sumi Knutson DO Referring Provider Active Start: December 28, 2024 End: December 28, 2024 INA Mcnair Attending Provider Active Start: December 28, 2024 End: December 28, 2024 Team Status: Inactive Member Role/Relationship Status Dates Dr. Sumi Knutson DO Primary Care Provider Activ e Start: February 19, 2025 End: February 19, 2025 Dr. Rob King , DO Emergency Provider Active Start: February 19, 2025 End: February 19, 2025 Goals (unrecognized section and content) Goals may [...] BE BASED ON THE PRIMARY CLINICAL RECORDS. [facility] [employer] provides no warranty or guarantee of the accuracy or completeness of information in this document.
[2025-02-24] MEDS: Lactated Ringers 1,000 ML 15 ML IV (06:07)
--- NOTE | 2025-02-24 06:30 | EGD_PTH ---
PATIENT: GARRISON PRATT LOC: EN U#:[id number] AGE/SX: 44/F ROOM: RE02/24/[address]: Dr. Pablito Fields DO : 1980 BED: DIS: 02/24/2025 SPEC #: [id number] RECD: 02/24/25 09:16 STATUS: KAYLA HIGINIO #: [id number] LATOYA: 02/24/25 06:[address]: Pablito Fields DEPT: SURGICAL PATHOLOGY RECD BY: Kwasi Huston ENTERED: 02/24/25 09:58 SP TYPE: EGD BIOPSY JOCELYN DR: Dr. Reyna Talavera DO Tissues: A - Duodenum, NOS B - Gastric mucous membrane C - Esophagus, NOS D - Ileum, NOS E - COLON BIOPSY Procedures: Immunohistochemical Stains Surgery Specimen Level IV HEADER OPERATION: Colonoscopy, EGD, biopsy PRE-OP DIAGNOSIS: Nausea / vomiting, abdominal pain, diarrhea TISSUE SUBMITTED: A- Duodenum biopsy, B- Gastric body biopsy, C- Distal esophagus biopsy, D- Terminal ileum biopsy, E- Random colonic biopsy MICROSCOPIC DIAGNOSIS A. Duodenum, biopsy: - Essentially normal villous architecture with mildly increased intraepithelial lymphocytes - see note. Note: This pattern of injury is etiologically nonspecific and the differential diagnosis includes sensitivity to gluten and non-gluten proteins, small intestinal bacterial overgrowth, stasis related changes, infection, protein calorie malnutrition, tropical sprue, and medication injury (NSAIDs, Olmesartan / Benicar, Mycophenolic acid, Idelalisib, for example). If celiac disease is a clinical concern, additional clinical studies, such as tTG-IgA, are recommended. B. Gastric body, biopsy: - Oxyntic mucosa with features of reactive gastropathy. - IHC negative for H.pylori organisms. C. Distal esophagus, biopsy: - Squamocolumnar mucosa with focal goblet cell metaplasia - see note. - Reactive epithelial changes, negative for dysplasia. Note: The diagnosis depends on the location of the biopsy and the extent of the mucosal irregularity. If the biopsy originates from the tubular esophagus and the mucosal irregularity extends at least 1 cm above the top of the gastric folds, this represents Jenkins mucosa. If the biopsy originates from the gastric cardia and or the mucosal irregularity is less than 1 cm in extent, this represents intestinal metaplasia. D. Terminal ileum, biopsy: - No specific pathologic change. E. Colon, random, biopsy: - No specific pathologic change. - The histologic features of microscopic colitis are not demonstrated. MICROSCOPIC DESCRIPTION Slides are reviewed. All matched controls reacted appropriately. These tests were developed and their performance characteristics determined by [facility]. They may not have been cleared or approved by the U.S. Food and Drug Administration. The FDA has determined that such clearance or approval is not necessary. The above immunohistochemical/dualISH markers are viewed by the Pathologist. GROSS DESCRIPTION A. Received in fixative is one container labeled with the patient's name and designated Duodenum biopsy. The specimen consists of three irregular fragments of light mar soft tissue that in aggregate measure 0.2 to 0.4 cm. The specimen is totally submitted in one cassette. B. Received in fixative is one container labeled with the patient's name and designated Gastric body biopsy. The specimen consists of two irregular fragments of light mar soft tissue that in aggregate measure 0.1 and 0.7 cm. The specimen is totally submitted in one cassette. C. Received in fixative is one container labeled with the patient's name and designated Distal esophagus biopsy. The specimen consists of two irregular fragments of light mar soft tissue that in aggregate measure 0.4 and 0.5 cm. The specimen is totally submitted in one cassette. D. Received in fixative is one container labeled with the patient's name and designated Terminal ileum biopsy. The specimen consists of five irregular fragments of light mar soft tissue that in aggregate measure 0.2 to 0.5 cm. The specimen is totally submitted in one cassette. E. Received in fixative is one container labeled with the patient's name and designated Random colonic biopsy. The specimen consists of four irregular fragments of light mar soft tissue that in aggregate measure 0.2 to 0.5 cm. The specimen is totally submitted in one cassette. MN 02/24/2025 CPT:71673k5,08988
--- NOTE | 2025-02-24 06:39 | PCM.HP.STD ---
HPI - General General Date of Admission: 02/24/25 Date of Service: 02/24/25 Chief Complaint: abdominal pain and nausea with vomiting HPI Narrative GARRISON PRATT, is a 44 F who presents with Chief Complaint: N/V ER 12/26/2024 44-year-old female past medical history of GERD presents with months of sour taste in her mouth as well as abdominal pain, nausea, vomiting, and diarrhea. She states that whenever she tries to eat or drinks things, even water, that she gets diarrhea, as well as nausea and vomiting. Past surgical history does include bilateral tubal ligation. No fevers or chills. No exacerbating or alleviating factors. However, sometimes when she lays flat, she gets a burning sensation in her esophagus. She feels like she is going to vomit. She describes more epigastric to diffuse abdominal pain. Abdomen/Pelvis CT 12/26/24 20:53 IMPRESSION: 1. No acute intra-abdominal abnormality. 2. Hepatic steatosis and hepatomegaly. 12/26/2024 ALT 39, CBC unremarkable, lipase normal - started on Ondansetron - nausea, emesis of bile every morning x8 weeks - emesis after meals - wakes in morning with symptoms - Prilosec OTC did not help - Pepcid AC and Zantac no help - sleeps with bottle of pepto next to bed - she has eliminated coffee and acidic foods - IBU 400mg BID for back pain x1 month - denies any dysphagia - denies any HB - epigastric fullness, bloating - not waking the next morning and vomiting food - c/o weight gain - EGD - possibly in the remote past - loose stools/diarrhea after meals x8 weeks - reports having 10-15 stools daily - denies any bleeding - denies any stool testing - she wakes at HS with BM - denies any family h/o colon CA - has never had a colonoscopy [facility] Medical History Wears dentures History of steroid therapy Gastric reflux Smoker History of echocardiogram Kawasaki disease Lumbar strain Left ankle sprain Diarrhea Bilateral carpal tunnel syndrome Left knee pain Absence seizure disorder Anxiety Home Medications ?Medication ?Instructions ?Recorded ?Last Taken ?Type ondansetron 4 mg disintegrating 4 mg PO Q8H PRN PRN Nausea #15 tabs 12/26/24 02/23/25 21:00 Rx tablet peg 3350-sod sulf,[id number] See Rx Instructions PO .COMPLEX #2 12/28/24 02/23/25 Rx 178.7-7.3-0.5-1.12-0.9 gram oral mL soln (Suflave) sucralfate 100 mg/mL oral 10 ml PO QACHS #1,200 mL 12/28/24 02/22/25 Rx suspension (Carafate) prednisone 50 mg tablet 50 mg PO DAILY 5 days #5 tabs 02/19/25 02/22/25 Rx hydroxyzine pamoate 25 mg capsule 25 mg PO 4X/DAY PRN PRN anxiety 02/22/25 02/22/25 History quetiapine 25 mg tablet 25 mg PO QHS 02/22/25 02/22/25 History Allergy/AdvReac Type Severity Reaction Status Date / Time diphenhydramine HCl (From Allergy swelling Verified 02/24/25 05:51 Benadryl) all over tramadol Allergy Itching Verified 02/24/25 05:51 Family History Mother Hypertension Myocardial infarction Grandfather Hypertension Grandmother Hypertension Heart disease triple bypass Surgical History Hx of tooth extraction Hx of tubal ligation Social History household members: spouse, family and children Smoking Status: Current every day smoker tobacco type: cigarettes alcohol intake: never ROS Constitutional Constitutional: Denies fatigue, fever(s), poor appetite, weight gain or weight loss Gastrointestinal Gastrointestinal: Denies belching, bloating, change in bowel habits, change in stool character, chewing difficulty, coffee ground emesis, constipation, cramping, diarrhea, dyspepsia, dysphagia, early satiety, excessive flatus, fecal incontinence, heartburn, hematemesis, hematochezia, hemorrhoids, loose stools, melena, nausea, odynophagia, rectal bleeding, tenesmus, vomiting or weight changes Vital Signs Vital Signs Vital Signs: 02/24/25 05:54 02/24/25 05:55 Temperature 97.9 F Temperature Source Temporal Pulse Rate 74 Respiratory Rate 16 Respiratory Pattern Normal Blood Pressure 111/63 Blood Pressure Mean 79 Blood Pressure Source Monitor Blood Pressure Position Semi-Fowlers Blood Pressure Location Left Arm Pulse Ox 100 Oxygen Delivery Method Room Air Weight Weight: 201 lb 3.2 oz Body Mass Index (BMI) 38.0 Physical Exam Const alert, oriented x3, no apparent distress and healthy appearing General Appearance: cooperative GI normal to inspection, nondistended, normoactive bowel sounds, soft to palpation, non-tender and non-distended Percussion: normal to percussion Rectal Exam: deferred Assessment & Plan Assessment/Plan (1) GERD (gastroesophageal reflux disease): (2) Abdominal pain: PLAN: Assessment and Plan Assessment and Plan (1) Nausea and vomiting: Status: Acute (2) Abdominal pain: Status: Acute (3) Diarrhea: Status: Inactive Medications: New sucralfate (Carafate) 10 mL PO QACHS 1,200 mL 1RF peg 3350-sod sulf,[id number] 178.7-7.3-0.5 gram (Suflave) take as directed for split dose bowel prep 2 mL 0RF Plan 44y/o female presents for initial consultation with complaints of waking in the morning with epigastric bloating, nausea, gaging, vomiting and diarrhea x8 weeks. She reports a weight gain despite limited PO intake and frequent emesis. She has eliminated coffee and spicy foods. Denies any improvement with PPI or H2, but does report limited symptomatic relief with pepto. She is taking IBU 400mg BID x1 month for back pain. Stools are loose, urgent and up to 15x a day. I have ordered stool testing and started her sucralfate. She will proceed with colonoscopy and EGD and follow-up in the office post procedure. In terms of incidental findings of liver steatosis on recent CT, she will schedule consult with Dr. Dowell in 6-8 weeks. Note: [employer] speech recognition sorter lumber straightener software was used to create portions of this document. Sound-alike and misspelled words, as well as other sorter lumber straightener errors may be contained in the documentation. Patient Instructions: Trial sucralfate Complete stool testing - [facility] Colon & EGD - SuFlave F/U with me in office post procedure Consult with Dr. Dowell for fatty liver noted on CT
--- NOTE | 2025-02-24 06:41 | PCM.PRE.AN2 ---
ASA Classification* ASA Classification ASA Classification: 2 Assessment & Plan Anesthesia* Anesthesia Assessment Anesthesia Assessment: Discussed sedation and/or anesthesia options, risks, benefits, and alternatives with patient/parents/legal guardian/POA. Questions invited. The patient/parents/legal guardian/POA seems to understand and agrees to proceed with anesthesia plan. Reviewed the physical assessment, medical history, allergy history and patient home medications list prior to surgery/procedure/anesthetic and documented any changes. Performed airway and anesthesia risk assessments. Anesthesia Type Anesthesia Type: MAC History Source History Obtained from:: Patient and Chart Anesthesia Focused Assessment* Temperature: 97.9 F Pulse Rate: 74 Blood Pressure: 111/63 Respiratory Rate: 16 Pulse Ox: 100 Oxygen Delivery Method: Room Air Airway Assessment Mouth opens: >3 cm Mallampati Score: II Teeth Condition: Dentures Neck Range of motion (ROM): Full ROM Labs Anesthesia Preop lab: CBC WBC 7.3 K/mm3 (4.4-11.0) 12/26/24 19:51 12/26/24 RBC 4.42 M/mm3 (4.2-5.4) 12/26/24 19:51 12/26/24 Hgb 13.9 g/dL (12.0-15.0) 12/26/24 19:51 12/26/24 Hct 38.8 % (37-47) 12/26/24 19:51 12/26/24 Plt Count 278 K/mm3 (150-450) 12/26/24 19:51 12/26/24 CHEMISTRY Potassium 3.6 mmol/L (3.3-5.1) 12/26/24 19:51 12/26/24 Sodium 136 mmol/L (133-145) 12/26/24 19:51 12/26/24 BUN 17 mg/dL (4-19) 12/26/24 19:51 12/26/24 Creatinine 1.05 mg/dL (0.70-1.20) 12/26/24 19:51 12/26/24 Glucose 91 mg/dL (70-99) 12/26/24 19:51 12/26/24 COAG Pre-Assessment Diagnosis/Proposed Procedure Planned Operative Procedure(s): COLONOSCOPY/EGD Anesthesia History Anesthesia History - analog ic design architect: Anesthesia History - analog ic design architect Hx Hospitalization No 02/22/25 12:02 Any Problems With Anesthesia No 02/22/25 12:02 Cholinesterase deficiency No 02/22/25 12:02 You/Your Family Experience No 02/22/25 12:02 fever (hyperthermia) with Relationship Recent Exposure to Contagious No 02/24/25 05:54 Disease Does patient have nerve No 02/22/25 12:02 stimulator Patient instructed to have device shut off --Does patient have Pacemaker No 02/24/25 05:55 or ICD? When Was Last Pacemaker Check QUESTION #4 FULL TEXT: You/Your Family Experience fever (hyperthermia) with Anesthesia Last Oral Intake Last Oral intake: Last Oral Intake NPO since 22:00 02/24/25 05:55 Meds taken in AM with sips of No 02/24/25 05:55 water? Meds patient instructed to take am of surgery PONV PONV - analog ic design architect: PONV - analog ic design architect Female Yes 02/22/25 12:02 HX of Motion Sickness No 02/22/25 12:02 HX of N/V After Surgery No 02/22/25 12:02 Non-Smoker No 02/22/25 12:02 Duration of Surgery greater No 02/22/25 12:02 than 60 minutes Number of Risk Factors 1 02/22/25 12:02 PONV Score Low Risk 02/22/25 12:02 Height & Weight Height & Weight: Anesthesia: Height & Weight Height 5 ft 1 in 02/24/25 05:55 Weight: 91.263 kg 02/24/25 05:55 Body Mass Index (BMI) 38.0 02/24/25 05:55 Respiratory Assessment Respiratory Assessment - analog ic design architect: Respiratory Tract Infection Hx - analog ic design architect Hx Respiratory Tract Infection No 02/22/25 12:02 STOP Sleep Apnea STOP Sleep Apnea - analog ic design architect: STOP Sleep Apnea - analog ic design architect Hx Hypertension No 02/22/25 12:02 Hx Sleep Apnea No 02/22/25 12:02 CPAP BIPAP Do you snore loudly (louder No 02/22/25 12:02 than talking or can be heard Do you often feel tired/ No 02/22/25 12:02 fatigued/ sleepy during daytime? Has anyone observed you stop No 02/22/25 12:02 breathing during sleep? STOP Results Negative 02/22/25 12:02 QUESTION #5 FULL TEXT : Do you snore loudly (louder than talking or can be heard through closed doors)? Tobacco Use History Tobacco Use History - analog ic design architect: Tobacco Use History - analog ic design architect Tobacco Use Smoking Status Current every day smoker 02/22/25 12:02 Hx Tobacco Use Yes 02/22/25 12:02 Years Smoking Packs Smoked per Day Smoking Cessation Date was within the last 15 years Hx Smoking Cessation Date Hx Smoking Cessation No 02/22/25 12:02 Counseling Hematologic Medial History Hematologic Hx - analog ic design architect: Hematologic Medical Hx - bag adjuster Hx of Blood Transfusion No 02/22/25 12:02 Hx of Transfusion in last 3 No 02/22/25 12:02 Months Date of Last Transfusion (if within last 3 months) Ever experience any problems No 02/22/25 12:02 with transfusion(s)? Specify any problems Hx of Preganancy in last 3 No 02/22/25 12:02 Months Nurse Filling Out Transfusion VCHRISTIN 02/22/25 12:02 & Questions: Date: 02/22/25 02/22/25 12:02 Time: 12:03 02/22/25 12:02 Patient unable to answer at this time (ie. confused, unrespo /Reproduction History /Reproductive History - analog ic design architect: /Reproductive Hx- analog ic design architect Hx Now No 02/22/25 12:02 Gestational Age (in weeks): EDC: Hx Hx Para Hx Section SAB No 02/22/25 12:02 Active Medications Active Medications: Current Medications Generic Name Dose Route Start Last Admin Trade Name Freq PRN Reason Stop Dose Admin Lactated Ringer's 1,000 mls @ 15 mls/hr 02/24/25 05:45 02/24/25 06:07 IV 15 mls/hr .Q48H EMMETT Administration PFSH Medical History Wears dentures History of steroid therapy Gastric reflux Smoker History of echocardiogram Kawasaki disease Lumbar strain Left ankle sprain Diarrhea Bilateral carpal tunnel syndrome Left knee pain Absence seizure disorder Anxiety Home Medications ?Medication ?Instructions ?Recorded ?Last Taken ?Type ondansetron 4 mg disintegrating 4 mg PO Q8H PRN PRN Nausea #15 tabs 12/26/24 02/23/25 21:00 Rx tablet peg 3350-sod sulf,[id number] See Rx Instructions PO .COMPLEX #2 12/28/24 02/23/25 Rx 178.7-7.3-0.5-1.12-0.9 gram oral mL soln (Suflave) sucralfate 100 mg/mL oral 10 ml PO QACHS #1,200 mL 12/28/24 02/22/25 Rx suspension (Carafate) prednisone 50 mg tablet 50 mg PO DAILY 5 days #5 tabs 02/19/25 02/22/25 Rx hydroxyzine pamoate 25 mg capsule 25 mg PO 4X/DAY PRN PRN anxiety 02/22/25 02/22/25 History quetiapine 25 mg tablet 25 mg PO QHS 02/22/25 02/22/25 History Allergy/AdvReac Type Severity Reaction Status Date / Time diphenhydramine HCl (From Allergy swelling Verified 02/24/25 05:51 Benadryl) all over tramadol Allergy Itching Verified 02/24/25 05:51 Family History Mother Hypertension Myocardial infarction Grandfather Hypertension Grandmother Hypertension Heart disease triple bypass Surgical History Hx of tooth extraction Hx of tubal ligation Social History household members: spouse, family and children Smoking Status: Current every day smoker tobacco type: cigarettes alcohol intake: never Review of Systems (Anesthesia) ROS Narrative System reviewed and no additional complaints, except as documented.
--- NOTE | 2025-02-24 07:28 | OP.PROVAT_ITS ---
02/24/2025 Reyna Talavera Re : Upper GI endoscopy procedure for Kath Duarte Dear Sadaf This procedure was performed on January. My impressions and recommendations are as follows: Impressions : - LA Grade B reflux esophagitis with no bleeding. Biopsied. - Small hiatal hernia. - Erythematous mucosa in the gastric body. Biopsied. - Chronic duodenitis. Biopsied. Recommendations : - Discharge patient to home. - Resume previous diet. - Continue present medications. - Await pathology results. My findings are described in the full procedure note, which is enclosed. If I can be of further assistance, please feel free to contact me at . Sincerely, Pablito Fields, 02/24/2025 7:26:39 AM This report has been signed electronically.
--- NOTE | 2025-02-24 07:28 | OP.EGD_ITS ---
Patient Name: Kath Duarte Procedure Date: 02/24/2025 6:25 AM Date of : 1980 Age: 44 Procedure: Upper GI endoscopy Indications: Epigastric abdominal pain, Functional Dyspepsia, Indigestion, Suspected esophageal reflux, Failure to respond to medical treatment Providers: Pablito Fields DO Referring MD: Reyna Talavera Medicines: Monitored Anesthesia Care Patient Profile: This is a 44 year old female. Refer to note in patient chart for documentation of history and physical. Patient has symptoms of chronic abdominal distention, acute epigastric abdominal pain, acute dyspepsia and chronic nausea. Complications: No immediate complications. Procedure: Pre-Anesthesia Assessment: - Prior to the procedure, a History and Physical was performed, and patient medications and allergies were reviewed. The patient is competent. The risks and benefits of the procedure and the sedation options and risks were discussed with the patient. All questions were answered and informed consent was obtained. Patient identification and proposed procedure were verified by the physician in the pre-procedure area. Mental Status Examination: alert and oriented. Airway Examination: normal oropharyngeal airway and neck mobility. Respiratory Examination: clear to auscultation. CV Examination: normal. Prophylactic Antibiotics: The patient does not require prophylactic antibiotics. Prior Anticoagulants: The patient has taken no anticoagulant or antiplatelet agents except for NSAID medication. ASA Grade Assessment: II - A patient with mild systemic disease. After reviewing the risks and benefits, the patient was deemed in satisfactory condition to undergo the procedure. The anesthesia plan was to use monitored anesthesia care (MAC). Immediately prior to administration of medications, the patient was re-assessed for adequacy to receive sedatives. The heart rate, respiratory rate, oxygen saturations, blood pressure, adequacy of pulmonary ventilation, and response to care were monitored throughout the procedure. The physical status of the patient was re-assessed after the procedure. After obtaining informed consent, the endoscope was passed under direct vision. Throughout the procedure, the patient's blood pressure, pulse, and oxygen saturations were monitored continuously. The Colonoscope was introduced through the mouth, and advanced to the third part of the duodenum. Small bowel enteroscopy was deemed necessary. The upper GI endoscopy was accomplished without difficulty. The patient tolerated the procedure well. Scope In: 7:00:31 AM Scope Out: 7:04:43 AM Total Procedure Duration Time 0 hours 4 minutes 12 seconds Findings: LA Grade B (one or more mucosal breaks greater than 5 mm, not extending between the tops of two mucosal folds) esophagitis with no bleeding was found 35 to 39 cm from the incisors. Biopsies were taken with a cold forceps for histology. Verification of patient identification for the specimen was done. Estimated blood loss was minimal. A small hiatal hernia was present. Striped mildly erythematous mucosa without bleeding was found in the gastric body. Biopsies were taken with a cold forceps for histology. Biopsies were taken with a cold forceps for Helicobacter pylori testing. Verification of patient identification for the specimen was done. Estimated blood loss was minimal. Patchy moderate inflammation was found in the entire duodenum. Biopsies were taken with a cold forceps for histology. Verification of patient identification for the specimen was done. Estimated blood loss was minimal. Impression: - LA Grade B reflux esophagitis with no bleeding. Biopsied. - Small hiatal hernia. - Erythematous mucosa in the gastric body. Biopsied. - Chronic duodenitis. Biopsied. Recommendation: - Discharge patient to home. - Resume previous diet. - Continue present medications. - Await pathology results. Procedure Code(s): --- Professional --- 82468, Small intestinal endoscopy, enteroscopy beyond second portion of duodenum, not including ileum; with biopsy, single or multiple CPT copyright 2021 [employer]. All rights reserved. The codes documented in this report are preliminary and upon access coordinator review may be revised to meet current compliance requirements. Pablito Fields DO 02/24/2025 7:26:39 AM This report has been signed electronically. Number of Addenda: 0 Note Initiated On: 02/24/2025 6:25 AM
--- NOTE | 2025-02-24 07:28 | PCM.POST.ANE ---
Anesthesia: Postop Eval I Current Vital Signs Temperature: 97.2 F Pulse Rate: 72 Blood Pressure: 97/56 Respiratory Rate: 16 Pulse Ox: 96 Oxygen Delivery Method: Room Air Assessment Airway patent: Yes Spontaneous unlabored respirations: Yes Mental status: Asleep nausea: No Vomiting: No Anesthesia Complication: Yes Anesthesia Complication Comment:: in situ IV infiltrated, 2nd IV started by RN Fluid Hydration Crystalloid volume administer (ml): 400 Total IV fluid infused: 400 Progress Note Anesthesia document: Postop Eval 1 completed: Yes
--- NOTE | 2025-02-24 07:29 | OP.COLON_ITS ---
Patient Name: Kath Duarte Procedure Date: 02/24/2025 7:05 AM Date of : 1980 Age: 44 Procedure: Colonoscopy Indications: Screening for colorectal malignant neoplasm Providers: Pablito Fields DO Referring MD: Reyna Talavera Medicines: Monitored Anesthesia Care Patient Profile: This is a 44 year old female. Refer to note in patient chart for documentation of history and physical. Patient has symptoms of chronic abdominal distention, acute epigastric abdominal pain, acute dyspepsia and chronic nausea. Last Colonoscopy: none. The patient's first colonoscopy is today. Complications: No immediate complications. Procedure: Pre-Anesthesia Assessment: - Prior to the procedure, a History and Physical was performed, and patient medications and allergies were reviewed. The patient is competent. The risks and benefits of the procedure and the sedation options and risks were discussed with the patient. All questions were answered and informed consent was obtained. Patient identification and proposed procedure were verified by the physician in the pre-procedure area. Mental Status Examination: alert and oriented. Airway Examination: normal oropharyngeal airway and neck mobility. Respiratory Examination: clear to auscultation. CV Examination: normal. Prophylactic Antibiotics: The patient does not require prophylactic antibiotics. Prior Anticoagulants: The patient has taken no anticoagulant or antiplatelet agents except for NSAID medication. ASA Grade Assessment: II - A patient with mild systemic disease. After reviewing the risks and benefits, the patient was deemed in satisfactory condition to undergo the procedure. The anesthesia plan was to use monitored anesthesia care (MAC). Immediately prior to administration of medications, the patient was re-assessed for adequacy to receive sedatives. The heart rate, respiratory rate, oxygen saturations, blood pressure, adequacy of pulmonary ventilation, and response to care were monitored throughout the procedure. The physical status of the patient was re-assessed after the procedure. After I obtained informed consent, the scope was passed under direct vision. Throughout the procedure, the patient's blood pressure, pulse, and oxygen saturations were monitored continuously. The Colonoscope was introduced through the anus and advanced to the terminal ileum. The colonoscopy was performed without difficulty. The patient tolerated the procedure well. The quality of the bowel preparation was adequate. The terminal ileum, ileocecal valve, appendiceal orifice, and rectum were photographed. Scope In: 7:04:38 AM Scope Withdrawal Time 0 hours 10 minutes 39 seconds Scope Out: 7:18:18 AM Total Procedure Duration Time 0 hours 13 minutes 40 seconds Findings: The perianal and digital rectal examinations were normal. A few small-mouthed diverticula were found in the recto-sigmoid colon. An area of mildly congested mucosa was found in the sigmoid colon, in the transverse colon and in the ascending colon. Biopsies were taken with a cold forceps for histology. Verification of patient identification for the specimen was done. Estimated blood loss was minimal. A patchy area of the terminal ileum was congested. Biopsies were taken with a cold forceps for histology. Verification of patient identification for the specimen was done. Estimated blood loss was minimal. Impression: - Diverticulosis in the recto-sigmoid colon. - Congested mucosa in the sigmoid colon, in the transverse colon and in the ascending colon. Biopsied. - Congested mucosa in the terminal ileum. Biopsied. Recommendation: - Discharge patient to home. - Resume previous diet. - Continue present medications. - Await pathology results. - Repeat colonoscopy for surveillance based on pathology results. - Return to GI office. Procedure Code(s): --- Professional --- 73721, Colonoscopy, flexible; with biopsy, single or multiple CPT copyright 2021 [employer]. All rights reserved. The codes documented in this report are preliminary and upon sweeping compound blender review may be revised to meet current compliance requirements. Pablito Fields DO 02/24/2025 7:29:19 AM This report has been signed electronically. Number of Addenda: 0 Note Initiated On: 02/24/2025 7:05 AM
--- NOTE | 2025-02-24 07:30 | OP.PROVAT_ITS ---
02/24/2025 Reyna Talavera Re : Colonoscopy procedure for Kath Duarte Leilar Sadaf This procedure was performed on January. My impressions and recommendations are as follows: Impressions : - Diverticulosis in the recto-sigmoid colon. - Congested mucosa in the sigmoid colon, in the transverse colon and in the ascending colon. Biopsied. - Congested mucosa in the terminal ileum. Biopsied. Recommendations : - Discharge patient to home. - Resume previous diet. - Continue present medications. - Await pathology results. - Repeat colonoscopy for surveillance based on pathology results. - Return to GI office. My findings are described in the full procedure note, which is enclosed. If I can be of further assistance, please feel free to contact me at . Sincerely, Pablito Fields, 02/24/2025 7:29:19 AM This report has been signed electronically.
--- NOTE | 2025-02-24 11:22 | PCM.POSTANE2 ---
Anesthesia Postop Eval I Sum Postop Eval Completion status Anesthesia document: Postop Eval 1 completed: Yes Anesthesia Postop Eval I Summary Anesthesia Postop Eval I Summary: Anesthesia Postop Eval I: Assessment Summary Airway patent Yes 02/24/25 07:29 [email or web address] Spontaneous unlabored Yes 02/24/25 07:29 [email or web address] respirations Mental status Asleep 02/24/25 07:29 [email or web address] nausea No 02/24/25 07:29 [email or web address] Vomiting No 02/24/25 07:29 [email or web address] Anesthesia Postop Eval I: Fluid Summary Crystalloid volume administer 400 02/24/25 07:29 [email or web address] (ml) Colloids volume administered ( ml) Blood Product volume administered (ml) Total IV fluid infused 400 02/24/25 07:29 [email or web address] Anesthesia Postop Eval I: Summary Notes Anesthesia Complication Yes 02/24/25 07:29 [email or web address] Anesthesia Complication in situ IV 02/24/25 07:29 [email or web address] Comment: infiltrated, 2nd IV started by RN Post-operative progress note Anesthesia: Postop Eval II Evaluation Mental status: Awake and Calm Pain Level: 1 nausea: No Vomiting: No Complications Anesthesia Complication: No
== END 2025-02-24 08:12 | disposition home or self-care (01) ==
LOC: EN 05:31 → AC 05:32
PROVIDERS: Visit Provider Internal Medicine Gastroenterology
PROC: 0DJD8ZZ Inspection of Lower Intestinal Tract, Via Natural or Artificial Opening Endoscopic (ICD-10-PCS; CPT 45378; principal; 2025-02-24 06:25)
DX: Z12.11 Encounter for screening for malignant neoplasm of colon (principal); K57.30 Diverticulosis of large intestine without perforation or abscess without bleeding; K29.80 Duodenitis without bleeding; K21.00 Gastro-esophageal reflux disease with esophagitis, without bleeding; K31.89 Other diseases of stomach and duodenum; K44.9 Diaphragmatic hernia without obstruction or gangrene; K76.0 Fatty (change of) liver, not elsewhere classified; F17.210 Nicotine dependence, cigarettes, uncomplicated
CPT/HCPCS: 45380; 43239; 88305; 88342; J2405

== ENCOUNTER → 2025-03-10 | Outpatient (CLI) | payer MEDICAID, SELFPAY ==
--- NOTE | 2025-03-10 08:46 | US_ITS ---
PROCEDURE: ABD LIMITED W/ ELASTOGRAPHY REASON FOR EXAM: FATTY LIVER COMPARISON: None. TECHNIQUE: Right upper quadrant abdominal ultrasound. [facility] ElastQ Imaging shear wave elastography for non-invasive assessment of liver tissue stiffness. [facility] EPIQ Elite. FINDINGS: LIVER: Size: Enlarged (hepatomegaly) Length: 22.1 cm Echotexture: Diffusely echogenic suggesting fatty infiltration Contour: Normal Lesions: None identified Elastography: EQI Med: 7.1 kPa EQI Med Lino: 1.5 m/s IQR/Med: 21.3 %* GALLBLADDER: Normal COMMON BILE DUCT: Normal measuring 3 mm . PANCREAS: Normal Visualized portions of the right kidney are unremarkable. No right upper quadrant ascites. US/ABD Limited w/ Elastography IMPRESSION: Hepatomegaly and diffuse fatty infiltration of the liver. Mild hepatic fibrosis. Reference Values: SRU <1.37 m/s (5.7kPa): No to mild fibrosis 1.37 m/s - 2.2 m/s: Moderate to severe fibrosis >2.2 m/s (15kPa): Significant fibrosis / cirrhosis METAVIR Score F2 or higher: 1.34 m/s (5.7kPa) F3 or higher: 1.55 m/s (7.3kPa) F4: 1.80 m/s (10kPa) * If the IQR/Med is >30%, the variance in the measurements is a large and the a ccuracy of the measurement may be in question. Reading Location: [place] [id number]
[2025-03-10 09:15] LABS: Hematocrit 38.8 % (37-47); Hemoglobin 13.7 g/dL (12.0-15.0); Immature Granulocytes Count 0.010 X10^3/uL (0.0-0.0); Mean Corp Hgb Conc 35.3 g/dL (32-36); Mean Corpuscular Volume 89.2 fL (81-99); Mean Platelet Vol. 10.6 fl (6.2-12.0); NRBC Flagged by Analyzer 0 % (0-5); Platelet Count 252 K/mm3 (150-450); RBC Distribution Width CV 11.9 % (11.6-14.6); RBC Distribution Width SD 38.7 fl (35.1-43.9); Red Blood Count 4.35 M/mm3 (4.2-5.4); White Blood Count 4.3 K/mm3 (4.4-11.0)
[2025-03-10 10:35] LABS: AST(SGOT) 37 U/L (<=31); Alanine Aminotransfer ALT/SGPT 52 U/L (<=34); Albumin, Serum 4.0 g/dL (3.5-5.0); Alkaline Phosphatase 72 U/L (35-104); Anion Gap 13 (5-15); BUN 8 mg/dL (4-19); BUN/Creat Ratio 12.6 RATIO (10-20); Calcium,Total 9.0 mg/dL (7.6-11.0); Carbon Dioxide 18.3 mmol/L (21.0-32.0); Chloride 106 mmol/L (98-108); Cholesterol 189 mg/dL (<=200); Ferritin 128 ng/mL (22-378); Globulin 2.9 g/dL (2.2-4.2); Glucose 126 mg/dL (70-99); HIV Nonreactive (Nonreactive); Low Density Lipoprotein Calc. 125 mg/dL; Potassium 3.7 mmol/L (3.3-5.1); Triglycerides 155 mg/dL; Very Low Density Lipoprotein 31 mg/dL (5-40); Vitamin B12 472 pg/mL (180-914); Vitamin D,25 Hydroxy 8.5 ng/mL (30-100); cholesterol:hdl ratio screen 5.80
[2025-03-10 10:36] LABS: Prothrombin Time (Protime)PT. 13.8 SECONDS (11.7-14.9)
[2025-03-10 11:20] LABS: Iron 98 ug/dL (50-170); Iron Binding Capacity,Unsat 120 ug/dL (228-428)
[2025-03-10 12:15] LABS: Iron Binding Capacity,Total 218 ug/dL (250-450)
[2025-03-11 13:09] LABS: ANTINUCLEAR ANTIBODIES DIRECT Negative (Negative); Anti-Smooth Muscle ABS 8 Units (0-19); HEPATITIS B SURFACE AG Negative (Negative); Hep C Antibodies Non Reactive (Non Reactive); Immunoglobulin A 223 mg/dL (87-352)
== END | disposition home or self-care (01) ==
PROVIDERS: Referring Provider Internal Medicine; Visit Provider Internal Medicine
DX: K76.0 Fatty (change of) liver, not elsewhere classified (principal); F19.10 Other psychoactive substance abuse, uncomplicated; E66.01 Morbid (severe) obesity due to excess calories; K90.0 Celiac disease; K21.9 Gastro-esophageal reflux disease without esophagitis; R74.01 Elevation of levels of liver transaminase levels
CPT/HCPCS: 86225; 36415; 76705; 76981; 80053; 80061; 80074; 82306; 82390; 82607; 82728; 82784; 83036; 83516; 83540; 83550; 84443; 85025; 85610; 86038; 86235; 86255; 86703; 86706

== ENCOUNTER 2025-04-27 18:26 | Emergency (ER) | payer MEDICAID, SELFPAY ==
[2025-04-27 18:27] VITALS: BP 133/88; PULSE 96; RESP 22; TEMP 36; O2SAT 99
--- NOTE | 2025-04-27 22:43 | ED.RN ---
Called pt for room, pt not in triage area
== END 2025-04-27 20:41 | disposition left against medical advice (07) ==
LOC: ED 22:49
DX: Z53.21 Procedure and treatment not carried out due to patient leaving prior to being seen by health care provider (principal)

== ENCOUNTER 2025-05-08 10:56 | Emergency (ER) | payer MEDICAID, SELFPAY ==
[2025-05-08 10:57] VITALS: BP 137/102; PULSE 97; RESP 16; TEMP 36.2; O2SAT 99
[2025-05-08 11:16] VITALS: BMI 36.4
--- NOTE | 2025-05-08 11:18 | EDS_ITS ---
HPI HPI - Female History of Present Illness Chief Complaint: Vag Bleeding Narrative Narrative: Patient is a 44-year-old female presenting to the emergency department for vaginal bleeding for the past 4 days. Patient has a past medical history as below. Patient states that she last had a normal period 2 months ago and then last month missed her period. States 4 days ago she started to have vaginal spotting and she thought she was going to have a normal period. States that for the past 3 days she has had a large amount of vaginal bleeding. States that she is going through a super tampon and pad and 20 minutes. Is endorsing large clots that are passing. Endorses lower abdominal cramping that she describes as bad period cramps. States there is no chance that she is , she is not sexually active. She endorses lightheadedness and generalized weakness. Denies fever, chills, chest pain, SOB. Denies dysuria or hematuria. [facility] Medical History Wears dentures History of steroid therapy Gastric reflux Smoker History of echocardiogram Kawasaki disease Lumbar strain Left ankle sprain Diarrhea Bilateral carpal tunnel syndrome Left knee pain Absence seizure disorder Anxiety Home Medications ?Medication ?Instructions ?Recorded ?Last Taken ?Type ondansetron 4 mg disintegrating 4 mg PO Q8H PRN PRN Na usea #15 tabs 12/26/24 02/23/25 21:00 Rx tablet sucralfate 100 mg/mL oral 10 ml PO QACHS #1,200 mL 10/1902/22/25 Rx suspension (Carafate) prednisone 50 mg tablet 50 mg PO DAILY 5 days #5 tab s 02/19/25 02/22/25 Rx hydroxyzine pamoate 25 mg capsule 25 mg PO 4X/DAY PRN PRN anxiety 02/22/25 02/22/25 History quetiapine 25 mg tablet 25 mg PO QHS 02/22/25 History cyclobenzaprine 5 mg tablet 5 mg PO TID 05/08/25 Unkno wn History prednisone 10 mg tablet 10 mg PO 05/08/25 Unknown Hi story Allergy/AdvReac Type Severity Reaction Status Date / Time diphenhydramine HCl (From Allergy swelling Verified 05/08/25 10:57 Benadryl) all over tramadol Allergy Itching Verified 05/08/25 10:57 Family History Mother Hypertension Myocardial infarction Grandfather Hypertension Grandmother Hypertension Heart disease triple bypass Surgical History Hx of tooth extraction Hx of tubal ligation Social History household members: spouse, family and children Smoking Status: Current every day smoker tobacco type: cigarettes alcohol intake: never EXAM Physical Exam Const Vital Signs: 05/08/25 10:57 Temperature 97.2 F L Temperature Source Temporal Pulse Rate 97 Respiratory Rate 16 Blood Pressure 137/102 H Blood Pressure Mean 113 Pulse Ox 99 Oxygen Delivery Method Room Air Discharge Plan Triage Chief Complaint: Vag Bleeding ED Provider: Nat Castaneda Dx/Rx/DC Orders Prescriptions: No Action sucralfate [Carafate] 100 mg/mL suspension 10 ml PO QACHS Qty: 1200 1RF prednisone 50 mg tablet 50 mg PO DAILY 5 Days Qty: 5 0RF prednisone 10 mg tablet 10 mg PO cyclobenzaprine 5 mg tablet 5 mg PO TID ondansetron 4 mg tablet,disintegrating 4 mg PO Q8H PRN PRN (Reason: Nausea) Qty: 15 0RF quetiapine 25 mg tablet 25 mg PO QHS hydroxyzine pamoate 25 mg capsule 25 mg PO 4X/DAY PRN PRN (Reason: anxiety) Primary Care Provider: Reyna Talavera Referrals: Reyna Talavera DO [Primary Care Provider, Family Practice] Print Language: Ecuadorean
--- NOTE | 2025-05-08 11:18 | ED.VIS.FEGU ---
HPI HPI - Female History of Present Illness Chief Complaint: Vag Bleeding Narrative Narrative: Patient is a 44-year-old female presenting to the emergency department for vaginal bleeding for the past 4 days. Patient has a past medical history as below. Patient states that she last had a normal period 2 months ago and then last month missed her period. States 4 days ago she started to have vaginal spotting and she thought she was going to have a normal period. States that for the past 3 days she has had a large amount of vaginal bleeding. States that she is going through a super tampon and pad and 20 minutes. Is endorsing large clots that are passing. Endorses lower abdominal cramping that she describes as bad period cramps. States there is no chance that she is , she is not sexually active. She endorses lightheadedness and generalized weakness. Denies fever, chills, chest pain, SOB. Denies dysuria or hematuria. [facility] Medical History Wears dentures History of steroid therapy Gastric reflux Smoker History of echocardiogram Kawasaki disease Lumbar strain Left ankle sprain Diarrhea Bilateral carpal tunnel syndrome Left knee pain Absence seizure disorder Anxiety Home Medications ?Medication ?Instructions ?Recorded ?Last Taken ?Type ondansetron 4 mg disintegrating 4 mg PO Q8H PRN PRN Nausea #15 tabs 12/26/24 02/23/25 21:00 Rx tablet sucralfate 100 mg/mL oral 10 ml PO QACHS #1,200 mL 12/28/24 02/22/25 Rx suspension (Carafate) hydroxyzine pamoate 25 mg capsule 25 mg PO 4X/DAY PRN PRN anxiety 02/22/25 02/22/25 History quetiapine 25 mg tablet 25 mg PO QHS 02/22/25 02/22/25 History cyclobenzaprine 5 mg tablet 5 mg PO TID 05/08/25 Unknown History norethindrone acetate 5 mg tablet See Rx Instructions .Route 05/08/25 Unknown Rx .COMPLEX #40 tabs prednisone 10 mg tablet 10 mg PO DAILY 05/08/25 Unknown History Allergy/AdvReac Type Severity Reaction Status Date / Time diphenhydramine HCl (From Allergy swelling Verified 05/08/25 10:57 Benadryl) all over tramadol Allergy Itching Verified 05/08/25 10:57 Family History Mother Hypertension Myocardial infarction Grandfather Hypertension Grandmother Hypertension Heart disease triple bypass Surgical History Hx of tooth extraction Hx of tubal ligation Social History household members: spouse, family and children Smoking Status: Current every day smoker tobacco type: cigarettes alcohol intake: never ROS ROS ED ROS Narrative see HPI EXAM Physical Exam Narrative Exam Narrative: Vital signs: Reviewed General: Alert and oriented x 3. No acute distress HEENT: Head is normocephalic and atraumatic, sinuses nontender, pupils equal round and reactive. Nares are patent. Oropharynx and throat exams normal. Neck: Supple without lymphadenopathy nontender Cardiovascular: Regular rate and rhythm, no murmurs. No rubs or gallops. Normal S1 and S2 Respiratory: Clear to auscultation bilaterally. No wheezes, rales, rhonchi Abdominal: Soft and nontender to palpation. Normal bowel sounds. No guarding or rebound. Nonsurgical abdomen : done with nurse checkroom chief, Michelle, at bedside. Mild pooling of blood in the vaginal vault. Normal cervix. No vaginal lacerations. Normal external genitalia. Extremities: No tenderness. No bruising. Normal range of motion. Normal sensation. Skin: No rash or redness. The rest of the physical exam is unremarkable Const Vital Signs: 05/08/25 10:57 05/08/25 12:35 05/08/25 13:59 Temperature 97.2 F L 98.2 F Temperature Source Temporal Pulse Rate 97 66 64 Respiratory Rate 16 15 15 Blood Pressure 137/102 H 127/73 H 121/70 H Blood Pressure Mean 113 91 87 Pulse Ox 99 99 99 Oxygen Delivery Method Room Air Room Air MDM MDM MDM Narrative Medical decision making narrative: Patient is a 44-year-old female coming to the emergency department for vaginal bleeding. Patient was seen and examined. Vitals are stable. Patient resting bed comfortably no acute distress. Pelvic exam with mild blood in the vaginal vault. No hemorrhaging. Normal cervix. No vaginal lacerations noted. Normal external genitalia. CBC with a WBC 11.9 and a normal, stable hemoglobin. Before pelvic exam was done type and cross was sent and PT and PTT were sent which are both normal. Based off the physical exam and stable hemoglobin patient does not require any transfusions. CMP with mildly elevated ALT of 50 which is baseline. Bicarb of 17.1, which also appears baseline for her since 2013. Urinalysis with no bacteria and no nitrites. Does appear to have RBCs and occult blood and WBC is consistent with contamination given her having vaginal bleeding. Urine negative. Transvaginal ultrasound with no acute findings. Simple right ovarian cyst. Patient has been stable during observation here. Stable hemoglobin. Discussed with AYDEE Kaminski, who recommended aygestin until follow up with her office. She feels this is likely perimenopausal bleeding. Discussed this with patient. She feels comfortable with the plan. She was instructed to return if she develops any worsening abdominal pain, bleeding, nausea, vomiting or fevers. Or any new or worsening symptoms. Patient discharged from the Emergency Department. I do not feel that the patient's evaluation reveals any acute reason for admission at this time. I instructed them to either follow-up with their primary care physician or promptly return to the Emergency Department for reevaluation should symptoms worsen or new symptoms develop. I explained what symptoms would indicate the need to return to the emergency department. Shared decision making was used. The patient voiced understanding of the treatment plan and is agreeable with it. Clinical impression Abnormal vaginal bleeding History & Record Review Discussion w/independent historian: Patient and Significant other Additional record(s) reviewed:: Prior labs Lab Data Attestation: I reviewed the patient's lab results. Labs: Laboratory Results - last 24 hr 05/08/25 05/08/25 11:10 11:58 WBC 11.9 H RBC 4.73 Hgb 14.8 Hct 42.2 MCV 89.2 MCH 31.3 MCHC 35.1 RDW Std Deviation 39.2 RDW Coeff of [place] 12.0 Plt Count 321 MPV 10.6 Immature Gran % (Auto) 0.300 Neut % (Auto) 70.8 H Lymph % (Auto) 19.9 Smyth % (Auto) 8.4 Eos % (Auto) 0.3 Baso % (Auto) 0.3 Absolute Neuts (auto) 8.4 H Absolute Lymphs (auto) 2.36 Nucleated RBC % 0 PT 13.0 INR 1.0 APTT 25.6 Sodium 138 Potassium 3.8 Chloride 107 Carbon Dioxide 17.1 L Anion Gap 14 BUN 11 Creatinine 0.74 Estim Creat Clear Calc 99.56 Est GFR (MDRD) Non-Af 104 BUN/Creatinine Ratio 15.4 Glucose 119 H Calcium 9.2 Total Bilirubin 0.72 AST 30 ALT 50 H Alkaline Phosphatase 74 Total Protein 7.5 Albumin 4.5 Globulin 3.0 Albumin/Globulin Ratio 1.5 Urine Color Red Urine Clarity Turbid Urine pH 5.0 Ur Specific [place] 1.025 Urine Protein 500 H Urine Glucose (UA) Normal Urine Ketones Negative Urine Occult Blood 250 H Urine Nitrite Negative Urine Bilirubin Negative Urine Urobilinogen Normal Ur Leukocyte Esterase 25 H Urine RBC 10-25 SEEN Urine WBC >100 SEEN Ur Squamous Epith Cells 0-5 SEEN Urine Bacteria 0 SEEN Urine Mucus 0 SEEN Urine Test Negative Blood Type A NEGATIVE Antibody Screen NEGATIVE Radiography Diagnostic Testing: Clinical Impression(s) from Imaging Studies Transvaginal US 05/08/25 11:28 IMPRESSION: Small nabothian cysts. Simple right ovarian cysts. Reading Location: [id number] Discharge Plan Triage Chief Complaint: Vag Bleeding ED Provider: Nat Castaneda Dx/Rx/DC Orders Clinical Impression: Abnormal vaginal bleeding Instructions: ED Dysfunctional Uterine Bleeding Prescriptions: New norethindrone acetate 5 mg tablet See Rx Instructions .ROUTE .COMPLEX Qty: 40 0RF Rx Instructions: 5 mg (1 tablet) orally three times a day for 5 days, 5 mg orally twice a day for 5 days, and then 5 mg once daily until follow up with the DATA CAPTURE CLERK doctor I provided No Action sucralfate [Carafate] 100 mg/mL suspension 10 ml PO QACHS Qty: 1200 1RF prednisone 10 mg tablet 10 mg PO DAILY cyclobenzaprine 5 mg tablet 5 mg PO TID ondansetron 4 mg tablet,disintegrating 4 mg PO Q8H PRN PRN (Reason: Nausea) Qty: 15 0RF quetiapine 25 mg tablet 25 mg PO QHS hydroxyzine pamoate 25 mg capsule 25 mg PO 4X/DAY PRN PRN (Reason: anxiety) Primary Care Provider: Reyna Talavera Referrals: Reyna Talavera, DO [Primary Care Provider, Family Practice] Nesha Shrestha DO [Med Staff - Active Staff, Obstetrics-Gynecology (OBGYN)] - As soon as possible Clinical Impression: Abnormal vaginal bleeding Activity Restrictions/Additional Instructions: Follow-up with the risk mgr listed below as soon as possible. Please take the medication I prescribed you as listed in the instructions. You need to return to the emergency department if you have any worsening bleeding, abdominal pain, nausea, vomiting, fevers or lightheadedness. Your evaluation in the Emergency Department did not reveal any acute reason for admission. However, I want to emphasize that you may be early in the course of a disease process or illness even if it is not present. For this reason you should follow-up within 24 hours for reevaluation with either your primary care physician or if necessary back here in the Emergency Department. You should return to the Emergency Department immediately if your symptoms worsen or new symptoms develop. Print Language: Nepali Disposition Disposition: Home, Self Care Discharge Date/Time: 05/08/25 13:59
--- NOTE | 2025-05-08 11:28 | US_ITS ---
PROCEDURE: TRANSVAGINAL NON- 05/08/2025 REASON FOR EXAM: VAGINAL BLEEDING TECHNIQUE: Procedure Code: USTVAG Modality: US Procedure: TRANSVAGINAL NON- COMPARISON: Previous CT FINDINGS: Measurements: Uterus:Measures 9.9 x 6.2 x 4.5 cm. Uterus mildly heterogeneous without distinct mass. Small nabothian cysts. Endometrial Thickness: Measures 6 mm.. No focal lesion evident. Right Ovary: Measures 4.0 x 2.3 x 2.3cm. Normal vascular flow. Contains 1.8 cm simple cysts. Left ovary: Measures 2.9 x 2.3 x 1.5 cm. Normal vascular flow. Other: Negative for free pelvic fluid. US/Transvaginal Non- IMPRESSION: Small nabothian cysts. Simple right ovarian cysts. Reading Location: [id number]
[2025-05-08 11:56] LABS: Hematocrit 42.2 % (37-47); Hemoglobin 14.8 g/dL (12.0-15.0); Immature Granulocytes Count 0.040 X10^3/uL (0.0-0.0); Mean Corp Hgb Conc 35.1 g/dL (32-36); Mean Corpuscular Volume 89.2 fL (81-99); Mean Platelet Vol. 10.6 fl (6.2-12.0); NRBC Flagged by Analyzer 0 % (0-5); Platelet Count 321 K/mm3 (150-450); RBC Distribution Width CV 12.0 % (11.6-14.6); RBC Distribution Width SD 39.2 fl (35.1-43.9); Red Blood Count 4.73 M/mm3 (4.2-5.4); White Blood Count 11.9 K/mm3 (4.4-11.0)
[2025-05-08 12:04] LABS: Mucous, Urine 0 SEEN /hpf (<or=2+)
[2025-05-08 12:04] LABS: Prothrombin Time (Protime)PT. 13.0 SECONDS (11.7-14.9)
[2025-05-08 12:05] LABS: Partial Thromboplast Time 25.6 Seconds (24.1-36.2)
[2025-05-08 12:07] LABS: Color, Urine Red (Yellow); Glucose, Dipstick Normal (Normal); Ketone-Dipstick Negative (Negative); Leukocyte Esterase-Dipstick 25 /ul (Negative); Nitrite-Dipstick Negative (Negative); Occult Blood-Urine 250 /ul (Negative); Protein-Dipstick 500 mg/dl (Negative); Specific Gravity, Urine 1.025 (1.002-1.030); Urine Bilirubin Dipstick Negative (Negative)
[2025-05-08 12:13] LABS: AST(SGOT) 30 U/L (<=31); Alanine Aminotransfer ALT/SGPT 50 U/L (<=34); Albumin, Serum 4.5 g/dL (3.5-5.0); Alkaline Phosphatase 74 U/L (35-104); Anion Gap 14 (5-15); BUN 11 mg/dL (4-19); BUN/Creat Ratio 15.4 RATIO (10-20); Calcium,Total 9.2 mg/dL (7.6-11.0); Carbon Dioxide 17.1 mmol/L (21.0-32.0); Chloride 107 mmol/L (98-108); Estimated Creatinine Clearance 99.56 ml/min (50-250); Globulin 3.0 g/dL (2.2-4.2); Glucose 119 mg/dL (70-99); Potassium 3.8 mmol/L (3.3-5.1)
[2025-05-08 12:18] LABS: Internal QC Validated? YES +Cl - CLEAR BKGD; Red Blood Cells-Urine 10-25 SEEN /hpf (0-5); Squamous Epithelial Cells - UA 0-5 SEEN /hpf (5-10)
[2025-05-08 12:19] LABS: Pregnancy, Urine Negative Negative; Record Kit Lot#,Urine Preg 980607
[2025-05-08 12:35] VITALS: BP 127/73; PULSE 66; RESP 15; O2SAT 99
[2025-05-08 13:59] VITALS: BP 121/70; PULSE 64; RESP 15; TEMP 36.8; O2SAT 99
== END 2025-05-08 13:59 | disposition home or self-care (01) ==
PROVIDERS: Emergency Provider Student in an Organized Health Care Education/Training Program; Visit Provider Student in an Organized Health Care Education/Training Program
DX: N93.9 Abnormal uterine and vaginal bleeding, unspecified (principal); N83.291 Other ovarian cyst, right side; F17.210 Nicotine dependence, cigarettes, uncomplicated; Z79.899 Other long term (current) drug therapy
CPT/HCPCS: 76830; 80053; 81001; 81025; 85025; 85610; 85730; 86850; 86900; 86901; 96374; 99283; A4216